=== PATIENT | male | born 1940 | race Asian ===

== ENCOUNTER 2019-03-26 17:25 | Inpatient (IN) | payer MEDICARE ==
[~2019-03-26] VITALS: Ht 177.8 cm; Wt 60.8 kg
--- NOTE | 2019-03-26 19:30 | NUR ---
NURSE NOTES: Received report & pt from Isaac of [facility] ambulance. Pt admitted from [facility]. Pt a&ox4, in room air, no s/s of acute distress & no c/o pain at this time. Skin assessed together with charge nurse Yahaira. Skin intact with optifoam on sacral area for precaution. IV site intact. Oriented pt to hospital facility. Pt belongings signed & accounted for. Bed in lowest position, call light within reach. Will continue to monitor. Addendum: 03/26/19 at 2243 by May Kovacs RN @ 1940 Called & left msg to Dr. Herman for admisison orders. aware of pt's WBC in [facility] 24.8 with no new orders.
[2019-03-26 20:00] VITALS: BP 109/54
[2019-03-26] MEDS ORDERED: IRON325 M1 PO (21:45)
[2019-03-26] MEDS ORDERED: OMEGA 3 1,0001 EACH PO (21:46)
[2019-03-26] MEDS ORDERED: CALCIUM500 M3 PO (21:46)
[2019-03-26] MEDS ORDERED: HYDROcodone/Acetamin 5/325 tab ORAL PRN (23:30)
--- NOTE | 2019-03-26 23:37 | NUR ---
NURSE NOTES: Swabs collected for MRSA, VRE/CRE screen.
[2019-03-27] VITALS: BP 103/70
[2019-03-27 04:00] VITALS: BP 118/68
[2019-03-27 06:26] LABS: HEMATOCRIT 28.8 % (42.0-52.0); HEMOGLOBIN 9.7 G/DL (14.2-18.0); MEAN CORPUSCULAR VOLUME 92 FL (80-99); PLATELET COUNT 190 K/UL (150-450); RED BLOOD COUNT 3.13 M/UL (4.70-6.10); RED CELL DISTRIBUTION WIDTH 14.8 % (11.6-14.8)
[2019-03-27 06:32] LABS: INR 1.7 (0.9-1.1)
[2019-03-27 06:51] LABS: ALANINE AMINOTRANSFERASE 19 U/L (12-78); ALBUMIN 1.8 G/DL (3.4-5.0); ALBUMIN/GLOBULIN RATIO 0.5 (1.0-2.7); ALKALINE PHOSPHATASE 333 U/L (46-116); ANION GAP 17 mmol/L (5-15); ASPARTATE AMINO TRANSFERASE 21 U/L (15-37); BILIRUBIN,TOTAL 0.7 MG/DL (0.2-1.0); BLOOD UREA NITROGEN 102 mg/dL (7-18); CALCIUM 7.9 MG/DL (8.5-10.1); CARBON DIOXIDE 21 MMOL/L (21-32); CHLORIDE 103 MMOL/L (98-107); CREATININE 3.8 MG/DL (0.55-1.30); PHOSPHORUS 7.2 MG/DL (2.5-4.9); POTASSIUM 4.2 MMOL/L (3.5-5.1); SODIUM 141 MMOL/L (136-145)
--- NOTE | 2019-03-27 07:30 | NUR ---
HAND-OFF: Report given to JOHN Berrios. Rounds done. Pt in stable condition. Addendum: 03/27/19 at 0742 by May Kovacs RN @ [phone] Herman re: Mg level 2.7, BUN 102, WBC 24.2. Awaiting reply. Endorsed to JOHN Berrios & OJHN Mancilla.
[2019-03-27 07:37] LABS: WHITE BLOOD COUNT 24.2 K/UL (4.8-10.8)
[2019-03-27 08:00] VITALS: BP 116/79
[2019-03-27] MEDS ORDERED: Phytonadione 10 mg/mL 1ml amp SUBQ SCH (09:22)
[2019-03-27] MEDS ORDERED: D5 1/2NS 1,000 ML IV SCH ×3 (09:29→14:45)
[2019-03-27] MEDS ORDERED: Nulytely 4L ORAL ONE (09:30)
--- NOTE | 2019-03-27 09:31 | General Progress Note ---
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 - anemia - coagulopathy, improved - Azotemia Recommendations - Clears - GI prep - colonoscopy tomorrow - tumor markers - IVF - follow labs - Oncology opinion Thank you Valerie Greenwood MD Subjective Allergies: Coded Allergies: No Known Allergies (Unverified , 03/26/19) Objective Last 24 Hour Vital Signs Date Time Temp Pulse Resp B/P (MAP) Pulse Ox O2 Delivery O2 Flow Rate FiO2 03/27/19 08:00 96.1 102 20 116/79 (91) 98 03/27/19 04:00 97.5 94 18 118/68 (85) 99 03/27/19 00:00 98.8 83 18 103/70 (81) 97 03/26/19 21:31 Room Air 03/26/19 20:00 98.0 96 18 109/54 (72) 99 Intake and Output 03/26/19 03/27/19 19:00 07:00 # Voids 1 # Bowel Movements 1 Laboratory Tests 03/27/19 05:20: White Blood Count 24.2*H, Red Blood Count 3.13L, Hemoglobin 9.7L, Hematocrit 28.8L, Mean Corpuscular Volume 92, Mean Corpuscular Hemoglobin 31.0, Mean Corpuscular Hemoglobin Concent 33.7, Red Cell Distribution Width 14.8, Platelet Count 190, Mean Platelet Volume 6.8, Neutrophils (%) (Auto) , Lymphocytes (%) ( Auto) , Monocytes (%) (Auto) , Eosinophils (%) (Auto) , Basophils (%) (Auto) , Differential Total Cells Counted 100, Neutrophils % (Manual) 90H, Lymphocytes % (Manual) 1L, Monocytes % (Manual) 9, Eosinophils % (Manual) 0, Basophils % ( Manual) 0, Band Neutrophils 0, Platelet Estimate Adequate, Platelet Morphology Normal, Prothrombin Time 17.6H, Prothromb Time International Ratio 1.7H, Activated Partial Thromboplast Time 42H, Sodium Level 141, Potassium Level 4.2, Chloride Level 103, Carbon Dioxide Level 21, Anion Gap 17H, Blood Urea Nitrogen 102H, Creatinine 3.8H, Estimat Glomerular Filtration Rate , Glucose Level 149H, Calcium Level 7.9L, Phosphorus Level 7.2H, Magnesium Level 2.7H, Total Bilirubin 0.7, Aspartate Amino Transf (AST/SGOT) 21, Alanine Aminotransferase ( ALT/SGPT) 19, Alkaline Phosphatase 333H, Total Protein 5.7L, Albumin 1.8L, Globulin 3.9, Albumin/Globulin Ratio 0.5L Height (Feet): 5 Height (Inches): 10.00 Weight (Pounds): 134 Valerie Greenwood MD Mar 27, 2019 09:31
--- NOTE | 2019-03-27 09:46 | NUR ---
NURSE NOTES: Patient alert, awake x4, on room air, no sing of distress and shortness of breath; no sing of chest pain; IV Left-Hand 20G flushes well; patient on clear liquid diet, no caffiene, no chocolate; will get consent for Colonoscopy; patient ambulates with assist; SCD on; side rails up x2, breaks engaged, bed at lowest position; call light within reach; will keep monitoring.
[2019-03-27] MEDS ORDERED: Nulytely 4L ORAL SCH (10:00)
[2019-03-27] MEDS ORDERED: Isovue-300 100ml vial INJ PRN (10:30)
--- NOTE | 2019-03-27 10:52 | Consultation ---
History of Present Illness General Date patient seen: Mar 27, 2019 Reason for Consultation: Inpatient management Present Illness HPI 78 year old male with no PMHx presented to [facility] on 03/25 with CC of abdominal pain. Initial evaluation including CT of abdomen revealed that pt has 6.3 cm cecal mass with large ascites, omental implants and diffuse hepatic metastasis, with left lingula metastasis. [place] [facility]. Allergies: Coded Allergies: No Known Allergies (Unverified , 03/26/19) Medication History Scheduled Calcium Carbonate (Calcium), Unknown Dose PO DAILY, (Reported) Ferrous Sulfate (Iron), 325 MG PO BID, (Reported) [place]-3 Fatty Acids/Fish Oil ([place] 3 1,000 Mg Softgel), Unknown Dose PO DAILY, (Reported) Patient History Healthcare decision maker N Resuscitation status Full Code Advanced Directive on File Past Medical/Surgical History Past Medical/Surgical History: (1) No significant past medical history Review of Systems Constitutional: Reports: malaise, weakness Gastrointestinal: Reports: abdominal pain All Other Systems: negative except mentioned in HPI Physical Exam General Appearance: cachetic, thin Lines, tubes and drains: peripheral HEENT: normocephalic, atraumatic Neck: non-tender, normal alignment Respiratory/Chest: chest wall non-tender, lungs clear Breasts: no masses Cardiovascular/Chest: normal rate Abdomen: normal bowel sounds Genitourinary/Rectal: normal genital exam Extremities: normal range of motion 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 Last 24 Hour Vital Signs Date Time Temp Pulse Resp B/P (MAP) Pulse Ox O2 Delivery O2 Flow Rate FiO2 03/27/19 08:00 96.1 102 20 116/79 (91) 98 03/27/19 04:00 97.5 94 18 118/68 (85) 99 03/27/19 00:00 98.8 83 18 103/70 (81) 97 03/26/19 21:31 Room Air 03/26/19 20:00 98.0 96 18 109/54 (72) 99 Intake and Output 03/26/19 03/27/19 19:00 07:00 # Voids 1 # Bowel Movements 1 Laboratory Tests Test 03/27/19 05:20 White Blood Count 24.2 K/UL (4.8-10.8) *H Red Blood Count 3.13 M/UL (4.70-6.10) L Hemoglobin 9.7 G/DL (14.2-18.0) L Hematocrit 28.8 % (42.0-52.0) L Mean Corpuscular Volume 92 FL (80-99) Mean Corpuscular Hemoglobin 31.0 PG (27.0-31.0) Mean Corpuscular Hemoglobin Concent 33.7 G/DL (32.0-36.0) Red Cell Distribution Width 14.8 % (11.6-14.8) Platelet Count 190 K/UL (150-450) Mean Platelet Volume 6.8 FL (6.5-10.1) Neutrophils (%) (Auto) % (45.0-75.0) Lymphocytes (%) (Auto) % (20.0-45.0) Monocytes (%) (Auto) % (1.0-10.0) Eosinophils (%) (Auto) % (0.0-3.0) Basophils (%) (Auto) % (0.0-2.0) Differential Total Cells Counted 100 Neutrophils % (Manual) 90 % (45-75) H Lymphocytes % (Manual) 1 % (20-45) L Monocytes % (Manual) 9 % (1-10) Eosinophils % (Manual) 0 % (0-3) Basophils % (Manual) 0 % (0-2) Band Neutrophils 0 % (0-8) Platelet Estimate Adequate Platelet Morphology Normal Prothrombin Time 17.6 SEC (9.30-11.50) H Prothromb Time International Ratio 1.7 (0.9-1.1) H Activated Partial Thromboplast Time 42 SEC (23-33) H Sodium Level 141 MMOL/L (136-145) Potassium Level 4.2 MMOL/L (3.5-5.1) Chloride Level 103 MMOL/L (98-107) Carbon Dioxide Level 21 MMOL/L (21-32) Anion Gap 17 mmol/L (5-15) H Blood Urea Nitrogen 102 mg/dL (7-18) H Creatinine 3.8 MG/DL (0.55-1.30) H Estimat Glomerular Filtration Rate mL/min (>60) Glucose Level 149 MG/DL (74-106) H Calcium Level 7.9 MG/DL (8.5-10.1) L Phosphorus Level 7.2 MG/DL (2.5-4.9) H Magnesium Level 2.7 MG/DL (1.8-2.4) H Total Bilirubin 0.7 MG/DL (0.2-1.0) Aspartate Amino Transf (AST/SGOT) 21 U/L (15-37) Alanine Aminotransferase (ALT/SGPT) 19 U/L (12-78) Alkaline Phosphatase 333 U/L (46-116) H Total Protein 5.7 G/DL (6.4-8.2) L Albumin 1.8 G/DL (3.4-5.0) L Globulin 3.9 g/dL Albumin/Globulin Ratio 0.5 (1.0-2.7) L Microbiology Date/Time Source Procedure Growth Status 03/26/19 23:30 Rectum Received Height (Feet): 5 Height (Inches): 10.00 Weight (Pounds): 134 Medications Current Medications Medications (Trade) Dose Ordered Sig/Madelyn Route PRN Reason Start Time Stop Time Status Last Admin Dose Admin Acetaminophen (Tylenol) 650 mg Q6H PRN ORAL Mild Pain/Temp > 100.5 03/26/19 23:30 04/25/19 23:29 Acetaminophen/ Hydrocodone Bitart ([place] 5/325) 1 tab Q6H PRN ORAL Severe Pain (Pain Scale 7-10) 03/26/19 23:30 04/02/19 23:29 Barium Sulfate (Readi-Cat 2) 450 ml NOW PRN ORAL Radiology Procedure 03/27/19 10:30 03/29/19 10:22 Dextrose/Sodium Chloride 1,000 ml @ 125 mls/hr Q8H IV 03/27/19 09:29 04/26/19 09:28 03/27/19 09:35 Iopamidol (Isovue-300 100ml) 100 ml NOW PRN INJ Radiology Procedure 03/27/19 10:30 03/29/19 10:29 Phytonadione (Vitamin K) 10 mg ONCE SUBQ 03/27/19 09:22 03/27/19 11:00 03/27/19 09:35 Polyethylene Glycol/ Electrolytes (Nulytely) 4,000 ml ONCE ORAL 03/27/19 10:00 03/27/19 23:59 Assessment/Plan Problem List: (1) Colon cancer metastasized to liver ICD Codes: C18.9 - Malignant neoplasm of colon, unspecified; C78.7 - Secondary malignant neoplasm of liver and intrahepatic bile duct SNOMED: 81128650, 892005870, 224140086 (2) Sepsis ICD Codes: A41.9 - Sepsis, unspecified organism SNOMED: 09451646 (3) Coagulopathy ICD Codes: D68.9 - Coagulation defect, unspecified SNOMED: 10465517 (4) ATN (acute tubular necrosis) ICD Codes: N17.0 - Acute kidney failure with tubular necrosis SNOMED: 30215804 (5) Severe protein-calorie malnutrition ICD Codes: E43 - Unspecified severe protein-calorie malnutrition SNOMED: 050028894, 793024438, 469721435 (6) No significant past medical history SNOMED: 515455456 Assessment/Plan: vu culture, pt might have bacteremia because of colon cancer ID evaluation Vitamin K to correct the coagulopathy IV fluid Renal US Urine electrolytes DVT prophylaxis, with SCD because of coagulopathy Ilan Fuller MD Mar 27, 2019 10:52
[2019-03-27 10:54] LABS: CREATINE KINASE 213 U/L (26-308)
--- NOTE | 2019-03-27 11:03 | NUR ---
NURSE NOTES: Patient's BUN 102 and Creat 3.8, there is an order for CT Abdomen/Pelvic w/contrast. I communicated the matter to MD Fuller, waiting for an order. Also lab did PT and PTT this moring. I asked MD Fuller, if wanna repeat the order.
[2019-03-27 11:06] LABS: LACTATE DEHYDROGENASE 347 U/L (81-234)
--- NOTE | 2019-03-27 11:44 | NUR ---
CASE MANAGEMENT: INITIAL REVIEW 78 YO M DIRECT ADMIT FROM [place] CC: ABD PAIN PMHx: DENIES SI:COLON CA W/ METS TO LIVER T 98 HR 96 RR 18 B/P 109/54 SATS 99% ON RA WBC 24.2 BUN 102 CR 3.8 GLU 149 URIC ACID 18.5 CA 7.9 PHOS 7.2 MG 2.7 ALP 333 LACTATE 347 IS: CT of abdomen revealed that pt has 6.3 cm cecal mass with large ascites, omental implants and diffuse hepatic metastasis, with left lingula metastasis. IVF @ 125 mL/HR CEFEPIME IV Q24H PATIENT ADMITTED TO MED/SURG 03/26/2019 @ 2330 DCP: PATIENT TO BE DISCHARGED TO HOME ONCE MEDICALLY CLEARED. PLAN OF CARE: GI CONSULT>> COLONOSCOPY ONCOLOGY CONSULT LAB: [facility] 2D ECHO Addendum: 03/28/19 at 0911 by Olga Watkins CM INTERQUAL MET
[2019-03-27 12:00] VITALS: BP 120/76
[2019-03-27 12:07] LABS: % IRON SATURATION 25 % (15-50); IRON 35 ug/dL (50-175); TOTAL IRON BINDING CAPACITY 139 ug/dL (250-450)
--- NOTE | 2019-03-27 12:09 | Diagnostic Imaging Report ---
Indication: Abnormal Bun and Creatinine. Abdominal pain. History of colon CA metastatic to the liver. Technique: Grayscale and duplex Doppler imaging of the kidneys performed. Comparison: None Findings: The size, contour, and echogenicity of both kidneys are within normal limits. There is no hydronephrosis.. The right kidney measures 9.8 cm. in length. The left kidney measures 10.3 cm. in length. The IVC is patent. The urinary bladder is markedly distended with an estimated volume of about 1000 cc. There is a Horn catheter present but the catheter and balloon are not visualized sonographically. There are position remains unknown. This despite the bladder distention, there is no hydronephrosis. There is a moderate degree of ascites present. The ascites is notable for heterogeneous echogenic foci which may be debris or reflective of metastatic disease. In addition at the dome of the urinary bladder there appears to be disruption of the wall, which is suspicious for intraperitoneal bladder rupture. IMPRESSION: Suspected intraperitoneal bladder rupture at the dome of the urinary bladder, which is markedly distended. Given the history of peritoneal carcinomatosis, this may be due to tumor implantation and subsequent invasion of the bladder wall. Further evaluation with contrast CT may be of benefit. Moderate heterogeneous complex ascites presumably on the basis of carcinomatosis and/or peritonitis. Unremarkable evaluation of the kidneys. No hydronephrosis. Position of the Horn catheter not elucidated on the basis of the study. Critical value communication. Findings were discussed via telephone with Dr. Pérez @12:00 PM, 03/27/2019.
--- NOTE | 2019-03-27 12:09 | NUR ---
NURSE NOTES: I spoke to MD Fuller, no need to repeat PT and PTT.
--- NOTE | 2019-03-27 12:51 | History & Physical ---
History and Physical History & Physicial Dictated for Int Med-Dr Herman no. [id number]. Kashif Ponce MD Mar 27, 2019 12:51
--- NOTE | 2019-03-27 13:33 | Consultation ---
History of Present Illness General Date patient seen: Mar 27, 2019 Reason for Consultation: Inpatient management Present Illness HPI 78 y/o M with no prior medical history is transferred from [facility] to [place] on 03/[address] abd showed 6.3 cm cecal mass with large ascites, omental implants, diffuse hepatic metastasis and L lingula metastasis. Allergies: Coded Allergies: No Known Allergies (Unverified , 03/26/19) Medication History Scheduled Calcium Carbonate (Calcium), Unknown Dose PO DAILY, (Reported) Ferrous Sulfate (Iron), 325 MG PO BID, (Reported) [place]-3 Fatty Acids/Fish Oil ([place] 3 1,000 Mg Softgel), Unknown Dose PO DAILY, (Reported) Patient History Healthcare decision maker N Resuscitation status Full Code Advanced Directive on File Patient History Narrative Pmhx: as above Shx: reviewed Fhx: non contributory Physical Exam Physical Exam Narrative General Appearance: cachetic, thin Lines, tubes and drains: peripheral HEENT: normocephalic, atraumatic Neck: non-tender, normal alignment Respiratory/Chest: chest wall non-tender, lungs clear Breasts: no masses Cardiovascular/Chest: normal rate Abdomen: normal bowel sounds Genitourinary/Rectal: normal genital exam Extremities: normal range of motion 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8 % (42.0-52.0) L Mean Corpuscular Volume 92 FL (80-99) Mean Corpuscular Hemoglobin 31.0 PG (27.0-31.0) Mean Corpuscular Hemoglobin Concent 33.7 G/DL (32.0-36.0) Red Cell Distribution Width 14.8 % (11.6-14.8) Platelet Count 190 K/UL (150-450) Mean Platelet Volume 6.8 FL (6.5-10.1) Neutrophils (%) (Auto) % (45.0-75.0) Lymphocytes (%) (Auto) % (20.0-45.0) Monocytes (%) (Auto) % (1.0-10.0) Eosinophils (%) (Auto) % (0.0-3.0) Basophils (%) (Auto) % (0.0-2.0) Differential Total Cells Counted 100 Neutrophils % (Manual) 90 % (45-75) H Lymphocytes % (Manual) 1 % (20-45) L Monocytes % (Manual) 9 % (1-10) Eosinophils % (Manual) 0 % (0-3) Basophils % (Manual) 0 % (0-2) Band Neutrophils 0 % (0-8) Platelet Estimate Adequate Platelet Morphology Normal Erythrocyte Sedimentation Rate 120 MM/HR (0-20) H Reticulocyte Count 1.9 % (0.5-2.0) Prothrombin Time 17.6 SEC (9.30-11.50) H Prothromb Time International Ratio 1.7 (0.9-1.1) H Activated Partial Thromboplast Time 42 SEC (23-33) H Sodium Level 141 MMOL/L (136-145) Potassium Level 4.2 MMOL/L (3.5-5.1) Chloride Level 103 MMOL/L (98-107) Carbon Dioxide Level 21 MMOL/L (21-32) Anion Gap 17 mmol/L (5-15) H Blood Urea Nitrogen 102 mg/dL (7-18) H Creatinine 3.8 MG/DL (0.55-1.30) H Estimat Glomerular Filtration Rate mL/min (>60) Glucose Level 149 MG/DL (74-106) H Uric Acid 18.5 MG/DL (2.6-7.2) H Calcium Level 7.9 MG/DL (8.5-10.1) L Phosphorus Level 7.2 MG/DL (2.5-4.9) H Magnesium Level 2.7 MG/DL (1.8-2.4) H Iron Level 35 ug/dL (50-175) L Total Iron Binding Capacity 139 ug/dL (250-450) L Percent Iron Saturation 25 % (15-50) Unsaturated Iron Binding 104 ug/dL (112-346) L Total Bilirubin 0.7 MG/DL (0.2-1.0) Aspartate Amino Transf (AST/SGOT) 21 U/L (15-37) Alanine Aminotransferase (ALT/SGPT) 19 U/L (12-78) Alkaline Phosphatase 333 U/L (46-116) H Lactate Dehydrogenase 347 U/L (81-234) H Total Creatine Kinase 213 U/L (26-308) Total Protein 5.7 G/DL (6.4-8.2) L Albumin 1.8 G/DL (3.4-5.0) L Globulin 3.9 g/dL Albumin/Globulin Ratio 0.5 (1.0-2.7) L Carcinoembryonic Antigen Pending Vitamin B12 Level > 2000 PG/ML (193-986) H Folate 16.0 NG/ML (8.6-58.9) Microbiology Date/Time Source Procedure Growth Status 03/26/19 23:30 Rectum Received Height (Feet): 5 Height (Inches): 10.00 Weight (Pounds): 134 Medications Current Medications Medications (Trade) Dose Ordered Sig/Madelyn Route PRN Reason Start Time Stop Time Status Last Admin Dose Admin Acetaminophen (Tylenol) 650 mg Q6H PRN ORAL Mild Pain/Temp > 100.5 03/26/19 23:30 04/25/19 23:29 Acetaminophen/ Hydrocodone Bitart ([place] 5/325) 1 tab Q6H PRN ORAL Severe Pain (Pain Scale 7-10) 03/26/19 23:30 04/02/19 23:29 Barium Sulfate (Readi-Cat 2) 450 ml NOW PRN ORAL Radiology Procedure 03/27/19 10:30 03/29/19 10:22 Cefepime HCl 1 gm/ Dextrose 55 ml @ 110 mls/hr Q24H IVPB 03/27/19 14:00 04/03/19 13:59 Dextrose/Sodium Chloride 1,000 ml @ 125 mls/hr Q8H IV 03/27/19 09:29 04/26/19 09:28 03/27/19 09:35 Iopamidol (Isovue-300 100ml) 100 ml NOW PRN INJ Radiology Procedure 03/27/19 10:30 03/29/19 10:29 Polyethylene Glycol/ Electrolytes (Nulytely) 4,000 ml ONCE ORAL 03/27/19 10:00 03/27/19 23:59 03/27/19 11:11 Assessment/Plan Assessment/Plan: Abx: Cefepime 03/27- Assessment: ?Rupture bladder Afebrile Leukocytosis -Renal US: Suspected intraperitoneal bladder rupture at the dome of the urinary bladder, which is markedly distended. Given the history of peritoneal carcinomatosis, this may be due to tumor implantation and subsequent invasion of the bladder wall. Further evaluation with contrast CT may be of benefit.Moderate heterogeneous complex ascites presumably on the basis of carcinomatosis and/or peritonitis. Unremarkable evaluation of the kidneys. No hydronephrosis. Position of the Horn catheter not elucidated on the basis of the study. Metastatic CA, likely primary Colon CA -CT abd/p (at [place]): 6.3 cm cecal mass with large ascites, omental implants , diffuse hepatic metastasis and L lingula metastasis. Plan: -Continue empiric Cefepime #1 pending cultures and given possible bladder rupture -f/u cx -Monitor CBC/CMP, temperatures -Sx f/u -Heme onc eval -aspiration precautions Thank you for this consultation. Will continue to follow along with you. Discussed with Caroline Phillips M.D. Mar 27, 2019 13:33
[2019-03-27] MEDS ORDERED: Cefepime HCl 1 GM in D5W 55 ML IVPB SCH (14:00)
--- NOTE | 2019-03-27 14:00 | NUR ---
NURSE NOTES: Called Dr. Campo Re urology consult. per urology cart placed in pt's room. stated that he will be here between 6-8pm. I will f/u as needed.
--- NOTE | 2019-03-27 14:42 | Consultation ---
History of Present Illness General Date patient seen: Mar 27, 2019 Present Illness HPI This is a 78-year-old male with history of metastatic colon cancer who is initially at [facility] and transferred to [facility] for remainder of care. Patient presented to [place] complaining of abdominal pain. At [place] he was identified to have a leukocytosis, abdominal distention, abdominal discomfort, and a CT scan with a cecal mass and diffuse metastatic disease throughout the liver and lymph nodes. Surgery was called to evaluate and assist with care. Patient seen, patient [place], chart reviewed. Patient with leukocytosis 24,000. Abnormal labs. Renal insufficiency. Ultrasound identified possible questionable bladder rupture. Patient states that he is comfortable but has cramping abdominal discomfort. He is aware of his disease process and prognosis. States he is tolerating diet and having bowel movements. Allergies: Coded Allergies: No Known Allergies (Unverified , 03/26/19) Medication History Scheduled Calcium Carbonate (Calcium), Unknown Dose PO DAILY, (Reported) Ferrous Sulfate (Iron), 325 MG PO BID, (Reported) Neosho-3 Fatty Acids/Fish Oil ([place]ho 3 1,000 Mg Softgel), Unknown Dose PO DAILY, (Reported) Patient History History Provided By: Patient, Medical Record, PMD Healthcare decision maker N Resuscitation status Full Code Advanced Directive on File Past Medical/Surgical History Past Medical/Surgical History: (1) No significant past medical history (2) Coagulopathy (3) ATN (acute tubular necrosis) (4) Severe protein-calorie malnutrition (5) Sepsis (6) Colon cancer metastasized to liver (7) Renal failure Review of Systems Review of Symptoms General ROS: no weight loss or fever Psychological ROS: no depression or mood changes, no memory loss Ophthalmic ROS: no visual changes or eye irritation ENT ROS: no nasal congestion, hearing loss, dizziness Allergy and Immunology ROS: no allergic symptoms or urticaria Hematological and Lymphatic ROS: no swollen glands, unusual bleeding or bruising Endocrine ROS: no polyuria, polydipsia, weight changes, temperature intolerance Respiratory ROS: no cough, shortness of breath, or wheezing Cardiovascular ROS: no chest pain or dyspnea on exertion Gastrointestinal ROS: abdominal pain, no bright red blood in stool. Musculoskeletal ROS: no myalgias or arthralgias Neurological ROS: no TIA or stroke symptoms Dermatological ROS: no new or changing skin lesions, rashes or pruritis Physical Exam Physical Exam General appearance: alert, cooperative, no distress, appears stated age Head: Normocephalic, without obvious abnormality, atraumatic Eyes: conjunctivae/corneas clear. PERRL, EOM's intact. Fundi benign Throat: Lips, mucosa, and tongue normal. Teeth and gums normal Neck: supple, symmetrical, trachea midline, no adenopathy, thyroid: not enlarged, symmetric, no tenderness/mass/nodules, no carotid bruit and no JVD Lungs: clear to auscultation bilaterally Heart: regular rate and rhythm, S1, S2 normal, no murmur, click, rub or gallop Abdomen: soft, mild-tender, distended . Bowel sounds normal. masses, no organomegaly Extremities: extremities normal, atraumatic, no cyanosis or edema Pulses: 2+ and symmetric Skin: Skin color, texture, turgor normal. No rashes or lesions Neurologic: Grossly normal Last 24 Hour Vital Signs Date Time Temp Pulse Resp B/P (MAP) Pulse Ox O2 Delivery O2 Flow Rate FiO2 03/27/19 12:00 97.9 81 20 120/76 (91) 95 03/27/19 09:00 Room Air 03/27/19 08:00 96.1 102 20 116/79 (91) 98 03/27/19 04:00 97.5 94 18 118/68 (85) 99 03/27/19 00:00 98.8 83 18 103/70 (81) 97 03/26/19 21:31 Room Air 03/26/19 20:00 98.0 96 18 109/54 (72) 99 Intake and Output 03/26/19 03/27/19 19:00 07:00 # Voids 1 # Bowel Movements 1 Laboratory Tests Test 03/27/19 05:20 03/27/19 12:14 White Blood Count 24.2 K/UL (4.8-10.8) *H Red Blood Count 3.13 M/UL (4.70-6.10) L Hemoglobin 9.7 G/DL (14.2-18.0) L Hematocrit 28.8 % (42.0-52.0) L Mean Corpuscular Volume 92 FL (80-99) Mean Corpuscular Hemoglobin 31.0 PG (27.0-31.0) Mean Corpuscular Hemoglobin Concent 33.7 G/DL (32.0-36.0) Red Cell Distribution Width 14.8 % (11.6-14.8) Platelet Count 190 K/UL (150-450) Mean Platelet Volume 6.8 FL (6.5-10.1) Neutrophils (%) (Auto) % (45.0-75.0) Lymphocytes (%) (Auto) % (20.0-45.0) Monocytes (%) (Auto) % (1.0-10.0) Eosinophils (%) (Auto) % (0.0-3.0) Basophils (%) (Auto) % (0.0-2.0) Differential Total Cells Counted 100 Neutrophils % (Manual) 90 % (45-75) H Lymphocytes % (Manual) 1 % (20-45) L Monocytes % (Manual) 9 % (1-10) Eosinophils % (Manual) 0 % (0-3) Basophils % (Manual) 0 % (0-2) Band Neutrophils 0 % (0-8) Platelet Estimate Adequate Platelet Morphology Normal Erythrocyte Sedimentation Rate 120 MM/HR (0-20) H Reticulocyte Count 1.9 % (0.5-2.0) Prothrombin Time 17.6 SEC (9.30-11.50) H Prothromb Time International Ratio 1.7 (0.9-1.1) H Activated Partial Thromboplast Time 42 SEC (23-33) H Sodium Level 141 MMOL/L (136-145) Potassium Level 4.2 MMOL/L (3.5-5.1) Chloride Level 103 MMOL/L (98-107) Carbon Dioxide Level 21 MMOL/L (21-32) Anion Gap 17 mmol/L (5-15) H Blood Urea Nitrogen 102 mg/dL (7-18) H Creatinine 3.8 MG/DL (0.55-1.30) H Estimat Glomerular Filtration Rate mL/min (>60) Glucose Level 149 MG/DL (74-106) H Uric Acid 18.5 MG/DL (2.6-7.2) H Calcium Level 7.9 MG/DL (8.5-10.1) L Phosphorus Level 7.2 MG/DL (2.5-4.9) H Magnesium Level 2.7 MG/DL (1.8-2.4) H Iron Level 35 ug/dL (50-175) L Total Iron Binding Capacity 139 ug/dL (250-450) L Percent Iron Saturation 25 % (15-50) Unsaturated Iron Binding 104 ug/dL (112-346) L Total Bilirubin 0.7 MG/DL (0.2-1.0) Aspartate Amino Transf (AST/SGOT) 21 U/L (15-37) Alanine Aminotransferase (ALT/SGPT) 19 U/L (12-78) Alkaline Phosphatase 333 U/L (46-116) H Lactate Dehydrogenase 347 U/L (81-234) H Total Creatine Kinase 213 U/L (26-308) Total Protein 5.7 G/DL (6.4-8.2) L Albumin 1.8 G/DL (3.4-5.0) L Globulin 3.9 g/dL Albumin/Globulin Ratio 0.5 (1.0-2.7) L Carcinoembryonic Antigen Pending Vitamin B12 Level > 2000 PG/ML (193-986) H Folate 16.0 NG/ML (8.6-58.9) Urine Color Pending Urine Appearance Pending Urine pH Pending Urine Specific Edwards Pending Urine Protein Pending Urine Glucose (UA) Pending Urine Ketones Pending Urine Blood Pending Urine Nitrite Pending Urine Bilirubin Pending Urine Urobilinogen Pending Urine Leukocyte Esterase Pending Urine RBC Pending Urine WBC Pending Urine Squamous Epithelial Cells Pending Urine Bacteria Pending Microbiology Date/Time Source Procedure Growth Status 03/26/19 23:30 Rectum Received Height (Feet): 5 Height (Inches): 10.00 Weight (Pounds): 134 Medications Current Medications Medications (Trade) Dose Ordered Sig/Madelyn Route PRN Reason Start Time Stop Time Status Last Admin Dose Admin Acetaminophen (Tylenol) 650 mg Q6H PRN ORAL Mild Pain/Temp > 100.5 03/26/19 23:30 04/25/19 23:29 Acetaminophen/ Hydrocodone Bitart ([place] 5/325) 1 tab Q6H PRN ORAL Severe Pain (Pain Scale 7-10) 03/26/19 23:30 04/02/19 23:29 Barium Sulfate (Readi-Cat 2) 450 ml NOW PRN ORAL Radiology Procedure 03/27/19 10:30 03/29/19 10:22 Barium Sulfate (Readi-Cat 2) 450 ml NOW PRN ORAL Radiology Procedure 03/27/19 14:00 03/29/19 13:58 Cefepime HCl 1 gm/ Dextrose 55 ml @ 110 mls/hr Q24H IVPB 03/27/19 14:00 04/03/19 13:59 Dextrose/Sodium Chloride 1,000 ml @ 125 mls/hr Q8H IV 03/27/19 09:29 04/26/19 09:28 03/27/19 09:35 Iopamidol (Isovue-300 100ml) 100 ml NOW PRN INJ Radiology Procedure 03/27/19 10:30 03/29/19 10:29 Polyethylene Glycol/ Electrolytes (Nulytely) 4,000 ml ONCE ORAL 03/27/19 10:00 03/27/19 23:59 03/27/19 11:11 Assessment/Plan Problem List: (1) Sepsis Assessment & Plan: This is a very unfortunate 78-year-old male with metastatic advanced colorectal cancer with mets of the lymph nodes and liver. Patient presented with leukocytosis and abdominal discomfort. 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 Patient currently stating he is tolerating diet and having bowel movements. Abdomen complaining of abdominal discomfort but no nausea or emesis. No fever chills. No acute surgical intervention recommended at this time given patient's medical condition and prognosis. 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 Ultrasound noted and will obtain a CT here to ensure that there is no bladder rupture potentially. Thank you for this consultation we will follow with recommendations Okay for diet from surgical standpoint ICD Codes: A41.9 - Sepsis, unspecified organism SNOMED: 44037427 (2) Colon cancer metastasized to liver ICD Codes: C18.9 - Malignant neoplasm of colon, unspecified; C78.7 - Secondary malignant neoplasm of liver and intrahepatic bile duct SNOMED: 54158346, 293269038, [id number] (3) Severe protein-calorie malnutrition ICD Codes: E43 - Unspecified severe protein-calorie malnutrition SNOMED: 017317480, [id number], [id number] Harmeet Pérez Mar 27, 2019 14:42
--- NOTE | 2019-03-27 14:49 | Consultation ---
Consult Note Consult Note asked to eval for renal failure- 78 y/o M with no prior medical history is transferred from [facility] to [place] on 03/[address] abd showed 6.3 cm cecal mass with large ascites, omental implants, diffuse hepatic metastasis and L lingula metastasis. examined weak low bp has ascitis discussed with RN data reviewed Assessment/Plan Acute renal failure- Mainly Pre renal Colon Ca with mets to liver Ascitis , likely malignant Sepsis , Leukocytosis Severe Malnutrition poor prognosis antibiotics Horn: 200 cc urine Fluid challenge Monitor renal parameters and urine out pot per orders Cristian Salgado MD Mar 27, 2019 14:49
[2019-03-27 14:50] LABS: APPEARANCE,URINE CLEAR; BILIRUBIN, URINE NEGATIVE (NEGATIVE); GLUCOSE, URINE (UA) NEGATIVE (NEGATIVE); KETONES,URINE 1+ (NEGATIVE); LEUKOCYTE ESTERASE ,URINE 1+ (NEGATIVE); NITRITE,URINE NEGATIVE (NEGATIVE); PH,URINE 5 (4.5-8.0); PROTEIN,URINE 1+ (NEGATIVE); UROBILINOGEN,URINE NORMAL MG/DL (0.0-1.0)
[2019-03-27 14:56] LABS: COLOR,URINE YELLOW
--- NOTE | 2019-03-27 15:09 | NUR ---
NURSE NOTES: Patient left the floor for CT ABD Pelvis WO Contrast;
--- NOTE | 2019-03-27 15:30 | NUR ---
NURSE NOTES: Patient back to the floor from CT ABD.
[2019-03-27 16:00] VITALS: BP 119/73
--- NOTE | 2019-03-27 16:06 | Diagnostic Imaging Report ---
Indication: Abdominal pain and distention Technique: Continuous helical transaxial imaging of the abdomen and pelvis was obtained from the lung bases to the pubic symphysis. No intravenous contrast was administered. Coronal 2-D reformats were also obtained. Automatic Exposure Control was utilized. Total Dose length Product (DLP): 749.[address] Dose Index Volume (CTDIvol): 12.77 mGy Comparison: Renal ultrasound earlier today Findings: There is moderate to large ascites which appears patchy and heterogeneous. Findings are suspicious for carcinomatosis. This is corroborated with the areas of nodular and reticular densities within the mesentery and omentum. The recent ultrasound exam had suggested possibility of a distended urinary bladder with perforation at the dome. This is incorrect as CT shows a nondistended bladder compressed by large pelvic ascites likely related to tumor and carcinomatosis. There is no Horn catheter present. There is suggestion of a filling defect with resultant distention of the cecum. Colonoscopic correlation is needed. There is some contrast material outlining the mass. The liver is heterogeneous with areas of low attenuation that are ill-defined consistent with extensive metastatic disease. There is suggestion of gallstones versus sludge in the dependent part of the gallbladder. The kidneys show no hydronephrosis. Aorta is mildly calcified. There is generalized bowel dilatation and some wall thickening without evidence of obstruction. Anasarca noted. There is liquefied stool in the colon and within the rectum. Correlate clinically for diarrhea. Trace bilateral pleural effusions are present. There is a 1 cm nodule in the anterior left lung base as well as a few additional nodules bilaterally consistent with metastatic neoplasm. IMPRESSION: No evidence of bladder perforation. The bladder is decompressed. Ultrasound imaging of what appear to be a distended ruptured bladder is actually an area of loculated ascites, probably complex cystic mass associated with carcinomatosis. Evidence of peritoneal carcinomatosis as described above. Evidence of metastatic neoplasm involving the liver and lung as described above. Suggestion of a cecal mass, likely adenocarcinoma. Correlate with previous colonoscopy and/or histology results. Anasarca Atherosclerotic vascular disease. Liquefied stool in the colon. Correlate for diarrhea and enteritis/colitis. Trace bilateral pleural effusions. Gallstones versus sludge The CT scanner at [facility] is accredited by the [employer] and the scans are performed using dose optimization techniques as appropriate to a performed exam including Automatic Exposure control.
--- NOTE | 2019-03-27 17:02 | NUR ---
NURSE NOTES: I called [facility] [place] office regarding the D51/2NS 150cc fluid and Albumin
--- NOTE | 2019-03-27 17:30 | History and Physical Report ---
DATE OF ADMISSION: 03/26/2019 CHIEF COMPLAINT: The patient is a 78-year-old male, who presents with a chief complaint of abdominal pain and swelling. HISTORY OF PRESENT ILLNESS: Began one month previously. The patient began to have abdominal pain. Abdominal pain seems to be located in the right lower quadrant. The patient saw his primary care physician, who diagnosed him with iron deficiency anemia. The patient has been taking iron for the past month or so. The patient presented initially to [facility] emergency room. The patient had gross ascites. The CT scan of the abdomen revealed a cecal mass with probable metastases to the liver and peritoneum. The patient is admitted. An initial CT scan of the abdomen revealed a cecal mass with probable metastases to the liver and peritoneum. The patient is transferred to [facility] for insurance purposes. The patient is admitted with cecal mass and probable metastases to liver and omentum. REVIEW OF SYSTEMS: CONSTITUTIONAL: The patient denies weight loss or weight gain. The patient denies fevers or chills. HEENT: The patient denies ear or throat pain. The patient denies headache. CARDIOVASCULAR: The patient denies palpitations or chest pain. CHEST: The patient denies wheeze or shortness of breath. ABDOMINAL: The patient complains of right lower quadrant pain as above. The patient complains of generalized swelling of the abdomen. The patient denies nausea, vomiting, diarrhea, or constipation. GENITOURINARY: The patient denies dysuria or increased frequency of urination. NEUROMUSCULAR: The patient denies seizures or generalized weakness. PAST MEDICAL HISTORY: The patient denies. PAST SURGICAL HISTORY: Significant for colonoscopy 3 years previously. CURRENT MEDICATIONS: Iron 325 mg 1 tablet p.o. twice daily. ALLERGIES: No known drug allergies. SOCIAL HISTORY: The patient is single and lives alone. The patient denies tobacco or alcohol use. PHYSICAL EXAMINATION: VITAL SIGNS: Blood pressure 114/46, pulse 91, respirations 11, and temperature 97.4 degrees Fahrenheit. GENERAL: The patient is a thin-appearing male, in no apparent distress. HEENT: Eyes, pupils are equal and responsive to light and accommodation. Extraocular movements are intact. NECK: Supple without lymphadenopathy. CHEST: Lungs are clear to auscultation bilaterally without wheezes or rales. CARDIOVASCULAR: Regular rhythm and rate. S1, S2 are normal without murmurs, rubs, or gallops. ABDOMEN: Soft and grossly distended with decreased bowel sounds. Presence of fluid wave noted. No evidence of hepatosplenomegaly. Currently, no rebound or guarding noted. EXTREMITIES: Negative for clubbing, cyanosis, or edema. RECTAL/GENITAL: Not performed. NEUROLOGIC: Cranial nerves II through XII are grossly intact without focal deficits. Motor strength is 5/5 bilaterally. Deep tendon reflexes are 2+ plantar. LABORATORY STUDIES: WBC 23.6, hemoglobin 10.5, hematocrit 32.0, and platelets 224,000. Sodium 128, potassium 6.1, chloride 88, CO2 22, BUN 89, creatinine 4.21, and glucose 92. Alkaline phosphatase elevated at 277. Total bilirubin elevated at 1.1. Protime elevated, however exact value is not known. A CT scan of the abdomen showed a 6.3 sickle based mass with probable mets to the peritoneum and liver. ASSESSMENT: This is a 78-year-old male. 1. Cecal mass with probable metastases. 2. Ascites. 3. Acute renal failure. 4. Coagulopathy. TREATMENT: 1. Cecal mass with probable mets. A Gastroenterology consultation has been obtained with Dr. Valerie Greenwood. The patient was scheduled for colonoscopy at [facility], however, the patient was transferred due to insurance purposes. We will follow recommendations of Gastroenterology. Biopsy of the cecal mass is necessary to determine presence or absence of metastatic cancer. 2. Ascites as above. A Gastroenterology consultation has been obtained with Dr. Valerie Greenwood. The patient may require paracentesis during this hospitalization. 3. Acute renal failure. Cause of acute renal failure is unknown. A renal ultrasound at [facility] failed to demonstrate hydronephrosis. A Nephrology consultation has been obtained with Dr. Salgado. 4. Coagulopathy. The patient is status post transfusion of 2 units of fresh frozen plasma at [facility]. Serial protimes will be performed. Kashif Ponce M.D. DR: PIERCE JOB#: [id number] CC:
[2019-03-27] MEDS: Docusate 100mg tablet ORAL SCH (17:44)
--- NOTE | 2019-03-27 19:32 | NUR ---
HAND-OFF: Report given to JOHN Andrade.
--- NOTE | 2019-03-27 19:37 | NUR ---
HAND-OFF: Report given to Raymond RN, pt in stable condition. - Endorsed to incoming nurse that multiple attempts were made to contact Dr. Salgado to clarify IVF and Albumin orders. incoming RN will f/u. - Received a call from Dr. Campo, he will be here soon to insert Horn cath. Urology cart at bedside per his request.
[2019-03-27 20:00] VITALS: BP 111/62
--- NOTE | 2019-03-27 20:30 | NUR ---
NURSE NOTES: Received pt lying in bed. AAO x 4, on room air. IV site intact and patent. Pt has edema on both legs and distended, swollen abd. Morning shift nurse reported that RN called Dr. Salgado to clarify D5 1/2 NS 150cc/hr and Albumin and still waiting call. Also, Nulytely scheduled @0930 and day shift scheduleewas not given due to that pt wouldn't tolerate. Dr. Campo is at bedside and inserted Horn. Per stewart Booth to give Albumin, D5 1/2 NS and ordered do not d/c Horn. Bed locked, lowest position, alarm on, side rails up x 2, Will continue to monitor. Addendum: 03/28/19 at 0009 by SHABBIR BULLOCK RN RN NURSE NOTES: Notes for 03/27/19 at 2030. Received pt lying in bed. AAO x 4, on room air. IV site intact and patent. Pt has edema on both legs and distended, swollen abd. Morning shift nurse reported that RN called Dr. Salgado to clarify D5 1/2 NS 150cc/hr and Albumin and still waiting call. Also, Nulytely scheduled @0930 for day shift but was not given due to the pt couldn't tolerate it. Off going Charo, RN stated to proceed with bowel prep for colonoscopy. Dr. Campo is at bedside and inserted Horn. Per stewart Booth to give Albumin, D5 1/2 NS and ordered do not d/c Horn. Bed locked, lowest position, alarm on, side rails up x 2, Will continue to monitor.
[2019-03-27] MEDS: Pantoprazole Inj IVP SCH (21:11)
[2019-03-27] MEDS ORDERED: Tamsulosin 0.4mg cap ORAL SCH (21:30)
--- NOTE | 2019-03-27 21:40 | NUR ---
NURSE NOTES: Bowel prep given @2140. RN educated patient to finish within 2hrs.
--- NOTE | 2019-03-27 22:00 | Consultation ---
DATE OF CONSULTATION: 03/27/2019 CONSULTING PHYSICIAN: Nando Campo M.D. REFERRING PHYSICIAN: Eddi Herman M.D. REASON FOR EVALUATION: For evaluation of difficult catheterization. HISTORY OF PRESENT ILLNESS: This is an unfortunate 78-year-old male. He was recently seen in the [facility] because of abdominal pain and distention. He had a workup over there, which showed a cecal mass with carcinomatosis and ascites. The patient was subsequently transferred here to [facility]. The patient was noted to be in renal failure. A Horn was placed and apparently there was some drainage of urine. He eventually was not draining much. There was some manipulation of the Horn and there was some hematuria noted. There was an abdominal ultrasound, which showed possible bladder distention and bladder rupture and Urology evaluation has been requested. Of note, a CT scan, which was performed after the ultrasound showed that the bladder was intact. It was nondistended and in fact, the patient had a large ascites fluid with probably a loculated collection near the bladder, which had the appearance of the bladder on ultrasound. The patient denies previous prostate surgery. PAST MEDICAL HISTORY: Significant for above. PAST SURGICAL HISTORY: Unknown. CURRENT MEDICATIONS: Here in the hospital the patient is on Protonix, Colace, allopurinol, cefepime, acetaminophen. ALLERGIES: No known drug allergies. SOCIAL HISTORY: He is a nonsmoker. REVIEW OF SYSTEMS: As above. FAMILY HISTORY: Noncontributory. PHYSICAL EXAMINATION: GENERAL: An elderly male, slightly cachectic. No acute distress. VITAL SIGNS: Temperature is 97.3, blood pressure is 119/73, pulse 98, respirations 18. ABDOMEN: Distended and firm. GENITOURINARY: Reveals old blood at the meatus. LABORATORY DATA: UA showed 2 to 4 rbc's, 5 to 10 wbcs', 1+ protein. White count is 24.2, hemoglobin 9.7, platelets of 190. BUN 102, creatinine 3.8, baseline creatinine is unknown to me. His PT 17.6, INR 1.7. DIAGNOSTIC IMAGING STUDIES: Again as noted above, the patient initially had a renal ultrasound. There was mention of possible intraperitoneal bladder rupture with distention of the bladder. There was no hydronephrosis. Subsequently, the patient had a CT scan of the abdomen and pelvis, which showed that there was no evidence of bladder perforation and in fact, the bladder was nondistended and it was decompressed by loculated ascites or complex cystic mass associated with carcinomatosis. PROCEDURE: At the bedside, I did evaluate the patient and I did personally attempt to passive a regular Horn catheter, which was met with resistance in the mid urethra. I then attempted a coude catheter, which also did not go into the bladder. Subsequently, I was able to manipulate a filiform to go into the bladder. The patient may have a stricture in the urethra or some kind of false passage. Nevertheless, I was able to dilate with a filiform and I passed a 16-[place] tip catheter into the bladder. It was in good position. There was some return of slightly bloody urine, but there was not much residual and I was able to irrigate the catheter and appears to be in good position. IMPRESSION: 1. Questionable urinary retention. 2. BPH history. 3. Possible neurogenic bladder. 4. Hematuria. 5. Renal insufficiency, acute versus chronic. 6. Pyuria. 7. Proteinuria. 8. Possible urethral stricture or false passage. PLAN AND DISCUSSION: Again as noted above, the patient's abdominal distention is secondary to ascites and not bladder distention. Nevertheless, a Horn catheter is in place. I was able to irrigate it. I told the nursing staff to hand irrigate it as needed and for now, I do not want the Horn catheter to be removed until his kidney function is stabilized and his other medical issues are addressed. At some point, he will need to have cystoscopy to go to look at the lower urinary tract. I will also add Flomax empirically with a voiding trial in the future. I would not recommend doing bladder scans on this patient because it would be inaccurate as . Thank you for this consultation. Nando Campo M.D. DR: MAX JOB#: [id number] CC:
[2019-03-27] MEDS: D5 1/2NS 1,000 ML IV SCH (22:04)
--- NOTE | 2019-03-27 22:20 | NUR ---
NURSE NOTES: Received call from Dr. Salgado. Stated finish bowel prep by @0200.
--- NOTE | 2019-03-27 22:25 | NUR ---
NURSE NOTES: Albumin scheduled @2200 given. Called pipe line to make reschedule time for Albumin scheduled @1500. Pipe line rescheduled @0300.
[2019-03-28] VITALS (20 sets, daily range): BP systolic 95–150; BP diastolic 46–108
--- NOTE | 2019-03-28 02:00 | NUR ---
NURSE NOTES: Pt finished bowel prep 2/3 amount. Pt stated can't take bowel prep anymore. Started bowel movement. Stool collected for OBS and sent to the lab.
--- NOTE | 2019-03-28 02:30 | Consultation ---
DATE OF CONSULTATION: 03/27/2019 CHIEF COMPLAINT: I was asked to see this patient by Dr. Eddi Herman for evaluation of cecal mass with metastases. HISTORY OF PRESENT ILLNESS: The patient is a 78-year-old man, who came to [facility] and subsequently transferred to this hospital for definitive care. He states that he has been having abdominal pain for two weeks and has been losing weight, and noted to have abdominal distention. 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 The patient was transferred to [facility]. The patient was planned to have a colonoscopy though it has been done yet. PAST MEDICAL HISTORY: Otherwise unremarkable. FAMILY HISTORY: Negative for gastrointestinal disorder . SOCIAL HISTORY: The patient is single. He has no children. He does not smoke or drink. REVIEW OF SYSTEMS: Otherwise negative. PHYSICAL EXAMINATION: GENERAL: A thin man, seen in his room. HEENT: Normocephalic and atraumatic. Sclerae anicteric. Oropharynx clear. NECK: Supple. CHEST: Clear to auscultation. CARDIOVASCULAR: Revealed regular rate. ABDOMEN: Distended but nontender. There is sensation of fluid wave consistent with ascites. EXTREMITIES: Revealed bilateral edema. LABORATORY AND DIAGNOSTIC DATA: Noted. 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 As such, his prognosis is extremely poor. However for diagnostic purposes, colonoscopy can be done for biopsies. Oncology consultation should also be obtained to determine the best course of action. I will check his tumor markers. Ascites can be drained periodically to provide the patient some degree of comfort. RECOMMENDATIONS: Per above discussion and per orders written in the chart. Thank you for asking me to participate in the care of this patient. Valerie Greenwood M.D. DR: Harsh JOB#: [id number] CC:
[2019-03-28] MEDS: D5 1/2NS 1,000 ML IV SCH ×2 (04:39→09:50)
[2019-03-28 06:52] LABS: INR 1.4 (0.9-1.1)
--- NOTE | 2019-03-28 06:56 | NUR ---
NURSE NOTES: Informed Dr. Greenwood that bowel prep given at 0 and he finished 2/3 amount. Pt can't tolerate taking bowel prep anymore and stated it is hurting, tighten, nausea for abd. Pt refused it. He did two times liquid brown bowel movements with small amount of blood. Not clear liquid. Dr. Greenwood said OK. RN left message to Dr. Salgado as well.
--- NOTE | 2019-03-28 07:00 | NUR ---
NURSE NOTES: Pt c/o SOB. Pulse oximeter is 98%. RN holded D5 1/2 NS and left message to Dr. Salgado. Waiting call back.
[2019-03-28 07:04] LABS: HEMATOCRIT 25.5 % (42.0-52.0); HEMOGLOBIN 8.7 G/DL (14.2-18.0); MEAN CORPUSCULAR VOLUME 91 FL (80-99); PLATELET COUNT 150 K/UL (150-450); RED BLOOD COUNT 2.79 M/UL (4.70-6.10); RED CELL DISTRIBUTION WIDTH 15.6 % (11.6-14.8); WHITE BLOOD COUNT 14.1 K/UL (4.8-10.8)
[2019-03-28 07:17] LABS: ALANINE AMINOTRANSFERASE 14 U/L (12-78); ALBUMIN 2.7 G/DL (3.4-5.0); ALBUMIN/GLOBULIN RATIO 0.8 (1.0-2.7); ALKALINE PHOSPHATASE 234 U/L (46-116); ANION GAP 14 mmol/L (5-15); ASPARTATE AMINO TRANSFERASE 17 U/L (15-37); BILIRUBIN,TOTAL 0.9 MG/DL (0.2-1.0); BLOOD UREA NITROGEN 94 mg/dL (7-18); CALCIUM 7.5 MG/DL (8.5-10.1); CARBON DIOXIDE 22 MMOL/L (21-32); CHLORIDE 100 MMOL/L (98-107); CREATININE 3.4 MG/DL (0.55-1.30); PHOSPHORUS 4.9 MG/DL (2.5-4.9); POTASSIUM 4.2 MMOL/L (3.5-5.1); SODIUM 136 MMOL/L (136-145)
--- NOTE | 2019-03-28 07:20 | NUR ---
CASE MANAGEMENT: REVIEW 03/28/2019 SI:COLON CA W/ METS TO LIVER T 97.2 HR 94 RR 18 B/P 114/64 SATS 98% ON RA WBC 14.1 BUN 94 K 3.4 GLU 163 CA 7.5 ALP 234 AMMONIA <10 STOOL OB: PENDING HEP B/C: PENDING IS: IVF @ 150 mL/HR PROTONIX IV Q12H FLOMAX PO QHS ALLOPURINOL PO QD CEFEPIME IV Q24H US RENAL IMPRESSION: Suspected intraperitoneal bladder rupture at the dome of the urinary bladder CT ABD/PELVIS Ultrasound imaging of what appear to be a distended ruptured bladder is actually an area of loculated ascites, probably complex cystic mass associated with carcinomatosis MED/SURG STATUS DCP: PATIENT TO BE DISCHARGED TO HOME ONCE MEDICALLY CLEARED. PLAN OF CARE: COLONOSCOPY 2D ECHO EF 65%
--- NOTE | 2019-03-28 07:24 | Urology Progress Note ---
Assessment/Plan Assessment/Plan: 1. Questionable urinary retention. 2. BPH history. 3. Possible neurogenic bladder. 4. Hematuria. 5. Renal insufficiency, acute versus chronic. 6. Pyuria. 7. Proteinuria. 8. Possible urethral stricture or false passage. keep weeks for now hand irrigate PRN monitor renal fxn flomax added voiding trial later cysto later Subjective Allergies: Coded Allergies: No Known Allergies (Unverified , 03/26/19) Subjective all noted, feels fair, weeks has bee draining Objective Last 24 Hour Vital Signs Date Time Temp Pulse Resp B/P (MAP) Pulse Ox O2 Delivery O2 Flow Rate FiO2 03/28/19 04:00 97.2 94 18 114/64 (81) 98 03/28/19 00:00 96.8 89 18 116/67 (83) 97 03/27/19 21:00 Room Air 03/27/19 20:00 97.0 95 18 111/62 (78) 96 03/27/19 16:00 97.3 98 18 119/73 (88) 97 03/27/19 12:00 97.9 81 20 120/76 (91) 95 03/27/19 09:00 Room Air 03/27/19 08:00 96.1 102 20 116/79 (91) 98 Intake and Output 03/27/19 03/28/19 18:59 06:59 Intake Total 1215 ml 750 ml Output Total 300 ml Balance 1215 ml 450 ml Intake Oral 480 ml IV Total 735 ml 750 ml Output Urine Total 300 ml Microbiology Date/Time Source Procedure Growth Status 03/27/19 10:50 Urine,Clean Catch Urine Culture - Preliminary NO GROWTH Resulted 03/26/19 23:30 Rectum Received Current Medications Medications (Trade) Dose Ordered Sig/Madelyn Route PRN Reason Start Time Stop Time Status Last Admin Dose Admin Acetaminophen (Tylenol) 650 mg Q6H PRN ORAL Mild Pain/Temp > 100.5 03/26/19 23:30 04/25/19 23:29 Acetaminophen/ Hydrocodone Bitart ([place] 5/325) 1 tab Q6H PRN ORAL Severe Pain (Pain Scale 7-10) 03/26/19 23:30 04/02/19 23:29 Allopurinol (Allopurinol) 300 mg DAILY ORAL 03/27/19 15:00 04/26/19 14:59 03/27/19 16:55 Barium Sulfate (Readi-Cat 2) 450 ml NOW PRN ORAL Radiology Procedure 03/27/19 10:30 03/29/19 10:22 Barium Sulfate (Readi-Cat 2) 450 ml NOW PRN ORAL Radiology Procedure 03/27/19 14:00 03/29/19 13:58 Cefepime HCl 1 gm/ Dextrose 55 ml @ 110 mls/hr Q24H IVPB 03/27/19 14:00 04/03/19 13:59 03/27/19 15:31 Dextrose/Sodium Chloride 1,000 ml @ 150 mls/hr Q6H40M IV 03/27/19 20:30 04/26/19 20:29 03/28/19 04:39 Docusate Sodium (Colace) 100 mg TID ORAL 03/27/19 18:00 04/26/19 17:59 03/27/19 17:44 Iopamidol (Isovue-300 100ml) 100 ml NOW PRN INJ Radiology Procedure 03/27/19 10:30 03/29/19 10:29 Pantoprazole (Protonix) 40 mg EVERY 12 HOURS IVP 03/27/19 21:00 04/26/19 20:59 03/27/19 21:11 Tamsulosin HCl (Flomax) 0.4 mg BEDTIME ORAL 03/27/19 21:30 04/26/19 21:29 03/27/19 22:09 Laboratory Tests 03/27/19 12:14: Urine Color Yellow, Urine Appearance Clear, Urine pH 5, Urine Specific [place] 1.020, Urine Protein 1+H, Urine Glucose (UA) Negative, Urine Ketones 1+H, Urine Blood 1+H, Urine Nitrite Negative, Urine Bilirubin Negative, Urine Urobilinogen Normal, Urine Leukocyte Esterase 1+H, Urine RBC 2-4H, Urine WBC 5-10H, Urine Squamous Epithelial Cells ModerateH, Urine Bacteria Few 03/27/19 15:28: Urine Eosinophils None seen, Urine Osmolality 444, Urine Random Creatinine [ Pending], Urine Random Microalbumin [Pending], Urine Random Sodium < 20L, Urine Microalbumin/Creatinine Ratio [Pending] 03/28/19 01:50: Stool Occult Blood [Pending] 03/28/19 06:10: White Blood Count 14.1H, Red Blood Count 2.79L, Hemoglobin 8.7L, Hematocrit 25.5L, Mean Corpuscular Volume 91, Mean Corpuscular Hemoglobin 31.2H, Mean Corpuscular Hemoglobin Concent 34.1, Red Cell Distribution Width 15.6H, Platelet Count 150, Mean Platelet Volume 6.7, Neutrophils (%) (Auto) , Lymphocytes (%) (Auto) , Monocytes (%) (Auto) , Eosinophils (%) (Auto) , Basophils (%) (Auto) , Neutrophils % (Manual) [Pending], Lymphocytes % (Manual) [Pending], Platelet Estimate [Pending], Platelet Morphology [Pending], Prothrombin Time 14.8H, Prothromb Time International Ratio 1.4H, Sodium Level 136, Potassium Level 4.2, Chloride Level 100, Carbon Dioxide Level 22, Anion Gap 14, Blood Urea Nitrogen 94H, Creatinine 3.4H, Estimat Glomerular Filtration Rate , Glucose Level 163H, Calcium Level 7.5L, Phosphorus Level 4.9, Magnesium Level 2.4, Total Bilirubin 0.9, Aspartate Amino Transf (AST/SGOT) 17, Alanine Aminotransferase (ALT/SGPT) 14, Alkaline Phosphatase 234H, Ammonia < 10L, Total Protein 6.0L, Albumin 2.7L, Globulin 3.3, Albumin/Globulin Ratio 0.8L, Carcinoembryonic Antigen [Pending], Thyroid Stimulating Hormone (TSH) 3.149, Cortisol AM Sample [Pending], Hepatitis B Surface Antigen [Pending], Hepatitis C Antibody [Pending] Height (Feet): 5 Height (Inches): 10.00 Weight (Pounds): 134 Objective exam stable urine grossly clearing no bleeding at meatus Nando Campo MD Mar 28, 2019 07:24
--- NOTE | 2019-03-28 07:30 | NUR ---
HAND-OFF: Report given to JOHN Haddad.
--- NOTE | 2019-03-28 07:35 | NUR ---
NURSE NOTES: Received report from Danyelle Andrade RN. Rounding done with outgoing nurse. Pt a/o x 4, in bed. Pt c/o SOB and PaO2 97%. Will notified MD. Abdominal distention, foot edema noted. Horn catheter is in placed. Bed in lowest position, call light within reach. Will continue to monitor.
--- NOTE | 2019-03-28 08:20 | NUR ---
NURSE NOTES: Dr. Pérez came and ordered O2 2L/min. Noted and carried out. Addendum: 03/28/19 at 0821 by Florencia Haddad RN O2 4L instead of O2 2L.
[2019-03-28] MEDS: Pantoprazole Inj IVP SCH (09:00)
[2019-03-28] MEDS: Docusate 100mg tablet ORAL SCH (09:00)
[2019-03-28] MEDS ORDERED: LR 1000ml 1,000 ML IVLG SCH (09:41)
--- NOTE | 2019-03-28 09:41 | Anethesia Preoperative Eval ---
Anesthesia Pre-op PMH/ROS General Date of Evaluation: Mar 28, 2019 Anesthesiologist: Nasim ASA Score: ASA 3 Mallampati Score Class I : Soft palate, uvula, fauces, pillars visible Class II: Soft palate, uvula, fauces visible Class III: Soft palate, base of uvula visible Class IV: Only hard plate visible Mallampati Classification: Class III Surgeon: Krystyna Diagnosis: Colon Cancer Surgical Procedure: colonoscopy Anesthesia History: none Family History: no anesthesia problems Allergies: Coded Allergies: No Known Allergies (Unverified , 03/26/19) Medications: see eMAR Patient NPO?: Yes NPO Date: Mar 27, 2019 NPO Time: 22:00 Past Medical History Cardiovascular: Denies: HTN, CAD, NV, valve dz, arrhythmia, other Pulmonary: Denies: asthma, COPD, HARRY, other Gastrointestinal/Genitourinary: Reports: other - 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 Exam Physician Exam Last Vital Signs Date Time Temp Pulse Resp B/P (MAP) Pulse Ox O2 Delivery O2 Flow Rate FiO2 03/28/19 08:00 97.9 86 18 104/67 (79) 97 03/27/19 21:00 Room Air Constitutional: NAD Cardiovascular: RRR Respiratory: CTA Airway Exam Mallampati Score: Class III MO: full ROM: full Anesthesia Pre-op A/P Labs Hematology Test 03/28/19 06:10 White Blood Count 14.1 K/UL (4.8-10.8) H Red Blood Count 2.79 M/UL (4.70-6.10) L Hemoglobin 8.7 G/DL (14.2-18.0) L Hematocrit 25.5 % (42.0-52.0) L Mean Corpuscular Volume 91 FL (80-99) Mean Corpuscular Hemoglobin 31.2 PG (27.0-31.0) H Mean Corpuscular Hemoglobin Concent 34.1 G/DL (32.0-36.0) Red Cell Distribution Width 15.6 % (11.6-14.8) H Platelet Count 150 K/UL (150-450) Mean Platelet Volume 6.7 FL (6.5-10.1) Neutrophils (%) (Auto) % (45.0-75.0) Lymphocytes (%) (Auto) % (20.0-45.0) Monocytes (%) (Auto) % (1.0-10.0) Eosinophils (%) (Auto) % (0.0-3.0) Basophils (%) (Auto) % (0.0-2.0) Differential Total Cells Counted 100 Neutrophils % (Manual) 89 % (45-75) H Lymphocytes % (Manual) 4 % (20-45) L Monocytes % (Manual) 2 % (1-10) Eosinophils % (Manual) 0 % (0-3) Basophils % (Manual) 0 % (0-2) Band Neutrophils 5 % (0-8) Platelet Estimate Adequate Platelet Morphology Normal Anisocytosis 1+ Coagulation Test 03/28/19 06:10 Prothrombin Time 14.8 SEC (9.30-11.50) H Prothromb Time International Ratio 1.4 (0.9-1.1) H Chemistry Test 03/28/19 06:10 Sodium Level 136 MMOL/L (136-145) Potassium Level 4.2 MMOL/L (3.5-5.1) Chloride Level 100 MMOL/L (98-107) Carbon Dioxide Level 22 MMOL/L (21-32) Anion Gap 14 mmol/L (5-15) Blood Urea Nitrogen 94 mg/dL (7-18) H Creatinine 3.4 MG/DL (0.55-1.30) H Estimat Glomerular Filtration Rate mL/min (>60) Glucose Level 163 MG/DL (74-106) H Calcium Level 7.5 MG/DL (8.5-10.1) L Phosphorus Level 4.9 MG/DL (2.5-4.9) Magnesium Level 2.4 MG/DL (1.8-2.4) Total Bilirubin 0.9 MG/DL (0.2-1.0) Aspartate Amino Transf (AST/SGOT) 17 U/L (15-37) Alanine Aminotransferase (ALT/SGPT) 14 U/L (12-78) Alkaline Phosphatase 234 U/L (46-116) H Ammonia < 10 umol/L (11-32) L Total Protein 6.0 G/DL (6.4-8.2) L Albumin 2.7 G/DL (3.4-5.0) L Globulin 3.3 g/dL Albumin/Globulin Ratio 0.8 (1.0-2.7) L Carcinoembryonic Antigen Pending Thyroid Stimulating Hormone (TSH) 3.149 uiU/mL (0.358-3.740) Cortisol AM Sample Pending Studies Pre-op Studies: EKG - sr Risk Assessment & Plan Assessment: ASA III Plan: MAC Status Change Before Surgery: No Pre-Antibiotics Drug: N/A Rossy Yen MD Mar 28, 2019 09:41
[2019-03-28] MEDS ORDERED: NS 500ML IVPB ONE (09:45)
[2019-03-28] MEDS ORDERED: DiphenhydrAMINE 50mg/ml Inj IVP PRN (09:45)
--- NOTE | 2019-03-28 09:50 | NUR ---
NURSE NOTES: Patient off the unit for colonoscopy in stable condition.
[2019-03-28] MEDS ORDERED: Propofol 200mg/20ml IV ONE (10:00)
[2019-03-28] MEDS ORDERED: Lidocaine 1% MPF 10mg/ml 5ml ONE (10:00)
[2019-03-28] MEDS ORDERED: Phenylephrine 10mg/ml Vial ONE (10:00)
--- NOTE | 2019-03-28 10:07 | General Progress Note ---
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 - Ascites, presumed malignant - Likely peritoneal carcinomatosis - anemia - coagulopathy, improved - Azotemia, improved - Poor prognosis Recommendations - ICU / vent care - paracentesis to reduce distention - f/u pathology - NPO / IVF - NGT suction - follow labs Subjective Allergies: Coded Allergies: No Known Allergies (Unverified , 03/26/19) Subjective above noted Patient evaluated prior and after the procedure no events overnight seen in GI lab took GI preparation, (+) BM no complaints this am During induction phase of anesthesia the patient vomited so he was intubated for airway protection After stabilization of VS and saturation, decision was made to proceed with the colonoscopy Procedure completed uneventfully. Large cecal mass confirmed and biopsied Patient left intubated and sent to ICU. Objective Last 24 Hour Vital Signs Date Time Temp Pulse Resp B/P (MAP) Pulse Ox O2 Delivery O2 Flow Rate FiO2 03/28/19 08:00 97.9 86 18 104/67 (79) 97 03/28/19 04:00 97.2 94 18 114/64 (81) 98 03/28/19 00:00 96.8 89 18 116/67 (83) 97 03/27/19 21:00 Room Air 03/27/19 20:00 97.0 95 18 111/62 (78) 96 03/27/19 16:00 97.3 98 18 119/73 (88) 97 03/27/19 12:00 97.9 81 20 120/76 (91) 95 Intake and Output 03/27/19 03/28/19 19:00 07:00 Intake Total 1215 ml 750 ml Output Total 300 ml Balance 1215 ml 450 ml Intake Oral 480 ml IV Total 735 ml 750 ml Output Urine Total 300 ml Laboratory Tests 03/27/19 12:14: Urine Color Yellow, Urine Appearance Clear, Urine pH 5, Urine Specific [place] 1.020, Urine Protein 1+H, Urine Glucose (UA) Negative, Urine Ketones 1+H, Urine Blood 1+H, Urine Nitrite Negative, Urine Bilirubin Negative, Urine Urobilinogen Normal, Urine Leukocyte Esterase 1+H, Urine RBC 2-4H, Urine WBC 5-10H, Urine Squamous Epithelial Cells ModerateH, Urine Bacteria Few 03/27/19 15:28: Urine Eosinophils None seen, Urine Osmolality 444, Urine Random Creatinine [ Pending], Urine Random Microalbumin [Pending], Urine Random Sodium < 20L, Urine Microalbumin/Creatinine Ratio [Pending] 03/28/19 01:50: Stool Occult Blood [Pending] 03/28/19 06:10: White Blood Count 14.1H, Red Blood Count 2.79L, Hemoglobin 8.7L, Hematocrit 25.5L, Mean Corpuscular Volume 91, Mean Corpuscular Hemoglobin 31.2H, Mean Corpuscular Hemoglobin Concent 34.1, Red Cell Distribution Width 15.6H, Platelet Count 150, Mean Platelet Volume 6.7, Neutrophils (%) (Auto) , Lymphocytes (%) (Auto) , Monocytes (%) (Auto) , Eosinophils (%) (Auto) , Basophils (%) (Auto) , Differential Total Cells Counted 100, Neutrophils % ( Manual) 89H, Lymphocytes % (Manual) 4L, Monocytes % (Manual) 2, Eosinophils % ( Manual) 0, Basophils % (Manual) 0, Band Neutrophils 5, Platelet Estimate Adequate, Platelet Morphology Normal, Anisocytosis 1+, Prothrombin Time 14.8H, Prothromb Time International Ratio 1.4H, Sodium Level 136, Potassium Level 4.2, Chloride Level 100, Carbon Dioxide Level 22, Anion Gap 14, Blood Urea Nitrogen 94H, Creatinine 3.4H, Estimat Glomerular Filtration Rate , Glucose Level 163H, Calcium Level 7.5L, Phosphorus Level 4.9, Magnesium Level 2.4, Total Bilirubin 0.9, Aspartate Amino Transf (AST/SGOT) 17, Alanine Aminotransferase (ALT/SGPT) 14, Alkaline Phosphatase 234H, Ammonia < 10L, Total Protein 6.0L, Albumin 2.7L, Globulin 3.3, Albumin/Globulin Ratio 0.8L, Carcinoembryonic Antigen [Pending], Thyroid Stimulating Hormone (TSH) 3.149, Cortisol AM Sample [Pending], Hepatitis B Surface Antigen [Pending], Hepatitis C Antibody [Pending] Height (Feet): 5 Height (Inches): 10.00 Weight (Pounds): 134 Objective Thin man examined before and after the GI procedure NCAT (intubated after procedure) thin built CTA RR abd (+) ascites no edema Valerie Greenwood MD Mar 28, 2019 10:07
--- NOTE | 2019-03-28 10:08 | Pre-Procedure Note/Attestation ---
Pre-Procedure Note/Attestation Complete Prior to Procedure Planned Procedure: not applicable Procedure Narrative: colon Indications for Procedure Pre-Operative Diagnosis: colon CA Attestation I attest that I discussed the nature of the procedure; its benefits; risks and complications; and alternatives (and the risks and benefits of such alternatives ), prior to the procedure, with the patient (or the patient's legal mill representative). I attest that, if there was a reasonable possibility of needing a blood transfusion, the patient (or the patient's legal mill representative) was given the [facility] standardized written summary, pursuant to the Juan Daniel Kline Blood Safety Act ([place] Health and Safety Code # 1645, as amended). I attest that I re-evaluated the patient just prior to the surgery and that there has been no change in the patient's H&P, except as documented below: Valerie Greenwood MD Mar 28, 2019 10:08
--- NOTE | 2019-03-28 11:17 | Immediate Post-Op Evaluation ---
Immediate Post-Op Evalulation Immediate Post-Op Evalulation Procedure: Colonoscopy Date of Evaluation: Mar 28, 2019 Time of Evaluation: 11:12 IV Fluids: 400 Blood Products: 0 Estimated Blood Loss: 0 Urinary Output: 0 Blood Pressure Systolic: 114 Blood Pressure Diastolic: 66 Pulse Rate: 96 Respiratory Rate: 12 O2 Sat by Pulse Oximetry: 100 Temperature (Fahrenheit): 97.8 Pain Score (1-10): 0 Nausea: No Vomiting: No Complications Emergently intubated patient as patient started aspirating s/p 20mg Propofol was given. Grade 1 view. 1 attempt. Visible aspirate flowing during intubation. Patient Status: no response - sedated, ventilated - on mechacnical ventilation , none Hydration Status: adequate Drug: N/a Rossy Yen MD Mar 28, 2019 11:17
[2019-03-28] MEDS ORDERED: D5 1/2NS 1,000 ML IV SCH (11:26)
[2019-03-28] MEDS ORDERED: LORazepam Inj 2mg/ml 1ml IV PRN (11:30)
[2019-03-28] MEDS ORDERED: HYDROcodone/Acetamin 5/325 tab ORAL PRN (11:30)
[2019-03-28] MEDS ORDERED: Morphine Sulfate 4mg/ml Inj (IV USE ONLY) IVP PRN ×2 (11:30)
--- NOTE | 2019-03-28 11:30 | NUR ---
NURSE NOTES: Received the patient from GI Lab. patient is sedated, orally intubated ETT 7.0, 21cm at lip line, vent settings: AC12, TV 500, FIO2 50%, PEEP 5. No acute distress noted. VSS, afebrile. SR-ST low 100s noted on the vessel traffic officer. Skin intact, dressing to sacral for prevention. Ohrn cath intact, draining yellow urine by gravity. Right forearm 22G intact, saline locked. Bed in lowest position, locked, side rails upx3. Bed alarm on. Call light within reach. Will continue to monitor.
--- NOTE | 2019-03-28 11:56 | NUR ---
HAND-OFF: Report given to JENNA Zapata Nurse. Addendum: 03/28/19 at 1205 by Florencia Haddad RN Patient was transferred to ICU from GI lab directly.
--- NOTE | 2019-03-28 12:00 | NUR ---
NURSE NOTES: Received the report from Florencia Wheeler RN. all belongings checked. Addendum: 03/28/19 at 1401 by RADAMES WEST RN placed SCDs on bilateral lower extremities.
--- NOTE | 2019-03-28 12:01 | Pulmonolgy Critical Care Note ---
Critical Care - Asmt/Plan Problems: (1) Acute respiratory failure (2) Aspiration pneumonia (3) ATN (acute tubular necrosis) (4) Sepsis (5) Urine retention (6) Coagulopathy (7) Severe protein-calorie malnutrition (8) Colon cancer metastasized to liver Respiratory: monitor respiratory rate, adjust FIO2, CXR Cardiac: continue to monitor HR/BP Renal: F/U I&O, keep IV fluid, check electrolytes Infectious Disease: check cultures, continue antibiotics Gastrointestinal: hold feedings, other - paracenthesis Endocrine: check TSH Hematologic: monitor H/H, transfuse if hgb<8.5 Neurologic: keep patient comfortable Prophylaxis: Protonix Time Spent (Minutes): 40 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, 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: nurses, consultants, 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 - Objective Last 24 Hour Vital Signs Date Time Temp Pulse Resp B/P (MAP) Pulse Ox O2 Delivery O2 Flow Rate FiO2 03/28/19 11:50 100 13 100 Mechanical Ventilator 50 03/28/19 11:45 101 13 50 03/28/19 11:17 96 12 100 03/28/19 09:00 Nasal Cannula 4.0 03/28/19 08:00 97.9 86 18 104/67 (79) 97 03/28/19 04:00 97.2 94 18 114/64 (81) 98 03/28/19 00:00 96.8 89 18 116/67 (83) 97 03/27/19 21:00 Room Air 03/27/19 20:00 97.0 95 18 111/62 (78) 96 03/27/19 16:00 97.3 98 18 119/73 (88) 97 03/27/19 12:00 97.9 81 20 120/76 (91) 95 Status: sedated Lungs: clear Heart: HR/BP stable Abdomen: soft, non-tender, feeding tube Extremities: edema Micro: Microbiology Date/Time Source Procedure Growth Status 03/27/19 10:50 Urine,Clean Catch Urine Culture - Preliminary NO GROWTH Resulted 03/26/19 23:30 Rectum Received Critical Care - Subjective ROS Limited/Unobtainable: Yes Interval Events: pt aspirated during colonoscopy and got intubated, transferred to ICU. FI02: 50 Vent Support Breath Rate: 12 Vent Support Mode: AC Vent Tidal Volume: 500 Sputum Amount: Moderate PEEP: 5.0 PIP: 31 I&O: Intake and Output 8/28/19 8/29/19 19:00 07:00 Intake Total 1215 ml 750 ml Output Total 300 ml Balance 1215 ml 450 ml Intake Oral 480 ml IV Total 735 ml 750 ml Output Urine Total 300 ml ET-Tube: 7.0 ET Position: 21 Labs: Laboratory Tests Test 03/27/19 12:14 03/27/19 15:28 03/28/19 01:50 03/28/19 06:10 Urine Color Yellow Urine Appearance Clear Urine pH 5 (4.5-8.0) Urine Specific [place] 1.020 (1.005-1.035) Urine Protein 1+ (NEGATIVE) H Urine Glucose (UA) Negative (NEGATIVE) Urine Ketones 1+ (NEGATIVE) H Urine Blood 1+ (NEGATIVE) H Urine Nitrite Negative (NEGATIVE) Urine Bilirubin Negative (NEGATIVE) Urine Urobilinogen Normal MG/DL (0.0-1.0) Urine Leukocyte Esterase 1+ (NEGATIVE) H Urine RBC 2-4 /HPF (0 - 0) H Urine WBC 5-10 /HPF (0 - 0) H Urine Squamous Epithelial Cells Moderate /LPF (NONE/OCC) H Urine Bacteria Few /HPF (NONE) Urine Eosinophils None seen (NONE SEEN) Urine Osmolality 444 mOsm/kg (429-449) Urine Random Creatinine Pending Urine Random Microalbumin Pending Urine Random Sodium < 20 mmol/L (20-110) L Urine Microalbumin/Creatinine Ratio Pending Stool Occult Blood Positive (NEGATIVE) White Blood Count 14.1 K/UL (4.8-10.8) H Red Blood Count 2.79 M/UL (4.70-6.10) L Hemoglobin 8.7 G/DL (14.2-18.0) L Hematocrit 25.5 % (42.0-52.0) L Mean Corpuscular Volume 91 FL (80-99) Mean Corpuscular Hemoglobin 31.2 PG (27.0-31.0) H Mean Corpuscular Hemoglobin Concent 34.1 G/DL (32.0-36.0) Red Cell Distribution Width 15.6 % (11.6-14.8) H Platelet Count 150 K/UL (150-450) Mean Platelet Volume 6.7 FL (6.5-10.1) Neutrophils (%) (Auto) % (45.0-75.0) Lymphocytes (%) (Auto) % (20.0-45.0) Monocytes (%) (Auto) % (1.0-10.0) Eosinophils (%) (Auto) % (0.0-3.0) Basophils (%) (Auto) % (0.0-2.0) Differential Total Cells Counted 100 Neutrophils % (Manual) 89 % (45-75) H Lymphocytes % (Manual) 4 % (20-45) L Monocytes % (Manual) 2 % (1-10) Eosinophils % (Manual) 0 % (0-3) Basophils % (Manual) 0 % (0-2) Band Neutrophils 5 % (0-8) Platelet Estimate Adequate Platelet Morphology Normal Anisocytosis 1+ Prothrombin Time 14.8 SEC (9.30-11.50) H Prothromb Time International Ratio 1.4 (0.9-1.1) H Sodium Level 136 MMOL/L (136-145) Potassium Level 4.2 MMOL/L (3.5-5.1) Chloride Level 100 MMOL/L (98-107) Carbon Dioxide Level 22 MMOL/L (21-32) Anion Gap 14 mmol/L (5-15) Blood Urea Nitrogen 94 mg/dL (7-18) H Creatinine 3.4 MG/DL (0.55-1.30) H Estimat Glomerular Filtration Rate mL/min (>60) Glucose Level 163 MG/DL (74-106) H Calcium Level 7.5 MG/DL (8.5-10.1) L Phosphorus Level 4.9 MG/DL (2.5-4.9) Magnesium Level 2.4 MG/DL (1.8-2.4) Total Bilirubin 0.9 MG/DL (0.2-1.0) Aspartate Amino Transf (AST/SGOT) 17 U/L (15-37) Alanine Aminotransferase (ALT/SGPT) 14 U/L (12-78) Alkaline Phosphatase 234 U/L (46-116) H Ammonia < 10 umol/L (11-32) L Total Protein 6.0 G/DL (6.4-8.2) L Albumin 2.7 G/DL (3.4-5.0) L Globulin 3.3 g/dL Albumin/Globulin Ratio 0.8 (1.0-2.7) L Carcinoembryonic Antigen Pending Thyroid Stimulating Hormone (TSH) 3.149 uiU/mL (0.358-3.740) Cortisol AM Sample Pending Hepatitis B Surface Antigen Pending Hepatitis C Antibody Pending Ilan Fuller MD Mar 28, 2019 12:01
--- NOTE | 2019-03-28 12:10 | NUR ---
NURSE NOTES: Risks and benefits of US Paracentesis explained to patient's niece, Swati Walker, by Dr. Greenwood. Patient unable to sign the consent at this time. Telephone consent obtained from Swati Walker, filed in patient's chart. Dr. Greenwood at bedside.
--- NOTE | 2019-03-28 12:15 | NUR ---
NURSE NOTES: OGT inserted as ordered. patient tolerated well. awaiting for KUB for confirmation.
--- NOTE | 2019-03-28 12:17 | Surgery Progress Note ---
Surgery Progress Note Subjective Additional Comments had scope today and aspiration with intubation after. now in ICU on vent support labs noted exam unchanged. Objective Last 24 Hour Vital Signs Date Time Temp Pulse Resp B/P (MAP) Pulse Ox O2 Delivery O2 Flow Rate FiO2 03/28/19 11:50 100 13 100 Mechanical Ventilator 50 03/28/19 11:45 101 13 50 03/28/19 11:17 96 12 100 03/28/19 09:00 Nasal Cannula 4.0 03/28/19 08:00 97.9 86 18 104/67 (79) 97 03/28/19 04:00 97.2 94 18 114/64 (81) 98 03/28/19 00:00 96.8 89 18 116/67 (83) 97 03/27/19 21:00 Room Air 03/27/19 20:00 97.0 95 18 111/62 (78) 96 03/27/19 16:00 97.3 98 18 119/73 (88) 97 I&O Intake and Output 03/27/19 03/28/19 19:00 07:00 Intake Total 1215 ml 750 ml Output Total 300 ml Balance 1215 ml 450 ml Intake Oral 480 ml IV Total 735 ml 750 ml Output Urine Total 300 ml Cardiovascular: RSR Respiratory: clear, decreased breath sounds Abdomen: soft, distended, decreased bowel sounds Extremities: no cyanosis Laboratory Tests Test 03/27/19 15:28 03/28/19 01:50 03/28/19 06:10 Urine Eosinophils None seen (NONE SEEN) Urine Osmolality 444 mOsm/kg (429-449) Urine Random Creatinine Pending Urine Random Microalbumin Pending Urine Random Sodium < 20 mmol/L (20-110) L Urine Microalbumin/Creatinine Ratio Pending Stool Occult Blood Positive (NEGATIVE) White Blood Count 14.1 K/UL (4.8-10.8) H Red Blood Count 2.79 M/UL (4.70-6.10) L Hemoglobin 8.7 G/DL (14.2-18.0) L Hematocrit 25.5 % (42.0-52.0) L Mean Corpuscular Volume 91 FL (80-99) Mean Corpuscular Hemoglobin 31.2 PG (27.0-31.0) H Mean Corpuscular Hemoglobin Concent 34.1 G/DL (32.0-36.0) Red Cell Distribution Width 15.6 % (11.6-14.8) H Platelet Count 150 K/UL (150-450) Mean Platelet Volume 6.7 FL (6.5-10.1) Neutrophils (%) (Auto) % (45.0-75.0) Lymphocytes (%) (Auto) % (20.0-45.0) Monocytes (%) (Auto) % (1.0-10.0) Eosinophils (%) (Auto) % (0.0-3.0) Basophils (%) (Auto) % (0.0-2.0) Differential Total Cells Counted 100 Neutrophils % (Manual) 89 % (45-75) H Lymphocytes % (Manual) 4 % (20-45) L Monocytes % (Manual) 2 % (1-10) Eosinophils % (Manual) 0 % (0-3) Basophils % (Manual) 0 % (0-2) Band Neutrophils 5 % (0-8) Platelet Estimate Adequate Platelet Morphology Normal Anisocytosis 1+ Prothrombin Time 14.8 SEC (9.30-11.50) H Prothromb Time International Ratio 1.4 (0.9-1.1) H Sodium Level 136 MMOL/L (136-145) Potassium Level 4.2 MMOL/L (3.5-5.1) Chloride Level 100 MMOL/L (98-107) Carbon Dioxide Level 22 MMOL/L (21-32) Anion Gap 14 mmol/L (5-15) Blood Urea Nitrogen 94 mg/dL (7-18) H Creatinine 3.4 MG/DL (0.55-1.30) H Estimat Glomerular Filtration Rate mL/min (>60) Glucose Level 163 MG/DL (74-106) H Calcium Level 7.5 MG/DL (8.5-10.1) L Phosphorus Level 4.9 MG/DL (2.5-4.9) Magnesium Level 2.4 MG/DL (1.8-2.4) Total Bilirubin 0.9 MG/DL (0.2-1.0) Aspartate Amino Transf (AST/SGOT) 17 U/L (15-37) Alanine Aminotransferase (ALT/SGPT) 14 U/L (12-78) Alkaline Phosphatase 234 U/L (46-116) H Ammonia < 10 umol/L (11-32) L Total Protein 6.0 G/DL (6.4-8.2) L Albumin 2.7 G/DL (3.4-5.0) L Globulin 3.3 g/dL Albumin/Globulin Ratio 0.8 (1.0-2.7) L Carcinoembryonic Antigen Pending Thyroid Stimulating Hormone (TSH) 3.149 uiU/mL (0.358-3.740) Cortisol AM Sample Pending Hepatitis B Surface Antigen Pending Hepatitis C Antibody Pending Plan Problems: (1) Sepsis Assessment & Plan: This is a very unfortunate 78-year-old male with metastatic advanced colorectal cancer with mets of the lymph nodes and liver. Patient presented with leukocytosis and abdominal discomfort. 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 Patient currently stating he is tolerating diet and having bowel movements. Abdomen complaining of abdominal discomfort but no nausea or emesis. No fever chills. No acute surgical intervention recommended at this time given patient's medical condition and prognosis. 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 Ultrasound noted CT noted no bladder rupture very ill now s/p scope with aspiration requiring intubated on vent ICU Care Thank you for this consultation we will follow with recommendations Okay for diet from surgical standpoint (2) Colon cancer metastasized to liver (3) Severe protein-calorie malnutrition Harmeet Pérez Mar 28, 2019 12:17
--- NOTE | 2019-03-28 12:23 | Nephrology Progress Note ---
Assessment/Plan Problem List: (1) ATN (acute tubular necrosis) (2) Coagulopathy (3) Colon cancer metastasized to liver (4) Acute respiratory failure (5) Aspiration pneumonia Assessment Acute renal failure- Mainly Pre renal Colon Ca with mets to liver Ascitis , likely malignant Sepsis , Leukocytosis Severe Malnutrition Plan poor prognosis Antibiotics now in ICU on vent after aspiration - colonoscopy earlier today antibiotics Horn: 200 cc urine on insertion Fluid challenge Monitor renal parameters and urine out pot per orders ? comfort care?? Subjective ROS Limited/Unobtainable: Yes Objective Objective Last 24 Hour Vital Signs Date Time Temp Pulse Resp B/P (MAP) Pulse Ox O2 Delivery O2 Flow Rate FiO2 03/28/19 11:50 100 13 100 Mechanical Ventilator 50 03/28/19 11:45 101 13 50 03/28/19 11:17 96 12 100 03/28/19 09:00 Nasal Cannula 4.0 03/28/19 08:00 97.9 86 18 104/67 (79) 97 03/28/19 04:00 97.2 94 18 114/64 (81) 98 03/28/19 00:00 96.8 89 18 116/67 (83) 97 03/27/19 21:00 Room Air 03/27/19 20:00 97.0 95 18 111/62 (78) 96 03/27/19 16:00 97.3 98 18 119/73 (88) 97 Intake and Output 03/27/19 03/28/19 19:00 07:00 Intake Total 1215 ml 750 ml Output Total 300 ml Balance 1215 ml 450 ml Intake Oral 480 ml IV Total 735 ml 750 ml Output Urine Total 300 ml Laboratory Tests 03/27/19 15:28: Urine Eosinophils None seen, Urine Osmolality 444, Urine Random Creatinine [ Pending], Urine Random Microalbumin [Pending], Urine Random Sodium < 20L, Urine Microalbumin/Creatinine Ratio [Pending] 03/28/19 01:50: Stool Occult Blood Positive 03/28/19 06:10: White Blood Count 14.1H, Red Blood Count 2.79L, Hemoglobin 8.7L, Hematocrit 25.5L, Mean Corpuscular Volume 91, Mean Corpuscular Hemoglobin 31.2H, Mean Corpuscular Hemoglobin Concent 34.1, Red Cell Distribution Width 15.6H, Platelet Count 150, Mean Platelet Volume 6.7, Neutrophils (%) (Auto) , Lymphocytes (%) (Auto) , Monocytes (%) (Auto) , Eosinophils (%) (Auto) , Basophils (%) (Auto) , Differential Total Cells Counted 100, Neutrophils % ( Manual) 89H, Lymphocytes % (Manual) 4L, Monocytes % (Manual) 2, Eosinophils % ( Manual) 0, Basophils % (Manual) 0, Band Neutrophils 5, Platelet Estimate Adequate, Platelet Morphology Normal, Anisocytosis 1+, Prothrombin Time 14.8H, Prothromb Time International Ratio 1.4H, Sodium Level 136, Potassium Level 4.2, Chloride Level 100, Carbon Dioxide Level 22, Anion Gap 14, Blood Urea Nitrogen 94H, Creatinine 3.4H, Estimat Glomerular Filtration Rate , Glucose Level 163H, Calcium Level 7.5L, Phosphorus Level 4.9, Magnesium Level 2.4, Total Bilirubin 0.9, Aspartate Amino Transf (AST/SGOT) 17, Alanine Aminotransferase (ALT/SGPT) 14, Alkaline Phosphatase 234H, Ammonia < 10L, Total Protein 6.0L, Albumin 2.7L, Globulin 3.3, Albumin/Globulin Ratio 0.8L, Carcinoembryonic Antigen [Pending], Thyroid Stimulating Hormone (TSH) 3.149, Cortisol AM Sample [Pending], Hepatitis B Surface Antigen [Pending], Hepatitis C Antibody [Pending] Height (Feet): 5 Height (Inches): 10.00 Weight (Pounds): 134 EENT: other - vented Cardiovascular: tachycardia Respiratory/Chest: decreased breath sounds Abdomen: distended Cristian Salgado MD Mar 28, 2019 12:23
--- NOTE | 2019-03-28 12:28 | NUR ---
RESPIRATORY NOTE: vent settings changed per MD order.
--- NOTE | 2019-03-28 13:20 | NUR ---
RADIOLOGY DEPT., CHEST FOR ETT PLMT AND ABDOMEN X-RAY FOR ORAL GASTRIC TUBE COMPLETED.-P.DYE
[2019-03-28] MEDS: D5NS 1,000 ML IV SCH ×2 (13:22→22:10)
--- NOTE | 2019-03-28 13:40 | NUR ---
NURSE NOTES: Patient awake, alert and oriented, able to follow commands, able to communicated by nodding. Explained the risks and benefits of paracentesis. patient also agreed to paracentesis by nodding. VSS. Radiologist at bedside, prepping for the procedure.
[2019-03-28] MEDS ORDERED: Cefepime HCl 1 GM in D5W 55 ML IVPB SCH (14:00)
--- NOTE | 2019-03-28 14:00 | NUR ---
NURSE NOTES: Paracentesis completed, 700ml out. Patient tolerated well. VSS. Patient awake, alert and oriented, calm in bed.
--- NOTE | 2019-03-28 14:05 | Pre-Procedure Note/Attestation ---
Pre-Procedure Note/Attestation Complete Prior to Procedure Planned Procedure: not applicable Procedure Narrative: Paracentesis Indications for Procedure Pre-Operative Diagnosis: ascites Attestation I attest that I discussed the nature of the procedure; its benefits; risks and complications; and alternatives (and the risks and benefits of such alternatives ), prior to the procedure, with the patient (or the patient's legal contracts representative). I attest that, if there was a reasonable possibility of needing a blood transfusion, the patient (or the patient's legal contracts representative) was given the [facility] standardized written summary, pursuant to the Juan Daniel Christiano Blood Safety Act ([place] Health and Safety Code # 1645, as amended). I attest that I re-evaluated the patient just prior to the surgery and that there has been no change in the patient's H&P, except as documented below: Edson Camacho MD Mar 28, 2019 14:05
--- NOTE | 2019-03-28 14:06 | Brief Operative Note ---
Immediate Post Operative Note Operative Note Pre-op Diagnosis: ascites Procedure: Paracentesis Post-op Diagnosis: same as pre-op Surgeon: Aleah Gonzalez Anesthesia: local Specimen: none Complications: none Fluids: none Implant(s) used?: No Edson Gonzalez MD Mar 28, 2019 14:06
--- NOTE | 2019-03-28 14:36 | Diagnostic Imaging Report ---
Indication: Dyspnea, status post endotracheal intubation Technique: One view of the chest Comparison: Findings: There is an endotracheal tube in place, tip in good position projected approximately 6 cm above the brett. There is extensive consolidation of the left mid and lower lungs. The right lung and pleural space are clear. The heart size is normal. There is a nasogastric tube in place, tip coiled in the gastric fundus Impression: Satisfactory endotracheal intubation Satisfactory nasogastric intubation Left mid and lower lung consolidation, likely pneumonia
--- NOTE | 2019-03-28 14:38 | Diagnostic Imaging Report ---
Indication: Post orogastric tube placement Technique: One view of the chest Comparison: Service Tech image from CT scan dated 03/27/2019 Findings: There is a nasogastric tube in place, tip projected at the level of the gastric fundus, proximal port below the gastroesophageal junction The transverse colon is gas filled, upper limits normal in caliber. The stomach is gas-filled. Gas-filled small bowel loops are again demonstrated but no longer distended no masses or unusual calcifications Impression: Satisfactory nasogastric intubation Other findings as noted
--- NOTE | 2019-03-28 14:45 | Diagnostic Imaging Report ---
Indications: Ascites Technique: Ultrasound used to localize optimal puncture site. Sterile prepping and draping right upper quadrant. Local anesthesia with 1% lidocaine. Under real-time ultrasound guidance, puncture peritoneal space using paracentesis needle. Stylet removed. Catheter placed to vacuum bottle suction. Total 0.7 liters of clear yellow fluid aspirated. Patient tolerated procedure well, without immediate complication. Note that more abundant fluid was seen in the pelvis. This appears loculated and septated Findings: Followup sonography demonstrates complete resolution of peritoneal fluid. Impression: Successful ultrasound-guided paracentesis of the right upper quadrant, yielding 0.7 liters of fluid
--- NOTE | 2019-03-28 15:42 | Infectious Diseases Prog Note ---
Assessment/Plan Assessment/Plan Abx: Cefepime 03/27- Assessment: Probable PNA -03/28 CXR: Left mid and lower lung consolidation, likely pneumonia Aspiration event (on EGD lab), now intubated 03/28 Afebrile Leukocytosis; improving Probable UTI (+dysuria) -u./a wbc 15-20, nit neg, leuk +1 ; Ucx NTD -Renal US: Suspected intraperitoneal bladder rupture at the dome of the urinary bladder, which is markedly distended. Given the history of peritoneal carcinomatosis, this may be due to tumor implantation and subsequent invasion of the bladder wall. Further evaluation with contrast CT may be of benefit.Moderate heterogeneous complex ascites presumably on the basis of carcinomatosis and/or peritonitis. Unremarkable evaluation of the kidneys. No hydronephrosis. Position of the Horn catheter not elucidated on the basis of the study. Metastatic CA, likely primary Colon CA -03/27 CT abd/p: No evidence of bladder perforation. The bladder is decompressed. Ultrasound imaging of what appear to be a distended ruptured bladder is actually an area of loculated ascites, probably complex cystic mass associated with carcinomatosis. Evidence of peritoneal carcinomatosis as described above. Evidence of metastatic neoplasm involving the liver and lung as described above. Suggestion of a cecal mass, likely adenocarcinoma. Correlate with previous colonoscopy and/or histology results. Anasarca. Atherosclerotic vascular disease. Liquefied stool in the colon. Correlate for diarrhea and enteritis/colitis. Trace bilateral pleural effusions. Gallstones versus sludge -CT abd/p (at [facility]): 6.3 cm cecal mass with large ascites, omental implants , diffuse hepatic metastasis and L lingula metastasis. Ascites -03/28 SP Successful ultrasound-guided paracentesis of the right upper quadrant, yielding 0.7 liters of fluid Plan: -Continue empiric Cefepime #2 pending cultures and given possible bladder rupture -f/u cx -Monitor CBC/CMP, temperatures -Sx f/u -Heme onc eval -aspiration precautions Thank you for this consultation. Will continue to follow along with you. Discussed with RN Subjective Allergies: Coded Allergies: No Known Allergies (Unverified , 03/26/19) Subjective on EGD lab, patient vomited, likely aspirated and now is intubated afebrile WBC improving no pressors Objective Vital Signs Last 24 Hour Vital Signs Date Time Temp Pulse Resp B/P (MAP) Pulse Ox O2 Delivery O2 Flow Rate FiO2 03/28/19 15:18 97 16 45 03/28/19 15:00 87 15 103/51 (68) 98 03/28/19 14:00 88 16 95/51 (66) 95 03/28/19 13:34 90 03/28/19 13:15 90 17 45 03/28/19 13:15 45 03/28/19 13:00 89 17 96/65 (75) 99 03/28/19 12:30 50 03/28/19 12:30 94 18 112/59 (76) 95 03/28/19 12:27 50 03/28/19 12:15 95 19 118/54 (75) 93 03/28/19 12:00 50 03/28/19 12:00 Mechanical Ventilator 03/28/19 12:00 97.6 98 19 134/63 (86) 95 03/28/19 11:50 100 13 100 Mechanical Ventilator 50 03/28/19 11:45 100 18 143/66 (91) 96 03/28/19 11:45 101 13 50 03/28/19 11:30 104 18 150/70 (96) 97 03/28/19 11:17 96 12 100 03/28/19 11:15 95 14 148/54 (85) 100 03/28/19 09:00 Nasal Cannula 4.0 03/28/19 08:00 97.9 86 18 104/67 (79) 97 03/28/19 04:00 97.2 94 18 114/64 (81) 98 03/28/19 00:00 96.8 89 18 116/67 (83) 97 03/27/19 21:00 Room Air 03/27/19 20:00 97.0 95 18 111/62 (78) 96 03/27/19 16:00 97.3 98 18 119/73 (88) 97 Height (Feet): 5 Height (Inches): 10.00 Weight (Pounds): 134 Objective General Appearance: cachetic, thin Lines, tubes and drains: peripheral HEENT: normocephalic, atraumatic Neck: non-tender, normal alignment Respiratory/Chest: chest wall non-tender, lungs clear Breasts: no masses Cardiovascular/Chest: normal rate Abdomen: normal bowel sounds Genitourinary/Rectal: normal genital exam Extremities: normal range of motion 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 grossly normal Microbiology Date/Time Source Procedure Growth Status 03/27/19 10:50 Urine,Clean Catch Urine Culture - Preliminary NO GROWTH Resulted 03/26/19 23:30 Rectum Received Laboratory Tests Test 03/28/19 01:50 03/28/19 06:10 03/28/19 13:20 Stool Occult Blood Positive (NEGATIVE) White Blood Count 14.1 K/UL (4.8-10.8) H Red Blood Count 2.79 M/UL (4.70-6.10) L Hemoglobin 8.7 G/DL (14.2-18.0) L Hematocrit 25.5 % (42.0-52.0) L Mean Corpuscular Volume 91 FL (80-99) Mean Corpuscular Hemoglobin 31.2 PG (27.0-31.0) H Mean Corpuscular Hemoglobin Concent 34.1 G/DL (32.0-36.0) Red Cell Distribution Width 15.6 % (11.6-14.8) H Platelet Count 150 K/UL (150-450) Mean Platelet Volume 6.7 FL (6.5-10.1) Neutrophils (%) (Auto) % (45.0-75.0) Lymphocytes (%) (Auto) % (20.0-45.0) Monocytes (%) (Auto) % (1.0-10.0) Eosinophils (%) (Auto) % (0.0-3.0) Basophils (%) (Auto) % (0.0-2.0) Differential Total Cells Counted 100 Neutrophils % (Manual) 89 % (45-75) H Lymphocytes % (Manual) 4 % (20-45) L Monocytes % (Manual) 2 % (1-10) Eosinophils % (Manual) 0 % (0-3) Basophils % (Manual) 0 % (0-2) Band Neutrophils 5 % (0-8) Platelet Estimate Adequate Platelet Morphology Normal Anisocytosis 1+ Prothrombin Time 14.8 SEC (9.30-11.50) H Prothromb Time International Ratio 1.4 (0.9-1.1) H Sodium Level 136 MMOL/L (136-145) Potassium Level 4.2 MMOL/L (3.5-5.1) Chloride Level 100 MMOL/L (98-107) Carbon Dioxide Level 22 MMOL/L (21-32) Anion Gap 14 mmol/L (5-15) Blood Urea Nitrogen 94 mg/dL (7-18) H Creatinine 3.4 MG/DL (0.55-1.30) H Estimat Glomerular Filtration Rate mL/min (>60) Glucose Level 163 MG/DL (74-106) H Calcium Level 7.5 MG/DL (8.5-10.1) L Phosphorus Level 4.9 MG/DL (2.5-4.9) Magnesium Level 2.4 MG/DL (1.8-2.4) Total Bilirubin 0.9 MG/DL (0.2-1.0) Aspartate Amino Transf (AST/SGOT) 17 U/L (15-37) Alanine Aminotransferase (ALT/SGPT) 14 U/L (12-78) Alkaline Phosphatase 234 U/L (46-116) H Ammonia < 10 umol/L (11-32) L Total Protein 6.0 G/DL (6.4-8.2) L Albumin 2.7 G/DL (3.4-5.0) L Globulin 3.3 g/dL Albumin/Globulin Ratio 0.8 (1.0-2.7) L Carcinoembryonic Antigen Pending Thyroid Stimulating Hormone (TSH) 3.149 uiU/mL (0.358-3.740) Cortisol AM Sample Pending Hepatitis B Surface Antigen Pending Hepatitis C Antibody Pending Arterial Blood pH 7.377 (7.350-7.450) Arterial Blood Partial Pressure CO2 33.3 mmHg (35.0-45.0) L Arterial Blood Partial Pressure O2 74.2 mmHg (75.0-100.0) L Arterial Blood HCO3 19.1 mmol/L (22.0-26.0) L Arterial Blood Oxygen Saturation 92.5 % (95-100) L Arterial Blood Base Excess -5.4 (-2-2) L Raudel Test Positive Current Medications Medications (Trade) Dose Ordered Sig/Madelyn Route PRN Reason Start Time Stop Time Status Last Admin Dose Admin Acetaminophen (Tylenol) 650 mg Q6H PRN ORAL Mild Pain/Temp > 100.5 03/28/19 11:26 04/27/19 11:25 Barium Sulfate (Readi-Cat 2) 450 ml NOW PRN ORAL Radiology Procedure 03/29/19 11:15 03/31/19 23:59 Cefepime HCl 1 gm/ Dextrose 55 ml @ 110 mls/hr Q24H IVPB 03/28/19 14:00 04/03/19 13:59 03/28/19 13:22 Dextrose/Sodium Chloride 1,000 ml @ 100 mls/hr Q10H IV 03/28/19 12:30 04/27/19 12:29 03/28/19 13:22 Iopamidol (Isovue-300 100ml) 100 ml NOW PRN INJ Radiology Procedure 03/29/19 10:30 03/30/19 10:29 Lorazepam (Ativan 2mg/ml 1ml) 2 mg Q4H PRN IV For Anxiety 03/28/19 11:26 04/04/19 11:25 Morphine Sulfate (Morphine Sulfate) 4 mg Q4H PRN IVP For Pain 03/28/19 11:30 04/04/19 11:29 Pantoprazole (Protonix) 40 mg Q12HR IV 03/28/19 21:00 04/28/19 08:59 Caroline Silvestre M.D. Mar 28, 2019 15:42
--- NOTE | 2019-03-28 15:54 | NUR ---
NURSE NOTES: Patient was turned and repositioned, patient kept clean and dry. VSS. Denies SOB or pain.
--- NOTE | 2019-03-28 17:05 | Internal Med Progress Note ---
Subjective Date of Service: Mar 28, 2019 Physician Name Kashif Ponce Attending Physician Eddi Herman MD Current Medications Medications (Trade) Dose Ordered Sig/Madelyn Route PRN Reason Start Time Stop Time Status Last Admin Dose Admin Acetaminophen (Tylenol) 650 mg Q6H PRN ORAL Mild Pain/Temp > 100.5 03/28/19 11:26 04/27/19 11:25 Barium Sulfate (Readi-Cat 2) 450 ml NOW PRN ORAL Radiology Procedure 03/29/19 11:15 03/31/19 23:59 Cefepime HCl 1 gm/ Dextrose 55 ml @ 110 mls/hr Q24H IVPB 03/28/19 14:00 04/03/19 13:59 03/28/19 13:22 Dextrose/Sodium Chloride 1,000 ml @ 100 mls/hr Q10H IV 03/28/19 12:30 04/27/19 12:29 03/28/19 13:22 Iopamidol (Isovue-300 100ml) 100 ml NOW PRN INJ Radiology Procedure 03/29/19 10:30 03/30/19 10:29 Lorazepam (Ativan 2mg/ml 1ml) 2 mg Q4H PRN IV For Anxiety 03/28/19 11:26 04/04/19 11:25 Morphine Sulfate (Morphine Sulfate) 4 mg Q4H PRN IVP For Pain 03/28/19 11:30 04/04/19 11:29 Pantoprazole (Protonix) 40 mg Q12HR IV 03/28/19 21:00 04/28/19 08:59 Allergies: Coded Allergies: No Known Allergies (Unverified , 03/26/19) ROS Limited/Unobtainable: Yes Subjective 78 YO M admitted with cecal mass with probable mets. S/P colonoscopy 03/28/19- intubated for procedure. ICU. Intubated and sedated. Objective Last Vital Signs Date Time Temp Pulse Resp B/P (MAP) Pulse Ox O2 Delivery O2 Flow Rate FiO2 03/28/19 16:52 93 18 45 03/28/19 16:00 97.5 95/52 (66) 95 03/28/19 16:00 Mechanical Ventilator 03/28/19 09:00 4.0 Laboratory Tests Test 03/28/19 01:50 03/28/19 06:10 03/28/19 13:20 Stool Occult Blood Positive (NEGATIVE) White Blood Count 14.1 K/UL (4.8-10.8) H Red Blood Count 2.79 M/UL (4.70-6.10) L Hemoglobin 8.7 G/DL (14.2-18.0) L Hematocrit 25.5 % (42.0-52.0) L Mean Corpuscular Volume 91 FL (80-99) Mean Corpuscular Hemoglobin 31.2 PG (27.0-31.0) H Mean Corpuscular Hemoglobin Concent 34.1 G/DL (32.0-36.0) Red Cell Distribution Width 15.6 % (11.6-14.8) H Platelet Count 150 K/UL (150-450) Mean Platelet Volume 6.7 FL (6.5-10.1) Neutrophils (%) (Auto) % (45.0-75.0) Lymphocytes (%) (Auto) % (20.0-45.0) Monocytes (%) (Auto) % (1.0-10.0) Eosinophils (%) (Auto) % (0.0-3.0) Basophils (%) (Auto) % (0.0-2.0) Differential Total Cells Counted 100 Neutrophils % (Manual) 89 % (45-75) H Lymphocytes % (Manual) 4 % (20-45) L Monocytes % (Manual) 2 % (1-10) Eosinophils % (Manual) 0 % (0-3) Basophils % (Manual) 0 % (0-2) Band Neutrophils 5 % (0-8) Platelet Estimate Adequate Platelet Morphology Normal Anisocytosis 1+ Prothrombin Time 14.8 SEC (9.30-11.50) H Prothromb Time International Ratio 1.4 (0.9-1.1) H Sodium Level 136 MMOL/L (136-145) Potassium Level 4.2 MMOL/L (3.5-5.1) Chloride Level 100 MMOL/L (98-107) Carbon Dioxide Level 22 MMOL/L (21-32) Anion Gap 14 mmol/L (5-15) Blood Urea Nitrogen 94 mg/dL (7-18) H Creatinine 3.4 MG/DL (0.55-1.30) H Estimat Glomerular Filtration Rate mL/min (>60) Glucose Level 163 MG/DL (74-106) H Calcium Level 7.5 MG/DL (8.5-10.1) L Phosphorus Level 4.9 MG/DL (2.5-4.9) Magnesium Level 2.4 MG/DL (1.8-2.4) Total Bilirubin 0.9 MG/DL (0.2-1.0) Aspartate Amino Transf (AST/SGOT) 17 U/L (15-37) Alanine Aminotransferase (ALT/SGPT) 14 U/L (12-78) Alkaline Phosphatase 234 U/L (46-116) H Ammonia < 10 umol/L (11-32) L Total Protein 6.0 G/DL (6.4-8.2) L Albumin 2.7 G/DL (3.4-5.0) L Globulin 3.3 g/dL Albumin/Globulin Ratio 0.8 (1.0-2.7) L Carcinoembryonic Antigen Pending Thyroid Stimulating Hormone (TSH) 3.149 uiU/mL (0.358-3.740) Cortisol AM Sample 23.8 UG/DL Hepatitis B Surface Antigen Pending Hepatitis C Antibody Pending Arterial Blood pH 7.377 (7.350-7.450) Arterial Blood Partial Pressure CO2 33.3 mmHg (35.0-45.0) L Arterial Blood Partial Pressure O2 74.2 mmHg (75.0-100.0) L Arterial Blood HCO3 19.1 mmol/L (22.0-26.0) L Arterial Blood Oxygen Saturation 92.5 % (95-100) L Arterial Blood Base Excess -5.4 (-2-2) L Raudel Test Positive Microbiology Date/Time Source Procedure Growth Status 03/27/19 10:50 Urine,Clean Catch Urine Culture - Preliminary NO GROWTH Resulted 03/26/19 23:30 Rectum Received Intake and Output 03/27/19 03/28/19 19:00 07:00 Intake Total 1215 ml 750 ml Output Total 300 ml Balance 1215 ml 450 ml Intake Oral 480 ml IV Total 735 ml 750 ml Output Urine Total 300 ml Objective PHYSICAL EXAMINATION: GENERAL: The patient is a thin-appearing male, in no apparent distress. HEENT: Eyes, pupils are equal and responsive to light and accommodation. Extraocular movements are intact. NECK: Supple without lymphadenopathy. CHEST: Mech vent; Coarse breath sounds bilaterally; without wheezes or rales. CARDIOVASCULAR: Regular rhythm and rate. S1, S2 are normal without murmurs, rubs, or gallops. ABDOMEN: Soft and grossly distended with decreased bowel sounds. Presence of fluid wave noted. No evidence of hepatosplenomegaly. Currently, no rebound or guarding noted. EXTREMITIES: Negative for clubbing, cyanosis, or edema. RECTAL/GENITAL: Not performed. NEUROLOGIC: Cranial nerves II through XII are grossly intact without focal deficits. Motor strength is 5/5 bilaterally. Deep tendon reflexes are 2+ plantar. Assessment/Plan Assessment/Plan ASSESSMENT: This is a 78-year-old male. 1. Cecal mass with probable metastases. 2. Ascites. 3. Acute renal failure. 4. Coagulopathy. TREATMENT: 1. Cecal mass with probable mets. A Gastroenterology consultation has been obtained with Dr. Valerie Greenwood. S/P colonoscopy 03/28/19-Await path. Follow recommendations of Gastroenterology. 2. Ascites as above. A Gastroenterology consultation has been obtained with Dr. Valerie Greenwood. Await paracentesis 3. Acute renal failure. A Nephrology consultation has been obtained with Dr. Salgado. 4. Coagulopathy. Improving. The patient is status post transfusion of 2 units of fresh frozen plasma at [place]. Kashif Ponce MD Mar 28, 2019 17:05
--- NOTE | 2019-03-28 17:30 | NUR ---
NURSE NOTES: Dr. Silvestre and Dr. Ponce at bedside to assess the patient, updated on patient's condition. Addendum: 03/28/19 at 1827 by RADAMES WEST RN Per Dr. Ponce, ask Dr. Fuller regarding possible extubation. Left a message to Dr. Fuller.
--- NOTE | 2019-03-28 17:45 | NUR ---
NURSE NOTES: Per Dr. Fuller, patient for weaning. RT made aware.
--- NOTE | 2019-03-28 18:04 | Endoscopy Procedure Note ---
Endoscopy Procedure Note General Indication for Procedure: abnormal CT Procedures Performed: colonoscopy Operative Findings/Diagnosis: cecum mass Pt Tolerated Procedure Well: No Estimated Blood Loss: minimal Anesthesia Anesthesiologist: see report Anesthesia: MAC Medications Medication Given: see anesthesia record Inserted Devices Implant(s) used?: No Quality Quality of Bowel Preparation: Fair GI Core Measures 50 yrs or older w/o bx or poly: Not Applicable 10yrs. F/U recommended: Not Applicable Valerie Greenwood MD Mar 28, 2019 18:04
--- NOTE | 2019-03-28 18:06 | Brief Operative Note ---
Immediate Post Operative Note Operative Note Chief Complaint: abnormal CT Pre-op Diagnosis: colon CA Procedure: colon bx Post-op Diagnosis: cecal mass Surgeon: milly Anesthesiologist: see attached Anesthesia: MAC Specimen: yes Complications: yes Condition: unstable Fluids: recorded Drains: none Implant(s) used?: No Valerie Greenwood MD Mar 28, 2019 18:06
--- NOTE | 2019-03-28 18:30 | NUR ---
NURSE NOTES: Patient desaturated to 88%. vent settings adjusted by RT, AC16, TV600, FIO2 70%, PEEP 5. Left a message to Dr. Fuller, awaiting for call back.
--- NOTE | 2019-03-28 19:15 | NUR ---
RESPIRATORY NOTE: PT RECEIVED ON AC/VC 16, 600, 70% +5. ALARMS ARE ON AND AUDIBLE. PT IS BEING VENTILATED VIA AN ETT SIZE 7.0 @ 21 CM LIPLINE. RN. SMALL SPOKE WITH DR. CULLEN AND AN ORDER FOR PEEP OF 5 WAS ENTERED. PT SPO2 IS CURRENTLY STABLE ON 70% AND PEEP OF +5. WILL CONTINUE TO CLOSELY MONITOR AND FIO2 WILL BE TITRATED HEMANTH.
--- NOTE | 2019-03-28 19:20 | NUR ---
NURSE NOTES: No call back from Dr. Fuller. patient in stable condition at this time. Os sat 96%. No distress noted.
--- NOTE | 2019-03-28 19:28 | NUR ---
HAND-OFF: Report given to JOHN Peoples. Endorsed to follow up with Dr. Fuller.
--- NOTE | 2019-03-28 19:30 | NUR ---
NURSE NOTES: Patient in bed awake,alert able to make needs known to staff. HOB elevated. No /s/s of acute distress noted. No moaning no facial grimaces noted. OGT intact no residual.NPO. S/p paracentesis with dressing dry and intact on right side of abdomen. Horn draining. Per AM nurse Patient desat to 88%. vent settings adjusted by RT, AC16, TV600, FIO2 70%, PEEP 5. Left a message to Dr. Fuller, awaiting for call back. will follow up. Instructed patient to use call light for assistance. Bed alarm on. bed locked and in low position. Will continue plan of care.
[2019-03-28] MEDS: Pantoprazole Inj IV SCH (20:49)
[2019-03-28] MEDS ORDERED: Tamsulosin 0.4mg cap ORAL SCH (21:00)
--- NOTE | 2019-03-28 21:16 | NUR ---
NURSE NOTES: Spoke with Dr Fuller and Clarified PEEP order per Dr. Fuller continue peep of 5. Charge nurse and RT Gabbi aware.
[2019-03-28] MEDS: LORazepam Inj 2mg/ml 1ml IV PRN (22:07)
--- NOTE | 2019-03-28 22:16 | NUR ---
NURSE NOTES: Patient with episode on anxiety, encouraged pt to verbalize needs fears and feelings to staff, offered TV and talk therapy not effective. Ativan 2mg IVP given, effective. Call light within easy reach.
[2019-03-29] VITALS (26 sets, daily range): BP systolic 81–123; BP diastolic 36–82
--- NOTE | 2019-03-29 | NUR ---
NURSE NOTES: Patient in bed sleeping comfortably. no s/s of acute distress noted. Turned and repositioned. Horn draining with clear yellow urine. Fi02 70% satting 98%. HOB elevated. no moaning no facial grimaces. Will continue plan of care.
--- NOTE | 2019-03-29 01:21 | NUR ---
RESPIRATORY NOTE: PT FIO2 TITRATED AT THIS TIME FROM 70% TO 60% WITH NO ADR. JOHN SMALL NOTIFIED. WILL CONTINUE TO MONITOR.
[2019-03-29] MEDS: LORazepam Inj 2mg/ml 1ml IV PRN ×2 (04:32→16:23)
--- NOTE | 2019-03-29 04:40 | NUR ---
NURSE NOTES: Explained to, patient that nurse will give him a bath due to episode of lose stool, pt understand and agreed but in the middle of am care noted Patient with episode of anxiety, during bed bath encouraged pt to verbalize needs fears and feelings to staff, offered TV and talk therapy not effective. Ativan 2mg IVP given, effective. Call light within easy reach.
--- NOTE | 2019-03-29 04:45 | Operative Note - Dictated ---
DATE OF OPERATION: 03/28/2019 GASTROENTEROLOGY PROCEDURE NOTE PROCEDURE: Colonoscopy with biopsy. SURGEON: Valerie Greenwood M.D. ANESTHESIA: Please see the separate anesthesiologist notes for details. PRE-ENDOSCOPIC DIAGNOSIS: Mass seen in the cecum on the imaging study, rule out malignancy. POSTOPERATIVE DIAGNOSES: 1. Large mass seen in the cecum corresponding to the finding on the x-ray studies. 2. Respiratory failure during the procedure as described below, requiring intubation. PROCEDURE IN DETAIL: The procedure, its risks, indications, alternatives, and possible complications including, but not limited to bleeding, infection, perforation, , and anesthesia complications were explained to the patient and informed consent was obtained. The patient was then sedated by the Anesthesia Services and placed in the left lateral decubitus position. At this juncture, he was noted to have emesis of green gastric material. Because of this resulting in the respiratory compromise, the patient was placed on the back and intubated by the Anesthesia Services. The medications were given to stabilize vital signs and his oxygen saturation. Once the patient was fully stabilized, it was decided that he was stable to complete the colonoscopy procedure since it was an important part of his care. The colonoscope was then placed into the rectum and advanced to the cecum without difficulty. In the cecum, the mass was seen and indeed there was a large mass measuring 7 or 8 cm with ulceration. The mass was biopsied multiple times. The remaining of the colon did not show any significant lesions although preparation was somewhat suboptimal due to some liquid thick stool noticed. The retroflexed view of the rectum was unremarkable. The colonoscope was removed. The patient was sent to the intensive care unit. The above findings were discussed with the patient's niece who was listed in the next of kin, and all questions were answered. ASSESSMENT: This examination confirms a mass-like finding seen on CT scan, which endoscopically appears to be colon cancer. Biopsies will be evaluated to determine the type of cancer involvement. RECOMMENDATIONS: 1. ICU care. 2. Place a nasogastric tube to suction to decompress the stomach. 3. Follow up biopsy results. 4. Parcentesis to decompress the abdomen. 5. Pulmonary and oncology input. Valerie Greenwood M.D. DR: MEDHAT JOB#: [id number] CC: SHARYN
[2019-03-29 04:54] LABS: HEMATOCRIT 26.3 % (42.0-52.0); HEMOGLOBIN 8.5 G/DL (14.2-18.0); MEAN CORPUSCULAR VOLUME 94 FL (80-99); PLATELET COUNT 118 K/UL (150-450); RED CELL DISTRIBUTION WIDTH 15.6 % (11.6-14.8)
[2019-03-29 04:57] LABS: WHITE BLOOD COUNT 31.3 K/UL (4.8-10.8)
[2019-03-29 05:12] LABS: INR 1.4 (0.9-1.1)
--- NOTE | 2019-03-29 05:19 | NUR ---
RESPIRATORY NOTE: PT STABLE ON CMV WITH CURRENT SETTINGS. FIO2 PLACED BACK TO 70% DUE TO DESATURATION. VENT CIRCUIT SECURE AND OUT OF THE WAY. ETT SECURE AND PATENT. NO S/S OF RESPIRATORY DISTRESS NOTED AT THIS TIME.
[2019-03-29 05:23] LABS: ALANINE AMINOTRANSFERASE 12 U/L (12-78); ALBUMIN/GLOBULIN RATIO 0.7 (1.0-2.7); ALKALINE PHOSPHATASE 216 U/L (46-116); ANION GAP 14 mmol/L (5-15); ASPARTATE AMINO TRANSFERASE 25 U/L (15-37); BILIRUBIN,TOTAL 0.9 MG/DL (0.2-1.0); BLOOD UREA NITROGEN 86 mg/dL (7-18); CALCIUM 7.1 MG/DL (8.5-10.1); CARBON DIOXIDE 19 MMOL/L (21-32); CHLORIDE 105 MMOL/L (98-107); PHOSPHORUS 4.5 MG/DL (2.5-4.9); POTASSIUM 3.4 MMOL/L (3.5-5.1); SODIUM 138 MMOL/L (136-145)
--- NOTE | 2019-03-29 06:20 | NUR ---
NURSE NOTES: Patient with episode of puling out tubing and ETT reality orientation provided, explained the importance v/s risk and benefits, talk therapy provided, reposition in bed not effective. Dr Herman made aware and ordered bilateral soft wrist restrain. charge nurse aware. will continue to monitor pt. Pt now on Fi02 70% satting 94%.
--- NOTE | 2019-03-29 07:15 | NUR ---
NURSE NOTES: Received pt from JOHN Peoples. Patient is lethargic from sedatives. Orally intubated; ETT 7.0/21cm at lip line, vent settings 16/600/70%/+5, spo2 95%, RR 21. Bilateral breath sounds diminished. OGT clamped and NPO. Will clarify with Dr. Greenwood if he wants intermittent sxn, no residuals noted. Abdomen is firm and distended. Dressing on right upper abd noted from paracentesis. Sinus rhythm on hydrometer tester. Horn catheter draining to gravity; Dr. Campo came this morning change drainage bag to a urometer. Minimal output noted. RFA 22G running D5NS@100ml/hr. Bilateral feet +2 pitting edema. Bed locked, alarmed and in lowest position.
--- NOTE | 2019-03-29 07:42 | NUR ---
HAND-OFF: Report given to Eula Flower RN. Dr Campo came and updated regarding the pt condition.
--- NOTE | 2019-03-29 07:52 | Urology Progress Note ---
Assessment/Plan Assessment/Plan: 1. Questionable urinary retention. 2. BPH history. 3. Possible neurogenic bladder. 4. Hematuria. 5. Renal insufficiency, acute versus chronic. 6. Pyuria. 7. Proteinuria. 8. Possible urethral stricture or false passage. keep weeks, placed 03/27 hand irrigated and do PRN I personally placed new collection bag and secured to pt's leg monitor renal fxn off flomax for now f/u on urine and blood cx's voiding trial later cysto later Subjective Allergies: Coded Allergies: No Known Allergies (Unverified , 03/26/19) Subjective all noted, aspirated during colonoscopy, intubated, ICU, weeks indwelling, oliguric Objective Last 24 Hour Vital Signs Date Time Temp Pulse Resp B/P (MAP) Pulse Ox O2 Delivery O2 Flow Rate FiO2 03/29/19 07:00 90 18 101/82 (88) 94 03/29/19 06:03 99 20 96/38 (57) 93 03/29/19 06:02 93 19 89/41 (57) 92 03/29/19 05:32 101 24 97/40 (59) 94 03/29/19 05:19 95 20 70 03/29/19 05:00 103 22 81/41 (54) 92 03/29/19 04:00 60 03/29/19 04:00 Mechanical Ventilator 03/29/19 04:00 97.5 103 23 101/75 (84) 95 03/29/19 04:00 109 03/29/19 03:15 96 18 60 03/29/19 03:00 96 17 107/38 (61) 95 03/29/19 02:00 96 17 105/36 (59) 94 03/29/19 01:21 96 17 60 03/29/19 01:00 97 17 98/44 (62) 97 03/29/19 00:00 97.5 100 16 120/44 (69) 98 03/29/19 00:00 70 03/29/19 00:00 100 03/29/19 00:00 Mechanical Ventilator 03/28/19 23:15 98 17 70 03/28/19 23:00 105 18 123/108 (113) 95 03/28/19 22:00 113 20 100/59 (73) 87 03/28/19 21:15 105 25 70 03/28/19 21:00 106 15 96/53 (67) 97 03/28/19 20:00 97.8 105 21 114/66 (82) 94 03/28/19 20:00 Mechanical Ventilator 03/28/19 20:00 70 03/28/19 20:00 100 03/28/19 19:15 103 23 70 03/28/19 19:00 96 19 109/46 (67) 96 03/28/19 18:00 99 22 116/51 (72) 93 03/28/19 17:00 96 17 118/54 (75) 93 03/28/19 16:52 93 18 45 03/28/19 16:12 87 03/28/19 16:00 97.5 89 19 95/52 (66) 95 03/28/19 16:00 Mechanical Ventilator 03/28/19 15:18 97 16 45 03/28/19 15:00 87 15 103/51 (68) 98 03/28/19 14:00 88 16 95/51 (66) 95 03/28/19 13:34 90 03/28/19 13:15 90 17 45 03/28/19 13:15 45 03/28/19 13:00 89 17 96/65 (75) 99 03/28/19 12:30 50 03/28/19 12:30 94 18 112/59 (76) 95 03/28/19 12:27 50 03/28/19 12:15 95 19 118/54 (75) 93 03/28/19 12:00 50 03/28/19 12:00 Mechanical Ventilator 03/28/19 12:00 97.6 98 19 134/63 (86) 95 03/28/19 11:50 100 13 100 Mechanical Ventilator 50 03/28/19 11:45 100 18 143/66 (91) 96 03/28/19 11:45 101 13 50 03/28/19 11:30 104 18 150/70 (96) 97 03/28/19 11:17 96 12 100 03/28/19 11:15 95 14 148/54 (85) 100 03/28/19 09:00 Nasal Cannula 4.0 03/28/19 08:00 97.9 86 18 104/67 (79) 97 Intake and Output 03/28/19 03/29/19 18:59 06:59 Intake Total 668.33 ml 1115 ml Output Total 900 ml Balance -231.67 ml 1115 ml IV Total 668.33 ml 1115 ml Tube Feeding 0 ml 0 ml Output Urine Total 200 ml Other 700 ml # Voids 165 465 # Bowel Movements 2 Microbiology Date/Time Source Procedure Growth Status 03/27/19 12:40 Blood Blood Culture - Preliminary NO GROWTH AFTER 24 HOURS Resulted 03/27/19 10:50 Urine,Clean Catch Urine Culture - Preliminary NO GROWTH Resulted 03/26/19 23:30 Rectum - Final NO CARBAPENEM-RESISTANT ENTEROBACTERI... Complete Current Medications Medications (Trade) Dose Ordered Sig/Madelyn Route PRN Reason Start Time Stop Time Status Last Admin Dose Admin Acetaminophen (Tylenol) 650 mg Q6H PRN ORAL Mild Pain/Temp > 100.5 03/28/19 11:26 04/27/19 11:25 Barium Sulfate (Readi-Cat 2) 450 ml NOW PRN ORAL Radiology Procedure 03/29/19 11:15 03/31/19 23:59 Cefepime HCl 1 gm/ Dextrose 55 ml @ 110 mls/hr Q24H IVPB 03/28/19 14:00 04/03/19 13:59 03/28/19 13:22 Dextrose/Sodium Chloride 1,000 ml @ 100 mls/hr Q10H IV 03/28/19 12:30 04/27/19 12:29 03/28/19 22:10 Iopamidol (Isovue-300 100ml) 100 ml NOW PRN INJ Radiology Procedure 03/29/19 10:30 03/30/19 10:29 Lorazepam (Ativan 2mg/ml 1ml) 2 mg Q4H PRN IV For Anxiety 03/28/19 11:26 04/04/19 11:25 03/29/19 04:32 Morphine Sulfate (Morphine Sulfate) 4 mg Q4H PRN IVP For Pain 03/28/19 11:30 04/04/19 11:29 Pantoprazole (Protonix) 40 mg Q12HR IV 03/28/19 21:00 04/28/19 08:59 03/28/19 20:49 Laboratory Tests 03/28/19 13:20: Arterial Blood pH 7.377, Arterial Blood Partial Pressure CO2 33.3L, Arterial Blood Partial Pressure O2 74.2L, Arterial Blood HCO3 19.1L, Arterial Blood Oxygen Saturation 92.5L, Arterial Blood Base Excess -5.4L, Raudel Test Positive 03/29/19 04:13: White Blood Count 31.3#*H, Red Blood Count 2.80L, Hemoglobin 8.5L, Hematocrit 26.3L, Mean Corpuscular Volume 94, Mean Corpuscular Hemoglobin 30.5, Mean Corpuscular Hemoglobin Concent 32.5, Red Cell Distribution Width 15.6H, Platelet Count 118L, Mean Platelet Volume 7.6, Neutrophils (%) (Auto) , Lymphocytes (%) (Auto) , Monocytes (%) (Auto) , Eosinophils (%) (Auto) , Basophils (%) (Auto) , Neutrophils % (Manual) [Pending], Lymphocytes % (Manual) [Pending], Platelet Estimate [Pending], Platelet Morphology [Pending], Prothrombin Time 14.5H, Prothromb Time International Ratio 1.4H, Activated Partial Thromboplast Time 44H, Sodium Level 138, Potassium Level 3.4L, Chloride Level 105, Carbon Dioxide Level 19L, Anion Gap 14, Blood Urea Nitrogen 86H, Creatinine 3.0H, Estimat Glomerular Filtration Rate , Glucose Level 115H, Uric Acid 14.1H, Calcium Level 7.1L, Phosphorus Level 4.5, Magnesium Level 2.2, Total Bilirubin 0.9, Aspartate Amino Transf (AST/SGOT) 25, Alanine Aminotransferase (ALT/SGPT) 12, Alkaline Phosphatase 216H, C-Reactive Protein, Quantitative 11.6H, Pro-B-Type Natriuretic Peptide 2864H, Total Protein 5.0L, Albumin 2.0L, Globulin 3.0, Albumin/Globulin Ratio 0.7L Height (Feet): 5 Height (Inches): 10.00 Weight (Pounds): 134 Objective exam stable urine grossly clearing no bleeding at meatus Nando Campo MD Mar 29, 2019 07:52
--- NOTE | 2019-03-29 08:40 | NUR ---
RADIOLOGY DEPT., CHEST X-RAY DONE. -P.DYE
[2019-03-29] MEDS ORDERED: Pantoprazole Inj IV SCH ×2 (09:00)
[2019-03-29] MEDS ORDERED: Pantoprazole Inj IVP SCH ×2 (09:00)
[2019-03-29 09:40] LABS: HEMATOCRIT 21.7 % (42.0-52.0); HEMOGLOBIN 7.4 G/DL (14.2-18.0); MEAN CORPUSCULAR VOLUME 94 FL (80-99); PLATELET COUNT 101 K/UL (150-450); RED BLOOD COUNT 2.31 M/UL (4.70-6.10); RED CELL DISTRIBUTION WIDTH 15.2 % (11.6-14.8); WHITE BLOOD COUNT 26.4 K/UL (4.8-10.8)
[2019-03-29] MEDS: Pantoprazole Inj IV SCH ×2 (09:41→21:05)
[2019-03-29] MEDS: D5NS 1,000 ML IV SCH ×2 (09:42→19:34)
--- NOTE | 2019-03-29 10:05 | NUR ---
NURSE NOTES: Notified Dr. Silvestre regarding WBC=26.4 and Lactic acid=4.6, received orders for Vancomycin IV and Meropenem IV per pharmacy to dose and collect sputum culture. Sepsis protocol followed.
[2019-03-29] MEDS ORDERED: Isovue-300 100ml vial INJ PRN (10:30)
--- NOTE | 2019-03-29 10:45 | 48 Hour Post Anesthesia Eval ---
Post Anesthesia Evaluation Procedure: Colonoscopy Date of Evaluation: Mar 29, 2019 Airway: other - intubated, on mechanical ventilation Nausea: No Vomiting: No Hydration Status: adequate Cardiopulmonary Status: at baseline Mental Status/LOC: other - sedated Follow-up care needed: N/A - further care as per primary team Rossy Yen MD Mar 29, 2019 10:45
--- NOTE | 2019-03-29 10:48 | NUR ---
RD ASSESSMENT & RECOMMENDATIONS SEE CARE ACTIVITY FOR COMPLETE ASSESSMENT DAILY ESTIMATED NEEDS: Needs based on Critical care, mets Ca 75kg 22-30 kcals/kg 2873-8557 total kcals 1.2-2 g protein/kg 90-150 g total protein 25-30 mL/kg 4586-7032 total fluid mLs NUTRITION DIAGNOSIS: Swallowing difficulty r/t respiratory status as evidenced by pt is s/p oral intubation s/p aspiration during colonoscopy, NPO. CURRENT DIET: NPO PO DIET RECOMMENDATIONS: FORM [employer]ER P[employer]ER eval upon extubation ENTERAL NUTRITION RECOMMENDATIONS: Osmolite 1.5 @47ml/hr x24 hrs + Prosource BID to provide 1128ml, 1692 kcal, 71g + 22g, 860ml free H2O - If unable to extubate, obtain GI access, initiate Osmolite 1.5 @17ml/hr x6 hrs. - Advance as tolerated 10ml/hr q4-6 hrs to goal. - Add Prosource BID to better meet est pro needs - Flush per MD. HOB over 3 degrees ADDITIONAL RECOMMENDATIONS: 1) Obtain a calibrated bed scale wt EMR wt: 60kg BED wt: 75kg 2) Feed w/ hemodynamic stability 3) Monitor renal status/ need for renal formula if on TF's
--- NOTE | 2019-03-29 11:14 | Diagnostic Imaging Report ---
APPROVED REPORT CPT Code: 86172 Present Symptoms Lower Extremity Pain: BILATERAL: Imaging reveals a patent deep venous system bilaterally. There is no evidence of thrombus within the femoral, popliteal or tibial segments. The greater saphenous veins are also within normal limits. Doppler indicates normal spontaneous flow within these segments.
--- NOTE | 2019-03-29 11:19 | NUR ---
SMELTER CHARGERASSISTANT PROFESSOR OF PSYCHOLOGY SI: RESP FAILURE ETT/VENT SUPPORT, COLON CA W/METS S/P COLONOSCOPY T. 97.5 HR 103 RR 24 B/P 81/41 AC 16 TV 600 FIO2 805 PEEP 5 WBC 26.4 H/H 7.4/21.7 BANDS 27 LACTID ACID 4.60 BNP 2864 PT 14.5 INR 1.4 APTT 44 PH 7.40 PCO2 26.6 PO2 73.8 HCO3 16.4 O2 SAT 93.0 IS: IVF D5NS @ 100ML/HR VANCO IV MEROPENEM IV PROTONIX IV ICU STATUS
--- NOTE | 2019-03-29 11:27 | Nephrology Progress Note ---
Assessment/Plan Problem List: (1) ATN (acute tubular necrosis) (2) Coagulopathy (3) Colon cancer metastasized to liver (4) Acute respiratory failure (5) Aspiration pneumonia Assessment Acute renal failure- Mainly Pre renal Colon Ca with mets to liver Ascitis , likely malignant Sepsis , Leukocytosis Severe Malnutrition Plan add allopurinola poor prognosis Antibiotics add zosyn now in ICU on vent after aspiration - colonoscopy 03/28 antibiotics Horn: 200 cc urine on insertion Fluid challenge Monitor renal parameters and urine out pot per orders ? comfort care?? Subjective ROS Limited/Unobtainable: Yes Objective Objective Last 24 Hour Vital Signs Date Time Temp Pulse Resp B/P (MAP) Pulse Ox O2 Delivery O2 Flow Rate FiO2 03/29/19 08:44 92 21 80 03/29/19 08:06 95 22 70 03/29/19 08:00 Mechanical Ventilator 03/29/19 08:00 80 03/29/19 07:00 90 18 101/82 (88) 94 03/29/19 06:03 99 20 96/38 (57) 93 03/29/19 06:02 93 19 89/41 (57) 92 03/29/19 05:32 101 24 97/40 (59) 94 03/29/19 05:19 95 20 70 03/29/19 05:00 103 22 81/41 (54) 92 03/29/19 04:00 60 03/29/19 04:00 Mechanical Ventilator 03/29/19 04:00 97.5 103 23 101/75 (84) 95 03/29/19 04:00 109 03/29/19 03:15 96 18 60 03/29/19 03:00 96 17 107/38 (61) 95 03/29/19 02:00 96 17 105/36 (59) 94 03/29/19 01:21 96 17 60 03/29/19 01:00 97 17 98/44 (62) 97 03/29/19 00:00 97.5 100 16 120/44 (69) 98 03/29/19 00:00 70 03/29/19 00:00 100 03/29/19 00:00 Mechanical Ventilator 03/28/19 23:15 98 17 70 03/28/19 23:00 105 18 123/108 (113) 95 03/28/19 22:00 113 20 100/59 (73) 87 03/28/19 21:15 105 25 70 03/28/19 21:00 106 15 96/53 (67) 97 03/28/19 20:00 97.8 105 21 114/66 (82) 94 03/28/19 20:00 Mechanical Ventilator 03/28/19 20:00 70 03/28/19 20:00 100 03/28/19 19:15 103 23 70 03/28/19 19:00 96 19 109/46 (67) 96 03/28/19 18:00 99 22 116/51 (72) 93 03/28/19 17:00 96 17 118/54 (75) 93 03/28/19 16:52 93 18 45 03/28/19 16:12 87 03/28/19 16:00 97.5 89 19 95/52 (66) 95 03/28/19 16:00 Mechanical Ventilator 03/28/19 15:18 97 16 45 03/28/19 15:00 87 15 103/51 (68) 98 03/28/19 14:00 88 16 95/51 (66) 95 03/28/19 13:34 90 03/28/19 13:15 90 17 45 03/28/19 13:15 45 03/28/19 13:00 89 17 96/65 (75) 99 03/28/19 12:30 50 03/28/19 12:30 94 18 112/59 (76) 95 03/28/19 12:27 50 03/28/19 12:15 95 19 118/54 (75) 93 03/28/19 12:00 50 03/28/19 12:00 Mechanical Ventilator 03/28/19 12:00 97.6 98 19 134/63 (86) 95 03/28/19 11:50 100 13 100 Mechanical Ventilator 50 03/28/19 11:45 100 18 143/66 (91) 96 03/28/19 11:45 101 13 50 03/28/19 11:30 104 18 150/70 (96) 97 Intake and Output 03/28/19 03/29/19 18:59 06:59 Intake Total 668.33 ml 1115 ml Output Total 900 ml Balance -231.67 ml 1115 ml IV Total 668.33 ml 1115 ml Tube Feeding 0 ml 0 ml Output Urine Total 200 ml Other 700 ml # Voids 165 465 # Bowel Movements 2 Laboratory Tests 8/29/19 13:20: Arterial Blood pH 7.377, Arterial Blood Partial Pressure CO2 33.3L, Arterial Blood Partial Pressure O2 74.2L, Arterial Blood HCO3 19.1L, Arterial Blood Oxygen Saturation 92.5L, Arterial Blood Base Excess -5.4L, Raudel Test Positive 03/29/19 04:13: White Blood Count 31.3#*H, Red Blood Count 2.80L, Hemoglobin 8.5L, Hematocrit 26.3L, Mean Corpuscular Volume 94, Mean Corpuscular Hemoglobin 30.5, Mean Corpuscular Hemoglobin Concent 32.5, Red Cell Distribution Width 15.6H, Platelet Count 118L, Mean Platelet Volume 7.6, Neutrophils (%) (Auto) , Lymphocytes (%) (Auto) , Monocytes (%) (Auto) , Eosinophils (%) (Auto) , Basophils (%) (Auto) , Differential Total Cells Counted 100, Neutrophils % ( Manual) 72, Lymphocytes % (Manual) 3L, Monocytes % (Manual) 1, Eosinophils % ( Manual) 0, Basophils % (Manual) 0, Band Neutrophils 24H, Platelet Estimate DecreasedL, Platelet Morphology Normal, Anisocytosis 1+, Prothrombin Time 14.5H , Prothromb Time International Ratio 1.4H, Activated Partial Thromboplast Time 44H, Sodium Level 138, Potassium Level 3.4L, Chloride Level 105, Carbon Dioxide Level 19L, Anion Gap 14, Blood Urea Nitrogen 86H, Creatinine 3.0H, Estimat Glomerular Filtration Rate , Glucose Level 115H, Uric Acid 14.1H, Calcium Level 7.1L, Phosphorus Level 4.5, Magnesium Level 2.2, Total Bilirubin 0.9, Aspartate Amino Transf (AST/SGOT) 25, Alanine Aminotransferase (ALT/SGPT) 12, Alkaline Phosphatase 216H, C-Reactive Protein, Quantitative 11.6H, Pro-B-Type Natriuretic Peptide 2864H, Total Protein 5.0L, Albumin 2.0L, Globulin 3.0, Albumin/Globulin Ratio 0.7L 03/29/19 08:30: Arterial Blood pH 7.408, Arterial Blood Partial Pressure CO2 26.6L, Arterial Blood Partial Pressure O2 73.8L, Arterial Blood HCO3 16.4*L, Arterial Blood Oxygen Saturation 93.0L, Arterial Blood Base Excess -7.3L, Raudel Test Positive 03/29/19 09:15: White Blood Count 26.4*H, Red Blood Count 2.31L, Hemoglobin 7.4L, Hematocrit 21.7L, Mean Corpuscular Volume 94, Mean Corpuscular Hemoglobin 31.9H, Mean Corpuscular Hemoglobin Concent 34.0, Red Cell Distribution Width 15.2H, Platelet Count 101L, Mean Platelet Volume 7.1, Neutrophils (%) (Auto) , Lymphocytes (%) (Auto) , Monocytes (%) (Auto) , Eosinophils (%) (Auto) , Basophils (%) (Auto) , Differential Total Cells Counted 100, Neutrophils % ( Manual) 70, Lymphocytes % (Manual) 2L, Monocytes % (Manual) 1, Eosinophils % ( Manual) 0, Basophils % (Manual) 0, Band Neutrophils 27H, Platelet Estimate DecreasedL, Platelet Morphology Normal, Anisocytosis 1+, Hypochromasia 1+, Lactic Acid Level 4.60H Height (Feet): 5 Height (Inches): 10.00 Weight (Pounds): 134 General Appearance: no apparent distress EENT: other - vented Respiratory/Chest: decreased breath sounds Abdomen: distended Genitourinary/Rectal: other Cristian Salgado MD Mar 29, 2019 11:27
--- NOTE | 2019-03-29 11:30 | NUR ---
Social Service Note Patient transferred to ICU after procedure. Message left for patient's niece Swati Walker [phone] to address treatment plan of care. Patient with mets CA. Awaiting return call. Will monitor and follow up.
--- NOTE | 2019-03-29 11:31 | Pulmonolgy Critical Care Note ---
Critical Care - Asmt/Plan Problems: (1) Acute respiratory failure (2) Aspiration pneumonia (3) ATN (acute tubular necrosis) (4) Sepsis (5) Urine retention (6) Coagulopathy (7) Severe protein-calorie malnutrition (8) Colon cancer metastasized to liver Respiratory: monitor respiratory rate, adjust FIO2, CXR Cardiac: continue pressors, continue to monitor HR/BP Renal: F/U I&O, check electrolytes Infectious Disease: check cultures, continue antibiotics Gastrointestinal: continue feedings/current rate, start feedings Endocrine: monitor blood sugar, continue sliding scale insulin Hematologic: monitor H/H, transfuse if hgb<8.5 Neurologic: PRN Ativan, PRN Morphine, keep patient comfortable Prophylaxis: Heparin Time Spent (Minutes): 40 Notes Reviewed: 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: nurses, case advocatemanager tax - Objective Last 24 Hour Vital Signs Date Time Temp Pulse Resp B/P (MAP) Pulse Ox O2 Delivery O2 Flow Rate FiO2 03/29/19 11:22 94 24 80 03/29/19 08:44 92 21 80 03/29/19 08:06 95 22 70 03/29/19 08:00 Mechanical Ventilator 03/29/19 08:00 80 03/29/19 07:00 90 18 101/82 (88) 94 03/29/19 06:03 99 20 96/38 (57) 93 03/29/19 06:02 93 19 89/41 (57) 92 03/29/19 05:32 101 24 97/40 (59) 94 03/29/19 05:19 95 20 70 03/29/19 05:00 103 22 81/41 (54) 92 03/29/19 04:00 60 03/29/19 04:00 Mechanical Ventilator 03/29/19 04:00 97.5 103 23 101/75 (84) 95 03/29/19 04:00 109 03/29/19 03:15 96 18 60 03/29/19 03:00 96 17 107/38 (61) 95 03/29/19 02:00 96 17 105/36 (59) 94 03/29/19 01:21 96 17 60 03/29/19 01:00 97 17 98/44 (62) 97 03/29/19 00:00 97.5 100 16 120/44 (69) 98 03/29/19 00:00 70 03/29/19 00:00 100 03/29/19 00:00 Mechanical Ventilator 03/28/19 23:15 98 17 70 03/28/19 23:00 105 18 123/108 (113) 95 03/28/19 22:00 113 20 100/59 (73) 87 03/28/19 21:15 105 25 70 03/28/19 21:00 106 15 96/53 (67) 97 03/28/19 20:00 97.8 105 21 114/66 (82) 94 03/28/19 20:00 Mechanical Ventilator 03/28/19 20:00 70 03/28/19 20:00 100 03/28/19 19:15 103 23 70 03/28/19 19:00 96 19 109/46 (67) 96 03/28/19 18:00 99 22 116/51 (72) 93 03/28/19 17:00 96 17 118/54 (75) 93 03/28/19 16:52 93 18 45 03/28/19 16:12 87 03/28/19 16:00 97.5 89 19 95/52 (66) 95 03/28/19 16:00 Mechanical Ventilator 03/28/19 15:18 97 16 45 03/28/19 15:00 87 15 103/51 (68) 98 03/28/19 14:00 88 16 95/51 (66) 95 03/28/19 13:34 90 03/28/19 13:15 90 17 45 03/28/19 13:15 45 03/28/19 13:00 89 17 96/65 (75) 99 03/28/19 12:30 50 03/28/19 12:30 94 18 112/59 (76) 95 03/28/19 12:27 50 03/28/19 12:15 95 19 118/54 (75) 93 03/28/19 12:00 50 03/28/19 12:00 Mechanical Ventilator 03/28/19 12:00 97.6 98 19 134/63 (86) 95 03/28/19 11:50 100 13 100 Mechanical Ventilator 50 03/28/19 11:45 100 18 143/66 (91) 96 03/28/19 11:45 101 13 50 Status: awake Condition: critical HEENT: atraumatic Lungs: clear Heart: HR/BP stable Abdomen: soft, non-tender Extremities: no C/C/E, edema Micro: Microbiology Date/Time Source Procedure Growth Status 03/27/19 12:40 Blood Blood Culture - Preliminary NO GROWTH AFTER 24 HOURS Resulted 03/27/19 12:25 Blood Blood Culture - Preliminary NO GROWTH AFTER 24 HOURS Resulted 03/26/19 23:30 Nasal Nares MRSA Culture - Final NO METHICILLIN RESISTANT STAPH AUREUS... Complete 03/27/19 10:50 Urine,Clean Catch Urine Culture - Preliminary NO GROWTH AFTER 24 HOURS Resulted 03/26/19 23:30 Rectum - Final NO CARBAPENEM-RESISTANT ENTEROBACTERI... Complete 03/26/19 23:30 Rectum VRE Culture - Final Enterococcus Faecalis - Vre Complete Critical Care - Subjective ROS Limited/Unobtainable: Yes Condition: critical EKG Rhythm: Sinus Rhythm FI02: 80 Vent Support Breath Rate: 16 Vent Support Mode: AC Vent Tidal Volume: 600 Sputum Amount: Scant PEEP: 5.0 PIP: 25 Tube Feeding Amount: 0 I&O: Intake and Output 03/28/19 03/29/19 18:59 06:59 Intake Total 668.33 ml 1115 ml Output Total 900 ml Balance -231.67 ml 1115 ml IV Total 668.33 ml 1115 ml Tube Feeding 0 ml 0 ml Output Urine Total 200 ml Other 700 ml # Voids 165 465 # Bowel Movements 2 CXR: worsening left infiltrate ET-Tube: 7.0 ET Position: 21 Labs: Laboratory Tests Test 03/28/19 13:20 03/29/19 04:13 03/29/19 08:30 03/29/19 09:15 Arterial Blood pH 7.377 (7.350-7.450) 7.408 (7.350-7.450) Arterial Blood Partial Pressure CO2 33.3 mmHg (35.0-45.0) L 26.6 mmHg (35.0-45.0) L Arterial Blood Partial Pressure O2 74.2 mmHg (75.0-100.0) L 73.8 mmHg (75.0-100.0) L Arterial Blood HCO3 19.1 mmol/L (22.0-26.0) L 16.4 mmol/L (22.0-26.0) *L Arterial Blood Oxygen Saturation 92.5 % (95-100) L 93.0 % (95-100) L Arterial Blood Base Excess -5.4 (-2-2) L -7.3 (-2-2) L Raudel Test Positive Positive White Blood Count 31.3 K/UL (4.8-10.8) #*H 26.4 K/UL (4.8-10.8) *H Red Blood Count 2.80 M/UL (4.70-6.10) L 2.31 M/UL (4.70-6.10) L Hemoglobin 8.5 G/DL (14.2-18.0) L 7.4 G/DL (14.2-18.0) L Hematocrit 26.3 % (42.0-52.0) L 21.7 % (42.0-52.0) L Mean Corpuscular Volume 94 FL (80-99) 94 FL (80-99) Mean Corpuscular Hemoglobin 30.5 PG (27.0-31.0) 31.9 PG (27.0-31.0) H Mean Corpuscular Hemoglobin Concent 32.5 G/DL (32.0-36.0) 34.0 G/DL (32.0-36.0) Red Cell Distribution Width 15.6 % (11.6-14.8) H 15.2 % (11.6-14.8) H Platelet Count 118 K/UL (150-450) L 101 K/UL (150-450) L Mean Platelet Volume 7.6 FL (6.5-10.1) 7.1 FL (6.5-10.1) Neutrophils (%) (Auto) % (45.0-75.0) % (45.0-75.0) Lymphocytes (%) (Auto) % (20.0-45.0) % (20.0-45.0) Monocytes (%) (Auto) % (1.0-10.0) % (1.0-10.0) Eosinophils (%) (Auto) % (0.0-3.0) % (0.0-3.0) Basophils (%) (Auto) % (0.0-2.0) % (0.0-2.0) Differential Total Cells Counted 100 100 Neutrophils % (Manual) 72 % (45-75) 70 % (45-75) Lymphocytes % (Manual) 3 % (20-45) L 2 % (20-45) L Monocytes % (Manual) 1 % (1-10) 1 % (1-10) Eosinophils % (Manual) 0 % (0-3) 0 % (0-3) Basophils % (Manual) 0 % (0-2) 0 % (0-2) Band Neutrophils 24 % (0-8) H 27 % (0-8) H Platelet Estimate Decreased L Decreased L Platelet Morphology Normal Normal Anisocytosis 1+ 1+ Prothrombin Time 14.5 SEC (9.30-11.50) H Prothromb Time International Ratio 1.4 (0.9-1.1) H Activated Partial Thromboplast Time 44 SEC (23-33) H Sodium Level 138 MMOL/L (136-145) Potassium Level 3.4 MMOL/L (3.5-5.1) L Chloride Level 105 MMOL/L (98-107) Carbon Dioxide Level 19 MMOL/L (21-32) L Anion Gap 14 mmol/L (5-15) Blood Urea Nitrogen 86 mg/dL (7-18) H Creatinine 3.0 MG/DL (0.55-1.30) H Estimat Glomerular Filtration Rate mL/min (>60) Glucose Level 115 MG/DL (74-106) H Uric Acid 14.1 MG/DL (2.6-7.2) H Calcium Level 7.1 MG/DL (8.5-10.1) L Phosphorus Level 4.5 MG/DL (2.5-4.9) Magnesium Level 2.2 MG/DL (1.8-2.4) Total Bilirubin 0.9 MG/DL (0.2-1.0) Aspartate Amino Transf (AST/SGOT) 25 U/L (15-37) Alanine Aminotransferase (ALT/SGPT) 12 U/L (12-78) Alkaline Phosphatase 216 U/L (46-116) H C-Reactive Protein, Quantitative 11.6 mg/dL (0.00-0.90) H Pro-B-Type Natriuretic Peptide 2864 pg/mL (0-125) H Total Protein 5.0 G/DL (6.4-8.2) L Albumin 2.0 G/DL (3.4-5.0) L Globulin 3.0 g/dL Albumin/Globulin Ratio 0.7 (1.0-2.7) L Hypochromasia 1+ Lactic Acid Level 4.60 mmol/L (0.4-2.0) H Ilan Fuller MD Mar 29, 2019 11:31
[2019-03-29] MEDS: Meropenem 500 MG in NS 55 ML IV SCH ×2 (12:44→21:04)
[2019-03-29] MEDS ORDERED: Vancomycin 1gm in D5W 275ml IVPB SCH (13:00)
--- NOTE | 2019-03-29 13:00 | NUR ---
NURSE NOTES: Patient had x1 loose, bloody and mucousy BM. More awake and able to nod yes or no; answer simple questions.
--- NOTE | 2019-03-29 13:20 | Surgery Progress Note ---
Surgery Progress Note Subjective Additional Comments leukocytosis, lactic acidosis, ill appearing on vent support not very responsive. prognosis guarded. family at bedside. Objective Last 24 Hour Vital Signs Date Time Temp Pulse Resp B/P (MAP) Pulse Ox O2 Delivery O2 Flow Rate FiO2 03/29/19 11:22 94 24 80 03/29/19 08:44 92 21 80 03/29/19 08:06 95 22 70 03/29/19 08:00 Mechanical Ventilator 03/29/19 08:00 80 03/29/19 07:00 90 18 101/82 (88) 94 03/29/19 06:03 99 20 96/38 (57) 93 03/29/19 06:02 93 19 89/41 (57) 92 03/29/19 05:32 101 24 97/40 (59) 94 03/29/19 05:19 95 20 70 03/29/19 05:00 103 22 81/41 (54) 92 03/29/19 04:00 60 03/29/19 04:00 Mechanical Ventilator 03/29/19 04:00 97.5 103 23 101/75 (84) 95 03/29/19 04:00 109 03/29/19 03:15 96 18 60 03/29/19 03:00 96 17 107/38 (61) 95 03/29/19 02:00 96 17 105/36 (59) 94 03/29/19 01:21 96 17 60 03/29/19 01:00 97 17 98/44 (62) 97 03/29/19 00:00 97.5 100 16 120/44 (69) 98 03/29/19 00:00 70 03/29/19 00:00 100 03/29/19 00:00 Mechanical Ventilator 03/28/19 23:15 98 17 70 03/28/19 23:00 105 18 123/108 (113) 95 03/28/19 22:00 113 20 100/59 (73) 87 03/28/19 21:15 105 25 70 03/28/19 21:00 106 15 96/53 (67) 97 03/28/19 20:00 97.8 105 21 114/66 (82) 94 03/28/19 20:00 Mechanical Ventilator 03/28/19 20:00 70 03/28/19 20:00 100 03/28/19 19:15 103 23 70 03/28/19 19:00 96 19 109/46 (67) 96 03/28/19 18:00 99 22 116/51 (72) 93 03/28/19 17:00 96 17 118/54 (75) 93 03/28/19 16:52 93 18 45 03/28/19 16:12 87 03/28/19 16:00 97.5 89 19 95/52 (66) 95 03/28/19 16:00 Mechanical Ventilator 03/28/19 15:18 97 16 45 03/28/19 15:00 87 15 103/51 (68) 98 03/28/19 14:00 88 16 95/51 (66) 95 03/28/19 13:34 90 I&O Intake and Output 03/28/19 03/29/19 19:00 07:00 Intake Total 768.33 ml 1115 ml Output Total 900 ml Balance -131.67 ml 1115 ml IV Total 768.33 ml 1115 ml Tube Feeding 0 ml Output Urine Total 200 ml Other 700 ml # Voids 235 425 # Bowel Movements 2 Cardiovascular: RSR Respiratory: clear Abdomen: soft, distended, decreased bowel sounds Extremities: no cyanosis Laboratory Tests Test 03/29/19 04:13 03/29/19 08:30 03/29/19 09:15 03/29/19 11:35 White Blood Count 31.3 K/UL (4.8-10.8) #*H 26.4 K/UL (4.8-10.8) *H Red Blood Count 2.80 M/UL (4.70-6.10) L 2.31 M/UL (4.70-6.10) L Hemoglobin 8.5 G/DL (14.2-18.0) L 7.4 G/DL (14.2-18.0) L Hematocrit 26.3 % (42.0-52.0) L 21.7 % (42.0-52.0) L Mean Corpuscular Volume 94 FL (80-99) 94 FL (80-99) Mean Corpuscular Hemoglobin 30.5 PG (27.0-31.0) 31.9 PG (27.0-31.0) H Mean Corpuscular Hemoglobin Concent 32.5 G/DL (32.0-36.0) 34.0 G/DL (32.0-36.0) Red Cell Distribution Width 15.6 % (11.6-14.8) H 15.2 % (11.6-14.8) H Platelet Count 118 K/UL (150-450) L 101 K/UL (150-450) L Mean Platelet Volume 7.6 FL (6.5-10.1) 7.1 FL (6.5-10.1) Neutrophils (%) (Auto) % (45.0-75.0) % (45.0-75.0) Lymphocytes (%) (Auto) % (20.0-45.0) % (20.0-45.0) Monocytes (%) (Auto) % (1.0-10.0) % (1.0-10.0) Eosinophils (%) (Auto) % (0.0-3.0) % (0.0-3.0) Basophils (%) (Auto) % (0.0-2.0) % (0.0-2.0) Differential Total Cells Counted 100 100 Neutrophils % (Manual) 72 % (45-75) 70 % (45-75) Lymphocytes % (Manual) 3 % (20-45) L 2 % (20-45) L Monocytes % (Manual) 1 % (1-10) 1 % (1-10) Eosinophils % (Manual) 0 % (0-3) 0 % (0-3) Basophils % (Manual) 0 % (0-2) 0 % (0-2) Band Neutrophils 24 % (0-8) H 27 % (0-8) H Platelet Estimate Decreased L Decreased L Platelet Morphology Normal Normal Anisocytosis 1+ 1+ Prothrombin Time 14.5 SEC (9.30-11.50) H Prothromb Time International Ratio 1.4 (0.9-1.1) H Activated Partial Thromboplast Time 44 SEC (23-33) H Sodium Level 138 MMOL/L (136-145) Potassium Level 3.4 MMOL/L (3.5-5.1) L Chloride Level 105 MMOL/L (98-107) Carbon Dioxide Level 19 MMOL/L (21-32) L Anion Gap 14 mmol/L (5-15) Blood Urea Nitrogen 86 mg/dL (7-18) H Creatinine 3.0 MG/DL (0.55-1.30) H Estimat Glomerular Filtration Rate mL/min (>60) Glucose Level 115 MG/DL (74-106) H Uric Acid 14.1 MG/DL (2.6-7.2) H Calcium Level 7.1 MG/DL (8.5-10.1) L Phosphorus Level 4.5 MG/DL (2.5-4.9) Magnesium Level 2.2 MG/DL (1.8-2.4) Total Bilirubin 0.9 MG/DL (0.2-1.0) Aspartate Amino Transf (AST/SGOT) 25 U/L (15-37) Alanine Aminotransferase (ALT/SGPT) 12 U/L (12-78) Alkaline Phosphatase 216 U/L (46-116) H C-Reactive Protein, Quantitative 11.6 mg/dL (0.00-0.90) H Pro-B-Type Natriuretic Peptide 2864 pg/mL (0-125) H Total Protein 5.0 G/DL (6.4-8.2) L Albumin 2.0 G/DL (3.4-5.0) L Globulin 3.0 g/dL Albumin/Globulin Ratio 0.7 (1.0-2.7) L Arterial Blood pH 7.408 (7.350-7.450) Arterial Blood Partial Pressure CO2 26.6 mmHg (35.0-45.0) L Arterial Blood Partial Pressure O2 73.8 mmHg (75.0-100.0) L Arterial Blood HCO3 16.4 mmol/L (22.0-26.0) *L Arterial Blood Oxygen Saturation 93.0 % (95-100) L Arterial Blood Base Excess -7.3 (-2-2) L Raudel Test Positive Hypochromasia 1+ Lactic Acid Level 4.60 mmol/L (0.4-2.0) H 4.50 mmol/L (0.66-2.22) H Plan Problems: (1) Sepsis Assessment & Plan: This is a very unfortunate 78-year-old male with metastatic advanced colorectal cancer with mets of the lymph nodes and liver. Patient presented with leukocytosis and abdominal discomfort. 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 Patient currently stating he is tolerating diet and having bowel movements. Abdomen complaining of abdominal discomfort but no nausea or emesis. No fever chills. No acute surgical intervention recommended at this time given patient's medical condition and prognosis. 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 Ultrasound noted CT noted no bladder rupture very ill now s/p scope with aspiration requiring intubated on vent ICU Care Thank you for this consultation we will follow with recommendations Okay for diet from surgical standpoint (2) Colon cancer metastasized to liver (3) Severe protein-calorie malnutrition Harmeet Pérez Mar 29, 2019 13:20
--- NOTE | 2019-03-29 14:22 | Infectious Diseases Prog Note ---
Assessment/Plan Assessment/Plan Assessment: Sepsis Probable PNA -03/28 CXR: Left mid and lower lung consolidation, likely pneumonia Aspiration event (on EGD lab), now intubated 03/28 Afebrile Leukocytosis; increased -BCx NTD Probable UTI (+dysuria) -u./a wbc 15-20, nit neg, leuk +1 ; Ucx NTD -Renal US: Suspected intraperitoneal bladder rupture at the dome of the urinary bladder, which is markedly distended. Given the history of peritoneal carcinomatosis, this may be due to tumor implantation and subsequent invasion of the bladder wall. Further evaluation with contrast CT may be of benefit.Moderate heterogeneous complex ascites presumably on the basis of carcinomatosis and/or peritonitis. Unremarkable evaluation of the kidneys. No hydronephrosis. Position of the Horn catheter not elucidated on the basis of the study. Metastatic CA, likely primary Colon CA -03/27 CT abd/p: No evidence of bladder perforation. The bladder is decompressed. Ultrasound imaging of what appear to be a distended ruptured bladder is actually an area of loculated ascites, probably complex cystic mass associated with carcinomatosis. Evidence of peritoneal carcinomatosis as described above. Evidence of metastatic neoplasm involving the liver and lung as described above. Suggestion of a cecal mass, likely adenocarcinoma. Correlate with previous colonoscopy and/or histology results. Anasarca. Atherosclerotic vascular disease. Liquefied stool in the colon. Correlate for diarrhea and enteritis/colitis. Trace bilateral pleural effusions. Gallstones versus sludge -CT abd/p (at [facility]): 6.3 cm cecal mass with large ascites, omental implants , diffuse hepatic metastasis and L lingula metastasis. Ascites -03/28 SP Successful ultrasound-guided paracentesis of the right upper quadrant, yielding 0.7 liters of fluid Plan: -Switch empiric Cefepime #3 to Meropenem and IV Vancomycin given worsening sepsis and pending repeat cultures -f/u cx -Monitor CBC/CMP, temperatures -Sx f/u -Heme onc eval -aspiration precautions -poor px Thank you for this consultation. Will continue to follow along with you. Discussed with RN Subjective Allergies: Coded Allergies: No Known Allergies (Unverified , 03/26/19) Subjective afebrile wbc increased remains intubated fio2 80% increased Cr Objective Vital Signs Last 24 Hour Vital Signs Date Time Temp Pulse Resp B/P (MAP) Pulse Ox O2 Delivery O2 Flow Rate FiO2 03/29/19 13:27 98 24 80 03/29/19 11:22 94 24 80 03/29/19 08:44 92 21 80 03/29/19 08:06 95 22 70 03/29/19 08:00 Mechanical Ventilator 03/29/19 08:00 80 03/29/19 07:00 90 18 101/82 (88) 94 03/29/19 06:03 99 20 96/38 (57) 93 03/29/19 06:02 93 19 89/41 (57) 92 03/29/19 05:32 101 24 97/40 (59) 94 03/29/19 05:19 95 20 70 03/29/19 05:00 103 22 81/41 (54) 92 03/29/19 04:00 60 03/29/19 04:00 Mechanical Ventilator 03/29/19 04:00 97.5 103 23 101/75 (84) 95 03/29/19 04:00 109 03/29/19 03:15 96 18 60 03/29/19 03:00 96 17 107/38 (61) 95 03/29/19 02:00 96 17 105/36 (59) 94 03/29/19 01:21 96 17 60 03/29/19 01:00 97 17 98/44 (62) 97 03/29/19 00:00 97.5 100 16 120/44 (69) 98 03/29/19 00:00 70 03/29/19 00:00 100 03/29/19 00:00 Mechanical Ventilator 03/28/19 23:15 98 17 70 03/28/19 23:00 105 18 123/108 (113) 95 03/28/19 22:00 113 20 100/59 (73) 87 03/28/19 21:15 105 25 70 03/28/19 21:00 106 15 96/53 (67) 97 03/28/19 20:00 97.8 105 21 114/66 (82) 94 03/28/19 20:00 Mechanical Ventilator 03/28/19 20:00 70 03/28/19 20:00 100 03/28/19 19:15 103 23 70 03/28/19 19:00 96 19 109/46 (67) 96 03/28/19 18:00 99 22 116/51 (72) 93 03/28/19 17:00 96 17 118/54 (75) 93 03/28/19 16:52 93 18 45 03/28/19 16:12 87 03/28/19 16:00 97.5 89 19 95/52 (66) 95 03/28/19 16:00 Mechanical Ventilator 03/28/19 15:18 97 16 45 03/28/19 15:00 87 15 103/51 (68) 98 Height (Feet): 5 Height (Inches): 10.00 Weight (Pounds): 134 Objective General Appearance: cachetic, thin, intubated HEENT: normocephalic, atraumatic Neck: non-tender, normal alignment Respiratory/Chest: chest wall non-tender, lungs clear Breasts: no masses Cardiovascular/Chest: normal rate Abdomen: normal bowel sounds Extremities: normal range of motion Microbiology Date/Time Source Procedure Growth Status 03/27/19 12:40 Blood Blood Culture - Preliminary NO GROWTH AFTER 24 HOURS Resulted 03/27/19 12:25 Blood Blood Culture - Preliminary NO GROWTH AFTER 24 HOURS Resulted 03/26/19 23:30 Nasal Nares MRSA Culture - Final NO METHICILLIN RESISTANT STAPH AUREUS... Complete 03/27/19 10:50 Urine,Clean Catch Urine Culture - Preliminary NO GROWTH AFTER 24 HOURS Resulted 03/26/19 23:30 Rectum - Final NO CARBAPENEM-RESISTANT ENTEROBACTERI... Complete 03/26/19 23:30 Rectum VRE Culture - Final Enterococcus Faecalis - Vre Complete Laboratory Tests Test 03/29/19 04:13 03/29/19 08:30 03/29/19 09:15 03/29/19 11:35 White Blood Count 31.3 K/UL (4.8-10.8) #*H 26.4 K/UL (4.8-10.8) *H Red Blood Count 2.80 M/UL (4.70-6.10) L 2.31 M/UL (4.70-6.10) L Hemoglobin 8.5 G/DL (14.2-18.0) L 7.4 G/DL (14.2-18.0) L Hematocrit 26.3 % (42.0-52.0) L 21.7 % (42.0-52.0) L Mean Corpuscular Volume 94 FL (80-99) 94 FL (80-99) Mean Corpuscular Hemoglobin 30.5 PG (27.0-31.0) 31.9 PG (27.0-31.0) H Mean Corpuscular Hemoglobin Concent 32.5 G/DL (32.0-36.0) 34.0 G/DL (32.0-36.0) Red Cell Distribution Width 15.6 % (11.6-14.8) H 15.2 % (11.6-14.8) H Platelet Count 118 K/UL (150-450) L 101 K/UL (150-450) L Mean Platelet Volume 7.6 FL (6.5-10.1) 7.1 FL (6.5-10.1) Neutrophils (%) (Auto) % (45.0-75.0) % (45.0-75.0) Lymphocytes (%) (Auto) % (20.0-45.0) % (20.0-45.0) Monocytes (%) (Auto) % (1.0-10.0) % (1.0-10.0) Eosinophils (%) (Auto) % (0.0-3.0) % (0.0-3.0) Basophils (%) (Auto) % (0.0-2.0) % (0.0-2.0) Differential Total Cells Counted 100 100 Neutrophils % (Manual) 72 % (45-75) 70 % (45-75) Lymphocytes % (Manual) 3 % (20-45) L 2 % (20-45) L Monocytes % (Manual) 1 % (1-10) 1 % (1-10) Eosinophils % (Manual) 0 % (0-3) 0 % (0-3) Basophils % (Manual) 0 % (0-2) 0 % (0-2) Band Neutrophils 24 % (0-8) H 27 % (0-8) H Platelet Estimate Decreased L Decreased L Platelet Morphology Normal Normal Anisocytosis 1+ 1+ Prothrombin Time 14.5 SEC (9.30-11.50) H Prothromb Time International Ratio 1.4 (0.9-1.1) H Activated Partial Thromboplast Time 44 SEC (23-33) H Sodium Level 138 MMOL/L (136-145) Potassium Level 3.4 MMOL/L (3.5-5.1) L Chloride Level 105 MMOL/L (98-107) Carbon Dioxide Level 19 MMOL/L (21-32) L Anion Gap 14 mmol/L (5-15) Blood Urea Nitrogen 86 mg/dL (7-18) H Creatinine 3.0 MG/DL (0.55-1.30) H Estimat Glomerular Filtration Rate mL/min (>60) Glucose Level 115 MG/DL (74-106) H Uric Acid 14.1 MG/DL (2.6-7.2) H Calcium Level 7.1 MG/DL (8.5-10.1) L Phosphorus Level 4.5 MG/DL (2.5-4.9) Magnesium Level 2.2 MG/DL (1.8-2.4) Total Bilirubin 0.9 MG/DL (0.2-1.0) Aspartate Amino Transf (AST/SGOT) 25 U/L (15-37) Alanine Aminotransferase (ALT/SGPT) 12 U/L (12-78) Alkaline Phosphatase 216 U/L (46-116) H C-Reactive Protein, Quantitative 11.6 mg/dL (0.00-0.90) H Pro-B-Type Natriuretic Peptide 2864 pg/mL (0-125) H Total Protein 5.0 G/DL (6.4-8.2) L Albumin 2.0 G/DL (3.4-5.0) L Globulin 3.0 g/dL Albumin/Globulin Ratio 0.7 (1.0-2.7) L Arterial Blood pH 7.408 (7.350-7.450) Arterial Blood Partial Pressure CO2 26.6 mmHg (35.0-45.0) L Arterial Blood Partial Pressure O2 73.8 mmHg (75.0-100.0) L Arterial Blood HCO3 16.4 mmol/L (22.0-26.0) *L Arterial Blood Oxygen Saturation 93.0 % (95-100) L Arterial Blood Base Excess -7.3 (-2-2) L Raudel Test Positive Hypochromasia 1+ Lactic Acid Level 4.60 mmol/L (0.4-2.0) H 4.50 mmol/L (0.66-2.22) H Current Medications Medications (Trade) Dose Ordered Sig/Madelyn Route PRN Reason Start Time Stop Time Status Last Admin Dose Admin Acetaminophen (Tylenol) 650 mg Q6H PRN ORAL Mild Pain/Temp > 100.5 03/28/19 11:26 04/27/19 11:25 Albumin Human 100 ml @ 100 mls/hr ONCE IV 03/29/19 19:00 03/29/19 20:00 Allopurinol (Allopurinol) 300 mg DAILY NG 03/29/19 12:00 04/28/19 11:59 03/29/19 12:55 Barium Sulfate (Readi-Cat 2) 450 ml NOW PRN ORAL Radiology Procedure 03/29/19 11:15 03/31/19 23:59 Dextrose/Sodium Chloride 1,000 ml @ 100 mls/hr Q10H IV 03/28/19 12:30 04/27/19 12:29 03/29/19 09:42 Iopamidol (Isovue-300 100ml) 100 ml NOW PRN INJ Radiology Procedure 03/29/19 10:30 03/30/19 10:29 Lorazepam (Ativan 2mg/ml 1ml) 2 mg Q4H PRN IV For Anxiety 03/28/19 11:26 04/04/19 11:25 03/29/19 04:32 Meropenem 500 mg/ Sodium Chloride 55 ml @ 110 mls/hr Q12HR IV 03/29/19 12:00 04/03/19 11:59 03/29/19 12:44 Morphine Sulfate (Morphine Sulfate) 4 mg Q4H PRN IVP For Pain 03/28/19 11:30 04/04/19 11:29 Pantoprazole (Protonix) 40 mg Q12HR IV 03/28/19 21:00 04/28/19 08:59 03/29/19 09:41 Piperacillin Sod/ Tazobactam Sod 3.375 gm/Sodium Chloride 110 ml @ 220 mls/hr Q12H IVPB 03/29/19 14:30 04/05/19 14:29 Potassium Chloride 100 ml @ 100 mls/hr Q1H IVPB 03/29/19 15:00 03/29/19 18:59 Vancomycin HCl (Vanco rx to dose) 1 ea DAILY PRN MISC Per rx protocol 03/29/19 10:15 04/28/19 10:14 Vancomycin HCl 750 mg/Dextrose 275 ml @ 183.333 mls/hr Q36H IVPB 03/31/19 01:00 04/05/19 00:59 Caroline Silvestre M.D. Mar 29, 2019 14:22
[2019-03-29] MEDS ORDERED: Piperacillin/Tazobactam 3.375 GM in NS 110 ML IVPB SCH (14:30)
--- NOTE | 2019-03-29 15:09 | NUR ---
NURSE NOTES: Mehreen Evans at bedside. Patient visibly restless and hanging legs out of bed. Frequent reorientation required. Turned and repositioned. Kept dry and clean. Oral care done.
--- NOTE | 2019-03-29 15:27 | Cardiology Report ---
APPROVED REPORT EXAM: Two-dimensional and M-mode echocardiogram with Doppler and color Doppler. INDICATION Left Ventricular Function M-Mode DIMENSIONS IVSd1.2 (0.7-1.1cm)Left Atrium (MM)3.0 (1.6-4.0cm) LVDd3.3 (3.5-5.6cm)Aortic Root3.0 (2.0-3.7cm) PWd1.3 (0.7-1.1cm)Aortic Cusp Exc.1.6 (1.5-2.0cm) LVDs2.1 (2.5-4.0cm) PWs1.6 cm Technically difficult study due to very poor acoustical windows and pts breathing. Normal left ventricular chamber size, systolic function and wall motion to extent visualized. Left ventricular ejection fraction estimated to be 65%. Study quality precludes accurate assessment of regional wall motion. No evidence of left ventricular hypertrophy. No evidence of pericardial effusion. All other cardiac chamber sizes are within normal limits. Focal aortic valve sclerosis with adequate cusp excursion. Thickened mitral valve leaflets with normal excursion. Mitral annulus and aortic root calcification. Pulmonic valve not well visualized. Normal tricuspid valve structure. IVC at normal size with physiologic collapse. A color flow and spectral Doppler study was performed and revealed: Trace mitral regurgitation. Mitral diastolic velocities suggest reduced left ventricular relaxation c/w mild LV diastolic dysfunction (Grade I). Trace tricuspid regurgitation. Tricuspid systolic velocities suggests peak right ventricular systolic pressure of 16 mmHg.
--- NOTE | 2019-03-29 16:01 | Diagnostic Imaging Report ---
Indication: Dyspnea Comparison: 03/28/2019 A single view chest radiograph was obtained. Findings: Asymmetric moderate to severe left perihilar airspace disease noted and appearing worse compared to the previous day. Lung volumes remain low bilaterally. Heart size is stable. Tubes and lines are stable. IMPRESSION: Worsening airspace opacity/consolidation in the left lung. Correlate clinically
--- NOTE | 2019-03-29 16:54 | Internal Med Progress Note ---
Subjective Physician Name Eddi Herman Attending Physician Eddi Herman MD Current Medications Medications (Trade) Dose Ordered Sig/Madelyn Route PRN Reason Start Time Stop Time Status Last Admin Dose Admin Acetaminophen (Tylenol) 650 mg Q6H PRN ORAL Mild Pain/Temp > 100.5 03/28/19 11:26 04/27/19 11:25 Albumin Human 100 ml @ 100 mls/hr ONCE IV 03/29/19 19:00 03/29/19 20:00 Allopurinol (Allopurinol) 300 mg DAILY NG 03/29/19 12:00 04/28/19 11:59 03/29/19 12:55 Barium Sulfate (Readi-Cat 2) 450 ml NOW PRN ORAL Radiology Procedure 03/29/19 11:15 03/31/19 23:59 Dextrose/Sodium Chloride 1,000 ml @ 100 mls/hr Q10H IV 03/28/19 12:30 04/27/19 12:29 03/29/19 09:42 Iopamidol (Isovue-300 100ml) 100 ml NOW PRN INJ Radiology Procedure 03/29/19 10:30 03/30/19 10:29 Lorazepam (Ativan 2mg/ml 1ml) 2 mg Q4H PRN IV For Anxiety 03/28/19 11:26 04/04/19 11:25 03/29/19 16:23 Meropenem 500 mg/ Sodium Chloride 55 ml @ 110 mls/hr Q12HR IV 03/29/19 12:00 04/03/19 11:59 03/29/19 12:44 Morphine Sulfate (Morphine Sulfate) 4 mg Q4H PRN IVP For Pain 03/28/19 11:30 04/04/19 11:29 Pantoprazole (Protonix) 40 mg Q12HR IV 03/28/19 21:00 04/28/19 08:59 03/29/19 09:41 Potassium Chloride 100 ml @ 100 mls/hr Q1H IVPB 03/29/19 15:00 03/29/19 18:59 03/29/19 16:23 Vancomycin HCl (Vanco rx to dose) 1 ea DAILY PRN MISC Per rx protocol 03/29/19 10:15 04/28/19 10:14 Vancomycin HCl 750 mg/Dextrose 275 ml @ 183.333 mls/hr Q36H IVPB 03/31/19 01:00 04/05/19 00:59 Allergies: Coded Allergies: No Known Allergies (Unverified , 03/26/19) Subjective In ICU, intubated, sedated, open eyes with deep stimulation. Objective Last Vital Signs Date Time Temp Pulse Resp B/P (MAP) Pulse Ox O2 Delivery O2 Flow Rate FiO2 03/29/19 16:00 Mechanical Ventilator 03/29/19 16:00 85 03/29/19 15:15 115 27 03/29/19 15:00 121/54 (76) 94 03/29/19 12:00 98.6 03/28/19 09:00 4.0 Laboratory Tests Test 03/29/19 04:13 03/29/19 08:30 03/29/19 09:15 03/29/19 11:35 White Blood Count 31.3 K/UL (4.8-10.8) #*H 26.4 K/UL (4.8-10.8) *H Red Blood Count 2.80 M/UL (4.70-6.10) L 2.31 M/UL (4.70-6.10) L Hemoglobin 8.5 G/DL (14.2-18.0) L 7.4 G/DL (14.2-18.0) L Hematocrit 26.3 % (42.0-52.0) L 21.7 % (42.0-52.0) L Mean Corpuscular Volume 94 FL (80-99) 94 FL (80-99) Mean Corpuscular Hemoglobin 30.5 PG (27.0-31.0) 31.9 PG (27.0-31.0) H Mean Corpuscular Hemoglobin Concent 32.5 G/DL (32.0-36.0) 34.0 G/DL (32.0-36.0) Red Cell Distribution Width 15.6 % (11.6-14.8) H 15.2 % (11.6-14.8) H Platelet Count 118 K/UL (150-450) L 101 K/UL (150-450) L Mean Platelet Volume 7.6 FL (6.5-10.1) 7.1 FL (6.5-10.1) Neutrophils (%) (Auto) % (45.0-75.0) % (45.0-75.0) Lymphocytes (%) (Auto) % (20.0-45.0) % (20.0-45.0) Monocytes (%) (Auto) % (1.0-10.0) % (1.0-10.0) Eosinophils (%) (Auto) % (0.0-3.0) % (0.0-3.0) Basophils (%) (Auto) % (0.0-2.0) % (0.0-2.0) Differential Total Cells Counted 100 100 Neutrophils % (Manual) 72 % (45-75) 70 % (45-75) Lymphocytes % (Manual) 3 % (20-45) L 2 % (20-45) L Monocytes % (Manual) 1 % (1-10) 1 % (1-10) Eosinophils % (Manual) 0 % (0-3) 0 % (0-3) Basophils % (Manual) 0 % (0-2) 0 % (0-2) Band Neutrophils 24 % (0-8) H 27 % (0-8) H Platelet Estimate Decreased L Decreased L Platelet Morphology Normal Normal Anisocytosis 1+ 1+ Prothrombin Time 14.5 SEC (9.30-11.50) H Prothromb Time International Ratio 1.4 (0.9-1.1) H Activated Partial Thromboplast Time 44 SEC (23-33) H Sodium Level 138 MMOL/L (136-145) Potassium Level 3.4 MMOL/L (3.5-5.1) L Chloride Level 105 MMOL/L (98-107) Carbon Dioxide Level 19 MMOL/L (21-32) L Anion Gap 14 mmol/L (5-15) Blood Urea Nitrogen 86 mg/dL (7-18) H Creatinine 3.0 MG/DL (0.55-1.30) H Estimat Glomerular Filtration Rate mL/min (>60) Glucose Level 115 MG/DL (74-106) H Uric Acid 14.1 MG/DL (2.6-7.2) H Calcium Level 7.1 MG/DL (8.5-10.1) L Phosphorus Level 4.5 MG/DL (2.5-4.9) Magnesium Level 2.2 MG/DL (1.8-2.4) Total Bilirubin 0.9 MG/DL (0.2-1.0) Aspartate Amino Transf (AST/SGOT) 25 U/L (15-37) Alanine Aminotransferase (ALT/SGPT) 12 U/L (12-78) Alkaline Phosphatase 216 U/L (46-116) H C-Reactive Protein, Quantitative 11.6 mg/dL (0.00-0.90) H Pro-B-Type Natriuretic Peptide 2864 pg/mL (0-125) H Total Protein 5.0 G/DL (6.4-8.2) L Albumin 2.0 G/DL (3.4-5.0) L Globulin 3.0 g/dL Albumin/Globulin Ratio 0.7 (1.0-2.7) L Arterial Blood pH 7.408 (7.350-7.450) Arterial Blood Partial Pressure CO2 26.6 mmHg (35.0-45.0) L Arterial Blood Partial Pressure O2 73.8 mmHg (75.0-100.0) L Arterial Blood HCO3 16.4 mmol/L (22.0-26.0) *L Arterial Blood Oxygen Saturation 93.0 % (95-100) L Arterial Blood Base Excess -7.3 (-2-2) L Raudel Test Positive Hypochromasia 1+ Lactic Acid Level 4.60 mmol/L (0.4-2.0) H 4.50 mmol/L (0.66-2.22) H Microbiology Date/Time Source Procedure Growth Status 03/27/19 12:40 Blood Blood Culture - Preliminary NO GROWTH AFTER 24 HOURS Resulted 03/27/19 12:25 Blood Blood Culture - Preliminary NO GROWTH AFTER 24 HOURS Resulted 03/26/19 23:30 Nasal Nares MRSA Culture - Final NO METHICILLIN RESISTANT STAPH AUREUS... Complete 03/27/19 10:50 Urine,Clean Catch Urine Culture - Preliminary NO GROWTH AFTER 24 HOURS Resulted 03/26/19 23:30 Rectum - Final NO CARBAPENEM-RESISTANT ENTEROBACTERI... Complete 03/26/19 23:30 Rectum VRE Culture - Final Enterococcus Faecalis - Vre Complete Intake and Output 03/28/19 03/29/19 19:00 07:00 Intake Total 768.33 ml 1115 ml Output Total 900 ml Balance -131.67 ml 1115 ml IV Total 768.33 ml 1115 ml Tube Feeding 0 ml Output Urine Total 200 ml Other 700 ml # Voids 235 425 # Bowel Movements 2 Objective General: Intubated, sedated. HEENT: NCAT, sclera anicteric, PERRL, ET tube intact, OG tube. Neck: Supple, no significant jugular venous distention, Lungs: Mechanical breath sounds laterally, no Wheeze or Rales. Heart: Regular rate and rhythm, normal S1/S2, no murmurs Abdomen: soft, nontender, + distended, bowel sounds presented, mild fluid shift.. : Horn cath, Extremities: No Cyanosis , clubbing or edema. Neuro: sedated, Able to move all extremities Skin: warm, no rash. Assessment/Plan Assessment/Plan (1) Acute respiratory failure (2) Aspiration pneumonia (3) ATN (acute tubular necrosis) (4) Sepsis (5) Urine retention (6) Coagulopathy (7) Severe protein-calorie malnutrition (8) Colon cancer metastasized to liver Plan: Monitor laboratory as well as culture Discussed with Dr. Greenwood boat loader helper. Discussed with the family member at the bedside regarding plan of care and poor prognosis. Antibiotic: Vancomycin IV, meropenem. At this time patient's CODE STATUS is full code. DVT prophylaxis: Eddi Pineda MD Mar 29, 2019 16:54
--- NOTE | 2019-03-29 17:12 | NUR ---
NURSE NOTES: Patient is agitated, tachypneic RR 40's and desat to 83%. Increased Fio2 to 100%. Ativan given as per ordered.
--- NOTE | 2019-03-29 17:31 | General Progress Note ---
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 - anemia - coagulopathy, improved - Azotemia, improved - Poor prognosis Recommendations - ICU / vent care - wean - f/u pathology ---> adenocarcinoma - NGT feeds if unable to extubate soon - follow labs - consider terminal care Subjective Allergies: Coded Allergies: No Known Allergies (Unverified , 03/26/19) Subjective above noted agitated, sedated d/w pathology - adenocarcinoma confirmed d/w Swati clark re poor px Objective Last 24 Hour Vital Signs Date Time Temp Pulse Resp B/P (MAP) Pulse Ox O2 Delivery O2 Flow Rate FiO2 03/29/19 17:00 73 21 90/59 (69) 99 03/29/19 16:00 109 03/29/19 16:00 Mechanical Ventilator 03/29/19 16:00 98.1 90 18 85/44 (58) 94 03/29/19 16:00 85 03/29/19 15:15 115 27 80 03/29/19 15:00 115 18 121/54 (76) 94 03/29/19 14:00 99 25 116/46 (69) 94 03/29/19 13:27 98 24 80 03/29/19 13:00 96 18 98/45 (62) 94 03/29/19 12:00 80 03/29/19 12:00 98.6 97 18 104/51 (68) 94 03/29/19 12:00 98 03/29/19 12:00 Mechanical Ventilator 03/29/19 11:22 94 24 80 03/29/19 11:00 96 24 109/48 (68) 94 03/29/19 10:00 92 21 102/46 (64) 96 03/29/19 09:00 92 21 100/44 (62) 94 03/29/19 08:44 92 21 80 03/29/19 08:06 95 22 70 03/29/19 08:00 Mechanical Ventilator 03/29/19 08:00 80 03/29/19 08:00 97.6 93 18 108/48 (68) 94 03/29/19 08:00 94 03/29/19 07:00 90 18 101/82 (88) 94 03/29/19 06:03 99 20 96/38 (57) 93 8/30/19 06:02 93 19 89/41 (57) 92 03/29/19 05:32 101 24 97/40 (59) 94 03/29/19 05:19 95 20 70 03/29/19 05:00 103 22 81/41 (54) 92 03/29/19 04:00 60 03/29/19 04:00 Mechanical Ventilator 03/29/19 04:00 97.5 103 23 101/75 (84) 95 03/29/19 04:00 109 03/29/19 03:15 96 18 60 03/29/19 03:00 96 17 107/38 (61) 95 03/29/19 02:00 96 17 105/36 (59) 94 03/29/19 01:21 96 17 60 03/29/19 01:00 97 17 98/44 (62) 97 03/29/19 00:00 97.5 100 16 120/44 (69) 98 03/29/19 00:00 70 03/29/19 00:00 100 03/29/19 00:00 Mechanical Ventilator 03/28/19 23:15 98 17 70 03/28/19 23:00 105 18 123/108 (113) 95 03/28/19 22:00 113 20 100/59 (73) 87 03/28/19 21:15 105 25 70 03/28/19 21:00 106 15 96/53 (67) 97 03/28/19 20:00 97.8 105 21 114/66 (82) 94 03/28/19 20:00 Mechanical Ventilator 03/28/19 20:00 70 03/28/19 20:00 100 03/28/19 19:15 103 23 70 03/28/19 19:00 96 19 109/46 (67) 96 03/28/19 18:00 99 22 116/51 (72) 93 Intake and Output 03/28/19 03/29/19 19:00 07:00 Intake Total 768.33 ml 1115 ml Output Total 900 ml Balance -131.67 ml 1115 ml IV Total 768.33 ml 1115 ml Tube Feeding 0 ml Output Urine Total 200 ml Other 700 ml # Voids 235 425 # Bowel Movements 2 Laboratory Tests 03/29/19 04:13: White Blood Count 31.3#*H, Red Blood Count 2.80L, Hemoglobin 8.5L, Hematocrit 26.3L, Mean Corpuscular Volume 94, Mean Corpuscular Hemoglobin 30.5, Mean Corpuscular Hemoglobin Concent 32.5, Red Cell Distribution Width 15.6H, Platelet Count 118L, Mean Platelet Volume 7.6, Neutrophils (%) (Auto) , Lymphocytes (%) (Auto) , Monocytes (%) (Auto) , Eosinophils (%) (Auto) , Basophils (%) (Auto) , Differential Total Cells Counted 100, Neutrophils % ( Manual) 72, Lymphocytes % (Manual) 3L, Monocytes % (Manual) 1, Eosinophils % ( Manual) 0, Basophils % (Manual) 0, Band Neutrophils 24H, Platelet Estimate DecreasedL, Platelet Morphology Normal, Anisocytosis 1+, Prothrombin Time 14.5H , Prothromb Time International Ratio 1.4H, Activated Partial Thromboplast Time 44H, Sodium Level 138, Potassium Level 3.4L, Chloride Level 105, Carbon Dioxide Level 19L, Anion Gap 14, Blood Urea Nitrogen 86H, Creatinine 3.0H, Estimat Glomerular Filtration Rate , Glucose Level 115H, Uric Acid 14.1H, Calcium Level 7.1L, Phosphorus Level 4.5, Magnesium Level 2.2, Total Bilirubin 0.9, Aspartate Amino Transf (AST/SGOT) 25, Alanine Aminotransferase (ALT/SGPT) 12, Alkaline Phosphatase 216H, C-Reactive Protein, Quantitative 11.6H, Pro-B-Type Natriuretic Peptide 2864H, Total Protein 5.0L, Albumin 2.0L, Globulin 3.0, Albumin/Globulin Ratio 0.7L 03/29/19 08:30: Arterial Blood pH 7.408, Arterial Blood Partial Pressure CO2 26.6L, Arterial Blood Partial Pressure O2 73.8L, Arterial Blood HCO3 16.4*L, Arterial Blood Oxygen Saturation 93.0L, Arterial Blood Base Excess -7.3L, Raudel Test Positive 03/29/19 09:15: White Blood Count 26.4*H, Red Blood Count 2.31L, Hemoglobin 7.4L, Hematocrit 21.7L, Mean Corpuscular Volume 94, Mean Corpuscular Hemoglobin 31.9H, Mean Corpuscular Hemoglobin Concent 34.0, Red Cell Distribution Width 15.2H, Platelet Count 101L, Mean Platelet Volume 7.1, Neutrophils (%) (Auto) , Lymphocytes (%) (Auto) , Monocytes (%) (Auto) , Eosinophils (%) (Auto) , Basophils (%) (Auto) , Differential Total Cells Counted 100, Neutrophils % ( Manual) 70, Lymphocytes % (Manual) 2L, Monocytes % (Manual) 1, Eosinophils % ( Manual) 0, Basophils % (Manual) 0, Band Neutrophils 27H, Platelet Estimate DecreasedL, Platelet Morphology Normal, Anisocytosis 1+, Hypochromasia 1+, Lactic Acid Level 4.60H 03/29/19 11:35: Lactic Acid Level 4.50H Height (Feet): 5 Height (Inches): 10.00 Weight (Pounds): 134 Objective Thin man intubated , sedated NCAT thin built CTA RR abd Soft, ND no edema Valerie Greenwood MD Mar 29, 2019 17:31
--- NOTE | 2019-03-29 19:00 | NUR ---
RESPIRATORY NOTE: pt recieved on AC 16 Vt600 +5 90%, no SOB or discomfort noted, pt has et tube 7.0 @21 Lip line, trach intact , alarms on x audible, vent plugged in red outlet, will continue to onitor the pt
--- NOTE | 2019-03-29 19:30 | NUR ---
HAND-OFF: Report given to JOHN Renee.
--- NOTE | 2019-03-29 19:31 | NUR ---
NURSE NOTES: Endorsement received from Eula Machuca RN. Patient drowsy, opens eyes to light touch. Orally intubated with 7.0, 21 lipline. AC 16, 600, PEEP 5, 80%. With OGT, on NPO. With Horn F 16 connected to urimeter. Noted to be oliguric as per morning shift. With right foot g 20, left hand g22, right forearm g 22. Receiving D5NS 100ml/hr, albumin 25% bottle 1 of 1, KCl 10 meq bag 4 of [address]. Bilateral soft wrist restraints present for attempting to pull out tubings. Skin warm and dry, normal in color. Head of bed elevated. Bed locked and in low position. Call light within reach. Bed alarm on.
--- NOTE | 2019-03-29 19:43 | Consultation ---
History of Present Illness General Reason for Consultation: Inpatient management Present Illness Allergies: Coded Allergies: No Known Allergies (Unverified , 03/26/19) Medication History Scheduled Calcium Carbonate (Calcium), Unknown Dose PO DAILY, (Reported) Ferrous Sulfate (Iron), 325 MG PO BID, (Reported) [place]-3 Fatty Acids/Fish Oil ([place] 3 1,000 Mg Softgel), Unknown Dose PO DAILY, (Reported) Patient History Healthcare decision maker N Resuscitation status Full Code Advanced Directive on File Physical Exam Last 24 Hour Vital Signs Date Time Temp Pulse Resp B/P (MAP) Pulse Ox O2 Delivery O2 Flow Rate FiO2 03/29/19 19:00 92 23 101/47 (65) 99 03/29/19 18:00 105 23 98/48 (65) 99 03/29/19 17:25 107 19 80 03/29/19 17:00 73 21 90/59 (69) 99 03/29/19 16:00 109 03/29/19 16:00 Mechanical Ventilator 03/29/19 16:00 98.1 90 18 85/44 (58) 94 03/29/19 16:00 85 03/29/19 15:15 115 27 80 03/29/19 15:00 115 18 121/54 (76) 94 03/29/19 14:00 99 25 116/46 (69) 94 03/29/19 13:27 98 24 80 03/29/19 13:00 96 18 98/45 (62) 94 03/29/19 12:00 80 03/29/19 12:00 98.6 97 18 104/51 (68) 94 03/29/19 12:00 98 03/29/19 12:00 Mechanical Ventilator 03/29/19 11:22 94 24 80 03/29/19 11:00 96 24 109/48 (68) 94 03/29/19 10:00 92 21 102/46 (64) 96 03/29/19 09:00 92 21 100/44 (62) 94 03/29/19 08:44 92 21 80 03/29/19 08:06 95 22 70 03/29/19 08:00 Mechanical Ventilator 03/29/19 08:00 80 03/29/19 08:00 97.6 93 18 108/48 (68) 94 03/29/19 08:00 94 03/29/19 07:00 90 18 101/82 (88) 94 03/29/19 06:03 99 20 96/38 (57) 93 03/29/19 06:02 93 19 89/41 (57) 92 03/29/19 05:32 101 24 97/40 (59) 94 03/29/19 05:19 95 20 70 03/29/19 05:00 103 22 81/41 (54) 92 03/29/19 04:00 60 03/29/19 04:00 Mechanical Ventilator 03/29/19 04:00 97.5 103 23 101/75 (84) 95 03/29/19 04:00 109 03/29/19 03:15 96 18 60 03/29/19 03:00 96 17 107/38 (61) 95 03/29/19 02:00 96 17 105/36 (59) 94 03/29/19 01:21 96 17 60 03/29/19 01:00 97 17 98/44 (62) 97 03/29/19 00:00 97.5 100 16 120/44 (69) 98 03/29/19 00:00 70 03/29/19 00:00 100 03/29/19 00:00 Mechanical Ventilator 03/28/19 23:15 98 17 70 03/28/19 23:00 105 18 123/108 (113) 95 03/28/19 22:00 113 20 100/59 (73) 87 03/28/19 21:15 105 25 70 03/28/19 21:00 106 15 96/53 (67) 97 03/28/19 20:00 97.8 105 21 114/66 (82) 94 03/28/19 20:00 Mechanical Ventilator 03/28/19 20:00 70 03/28/19 20:00 100 Intake and Output 03/28/19 03/29/19 19:00 07:00 Intake Total 768.33 ml 1115 ml Output Total 900 ml Balance -131.67 ml 1115 ml IV Total 768.33 ml 1115 ml Tube Feeding 0 ml Output Urine Total 200 ml Other 700 ml # Voids 235 425 # Bowel Movements 2 Laboratory Tests Test 03/29/19 04:13 03/29/19 08:30 03/29/19 09:15 03/29/19 11:35 White Blood Count 31.3 K/UL (4.8-10.8) #*H 26.4 K/UL (4.8-10.8) *H Red Blood Count 2.80 M/UL (4.70-6.10) L 2.31 M/UL (4.70-6.10) L Hemoglobin 8.5 G/DL (14.2-18.0) L 7.4 G/DL (14.2-18.0) L Hematocrit 26.3 % (42.0-52.0) L 21.7 % (42.0-52.0) L Mean Corpuscular Volume 94 FL (80-99) 94 FL (80-99) Mean Corpuscular Hemoglobin 30.5 PG (27.0-31.0) 31.9 PG (27.0-31.0) H Mean Corpuscular Hemoglobin Concent 32.5 G/DL (32.0-36.0) 34.0 G/DL (32.0-36.0) Red Cell Distribution Width 15.6 % (11.6-14.8) H 15.2 % (11.6-14.8) H Platelet Count 118 K/UL (150-450) L 101 K/UL (150-450) L Mean Platelet Volume 7.6 FL (6.5-10.1) 7.1 FL (6.5-10.1) Neutrophils (%) (Auto) % (45.0-75.0) % (45.0-75.0) Lymphocytes (%) (Auto) % (20.0-45.0) % (20.0-45.0) Monocytes (%) (Auto) % (1.0-10.0) % (1.0-10.0) Eosinophils (%) (Auto) % (0.0-3.0) % (0.0-3.0) Basophils (%) (Auto) % (0.0-2.0) % (0.0-2.0) Differential Total Cells Counted 100 100 Neutrophils % (Manual) 72 % (45-75) 70 % (45-75) Lymphocytes % (Manual) 3 % (20-45) L 2 % (20-45) L Monocytes % (Manual) 1 % (1-10) 1 % (1-10) Eosinophils % (Manual) 0 % (0-3) 0 % (0-3) Basophils % (Manual) 0 % (0-2) 0 % (0-2) Band Neutrophils 24 % (0-8) H 27 % (0-8) H Platelet Estimate Decreased L Decreased L Platelet Morphology Normal Normal Anisocytosis 1+ 1+ Prothrombin Time 14.5 SEC (9.30-11.50) H Prothromb Time International Ratio 1.4 (0.9-1.1) H Activated Partial Thromboplast Time 44 SEC (23-33) H Sodium Level 138 MMOL/L (136-145) Potassium Level 3.4 MMOL/L (3.5-5.1) L Chloride Level 105 MMOL/L (98-107) Carbon Dioxide Level 19 MMOL/L (21-32) L Anion Gap 14 mmol/L (5-15) Blood Urea Nitrogen 86 mg/dL (7-18) H Creatinine 3.0 MG/DL (0.55-1.30) H Estimat Glomerular Filtration Rate mL/min (>60) Glucose Level 115 MG/DL (74-106) H Uric Acid 14.1 MG/DL (2.6-7.2) H Calcium Level 7.1 MG/DL (8.5-10.1) L Phosphorus Level 4.5 MG/DL (2.5-4.9) Magnesium Level 2.2 MG/DL (1.8-2.4) Total Bilirubin 0.9 MG/DL (0.2-1.0) Aspartate Amino Transf (AST/SGOT) 25 U/L (15-37) Alanine Aminotransferase (ALT/SGPT) 12 U/L (12-78) Alkaline Phosphatase 216 U/L (46-116) H C-Reactive Protein, Quantitative 11.6 mg/dL (0.00-0.90) H Pro-B-Type Natriuretic Peptide 2864 pg/mL (0-125) H Total Protein 5.0 G/DL (6.4-8.2) L Albumin 2.0 G/DL (3.4-5.0) L Globulin 3.0 g/dL Albumin/Globulin Ratio 0.7 (1.0-2.7) L Arterial Blood pH 7.408 (7.350-7.450) Arterial Blood Partial Pressure CO2 26.6 mmHg (35.0-45.0) L Arterial Blood Partial Pressure O2 73.8 mmHg (75.0-100.0) L Arterial Blood HCO3 16.4 mmol/L (22.0-26.0) *L Arterial Blood Oxygen Saturation 93.0 % (95-100) L Arterial Blood Base Excess -7.3 (-2-2) L Raudel Test Positive Hypochromasia 1+ Lactic Acid Level 4.60 mmol/L (0.4-2.0) H 4.50 mmol/L (0.66-2.22) H Test 03/29/19 18:00 Lactic Acid Level 4.70 mmol/L (0.4-2.0) H Height (Feet): 5 Height (Inches): 10.00 Weight (Pounds): 134 Medications Current Medications Medications (Trade) Dose Ordered Sig/Madelyn Route PRN Reason Start Time Stop Time Status Last Admin Dose Admin Acetaminophen (Tylenol) 650 mg Q6H PRN ORAL Mild Pain/Temp > 100.5 03/28/19 11:26 04/27/19 11:25 Albumin Human 100 ml @ 100 mls/hr ONCE IV 03/29/19 19:00 03/29/19 20:00 03/29/19 19:14 Allopurinol (Allopurinol) 300 mg DAILY NG 03/29/19 12:00 04/28/19 11:59 03/29/19 12:55 Barium Sulfate (Readi-Cat 2) 450 ml NOW PRN ORAL Radiology Procedure 03/29/19 11:15 03/31/19 23:59 Dextrose/Sodium Chloride 1,000 ml @ 100 mls/hr Q10H IV 03/28/19 12:30 04/27/19 12:29 03/29/19 09:42 Iopamidol (Isovue-300 100ml) 100 ml NOW PRN INJ Radiology Procedure 03/29/19 10:30 03/30/19 10:29 Lorazepam (Ativan 2mg/ml 1ml) 2 mg Q4H PRN IV For Anxiety 03/28/19 11:26 04/04/19 11:25 03/29/19 16:23 Meropenem 500 mg/ Sodium Chloride 55 ml @ 110 mls/hr Q12HR IV 03/29/19 12:00 04/03/19 11:59 03/29/19 12:44 Morphine Sulfate (Morphine Sulfate) 4 mg Q4H PRN IVP For Pain 03/28/19 11:30 04/04/19 11:29 Pantoprazole (Protonix) 40 mg Q12HR IV 03/28/19 21:00 04/28/19 08:59 03/29/19 09:41 Vancomycin HCl (Vanco rx to dose) 1 ea DAILY PRN MISC Per rx protocol 03/29/19 10:15 04/28/19 10:14 Vancomycin HCl 750 mg/Dextrose 275 ml @ 183.333 mls/hr Q36H IVPB 03/31/19 01:00 04/05/19 00:59 Assessment/Plan Assessment/Plan: Oncology Consultation REQ MD: Hanna Ponce DOS: 03/29/19 RFC: Metastatic colon ca ID Called by Dr. Ponce, 78-year-old male, who present with a chief complaint of abdominal pain and swelling. Began one month previously. The patient began to have abdominal pain. Abdominal pain seems to be located in the right lower quadrant. The patient saw his primary care physician, who diagnosed him with iron deficiency anemia. The patient has been taking iron for the past month or so. The patient presented initially to [facility] emergency room. The patient had gross ascites. The CT scan of the abdomen revealed a cecal mass with probable metastases to the liver and peritoneum. The patient is admitted. An initial CT scan of the abdomen revealed a cecal mass with probable metastases to the liver and peritoneum. The patient is transferred to [facility] for insurance purposes. The patient is admitted with cecal mass and probable metastases to liver and omentum. Currently intubated. REVIEW OF SYSTEMS: Difficult to obtain as intuabted and minimally responsive PAST MEDICAL HISTORY: The patient denies. PAST SURGICAL HISTORY: Significant for colonoscopy 3 years previously. CURRENT MEDICATIONS: Iron 325 mg 1 tablet p.o. twice daily. ALLERGIES: No known drug allergies. SOCIAL HISTORY: The patient is single and lives alone. The patient denies tobacco or alcohol use. PHYSICAL EXAMINATION: VITAL SIGNS: reviewed in emr GENERAL: The patient is a thin-appearing male, in no apparent distress. HEENT: Eyes, pupils are equal and responsive to light and accommodation. Extraocular movements are intact. NECK: Supple without lymphadenopathy. CHEST: ++intubated on vent CARDIOVASCULAR: Regular rhythm and rate. S1, S2 are normal without murmurs, rubs, or gallops. ABDOMEN: Soft and grossly distended with decreased bowel sounds. Presence of fluid wave noted. EXTREMITIES: Negative for clubbing, cyanosis, or edema. RECTAL/GENITAL: Not performed. NEUROLOGIC: Cranial nerves II through XII intact LABORATORY STUDIES: reviewed IMAGING: reviewed PATH: noted ASSESSMENT/RECS: # Metastatic colon adenocarcinoma with cea >200, with mets to local lymph nodes , galina, liver, peritoneum, likely, with cecal mass --> biopsy obtain by gi of cecal mass indivating adenoca --> in this setting, newly diagnosed, naive to treatment, but poor prognosis --> agree with conservative care, minimize invasive procedures --> may need para, thora prn --> if ever extubated may reconsider # Anemia of chronic disease due to underlying chronic medical issues, multifactorial --> Anemia workup has been ordered, rule out gi bleed --> No evidence of hemolysis is noted, peripheral smear has been reviewed. --> Hgb goal >7. Transfuse prn. --> Epogen or iron at this time is not particularly indicated --> Medications have been reviewed # Leukocytosis due to sepsis poa --> on hyun vanc --> per id # Acute renal failure. --> per renal recs # Coagulopathy. is likely related to liver mets --> if bleedin consider, ffp and vit K # Vent respiratory failure --> likely due to effusions, per pulm # Aspiration pneumonia --> on abx # Severe protein-calorie malnutrition # CODE status still full The timing of this note does not necessarily reflect the time of the patient was seen. GREATLY APPRECIATE CONSULTATION. Lance Person MD Mar 29, 2019 19:43
--- NOTE | 2019-03-29 21:00 | NUR ---
NURSE NOTES: Patient asleep. No sign of pain or discomfort. No shortness of breath.
[2019-03-29] MEDS ORDERED: NS 500ML ONE (21:32)
[2019-03-30] VITALS (24 sets, daily range): BP systolic 95–137; BP diastolic 42–91
--- NOTE | 2019-03-30 01:00 | NUR ---
NURSE NOTES: Patient in bed sleeping comfortably. Afebrile. Turned and repositioned. Horn draining with clear yellow urine. Will continue to monitor.
--- NOTE | 2019-03-30 03:00 | NUR ---
NURSE NOTES: Bed bath, oral care, change of linens. Patient tolerated activity.
[2019-03-30] MEDS: D5NS 1,000 ML IV SCH ×2 (04:59→10:36)
--- NOTE | 2019-03-30 05:00 | NUR ---
NURSE NOTES: Patient asleep at this time. Scant secretions from ETT
[2019-03-30 05:27] LABS: HEMATOCRIT 25.8 % (42.0-52.0); HEMOGLOBIN 8.2 G/DL (14.2-18.0); MEAN CORPUSCULAR VOLUME 95 FL (80-99); PLATELET COUNT 87 K/UL (150-450); RED BLOOD COUNT 2.71 M/UL (4.70-6.10); RED CELL DISTRIBUTION WIDTH 15.5 % (11.6-14.8)
[2019-03-30 06:14] LABS: ALANINE AMINOTRANSFERASE 14 U/L (12-78); ALBUMIN 2.1 G/DL (3.4-5.0); ALBUMIN/GLOBULIN RATIO 0.7 (1.0-2.7); ALKALINE PHOSPHATASE 208 U/L (46-116); ANION GAP 15 mmol/L (5-15); ASPARTATE AMINO TRANSFERASE 25 U/L (15-37); BLOOD UREA NITROGEN 77 mg/dL (7-18); CALCIUM 7.1 MG/DL (8.5-10.1); CARBON DIOXIDE 18 MMOL/L (21-32); CHLORIDE 107 MMOL/L (98-107); CREATININE 2.9 MG/DL (0.55-1.30); PHOSPHORUS 3.7 MG/DL (2.5-4.9); POTASSIUM 3.5 MMOL/L (3.5-5.1); SODIUM 140 MMOL/L (136-145)
[2019-03-30 06:30] LABS: WHITE BLOOD COUNT 30.8 K/UL (4.8-10.8)
--- NOTE | 2019-03-30 06:33 | NUR ---
NURSE NOTES: WBC 30.8, previously 31.3. Will endorse to morning shift.
--- NOTE | 2019-03-30 06:55 | Pulmonolgy Critical Care Note ---
Critical Care - Asmt/Plan Problems: (1) Acute respiratory failure (2) Aspiration pneumonia (3) ATN (acute tubular necrosis) (4) Sepsis (5) Urine retention (6) Coagulopathy (7) Severe protein-calorie malnutrition (8) Colon cancer metastasized to liver Respiratory: monitor respiratory rate, adjust FIO2, CXR Cardiac: continue to monitor HR/BP Renal: F/U I&O, keep IV fluid, check electrolytes Infectious Disease: check cultures Gastrointestinal: start feedings Endocrine: monitor blood sugar Hematologic: monitor H/H Neurologic: PRN Ativan Affect: PRN ativan Prophylaxis: Heparin Time Spent (Minutes): 40 Notes Reviewed: elastic tape inserter, cardio Discussed with: nurses, consultants, 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 - Objective Last 24 Hour Vital Signs Date Time Temp Pulse Resp B/P (MAP) Pulse Ox O2 Delivery O2 Flow Rate FiO2 03/30/19 06:00 99 21 115/54 (74) 100 03/30/19 05:06 90 21 70 03/30/19 05:00 96 21 123/42 (69) 100 03/30/19 04:00 78 03/30/19 04:00 80 03/30/19 04:00 97.6 75 21 137/48 (77) 94 03/30/19 04:00 Mechanical Ventilator 03/30/19 03:03 83 22 80 03/30/19 03:00 94 23 123/52 (75) 95 03/30/19 02:00 92 24 131/65 (87) 95 03/30/19 01:14 101 22 80 03/30/19 01:00 94 21 122/48 (72) 96 03/30/19 00:00 89 03/30/19 00:00 80 03/30/19 00:00 Mechanical Ventilator 03/30/19 00:00 97.8 94 23 120/49 (72) 96 03/29/19 23:00 101 24 123/54 (77) 96 03/29/19 22:40 84 24 80 03/29/19 22:00 82 23 115/48 (70) 98 03/29/19 21:10 82 24 80 03/29/19 21:00 101 25 118/57 (77) 98 03/29/19 20:00 Mechanical Ventilator 03/29/19 20:00 97.5 99 19 97/46 (63) 97 03/29/19 20:00 102 03/29/19 20:00 80 03/29/19 19:00 92 23 101/47 (65) 99 03/29/19 18:55 101 21 80 03/29/19 18:00 105 23 98/48 (65) 99 03/29/19 17:25 107 19 80 03/29/19 17:00 73 21 90/59 (69) 99 03/29/19 16:00 109 03/29/19 16:00 Mechanical Ventilator 03/29/19 16:00 98.1 90 18 85/44 (58) 94 03/29/19 16:00 85 03/29/19 15:15 115 27 80 03/29/19 15:00 115 18 121/54 (76) 94 03/29/19 14:00 99 25 116/46 (69) 94 03/29/19 13:27 98 24 80 03/29/19 13:00 96 18 98/45 (62) 94 03/29/19 12:00 80 03/29/19 12:00 98.6 97 18 104/51 (68) 94 03/29/19 12:00 98 03/29/19 12:00 Mechanical Ventilator 03/29/19 11:22 94 24 80 03/29/19 11:00 96 24 109/48 (68) 94 03/29/19 10:00 92 21 102/46 (64) 96 03/29/19 09:00 92 21 100/44 (62) 94 03/29/19 08:44 92 21 80 03/29/19 08:06 95 22 70 03/29/19 08:00 Mechanical Ventilator 03/29/19 08:00 80 03/29/19 08:00 97.6 93 18 108/48 (68) 94 03/29/19 08:00 94 03/29/19 07:00 90 18 101/82 (88) 94 Status: awake Condition: critical HEENT: atraumatic Neck: full ROM Heart: HR/BP stable Abdomen: soft, non-tender, feeding tube Extremities: edema Micro: Microbiology Date/Time Source Procedure Growth Status 03/27/19 12:40 Blood Blood Culture - Preliminary NO GROWTH AFTER 48 HOURS Resulted 03/27/19 12:25 Blood Blood Culture - Preliminary NO GROWTH AFTER 48 HOURS Resulted 03/27/19 10:50 Urine,Clean Catch Urine Culture - Final NO GROWTH AFTER 48 HOURS Complete Critical Care - Subjective ROS Limited/Unobtainable: Yes Condition: critical EKG Rhythm: Sinus Rhythm FI02: 70 Vent Support Breath Rate: 16 Vent Support Mode: AC Vent Tidal Volume: 600 Sputum Amount: Scant PEEP: 5.0 PIP: 20 Tube Feeding Amount: 0 I&O: Intake and Output 03/29/19 03/30/19 18:59 06:59 Intake Total 1200 ml 1100 ml Balance 1200 ml 1100 ml IV Total 1200 ml 1100 ml # Voids 285 315 # Bowel Movements 1 2 CXR: worsening Left infiltrate ET-Tube: 7.0 ET Position: 21 Labs: Laboratory Tests Test 03/29/19 08:30 03/29/19 09:15 03/29/19 11:35 03/29/19 18:00 Arterial Blood pH 7.408 (7.350-7.450) Arterial Blood Partial Pressure CO2 26.6 mmHg (35.0-45.0) L Arterial Blood Partial Pressure O2 73.8 mmHg (75.0-100.0) L Arterial Blood HCO3 16.4 mmol/L (22.0-26.0) *L Arterial Blood Oxygen Saturation 93.0 % (95-100) L Arterial Blood Base Excess -7.3 (-2-2) L Raudel Test Positive White Blood Count 26.4 K/UL (4.8-10.8) *H Red Blood Count 2.31 M/UL (4.70-6.10) L Hemoglobin 7.4 G/DL (14.2-18.0) L Hematocrit 21.7 % (42.0-52.0) L Mean Corpuscular Volume 94 FL (80-99) Mean Corpuscular Hemoglobin 31.9 PG (27.0-31.0) H Mean Corpuscular Hemoglobin Concent 34.0 G/DL (32.0-36.0) Red Cell Distribution Width 15.2 % (11.6-14.8) H Platelet Count 101 K/UL (150-450) L Mean Platelet Volume 7.1 FL (6.5-10.1) Neutrophils (%) (Auto) % (45.0-75.0) Lymphocytes (%) (Auto) % (20.0-45.0) Monocytes (%) (Auto) % (1.0-10.0) Eosinophils (%) (Auto) % (0.0-3.0) Basophils (%) (Auto) % (0.0-2.0) Differential Total Cells Counted 100 Neutrophils % (Manual) 70 % (45-75) Lymphocytes % (Manual) 2 % (20-45) L Monocytes % (Manual) 1 % (1-10) Eosinophils % (Manual) 0 % (0-3) Basophils % (Manual) 0 % (0-2) Band Neutrophils 27 % (0-8) H Platelet Estimate Decreased L Platelet Morphology Normal Hypochromasia 1+ Anisocytosis 1+ Lactic Acid Level 4.60 mmol/L (0.4-2.0) H 4.50 mmol/L (0.66-2.22) H 4.70 mmol/L (0.4-2.0) H Test 03/30/19 00:54 03/30/19 02:19 03/30/19 04:30 Lactic Acid Level 4.70 mmol/L (0.4-2.0) H 4.60 mmol/L (0.66-2.22) H White Blood Count 30.8 K/UL (4.8-10.8) *H Red Blood Count 2.71 M/UL (4.70-6.10) L Hemoglobin 8.2 G/DL (14.2-18.0) L Hematocrit 25.8 % (42.0-52.0) L Mean Corpuscular Volume 95 FL (80-99) Mean Corpuscular Hemoglobin 30.2 PG (27.0-31.0) Mean Corpuscular Hemoglobin Concent 31.7 G/DL (32.0-36.0) L Red Cell Distribution Width 15.5 % (11.6-14.8) H Platelet Count 87 K/UL (150-450) L Mean Platelet Volume 8.5 FL (6.5-10.1) Neutrophils (%) (Auto) % (45.0-75.0) Lymphocytes (%) (Auto) % (20.0-45.0) Monocytes (%) (Auto) % (1.0-10.0) Eosinophils (%) (Auto) % (0.0-3.0) Basophils (%) (Auto) % (0.0-2.0) Neutrophils % (Manual) Pending Lymphocytes % (Manual) Pending Platelet Estimate Pending Platelet Morphology Pending Sodium Level 140 MMOL/L (136-145) Potassium Level 3.5 MMOL/L (3.5-5.1) Chloride Level 107 MMOL/L (98-107) Carbon Dioxide Level 18 MMOL/L (21-32) L Anion Gap 15 mmol/L (5-15) Blood Urea Nitrogen 77 mg/dL (7-18) H Creatinine 2.9 MG/DL (0.55-1.30) H Estimat Glomerular Filtration Rate mL/min (>60) Glucose Level 129 MG/DL (74-106) H Calcium Level 7.1 MG/DL (8.5-10.1) L Phosphorus Level 3.7 MG/DL (2.5-4.9) Magnesium Level 2.0 MG/DL (1.8-2.4) Total Bilirubin 1.0 MG/DL (0.2-1.0) Aspartate Amino Transf (AST/SGOT) 25 U/L (15-37) Alanine Aminotransferase (ALT/SGPT) 14 U/L (12-78) Alkaline Phosphatase 208 U/L (46-116) H Pro-B-Type Natriuretic Peptide 4962 pg/mL (0-125) H Total Protein 5.0 G/DL (6.4-8.2) L Albumin 2.1 G/DL (3.4-5.0) L Globulin 2.9 g/dL Albumin/Globulin Ratio 0.7 (1.0-2.7) L Ilan Fuller MD Mar 30, 2019 06:55
--- NOTE | 2019-03-30 07:00 | NUR ---
RESPIRATORY NOTES: Received Patient on Vent settings ACVC 16, VT 600, Fio2 65%, PEEP +5. Patient currently intubated with 7.0 ETT at 21 cm at the lip, secured with anchorfast. Patient currently sedated. Breath sounds are bilateral diminished throughout both lung li. Suctioned small amount of clear secretions Q2 and PRN. Vent plugged into red outlet. Alarms are on and audible. Will continue to monitor throughout the day.
--- NOTE | 2019-03-30 07:13 | NUR ---
HAND-OFF: Patient seen and examined the patient. Informed MD that no residual from OGT. With new order to start Osmolite 1.5 10ml/hr and monitor patient's tolerance, and Market Risk Specialist consult. Report given to JOHN Smith. Residual rechecked with morning RN, no residual noted.
--- NOTE | 2019-03-30 07:30 | NUR ---
NURSE NOTES: Report received form Thelma RN. Pt alert and oriented x 2-3, able to follow simple commands and answer questions with nodding yes/no. Pt ST on secured entrance monitor. Pt orally intubated ETT 7, 21 cm, AC 16, TV 600, fiO2 80% and PEEP 5. Pt OGT noted and intact. Bloom noted with clear, shana urine to gravity. Right foot 20G , LH 22 G, RFA 22 GG noted and intact. D5NS + 10 KCL @ 100 ml/hr running. Bilateral soft restraints on, pt continually attempting to climb oob and pulling out lines and tubes. Safety measures in place with bed locked and in lowest position, side rails x 3 up and bed alarm on. Will continue to monitor and continue plan of care.
--- NOTE | 2019-03-30 07:43 | General Progress Note ---
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 - anemia - coagulopathy, improved - Azotemia, improved - Poor prognosis Recommendations - ICU / vent care - wean - f/u pathology ---> adenocarcinoma - NGT feeds - follow labs - consider terminal care Subjective ROS Limited/Unobtainable: No Allergies: Coded Allergies: No Known Allergies (Unverified , 03/26/19) Objective Last 24 Hour Vital Signs Date Time Temp Pulse Resp B/P (MAP) Pulse Ox O2 Delivery O2 Flow Rate FiO2 03/30/19 07:29 83 20 65 03/30/19 07:00 96 21 112/52 (72) 100 03/30/19 06:00 99 21 115/54 (74) 100 03/30/19 05:06 90 21 70 03/30/19 05:00 96 21 123/42 (69) 100 03/30/19 04:00 78 03/30/19 04:00 80 03/30/19 04:00 97.6 75 21 137/48 (77) 94 03/30/19 04:00 Mechanical Ventilator 03/30/19 03:03 83 22 80 03/30/19 03:00 94 23 123/52 (75) 95 03/30/19 02:00 92 24 131/65 (87) 95 03/30/19 01:14 101 22 80 03/30/19 01:00 94 21 122/48 (72) 96 03/30/19 00:00 89 03/30/19 00:00 80 03/30/19 00:00 Mechanical Ventilator 03/30/19 00:00 97.8 94 23 120/49 (72) 96 03/29/19 23:00 101 24 123/54 (77) 96 03/29/19 22:40 84 24 80 03/29/19 22:00 82 23 115/48 (70) 98 03/29/19 21:10 82 24 80 03/29/19 21:00 101 25 118/57 (77) 98 03/29/19 20:00 Mechanical Ventilator 03/29/19 20:00 97.5 99 19 97/46 (63) 97 03/29/19 20:00 102 03/29/19 20:00 80 03/29/19 19:00 92 23 101/47 (65) 99 03/29/19 18:55 101 21 80 03/29/19 18:00 105 23 98/48 (65) 99 03/29/19 17:25 107 19 80 03/29/19 17:00 73 21 90/59 (69) 99 03/29/19 16:00 109 03/29/19 16:00 Mechanical Ventilator 03/29/19 16:00 98.1 90 18 85/44 (58) 94 03/29/19 16:00 85 03/29/19 15:15 115 27 80 03/29/19 15:00 115 18 121/54 (76) 94 03/29/19 14:00 99 25 116/46 (69) 94 03/29/19 13:27 98 24 80 03/29/19 13:00 96 18 98/45 (62) 94 03/29/19 12:00 80 03/29/19 12:00 98.6 97 18 104/51 (68) 94 03/29/19 12:00 98 03/29/19 12:00 Mechanical Ventilator 03/29/19 11:22 94 24 80 03/29/19 11:00 96 24 109/48 (68) 94 03/29/19 10:00 92 21 102/46 (64) 96 03/29/19 09:00 92 21 100/44 (62) 94 03/29/19 08:44 92 21 80 03/29/19 08:06 95 22 70 03/29/19 08:00 Mechanical Ventilator 03/29/19 08:00 80 03/29/19 08:00 97.6 93 18 108/48 (68) 94 03/29/19 08:00 94 Intake and Output 03/29/19 03/30/19 18:59 06:59 Intake Total 1200 ml 1100 ml Balance 1200 ml 1100 ml IV Total 1200 ml 1100 ml # Voids 285 315 # Bowel Movements 1 2 Laboratory Tests 03/29/19 08:30: Arterial Blood pH 7.408, Arterial Blood Partial Pressure CO2 26.6L, Arterial Blood Partial Pressure O2 73.8L, Arterial Blood HCO3 16.4*L, Arterial Blood Oxygen Saturation 93.0L, Arterial Blood Base Excess -7.3L, Raudel Test Positive 03/29/19 09:15: White Blood Count 26.4*H, Red Blood Count 2.31L, Hemoglobin 7.4L, Hematocrit 21.7L, Mean Corpuscular Volume 94, Mean Corpuscular Hemoglobin 31.9H, Mean Corpuscular Hemoglobin Concent 34.0, Red Cell Distribution Width 15.2H, Platelet Count 101L, Mean Platelet Volume 7.1, Neutrophils (%) (Auto) , Lymphocytes (%) (Auto) , Monocytes (%) (Auto) , Eosinophils (%) (Auto) , Basophils (%) (Auto) , Differential Total Cells Counted 100, Neutrophils % ( Manual) 70, Lymphocytes % (Manual) 2L, Monocytes % (Manual) 1, Eosinophils % ( Manual) 0, Basophils % (Manual) 0, Band Neutrophils 27H, Platelet Estimate DecreasedL, Platelet Morphology Normal, Hypochromasia 1+, Anisocytosis 1+, Lactic Acid Level 4.60H 03/29/19 11:35: Lactic Acid Level 4.50H 03/29/19 18:00: Lactic Acid Level 4.70H 03/30/19 00:54: Lactic Acid Level 4.70H 03/30/19 02:19: Lactic Acid Level 4.60H 03/30/19 04:30: White Blood Count 30.8*H, Red Blood Count 2.71L, Hemoglobin 8.2L, Hematocrit 25.8L, Mean Corpuscular Volume 95, Mean Corpuscular Hemoglobin 30.2, Mean Corpuscular Hemoglobin Concent 31.7L, Red Cell Distribution Width 15.5H, Platelet Count 87L, Mean Platelet Volume 8.5, Neutrophils (%) (Auto) , Lymphocytes (%) (Auto) , Monocytes (%) (Auto) , Eosinophils (%) (Auto) , Basophils (%) (Auto) , Neutrophils % (Manual) [Pending], Lymphocytes % (Manual) [Pending], Platelet Estimate [Pending], Platelet Morphology [Pending], Sodium Level 140, Potassium Level 3.5, Chloride Level 107, Carbon Dioxide Level 18L, Anion Gap 15, Blood Urea Nitrogen 77H, Creatinine 2.9H, Estimat Glomerular Filtration Rate , Glucose Level 129H, Calcium Level 7.1L, Phosphorus Level 3.7, Magnesium Level 2.0, Total Bilirubin 1.0, Aspartate Amino Transf (AST/SGOT) 25, Alanine Aminotransferase (ALT/SGPT) 14, Alkaline Phosphatase 208H, Pro-B-Type Natriuretic Peptide 4962H, Total Protein 5.0L, Albumin 2.1L, Globulin 2.9, Albumin/Globulin Ratio 0.7L Height (Feet): 5 Height (Inches): 10.00 Weight (Pounds): 134 General Appearance: no apparent distress EENT: normal ENT inspection Neck: supple Cardiovascular: normal rate Respiratory/Chest: decreased breath sounds Abdomen: normal bowel sounds, non tender, soft Extremities: non-tender Niels Pendleton MD Mar 30, 2019 07:43
[2019-03-30] MEDS: LORazepam Inj 2mg/ml 1ml IV PRN (08:14)
--- NOTE | 2019-03-30 08:30 | Diagnostic Imaging Report ---
EXAM: XR Chest, 1 View CLINICAL HISTORY: DYSPNEA TECHNIQUE: Frontal view of the chest. COMPARISON: Chest x-ray dated 03/29/19 FINDINGS: Lungs: Diffuse patchy opacities throughout the left lung, similar to the prior exam. New patchy opacity in the right midlung compared to the prior exam. Pleural space: Unremarkable. The costophrenic angles are sharp. No visible pneumothorax. Heart: Unremarkable. No cardiomegaly. Mediastinum: Unremarkable. Bones/joints: Unremarkable. Tubes, lines and devices: Stable positioning of the endotracheal tube. NG tube extends below the diaphragm and its tip is not visualized. Telemetry leads overlie the thorax. IMPRESSION: Diffuse patchy opacities throughout the left lung, similar to the prior exam. New patchy opacity in the right midlung compared to the prior exam.
--- NOTE | 2019-03-30 08:55 | Urology Progress Note ---
Assessment/Plan Assessment/Plan: 1. Questionable urinary retention. 2. BPH history. 3. Possible neurogenic bladder. 4. Hematuria. 5. Renal insufficiency, acute versus chronic. 6. Pyuria. 7. Proteinuria. 8. Possible urethral stricture or false passage. keep weeks, placed 03/27 hand irrigated and do PRN, position is satisfactory monitor renal fxn off flomax for now f/u on blood cx voiding trial later cysto later Subjective Allergies: Coded Allergies: No Known Allergies (Unverified , 03/26/19) Subjective all noted, remains intubated, ICU, weeks indwelling, oliguric Objective Last 24 Hour Vital Signs Date Time Temp Pulse Resp B/P (MAP) Pulse Ox O2 Delivery O2 Flow Rate FiO2 03/30/19 08:00 98.0 93 9 125/91 (102) 91 03/30/19 08:00 80 03/30/19 08:00 Mechanical Ventilator 03/30/19 07:29 83 20 65 03/30/19 07:00 96 21 112/52 (72) 100 03/30/19 06:00 99 21 115/54 (74) 100 03/30/19 05:06 90 21 70 03/30/19 05:00 96 21 123/42 (69) 100 03/30/19 04:00 78 03/30/19 04:00 80 03/30/19 04:00 97.6 75 21 137/48 (77) 94 03/30/19 04:00 Mechanical Ventilator 03/30/19 03:03 83 22 80 03/30/19 03:00 94 23 123/52 (75) 95 03/30/19 02:00 92 24 131/65 (87) 95 03/30/19 01:14 101 22 80 03/30/19 01:00 94 21 122/48 (72) 96 03/30/19 00:00 89 03/30/19 00:00 80 03/30/19 00:00 Mechanical Ventilator 03/30/19 00:00 97.8 94 23 120/49 (72) 96 03/29/19 23:00 101 24 123/54 (77) 96 03/29/19 22:40 84 24 80 03/29/19 22:00 82 23 115/48 (70) 98 03/29/19 21:10 82 24 80 03/29/19 21:00 101 25 118/57 (77) 98 03/29/19 20:00 Mechanical Ventilator 03/29/19 20:00 97.5 99 19 97/46 (63) 97 03/29/19 20:00 102 03/29/19 20:00 80 03/29/19 19:00 92 23 101/47 (65) 99 03/29/19 18:55 101 21 80 03/29/19 18:00 105 23 98/48 (65) 99 03/29/19 17:25 107 19 80 03/29/19 17:00 73 21 90/59 (69) 99 03/29/19 16:00 109 03/29/19 16:00 Mechanical Ventilator 03/29/19 16:00 98.1 90 18 85/44 (58) 94 03/29/19 16:00 85 03/29/19 15:15 115 27 80 03/29/19 15:00 115 18 121/54 (76) 94 03/29/19 14:00 99 25 116/46 (69) 94 03/29/19 13:27 98 24 80 03/29/19 13:00 96 18 98/45 (62) 94 03/29/19 12:00 80 03/29/19 12:00 98.6 97 18 104/51 (68) 94 03/29/19 12:00 98 03/29/19 12:00 Mechanical Ventilator 03/29/19 11:22 94 24 80 03/29/19 11:00 96 24 109/48 (68) 94 03/29/19 10:00 92 21 102/46 (64) 96 03/29/19 09:00 92 21 100/44 (62) 94 Intake and Output 03/29/19 03/30/19 19:00 07:00 Intake Total 1100 ml 1100 ml Balance 1100 ml 1100 ml IV Total 1100 ml 1100 ml # Voids 260 345 # Bowel Movements 2 1 Microbiology Date/Time Source Procedure Growth Status 03/27/19 12:40 Blood Blood Culture - Preliminary NO GROWTH AFTER 48 HOURS Resulted 03/26/19 23:30 Nasal Nares MRSA Culture - Final NO METHICILLIN RESISTANT STAPH AUREUS... Complete 03/27/19 10:50 Urine,Clean Catch Urine Culture - Final NO GROWTH AFTER 48 HOURS Complete 03/26/19 23:30 Rectum - Final NO CARBAPENEM-RESISTANT ENTEROBACTERI... Complete Current Medications Medications (Trade) Dose Ordered Sig/Madelyn Route PRN Reason Start Time Stop Time Status Last Admin Dose Admin Acetaminophen (Tylenol) 650 mg Q6H PRN ORAL Mild Pain/Temp > 100.5 03/28/19 11:26 04/27/19 11:25 Allopurinol (Allopurinol) 300 mg DAILY NG 03/29/19 12:00 04/28/19 11:59 03/29/19 12:55 Barium Sulfate (Readi-Cat 2) 450 ml NOW PRN ORAL Radiology Procedure 03/29/19 11:15 03/31/19 23:59 Dextrose/Sodium Chloride 1,000 ml @ 100 mls/hr Q10H IV 03/28/19 12:30 04/27/19 12:29 03/30/19 04:59 Iopamidol (Isovue-300 100ml) 100 ml NOW PRN INJ Radiology Procedure 03/29/19 10:30 03/30/19 10:29 Lorazepam (Ativan 2mg/ml 1ml) 2 mg Q4H PRN IV For Anxiety 03/28/19 11:26 04/04/19 11:25 03/30/19 08:14 Meropenem 500 mg/ Sodium Chloride 55 ml @ 110 mls/hr Q12HR IV 03/29/19 12:00 04/03/19 11:59 03/29/19 21:04 Morphine Sulfate (Morphine Sulfate) 4 mg Q4H PRN IVP For Pain 03/28/19 11:30 04/04/19 11:29 Pantoprazole (Protonix) 40 mg Q12HR IV 03/28/19 21:00 04/28/19 08:59 03/29/19 21:05 Vancomycin HCl (Vanco rx to dose) 1 ea DAILY PRN MISC Per rx protocol 03/29/19 10:15 04/28/19 10:14 Vancomycin HCl 750 mg/Dextrose 275 ml @ 183.333 mls/hr Q36H IVPB 03/31/19 01:00 04/05/19 00:59 Laboratory Tests 03/29/19 09:15: White Blood Count 26.4*H, Red Blood Count 2.31L, Hemoglobin 7.4L, Hematocrit 21.7L, Mean Corpuscular Volume 94, Mean Corpuscular Hemoglobin 31.9H, Mean Corpuscular Hemoglobin Concent 34.0, Red Cell Distribution Width 15.2H, Platelet Count 101L, Mean Platelet Volume 7.1, Neutrophils (%) (Auto) , Lymphocytes (%) (Auto) , Monocytes (%) (Auto) , Eosinophils (%) (Auto) , Basophils (%) (Auto) , Differential Total Cells Counted 100, Neutrophils % ( Manual) 70, Lymphocytes % (Manual) 2L, Monocytes % (Manual) 1, Eosinophils % ( Manual) 0, Basophils % (Manual) 0, Band Neutrophils 27H, Platelet Estimate DecreasedL, Platelet Morphology Normal, Hypochromasia 1+, Anisocytosis 1+, Lactic Acid Level 4.60H 03/29/19 11:35: Lactic Acid Level 4.50H 03/29/19 18:00: Lactic Acid Level 4.70H 03/30/19 00:54: Lactic Acid Level 4.70H 03/30/19 02:19: Lactic Acid Level 4.60H 03/30/19 04:30: White Blood Count 30.8*H, Red Blood Count 2.71L, Hemoglobin 8.2L, Hematocrit 25.8L, Mean Corpuscular Volume 95, Mean Corpuscular Hemoglobin 30.2, Mean Corpuscular Hemoglobin Concent 31.7L, Red Cell Distribution Width 15.5H, Platelet Count 87L, Mean Platelet Volume 8.5, Neutrophils (%) (Auto) , Lymphocytes (%) (Auto) , Monocytes (%) (Auto) , Eosinophils (%) (Auto) , Basophils (%) (Auto) , Differential Total Cells Counted 100, Neutrophils % ( Manual) 70, Lymphocytes % (Manual) 4L, Monocytes % (Manual) 1, Eosinophils % ( Manual) 0, Basophils % (Manual) 0, Band Neutrophils 25H, Platelet Estimate DecreasedL, Platelet Morphology Normal, Anisocytosis 1+, Sodium Level 140, Potassium Level 3.5, Chloride Level 107, Carbon Dioxide Level 18L, Anion Gap 15 , Blood Urea Nitrogen 77H, Creatinine 2.9H, Estimat Glomerular Filtration Rate , Glucose Level 129H, Uric Acid [Pending], Calcium Level 7.1L, Phosphorus Level 3.7, Magnesium Level 2.0, Total Bilirubin 1.0, Aspartate Amino Transf (AST/SGOT ) 25, Alanine Aminotransferase (ALT/SGPT) 14, Alkaline Phosphatase 208H, Pro-B- Type Natriuretic Peptide 4962H, Total Protein 5.0L, Albumin 2.1L, Globulin 2.9, Albumin/Globulin Ratio 0.7L 03/30/19 08:00: Lactic Acid Level [Pending] Height (Feet): 5 Height (Inches): 10.00 Weight (Pounds): 134 Objective exam stable urine grossly clearing no bleeding at meatus Nando Campo MD Mar 30, 2019 08:55
[2019-03-30] MEDS: Pantoprazole Inj IV SCH ×2 (09:21→20:25)
[2019-03-30] MEDS: Meropenem 500 MG in NS 55 ML IV SCH ×2 (09:22→20:25)
--- NOTE | 2019-03-30 09:30 | NUR ---
NURSE NOTES: Discussed with Dr Fuller about concern with air leak. Dr ordered to inflate cuff. VSS, O2 sat 100%. Will continue to monitor.
--- NOTE | 2019-03-30 09:31 | Nephrology Progress Note ---
Assessment/Plan Problem List: (1) ATN (acute tubular necrosis) (2) Coagulopathy (3) Colon cancer metastasized to liver (4) Acute respiratory failure (5) Aspiration pneumonia Assessment Acute renal failure- Mainly Pre renal Colon Ca with mets to liver Ascitis , likely malignant Sepsis , Leukocytosis Severe Malnutrition Plan add allopurinol poor prognosis Antibiotics add zosyn now in ICU on vent after aspiration - colonoscopy 03/28 antibiotics Horn: 200 cc urine on insertion Fluid challenge Monitor renal parameters and urine out pot per orders ? comfort care?? Subjective ROS Limited/Unobtainable: Yes Objective Objective Last 24 Hour Vital Signs Date Time Temp Pulse Resp B/P (MAP) Pulse Ox O2 Delivery O2 Flow Rate FiO2 03/30/19 09:05 99 22 65 03/30/19 08:00 98.0 93 9 125/91 (102) 91 03/30/19 08:00 80 03/30/19 08:00 Mechanical Ventilator 03/30/19 07:29 83 20 65 03/30/19 07:00 96 21 112/52 (72) 100 03/30/19 06:00 99 21 115/54 (74) 100 03/30/19 05:06 90 21 70 03/30/19 05:00 96 21 123/42 (69) 100 03/30/19 04:00 78 03/30/19 04:00 80 03/30/19 04:00 97.6 75 21 137/48 (77) 94 03/30/19 04:00 Mechanical Ventilator 03/30/19 03:03 83 22 80 03/30/19 03:00 94 23 123/52 (75) 95 03/30/19 02:00 92 24 131/65 (87) 95 03/30/19 01:14 101 22 80 03/30/19 01:00 94 21 122/48 (72) 96 03/30/19 00:00 89 03/30/19 00:00 80 03/30/19 00:00 Mechanical Ventilator 03/30/19 00:00 97.8 94 23 120/49 (72) 96 03/29/19 23:00 101 24 123/54 (77) 96 03/29/19 22:40 84 24 80 03/29/19 22:00 82 23 115/48 (70) 98 03/29/19 21:10 82 24 80 03/29/19 21:00 101 25 118/57 (77) 98 03/29/19 20:00 Mechanical Ventilator 03/29/19 20:00 97.5 99 19 97/46 (63) 97 03/29/19 20:00 102 03/29/19 20:00 80 03/29/19 19:00 92 23 101/47 (65) 99 03/29/19 18:55 101 21 80 03/29/19 18:00 105 23 98/48 (65) 99 03/29/19 17:25 107 19 80 03/29/19 17:00 73 21 90/59 (69) 99 03/29/19 16:00 109 03/29/19 16:00 Mechanical Ventilator 03/29/19 16:00 98.1 90 18 85/44 (58) 94 03/29/19 16:00 85 03/29/19 15:15 115 27 80 03/29/19 15:00 115 18 121/54 (76) 94 03/29/19 14:00 99 25 116/46 (69) 94 03/29/19 13:27 98 24 80 03/29/19 13:00 96 18 98/45 (62) 94 03/29/19 12:00 80 03/29/19 12:00 98.6 97 18 104/51 (68) 94 03/29/19 12:00 98 03/29/19 12:00 Mechanical Ventilator 03/29/19 11:22 94 24 80 03/29/19 11:00 96 24 109/48 (68) 94 03/29/19 10:00 92 21 102/46 (64) 96 Intake and Output 03/29/19 03/30/19 18:59 06:59 Intake Total 1200 ml 1100 ml Balance 1200 ml 1100 ml IV Total 1200 ml 1100 ml # Voids 285 315 # Bowel Movements 1 2 Laboratory Tests 03/29/19 11:35: Lactic Acid Level 4.50H 03/29/19 18:00: Lactic Acid Level 4.70H 03/30/19 00:54: Lactic Acid Level 4.70H 03/30/19 02:19: Lactic Acid Level 4.60H 03/30/19 04:30: White Blood Count 30.8*H, Red Blood Count 2.71L, Hemoglobin 8.2L, Hematocrit 25.8L, Mean Corpuscular Volume 95, Mean Corpuscular Hemoglobin 30.2, Mean Corpuscular Hemoglobin Concent 31.7L, Red Cell Distribution Width 15.5H, Platelet Count 87L, Mean Platelet Volume 8.5, Neutrophils (%) (Auto) , Lymphocytes (%) (Auto) , Monocytes (%) (Auto) , Eosinophils (%) (Auto) , Basophils (%) (Auto) , Differential Total Cells Counted 100, Neutrophils % ( Manual) 70, Lymphocytes % (Manual) 4L, Monocytes % (Manual) 1, Eosinophils % ( Manual) 0, Basophils % (Manual) 0, Band Neutrophils 25H, Platelet Estimate DecreasedL, Platelet Morphology Normal, Anisocytosis 1+, Sodium Level 140, Potassium Level 3.5, Chloride Level 107, Carbon Dioxide Level 18L, Anion Gap 15 , Blood Urea Nitrogen 77H, Creatinine 2.9H, Estimat Glomerular Filtration Rate , Glucose Level 129H, Uric Acid 12.9H, Calcium Level 7.1L, Phosphorus Level 3.7 , Magnesium Level 2.0, Total Bilirubin 1.0, Aspartate Amino Transf (AST/SGOT) 25 , Alanine Aminotransferase (ALT/SGPT) 14, Alkaline Phosphatase 208H, Pro-B-Type Natriuretic Peptide 4962H, Total Protein 5.0L, Albumin 2.1L, Globulin 2.9, Albumin/Globulin Ratio 0.7L 03/30/19 08:00: Lactic Acid Level [Pending] 03/30/19 09:00: Arterial Blood pH 7.338L, Arterial Blood Partial Pressure CO2 28.2L, Arterial Blood Partial Pressure O2 109.5H, Arterial Blood HCO3 14.8*L, Arterial Blood Oxygen Saturation 96.8, Arterial Blood Base Excess -9.9*L, Raudel Test Positive Height (Feet): 5 Height (Inches): 10.00 Weight (Pounds): 134 General Appearance: no apparent distress EENT: other - vented Cardiovascular: tachycardia Respiratory/Chest: decreased breath sounds Abdomen: distended Cristian Salgado MD Mar 30, 2019 09:31
--- NOTE | 2019-03-30 11:36 | NUR ---
NURSE NOTES: Pt niece came to visit with pt. Niece wants to talk to criminal justice social worker about advance directive. Niece will come back later after ativan wears off so advance directive can be discussed with pt. Will continue to monitor.
--- NOTE | 2019-03-30 11:45 | Infectious Diseases Prog Note ---
Assessment/Plan Assessment/Plan Sepsis Probable PNA -03/30 CXR: Diffuse patchy opacities throughout the left lung, similar to the prior exam. -03/28 CXR: Left mid and lower lung consolidation, likely pneumonia Aspiration event (on EGD lab), now intubated 03/28 Lactic acidosis Afebrile Leukocytosis; persists ( Mets. cancer contributing) -BCx NTD Probable UTI (+dysuria) UCx : Neg -u./a wbc 15-20, nit neg, leuk +1 ; Ucx NTD -Renal US: Suspected intraperitoneal bladder rupture at the dome of the urinary bladder, which is markedly distended. Given the history of peritoneal carcinomatosis, this may be due to tumor implantation and subsequent invasion of the bladder wall. Further evaluation with contrast CT may be of benefit.Moderate heterogeneous complex ascites presumably on the basis of carcinomatosis and/or peritonitis. Unremarkable evaluation of the kidneys. No hydronephrosis. Position of the Horn catheter not elucidated on the basis of the study. Metastatic CA, likely primary Colon CA -03/27 CT abd/p: No evidence of bladder perforation. The bladder is decompressed. Ultrasound imaging of what appear to be a distended ruptured bladder is actually an area of loculated ascites, probably complex cystic mass associated with carcinomatosis. Evidence of peritoneal carcinomatosis as described above. Evidence of metastatic neoplasm involving the liver and lung as described above. Suggestion of a cecal mass, likely adenocarcinoma. Correlate with previous colonoscopy and/or histology results. Anasarca. Atherosclerotic vascular disease. Liquefied stool in the colon. Correlate for diarrhea and enteritis/colitis. Trace bilateral pleural effusions. Gallstones versus sludge -CT abd/p (at [facility]): 6.3 cm cecal mass with large ascites, omental implants , diffuse hepatic metastasis and L lingula metastasis. Ascites -03/28 SP Successful ultrasound-guided paracentesis of the right upper quadrant, yielding 0.7 liters of fluid Plan: - Add IV Levaquin ( atypical coverage of Pneum) - cont Meropenem and IV Vancomycin # 2 given worsening sepsis and pending repeat cultures 03/29 sp Cefepime #3 -f/u cx -Monitor CBC/CMP, temperatures -Sx f/u -Heme onc eval -aspiration precautions -poor px - Ur legio , Legio Ab Subjective Allergies: Coded Allergies: No Known Allergies (Unverified , 03/26/19) Subjective on vent FIO2 : 80% Objective Vital Signs Last 24 Hour Vital Signs Date Time Temp Pulse Resp B/P (MAP) Pulse Ox O2 Delivery O2 Flow Rate FiO2 03/30/19 11:00 94 18 117/54 (75) 100 03/30/19 10:59 83 25 80 03/30/19 10:00 84 18 95/47 (63) 100 03/30/19 09:05 99 22 65 03/30/19 09:00 97 18 99/49 (66) 100 03/30/19 08:00 98.0 93 9 125/91 (102) 91 03/30/19 08:00 82 03/30/19 08:00 80 03/30/19 08:00 Mechanical Ventilator 03/30/19 07:29 83 20 65 03/30/19 07:00 96 21 112/52 (72) 100 03/30/19 06:00 99 21 115/54 (74) 100 03/30/19 05:06 90 21 70 03/30/19 05:00 96 21 123/42 (69) 100 03/30/19 04:00 78 03/30/19 04:00 80 03/30/19 04:00 97.6 75 21 137/48 (77) 94 03/30/19 04:00 Mechanical Ventilator 03/30/19 03:03 83 22 80 03/30/19 03:00 94 23 123/52 (75) 95 03/30/19 02:00 92 24 131/65 (87) 95 03/30/19 01:14 101 22 80 03/30/19 01:00 94 21 122/48 (72) 96 03/30/19 00:00 89 03/30/19 00:00 80 03/30/19 00:00 Mechanical Ventilator 03/30/19 00:00 97.8 94 23 120/49 (72) 96 03/29/19 23:00 101 24 123/54 (77) 96 03/29/19 22:40 84 24 80 03/29/19 22:00 82 23 115/48 (70) 98 03/29/19 21:10 82 24 80 03/29/19 21:00 101 25 118/57 (77) 98 03/29/19 20:00 Mechanical Ventilator 03/29/19 20:00 97.5 99 19 97/46 (63) 97 03/29/19 20:00 102 03/29/19 20:00 80 03/29/19 19:00 92 23 101/47 (65) 99 03/29/19 18:55 101 21 80 03/29/19 18:00 105 23 98/48 (65) 99 03/29/19 17:25 107 19 80 03/29/19 17:00 73 21 90/59 (69) 99 03/29/19 16:00 109 03/29/19 16:00 Mechanical Ventilator 03/29/19 16:00 98.1 90 18 85/44 (58) 94 03/29/19 16:00 85 03/29/19 15:15 115 27 80 03/29/19 15:00 115 18 121/54 (76) 94 03/29/19 14:00 99 25 116/46 (69) 94 03/29/19 13:27 98 24 80 03/29/19 13:00 96 18 98/45 (62) 94 03/29/19 12:00 80 03/29/19 12:00 98.6 97 18 104/51 (68) 94 03/29/19 12:00 98 03/29/19 12:00 Mechanical Ventilator Height (Feet): 5 Height (Inches): 10.00 Weight (Pounds): 134 Respiratory/Chest: normal breath sounds Cardiovascular: regularly irregular Abdomen: no organomegaly Microbiology Date/Time Source Procedure Growth Status 03/27/19 12:40 Blood Blood Culture - Preliminary NO GROWTH AFTER 48 HOURS Resulted 03/27/19 12:25 Blood Blood Culture - Preliminary NO GROWTH AFTER 48 HOURS Resulted Laboratory Tests Test 03/29/19 18:00 03/30/19 00:54 03/30/19 02:19 03/30/19 04:30 Lactic Acid Level 4.70 mmol/L (0.4-2.0) H 4.70 mmol/L (0.4-2.0) H 4.60 mmol/L (0.66-2.22) H White Blood Count 30.8 K/UL (4.8-10.8) *H Red Blood Count 2.71 M/UL (4.70-6.10) L Hemoglobin 8.2 G/DL (14.2-18.0) L Hematocrit 25.8 % (42.0-52.0) L Mean Corpuscular Volume 95 FL (80-99) Mean Corpuscular Hemoglobin 30.2 PG (27.0-31.0) Mean Corpuscular Hemoglobin Concent 31.7 G/DL (32.0-36.0) L Red Cell Distribution Width 15.5 % (11.6-14.8) H Platelet Count 87 K/UL (150-450) L Mean Platelet Volume 8.5 FL (6.5-10.1) Neutrophils (%) (Auto) % (45.0-75.0) Lymphocytes (%) (Auto) % (20.0-45.0) Monocytes (%) (Auto) % (1.0-10.0) Eosinophils (%) (Auto) % (0.0-3.0) Basophils (%) (Auto) % (0.0-2.0) Differential Total Cells Counted 100 Neutrophils % (Manual) 70 % (45-75) Lymphocytes % (Manual) 4 % (20-45) L Monocytes % (Manual) 1 % (1-10) Eosinophils % (Manual) 0 % (0-3) Basophils % (Manual) 0 % (0-2) Band Neutrophils 25 % (0-8) H Platelet Estimate Decreased L Platelet Morphology Normal Anisocytosis 1+ Sodium Level 140 MMOL/L (136-145) Potassium Level 3.5 MMOL/L (3.5-5.1) Chloride Level 107 MMOL/L (98-107) Carbon Dioxide Level 18 MMOL/L (21-32) L Anion Gap 15 mmol/L (5-15) Blood Urea Nitrogen 77 mg/dL (7-18) H Creatinine 2.9 MG/DL (0.55-1.30) H Estimat Glomerular Filtration Rate mL/min (>60) Glucose Level 129 MG/DL (74-106) H Uric Acid 12.9 MG/DL (2.6-7.2) H Calcium Level 7.1 MG/DL (8.5-10.1) L Phosphorus Level 3.7 MG/DL (2.5-4.9) Magnesium Level 2.0 MG/DL (1.8-2.4) Total Bilirubin 1.0 MG/DL (0.2-1.0) Aspartate Amino Transf (AST/SGOT) 25 U/L (15-37) Alanine Aminotransferase (ALT/SGPT) 14 U/L (12-78) Alkaline Phosphatase 208 U/L (46-116) H Pro-B-Type Natriuretic Peptide 4962 pg/mL (0-125) H Total Protein 5.0 G/DL (6.4-8.2) L Albumin 2.1 G/DL (3.4-5.0) L Globulin 2.9 g/dL Albumin/Globulin Ratio 0.7 (1.0-2.7) L Test 03/30/19 08:00 03/30/19 09:00 Lactic Acid Level 4.60 mmol/L (0.4-2.0) H Arterial Blood pH 7.338 (7.350-7.450) Arterial Blood Partial Pressure CO2 28.2 mmHg (35.0-45.0) L Arterial Blood Partial Pressure O2 109.5 mmHg (75.0-100.0) H Arterial Blood HCO3 14.8 mmol/L (22.0-26.0) *L Arterial Blood Oxygen Saturation 96.8 % (95-100) Arterial Blood Base Excess -9.9 (-2-2) *L Raudel Test Positive Current Medications Medications (Trade) Dose Ordered Sig/Madelyn Route PRN Reason Start Time Stop Time Status Last Admin Dose Admin Acetaminophen (Tylenol) 650 mg Q6H PRN ORAL Mild Pain/Temp > 100.5 03/28/19 11:26 04/27/19 11:25 Allopurinol (Allopurinol) 300 mg BID NG 03/30/19 18:00 04/28/19 11:59 Barium Sulfate (Readi-Cat 2) 450 ml NOW PRN ORAL Radiology Procedure 03/29/19 11:15 03/31/19 23:59 Dextrose/Sodium Chloride 1,000 ml @ 100 mls/hr Q10H IV 03/28/19 12:30 04/27/19 12:29 03/30/19 10:36 Lorazepam (Ativan 2mg/ml 1ml) 2 mg Q4H PRN IV For Anxiety 03/28/19 11:26 04/04/19 11:25 03/30/19 08:14 Meropenem 500 mg/ Sodium Chloride 55 ml @ 110 mls/hr Q12HR IV 03/29/19 12:00 04/03/19 11:59 03/30/19 09:22 Morphine Sulfate (Morphine Sulfate) 4 mg Q4H PRN IVP For Pain 03/28/19 11:30 04/04/19 11:29 Pantoprazole (Protonix) 40 mg Q12HR IV 03/28/19 21:00 04/28/19 08:59 03/30/19 09:21 Vancomycin HCl (Vanco rx to dose) 1 ea DAILY PRN MISC Per rx protocol 03/29/19 10:15 04/28/19 10:14 Vancomycin HCl 750 mg/Dextrose 275 ml @ 183.333 mls/hr Q36H IVPB 03/31/19 01:00 04/05/19 00:59 Kishore Reis MD Mar 30, 2019 11:45
--- NOTE | 2019-03-30 12:41 | Hematology/Onc Progress Note ---
Assessment/Plan Assessment/Plan ASSESSMENT/RECS: # Metastatic colon adenocarcinoma with cea >200, with mets to local lymph nodes , galina, liver, peritoneum, likely, with cecal mass --> biopsy obtain by gi of cecal mass indivating adenoca --> in this setting, newly diagnosed, naive to treatment, but poor prognosis --> agree with conservative care, minimize invasive procedures --> may need para, thora prn --> if ever extubated may reconsider # Anemia of chronic disease due to underlying chronic medical issues, multifactorial --> Anemia workup has been ordered, rule out gi bleed --> No evidence of hemolysis is noted, peripheral smear has been reviewed. --> Hgb goal >7. Transfuse prn. --> Epogen or iron at this time is not particularly indicated --> Medications have been reviewed --> trend 8.5-->7.4--.8.2 # Leukocytosis due to sepsis poa --> on hyun vanc --> per id -->trend 26k-->31k # Thrombocytopenia due to sepsis --> plt trend 150-->101-->87k # Acute renal failure. --> per renal recs # Coagulopathy. is likely related to liver mets --> if bleedin consider, ffp and vit K # Vent respiratory failure --> likely due to effusions, per pulm # Aspiration pneumonia --> on abx # Severe protein-calorie malnutrition # CODE status still full The timing of this note does not necessarily reflect the time of the patient was seen. GREATLY APPRECIATE CONSULTATION. Subjective Constitutional: Denies: no symptoms, chills, fever, malaise, weakness, other Cardiovascular: Denies: no symptoms, chest pain, edema, irregular heart rate, lightheadedness, palpitations, syncope, other Respiratory: Denies: no symptoms, cough, shortness of breath, SOB with excertion, SOB at rest, sputum, wheezing, other Gastrointestinal/Abdominal: Denies: no symptoms, abdomen distended, abdominal pain, black stools, tarry stools, blood in stool, constipated, diarrhea, difficulty swallowing, nausea, poor appetite, poor fluid intake, rectal bleeding , vomiting, other Genitourinary: Denies: no symptoms, burning, discharge, frequency, flank pain, hematuria, incontinence, pain, urgency, other Neurologic/Psychiatric: Denies: no symptoms, anxiety, depressed, emotional problems, headache, numbness, paresthesia, pre-existing deficit, seizure, tingling, tremors, weakness, other Allergies: Coded Allergies: No Known Allergies (Unverified , 03/26/19) Subjective 03/30: remains in the icu, dw rn, prognosis remains poor, on levaq, vanc Objective Objective Current Medications Medications (Trade) Dose Ordered Sig/Madelyn Route PRN Reason Start Time Stop Time Status Last Admin Dose Admin Acetaminophen (Tylenol) 650 mg Q6H PRN ORAL Mild Pain/Temp > 100.5 03/28/19 11:26 04/27/19 11:25 Allopurinol (Allopurinol) 300 mg BID NG 03/30/19 18:00 04/28/19 11:59 Barium Sulfate (Readi-Cat 2) 450 ml NOW PRN ORAL Radiology Procedure 03/29/19 11:15 03/31/19 23:59 Dextrose/Sodium Chloride 1,000 ml @ 100 mls/hr Q10H IV 03/28/19 12:30 04/27/19 12:29 03/30/19 10:36 Levofloxacin 100 ml @ 100 mls/hr Q48H IVPB 04/01/19 13:00 04/08/19 12:59 Levofloxacin 150 ml @ 100 mls/hr ONCE ONCE IVPB 03/30/19 13:30 03/30/19 14:59 Lorazepam (Ativan 2mg/ml 1ml) 2 mg Q4H PRN IV For Anxiety 03/28/19 11:26 04/04/19 11:25 03/30/19 08:14 Meropenem 500 mg/ Sodium Chloride 55 ml @ 110 mls/hr Q12HR IV 03/29/19 12:00 04/03/19 11:59 03/30/19 09:22 Morphine Sulfate (Morphine Sulfate) 4 mg Q4H PRN IVP For Pain 03/28/19 11:30 04/04/19 11:29 Pantoprazole (Protonix) 40 mg Q12HR IV 03/28/19 21:00 04/28/19 08:59 03/30/19 09:21 Vancomycin HCl (Vanco rx to dose) 1 ea DAILY PRN MISC Per rx protocol 03/29/19 10:15 04/28/19 10:14 Vancomycin HCl 750 mg/Dextrose 275 ml @ 183.333 mls/hr Q36H IVPB 03/31/19 01:00 04/05/19 00:59 Last 24 Hour Vital Signs Date Time Temp Pulse Resp B/P (MAP) Pulse Ox O2 Delivery O2 Flow Rate FiO2 03/30/19 11:00 94 18 117/54 (75) 100 03/30/19 10:59 83 25 80 03/30/19 10:00 84 18 95/47 (63) 100 03/30/19 09:05 99 22 65 03/30/19 09:00 97 18 99/49 (66) 100 03/30/19 08:00 98.0 93 9 125/91 (102) 91 03/30/19 08:00 82 03/30/19 08:00 80 03/30/19 08:00 Mechanical Ventilator 03/30/19 07:29 83 20 65 03/30/19 07:00 96 21 112/52 (72) 100 03/30/19 06:00 99 21 115/54 (74) 100 03/30/19 05:06 90 21 70 03/30/19 05:00 96 21 123/42 (69) 100 03/30/19 04:00 78 03/30/19 04:00 80 03/30/19 04:00 97.6 75 21 137/48 (77) 94 03/30/19 04:00 Mechanical Ventilator 03/30/19 03:03 83 22 80 03/30/19 03:00 94 23 123/52 (75) 95 03/30/19 02:00 92 24 131/65 (87) 95 03/30/19 01:14 101 22 80 03/30/19 01:00 94 21 122/48 (72) 96 03/30/19 00:00 89 03/30/19 00:00 80 03/30/19 00:00 Mechanical Ventilator 03/30/19 00:00 97.8 94 23 120/49 (72) 96 03/29/19 23:00 101 24 123/54 (77) 96 03/29/19 22:40 84 24 80 03/29/19 22:00 82 23 115/48 (70) 98 03/29/19 21:10 82 24 80 03/29/19 21:00 101 25 118/57 (77) 98 8/30/19 20:00 Mechanical Ventilator 03/29/19 20:00 97.5 99 19 97/46 (63) 97 03/29/19 20:00 102 03/29/19 20:00 80 03/29/19 19:00 92 23 101/47 (65) 99 03/29/19 18:55 101 21 80 03/29/19 18:00 105 23 98/48 (65) 99 03/29/19 17:25 107 19 80 03/29/19 17:00 73 21 90/59 (69) 99 03/29/19 16:00 109 03/29/19 16:00 Mechanical Ventilator 03/29/19 16:00 98.1 90 18 85/44 (58) 94 03/29/19 16:00 85 03/29/19 15:15 115 27 80 03/29/19 15:00 115 18 121/54 (76) 94 03/29/19 14:00 99 25 116/46 (69) 94 03/29/19 13:27 98 24 80 03/29/19 13:00 96 18 98/45 (62) 94 03/29/19 12:00 80 03/29/19 12:00 98.6 97 18 104/51 (68) 94 03/29/19 12:00 98 03/29/19 12:00 Mechanical Ventilator 03/29/19 11:22 94 24 80 03/29/19 11:00 96 24 109/48 (68) 94 03/29/19 10:00 92 21 102/46 (64) 96 03/29/19 09:00 92 21 100/44 (62) 94 03/29/19 08:44 92 21 80 03/29/19 08:06 95 22 70 03/29/19 08:00 Mechanical Ventilator 03/29/19 08:00 80 03/29/19 08:00 97.6 93 18 108/48 (68) 94 03/29/19 08:00 94 03/29/19 07:00 90 18 101/82 (88) 94 03/29/19 06:03 99 20 96/38 (57) 93 03/29/19 06:02 93 19 89/41 (57) 92 03/29/19 05:32 101 24 97/40 (59) 94 03/29/19 05:19 95 20 70 03/29/19 05:00 103 22 81/41 (54) 92 03/29/19 04:00 60 03/29/19 04:00 Mechanical Ventilator 03/29/19 04:00 97.5 103 23 101/75 (84) 95 03/29/19 04:00 109 03/29/19 03:15 96 18 60 03/29/19 03:00 96 17 107/38 (61) 95 03/29/19 02:00 96 17 105/36 (59) 94 03/29/19 01:21 96 17 60 03/29/19 01:00 97 17 98/44 (62) 97 03/29/19 00:00 97.5 100 16 120/44 (69) 98 03/29/19 00:00 70 03/29/19 00:00 100 03/29/19 00:00 Mechanical Ventilator 03/28/19 23:15 98 17 70 03/28/19 23:00 105 18 123/108 (113) 95 03/28/19 22:00 113 20 100/59 (73) 87 03/28/19 21:15 105 25 70 03/28/19 21:00 106 15 96/53 (67) 97 03/28/19 20:00 97.8 105 21 114/66 (82) 94 03/28/19 20:00 Mechanical Ventilator 03/28/19 20:00 70 03/28/19 20:00 100 03/28/19 19:15 103 23 70 03/28/19 19:00 96 19 109/46 (67) 96 03/28/19 18:00 99 22 116/51 (72) 93 03/28/19 17:00 96 17 118/54 (75) 93 03/28/19 16:52 93 18 45 03/28/19 16:12 87 03/28/19 16:00 97.5 89 19 95/52 (66) 95 03/28/19 16:00 Mechanical Ventilator 03/28/19 15:18 97 16 45 03/28/19 15:00 87 15 103/51 (68) 98 03/28/19 14:00 88 16 95/51 (66) 95 03/28/19 13:34 90 03/28/19 13:15 90 17 45 03/28/19 13:15 45 03/28/19 13:00 89 17 96/65 (75) 99 Intake and Output 03/29/19 03/30/19 18:59 06:59 Intake Total 1200 ml 1100 ml Balance 1200 ml 1100 ml IV Total 1200 ml 1100 ml # Voids 285 315 # Bowel Movements 1 2 Labs Test 03/27/19 15:28 03/28/19 01:50 03/28/19 06:10 03/28/19 13:20 Urine Eosinophils None seen (NONE SEEN) Urine Osmolality 444 mOsm/kg (429-449) Urine Random Sodium < 20 mmol/L (20-110) Stool Occult Blood Positive (NEGATIVE) White Blood Count 14.1 K/UL (4.8-10.8) Red Blood Count 2.79 M/UL (4.70-6.10) Hemoglobin 8.7 G/DL (14.2-18.0) Hematocrit 25.5 % (42.0-52.0) Mean Corpuscular Volume 91 FL (80-99) Mean Corpuscular Hemoglobin 31.2 PG (27.0-31.0) Mean Corpuscular Hemoglobin Concent 34.1 G/DL (32.0-36.0) Red Cell Distribution Width 15.6 % (11.6-14.8) Platelet Count 150 K/UL (150-450) Mean Platelet Volume 6.7 FL (6.5-10.1) Neutrophils (%) (Auto) % (45.0-75.0) Lymphocytes (%) (Auto) % (20.0-45.0) Monocytes (%) (Auto) % (1.0-10.0) Eosinophils (%) (Auto) % (0.0-3.0) Basophils (%) (Auto) % (0.0-2.0) Differential Total Cells Counted 100 Neutrophils % (Manual) 89 % (45-75) Lymphocytes % (Manual) 4 % (20-45) Monocytes % (Manual) 2 % (1-10) Eosinophils % (Manual) 0 % (0-3) Basophils % (Manual) 0 % (0-2) Band Neutrophils 5 % (0-8) Platelet Estimate Adequate Platelet Morphology Normal Anisocytosis 1+ Prothrombin Time 14.8 SEC (9.30-11.50) Prothromb Time International Ratio 1.4 (0.9-1.1) Sodium Level 136 MMOL/L (136-145) Potassium Level 4.2 MMOL/L (3.5-5.1) Chloride Level 100 MMOL/L (98-107) Carbon Dioxide Level 22 MMOL/L (21-32) Anion Gap 14 mmol/L (5-15) Blood Urea Nitrogen 94 mg/dL (7-18) Creatinine 3.4 MG/DL (0.55-1.30) Estimat Glomerular Filtration Rate mL/min (>60) Glucose Level 163 MG/DL (74-106) Calcium Level 7.5 MG/DL (8.5-10.1) Phosphorus Level 4.9 MG/DL (2.5-4.9) Magnesium Level 2.4 MG/DL (1.8-2.4) Total Bilirubin 0.9 MG/DL (0.2-1.0) Aspartate Amino Transf (AST/SGOT) 17 U/L (15-37) Alanine Aminotransferase (ALT/SGPT) 14 U/L (12-78) Alkaline Phosphatase 234 U/L (46-116) Ammonia < 10 umol/L (11-32) Total Protein 6.0 G/DL (6.4-8.2) Albumin 2.7 G/DL (3.4-5.0) Globulin 3.3 g/dL Albumin/Globulin Ratio 0.8 (1.0-2.7) Carcinoembryonic Antigen 287.7 ng/mL (0.0-4.7) Thyroid Stimulating Hormone (TSH) 3.149 uiU/mL (0.358-3.740) Cortisol AM Sample 23.8 UG/DL Hepatitis B Surface Antigen Negative (Negative) Hepatitis C Antibody <0.1 s/co ratio Arterial Blood pH 7.377 (7.350-7.450) Arterial Blood Partial Pressure CO2 33.3 mmHg (35.0-45.0) Arterial Blood Partial Pressure O2 74.2 mmHg (75.0-100.0) Arterial Blood HCO3 19.1 mmol/L (22.0-26.0) Arterial Blood Oxygen Saturation 92.5 % (95-100) Arterial Blood Base Excess -5.4 (-2-2) Raudel Test Positive Test 03/29/19 04:13 03/29/19 08:30 03/29/19 09:15 03/29/19 11:35 White Blood Count 31.3 K/UL (4.8-10.8) 26.4 K/UL (4.8-10.8) Red Blood Count 2.80 M/UL (4.70-6.10) 2.31 M/UL (4.70-6.10) Hemoglobin 8.5 G/DL (14.2-18.0) 7.4 G/DL (14.2-18.0) Hematocrit 26.3 % (42.0-52.0) 21.7 % (42.0-52.0) Mean Corpuscular Volume 94 FL (80-99) 94 FL (80-99) Mean Corpuscular Hemoglobin 30.5 PG (27.0-31.0) 31.9 PG (27.0-31.0) Mean Corpuscular Hemoglobin Concent 32.5 G/DL (32.0-36.0) 34.0 G/DL (32.0-36.0) Red Cell Distribution Width 15.6 % (11.6-14.8) 15.2 % (11.6-14.8) Platelet Count 118 K/UL (150-450) 101 K/UL (150-450) Mean Platelet Volume 7.6 FL (6.5-10.1) 7.1 FL (6.5-10.1) Neutrophils (%) (Auto) % (45.0-75.0) % (45.0-75.0) Lymphocytes (%) (Auto) % (20.0-45.0) % (20.0-45.0) Monocytes (%) (Auto) % (1.0-10.0) % (1.0-10.0) Eosinophils (%) (Auto) % (0.0-3.0) % (0.0-3.0) Basophils (%) (Auto) % (0.0-2.0) % (0.0-2.0) Differential Total Cells Counted 100 100 Neutrophils % (Manual) 72 % (45-75) 70 % (45-75) Lymphocytes % (Manual) 3 % (20-45) 2 % (20-45) Monocytes % (Manual) 1 % (1-10) 1 % (1-10) Eosinophils % (Manual) 0 % (0-3) 0 % (0-3) Basophils % (Manual) 0 % (0-2) 0 % (0-2) Band Neutrophils 24 % (0-8) 27 % (0-8) Platelet Estimate Decreased Decreased Platelet Morphology Normal Normal Anisocytosis 1+ 1+ Prothrombin Time 14.5 SEC (9.30-11.50) Prothromb Time International Ratio 1.4 (0.9-1.1) Activated Partial Thromboplast Time 44 SEC (23-33) Sodium Level 138 MMOL/L (136-145) Potassium Level 3.4 MMOL/L (3.5-5.1) Chloride Level 105 MMOL/L (98-107) Carbon Dioxide Level 19 MMOL/L (21-32) Anion Gap 14 mmol/L (5-15) Blood Urea Nitrogen 86 mg/dL (7-18) Creatinine 3.0 MG/DL (0.55-1.30) Estimat Glomerular Filtration Rate mL/min (>60) Glucose Level 115 MG/DL (74-106) Uric Acid 14.1 MG/DL (2.6-7.2) Calcium Level 7.1 MG/DL (8.5-10.1) Phosphorus Level 4.5 MG/DL (2.5-4.9) Magnesium Level 2.2 MG/DL (1.8-2.4) Total Bilirubin 0.9 MG/DL (0.2-1.0) Aspartate Amino Transf (AST/SGOT) 25 U/L (15-37) Alanine Aminotransferase (ALT/SGPT) 12 U/L (12-78) Alkaline Phosphatase 216 U/L (46-116) C-Reactive Protein, Quantitative 11.6 mg/dL (0.00-0.90) Pro-B-Type Natriuretic Peptide 2864 pg/mL (0-125) Total Protein 5.0 G/DL (6.4-8.2) Albumin 2.0 G/DL (3.4-5.0) Globulin 3.0 g/dL Albumin/Globulin Ratio 0.7 (1.0-2.7) Arterial Blood pH 7.408 (7.350-7.450) Arterial Blood Partial Pressure CO2 26.6 mmHg (35.0-45.0) Arterial Blood Partial Pressure O2 73.8 mmHg (75.0-100.0) Arterial Blood HCO3 16.4 mmol/L (22.0-26.0) Arterial Blood Oxygen Saturation 93.0 % (95-100) Arterial Blood Base Excess -7.3 (-2-2) Raudel Test Positive Hypochromasia 1+ Lactic Acid Level 4.60 mmol/L (0.4-2.0) 4.50 mmol/L (0.66-2.22) Test 03/29/19 18:00 03/30/19 00:54 03/30/19 02:19 03/30/19 04:30 Lactic Acid Level 4.70 mmol/L (0.4-2.0) 4.70 mmol/L (0.4-2.0) 4.60 mmol/L (0.66-2.22) White Blood Count 30.8 K/UL (4.8-10.8) Red Blood Count 2.71 M/UL (4.70-6.10) Hemoglobin 8.2 G/DL (14.2-18.0) Hematocrit 25.8 % (42.0-52.0) Mean Corpuscular Volume 95 FL (80-99) Mean Corpuscular Hemoglobin 30.2 PG (27.0-31.0) Mean Corpuscular Hemoglobin Concent 31.7 G/DL (32.0-36.0) Red Cell Distribution Width 15.5 % (11.6-14.8) Platelet Count 87 K/UL (150-450) Mean Platelet Volume 8.5 FL (6.5-10.1) Neutrophils (%) (Auto) % (45.0-75.0) Lymphocytes (%) (Auto) % (20.0-45.0) Monocytes (%) (Auto) % (1.0-10.0) Eosinophils (%) (Auto) % (0.0-3.0) Basophils (%) (Auto) % (0.0-2.0) Differential Total Cells Counted 100 Neutrophils % (Manual) 70 % (45-75) Lymphocytes % (Manual) 4 % (20-45) Monocytes % (Manual) 1 % (1-10) Eosinophils % (Manual) 0 % (0-3) Basophils % (Manual) 0 % (0-2) Band Neutrophils 25 % (0-8) Platelet Estimate Decreased Platelet Morphology Normal Anisocytosis 1+ Sodium Level 140 MMOL/L (136-145) Potassium Level 3.5 MMOL/L (3.5-5.1) Chloride Level 107 MMOL/L (98-107) Carbon Dioxide Level 18 MMOL/L (21-32) Anion Gap 15 mmol/L (5-15) Blood Urea Nitrogen 77 mg/dL (7-18) Creatinine 2.9 MG/DL (0.55-1.30) Estimat Glomerular Filtration Rate mL/min (>60) Glucose Level 129 MG/DL (74-106) Uric Acid 12.9 MG/DL (2.6-7.2) Calcium Level 7.1 MG/DL (8.5-10.1) Phosphorus Level 3.7 MG/DL (2.5-4.9) Magnesium Level 2.0 MG/DL (1.8-2.4) Total Bilirubin 1.0 MG/DL (0.2-1.0) Aspartate Amino Transf (AST/SGOT) 25 U/L (15-37) Alanine Aminotransferase (ALT/SGPT) 14 U/L (12-78) Alkaline Phosphatase 208 U/L (46-116) Pro-B-Type Natriuretic Peptide 4962 pg/mL (0-125) Total Protein 5.0 G/DL (6.4-8.2) Albumin 2.1 G/DL (3.4-5.0) Globulin 2.9 g/dL Albumin/Globulin Ratio 0.7 (1.0-2.7) Test 03/30/19 08:00 03/30/19 09:00 Lactic Acid Level 4.60 mmol/L (0.4-2.0) Arterial Blood pH 7.338 (7.350-7.450) Arterial Blood Partial Pressure CO2 28.2 mmHg (35.0-45.0) Arterial Blood Partial Pressure O2 109.5 mmHg (75.0-100.0) Arterial Blood HCO3 14.8 mmol/L (22.0-26.0) Arterial Blood Oxygen Saturation 96.8 % (95-100) Arterial Blood Base Excess -9.9 (-2-2) Raudel Test Positive Height (Feet): 5 Height (Inches): 10.00 Weight (Pounds): 134 Objective PHYSICAL EXAMINATION: VITAL SIGNS: reviewed in emr GENERAL: The patient is a thin-appearing male, in no apparent distress. HEENT: Eyes, pupils are equal and responsive to light and accommodation. Extraocular movements are intact. NECK: Supple without lymphadenopathy. CHEST: ++intubated on vent CARDIOVASCULAR: Regular rhythm and rate. S1, S2 are normal without murmurs, rubs, or gallops. ABDOMEN: Soft and grossly distended with decreased bowel sounds. Presence of fluid wave noted. EXTREMITIES: Negative for clubbing, cyanosis, or edema. RECTAL/GENITAL: Not performed Lance Person MD Mar 30, 2019 12:41
--- NOTE | 2019-03-30 13:00 | NUR ---
NURSE NOTES: Vital AF tube feed started at 10 cc/hr. Will continue to monitor.
[2019-03-30] MEDS ORDERED: D5NS 1000ml IV ONE (13:40)
[2019-03-30] MEDS ORDERED: NS 275ml ONE (13:40)
--- NOTE | 2019-03-30 14:18 | NUR ---
NURSE NOTES: Pt vent alarms continuously saying circuit disconnect and alarming nonstop. Pt has audible breathing over ETT. Left a message for Dr Fuller, awaiting call back. Will continue to monitor.
--- NOTE | 2019-03-30 15:00 | NUR ---
NURSE NOTES: Called ED to urgently have ED MD reintubate patient. Cuff is leaking. Audible breathing is heard. TV are not being maintained. Dr Fuller notified. Patient now desaturating to 88% - 91%. ER MD en route to ICU
[2019-03-30] MEDS ORDERED: fentaNYL 100 mcg/2 mL IV ONE (15:25)
--- NOTE | 2019-03-30 15:37 | Internal Med Progress Note ---
Subjective Date of Service: Mar 30, 2019 Physician Name Kashif Ponce Attending Physician Eddi Herman MD Current Medications Medications (Trade) Dose Ordered Sig/Madelyn Route PRN Reason Start Time Stop Time Status Last Admin Dose Admin Acetaminophen (Tylenol) 650 mg Q6H PRN ORAL Mild Pain/Temp > 100.5 03/28/19 11:26 04/27/19 11:25 Allopurinol (Allopurinol) 300 mg BID NG 03/30/19 18:00 04/28/19 11:59 Barium Sulfate (Readi-Cat 2) 450 ml NOW PRN ORAL Radiology Procedure 03/29/19 11:15 03/31/19 23:59 Dextrose/Sodium Chloride 1,000 ml @ 100 mls/hr Q10H IV 03/28/19 12:30 04/27/19 12:29 03/30/19 10:36 Levofloxacin 100 ml @ 100 mls/hr Q48H IVPB 04/01/19 13:00 04/08/19 12:59 Lorazepam (Ativan 2mg/ml 1ml) 2 mg Q4H PRN IV For Anxiety 03/28/19 11:26 04/04/19 11:25 03/30/19 08:14 Meropenem 500 mg/ Sodium Chloride 55 ml @ 110 mls/hr Q12HR IV 03/29/19 12:00 04/03/19 11:59 03/30/19 09:22 Morphine Sulfate (Morphine Sulfate) 4 mg Q4H PRN IVP For Pain 03/28/19 11:30 04/04/19 11:29 Pantoprazole (Protonix) 40 mg Q12HR IV 03/28/19 21:00 04/28/19 08:59 03/30/19 09:21 Vancomycin HCl (Vanco rx to dose) 1 ea DAILY PRN MISC Per rx protocol 03/29/19 10:15 04/28/19 10:14 Vancomycin HCl 750 mg/Dextrose 275 ml @ 183.333 mls/hr Q36H IVPB 03/31/19 01:00 04/05/19 00:59 Allergies: Coded Allergies: No Known Allergies (Unverified , 03/26/19) ROS Limited/Unobtainable: Yes Subjective 78 YO M admitted with cecal mass with probable mets. Now cecal adenocarcinoma and aspiration pneumonia. S/P colonoscopy 03/28/19. ICU. Intubated and sedated. Objective Last Vital Signs Date Time Temp Pulse Resp B/P (MAP) Pulse Ox O2 Delivery O2 Flow Rate FiO2 03/30/19 15:00 87 31 100 03/30/19 15:00 124/76 (92) 89 03/30/19 12:00 Mechanical Ventilator 03/30/19 12:00 98.2 03/28/19 09:00 4.0 Laboratory Tests Test 03/29/19 18:00 03/30/19 00:54 03/30/19 02:19 03/30/19 04:30 Lactic Acid Level 4.70 mmol/L (0.4-2.0) H 4.70 mmol/L (0.4-2.0) H 4.60 mmol/L (0.66-2.22) H White Blood Count 30.8 K/UL (4.8-10.8) *H Red Blood Count 2.71 M/UL (4.70-6.10) L Hemoglobin 8.2 G/DL (14.2-18.0) L Hematocrit 25.8 % (42.0-52.0) L Mean Corpuscular Volume 95 FL (80-99) Mean Corpuscular Hemoglobin 30.2 PG (27.0-31.0) Mean Corpuscular Hemoglobin Concent 31.7 G/DL (32.0-36.0) L Red Cell Distribution Width 15.5 % (11.6-14.8) H Platelet Count 87 K/UL (150-450) L Mean Platelet Volume 8.5 FL (6.5-10.1) Neutrophils (%) (Auto) % (45.0-75.0) Lymphocytes (%) (Auto) % (20.0-45.0) Monocytes (%) (Auto) % (1.0-10.0) Eosinophils (%) (Auto) % (0.0-3.0) Basophils (%) (Auto) % (0.0-2.0) Differential Total Cells Counted 100 Neutrophils % (Manual) 70 % (45-75) Lymphocytes % (Manual) 4 % (20-45) L Monocytes % (Manual) 1 % (1-10) Eosinophils % (Manual) 0 % (0-3) Basophils % (Manual) 0 % (0-2) Band Neutrophils 25 % (0-8) H Platelet Estimate Decreased L Platelet Morphology Normal Anisocytosis 1+ Sodium Level 140 MMOL/L (136-145) Potassium Level 3.5 MMOL/L (3.5-5.1) Chloride Level 107 MMOL/L (98-107) Carbon Dioxide Level 18 MMOL/L (21-32) L Anion Gap 15 mmol/L (5-15) Blood Urea Nitrogen 77 mg/dL (7-18) H Creatinine 2.9 MG/DL (0.55-1.30) H Estimat Glomerular Filtration Rate mL/min (>60) Glucose Level 129 MG/DL (74-106) H Uric Acid 12.9 MG/DL (2.6-7.2) H Calcium Level 7.1 MG/DL (8.5-10.1) L Phosphorus Level 3.7 MG/DL (2.5-4.9) Magnesium Level 2.0 MG/DL (1.8-2.4) Total Bilirubin 1.0 MG/DL (0.2-1.0) Aspartate Amino Transf (AST/SGOT) 25 U/L (15-37) Alanine Aminotransferase (ALT/SGPT) 14 U/L (12-78) Alkaline Phosphatase 208 U/L (46-116) H Pro-B-Type Natriuretic Peptide 4962 pg/mL (0-125) H Total Protein 5.0 G/DL (6.4-8.2) L Albumin 2.1 G/DL (3.4-5.0) L Globulin 2.9 g/dL Albumin/Globulin Ratio 0.7 (1.0-2.7) L Legionella pneumophila Group 1 Ab Pending Legionella pneumophilia IgM Group 1 Pending Test 03/30/19 08:00 03/30/19 09:00 Lactic Acid Level 4.60 mmol/L (0.4-2.0) H Arterial Blood pH 7.338 (7.350-7.450) Arterial Blood Partial Pressure CO2 28.2 mmHg (35.0-45.0) L Arterial Blood Partial Pressure O2 109.5 mmHg (75.0-100.0) H Arterial Blood HCO3 14.8 mmol/L (22.0-26.0) *L Arterial Blood Oxygen Saturation 96.8 % (95-100) Arterial Blood Base Excess -9.9 (-2-2) *L Raudel Test Positive Microbiology Date/Time Source Procedure Growth Status 03/29/19 12:00 Sputum Induced Gram Stain - Final Resulted 03/29/19 12:00 Sputum Induced Sputum Culture Pending Resulted Intake and Output 03/29/19 03/30/19 19:00 07:00 Intake Total 1100 ml 1100 ml Balance 1100 ml 1100 ml IV Total 1100 ml 1100 ml # Voids 260 345 # Bowel Movements 2 1 Objective PHYSICAL EXAMINATION: GENERAL: The patient is a thin-appearing male, in no apparent distress. HEENT: Eyes, pupils are equal and responsive to light and accommodation. Extraocular movements are intact. NECK: Supple without lymphadenopathy. CHEST: Mech vent; Coarse breath sounds bilaterally; without wheezes or rales. CARDIOVASCULAR: Regular rhythm and rate. S1, S2 are normal without murmurs, rubs, or gallops. ABDOMEN: Soft and grossly distended with decreased bowel sounds. Presence of fluid wave noted. No evidence of hepatosplenomegaly. Currently, no rebound or guarding noted. EXTREMITIES: Negative for clubbing, cyanosis, or edema. RECTAL/GENITAL: Not performed. NEUROLOGIC: Cranial nerves II through XII are grossly intact without focal deficits. Motor strength is 5/5 bilaterally. Deep tendon reflexes are 2+ plantar. Assessment/Plan Assessment/Plan ASSESSMENT: This is a 78-year-old male. 1. Cecal adenocarcinoma with metastases. 2. Ascites. 3. Acute renal failure. 4. Coagulopathy. 5. Aspiration pneumonia 6. Acute respiratory failure TREATMENT: 1. Oncology=Dr Person A Gastroenterology consultation has been obtained with Dr. Valerie Greenwood. S/P colonoscopy 03/28/19. Follow recommendations of Gastroenterology. 2. Ascites as above. A Gastroenterology consultation has been obtained with Dr. Valerie Greenwood. Await paracentesis 3. Acute renal failure. A Nephrology consultation has been obtained with Dr. Salgado. 4. Coagulopathy. Improving. The patient is status post transfusion of 2 units of fresh frozen plasma at [facility]. 5. Pulmonary=Dr Fuller 6. ABX=Levaquin, vanco and meropenem per ID, Kashif Stevenson MD Mar 30, 2019 15:37
--- NOTE | 2019-03-30 16:29 | Emergency Room Report ---
History of Present Illness General Chief Complaint: resp distess Source: Patient, Medical Record, PMD Present Illness HPI 78-year-old history of metastatic stasis presents with respiratory failure, I was called to the ICU for endotracheal tube exchange patient with cuff leak. Allergies: Coded Allergies: No Known Allergies (Unverified , 03/26/19) Patient History Limited by: medical condition - Patient currently intubated Past Medical History: see triage record Reviewed Nursing Documentation: PMH: Agreed; PSxH: Agreed Nursing Documentation-PMH Hx Cardiac Problems: No Hx Cancer: Yes - colon CA Hx Gastrointestinal Problems: No Hx Neurological Problems: Yes Hx Weakness: Yes Review of Systems All Other Systems: limited - Patient currently intubated Physical Exam Vital Signs Date Time Temp Pulse Resp B/P (MAP) Pulse Ox O2 Delivery O2 Flow Rate FiO2 03/26/19 20:00 98.0 96 18 109/54 (72) 99 03/26/19 21:31 Room Air 03/28/19 09:00 4.0 03/28/19 11:45 50 General Appearance: severe distress, cachetic Head: normocephalic, atraumatic ENT: uvula midline, moist mucus membranes, other - Endotracheal tube in place Neck: full range of motion, supple Respiratory: accessory muscle use, crackles - Left lung Cardiovascular #1: normal peripheral pulses, tachycardia Gastrointestinal: non tender, soft Skin: no rash Procedures Intubation Intubation : Consent: Emergent Time of Intubation: 15:46 Intubation Method: orotracheal Tube Size (cm): 7.5 Medications: Etomidate, Rocuronium Breath Sounds after Intubation: equal Intubation Complications: no complications Post Intubation Xray: Yes Attempts: One Patient Tolerated: Well Complications: None Medical Decision Making Diagnostic Impression: Primary Impression: Acute respiratory failure Qualified Codes: J96.00 - Acute respiratory failure, unspecified whether with hypoxia or hypercapnia ER Course 78-year-old male with acute respiratory failure, I was called to the ICU for cuff leak, attempted exchange of endotracheal tube through bougie however bougie could not be passed, ended up reintubating patient with a 7.5 larger tube with balloon intact. Patient tolerated procedure well with no complications Chest X-Ray Diagnostic Results Chest X-Ray Diagnostic Results : Chest X-Ray Ordered: Yes # of Views/Limited/Complete: 1 View Indication: Other - Intubation EP Interpretation: Yes Interpretation: other - Left lung opacified Impression: Other - Left lung consolidation Electronically Signed by: Kenan Gonzalez MD Last Vital Signs Date Time Temp Pulse Resp B/P (MAP) Pulse Ox O2 Delivery O2 Flow Rate FiO2 03/30/19 15:00 87 31 100 03/30/19 15:00 124/76 (92) 89 03/30/19 12:00 Mechanical Ventilator 03/30/19 12:00 98.2 03/28/19 09:00 4.0 Disposition: ADMITTED INPATIENT Condition: Serious Referrals: Eddi Herman MD (PCP) Kenan Gonzalez MD Mar 30, 2019 16:29
--- NOTE | 2019-03-30 17:00 | NUR ---
NURSE NOTES: Pt VSS after re-intubation. Will continue to monitor.
--- NOTE | 2019-03-30 17:04 | Diagnostic Imaging Report ---
EXAM: XR Chest, 1 View CLINICAL HISTORY: F/U TECHNIQUE: Frontal view of the chest. COMPARISON: Chest x-ray obtained earlier on 03/30/19 at 7:30 AM FINDINGS: Lungs: No significant change in the diffuse patchy opacities throughout the left lung and hazy opacity in the right midlung. Pleural space: Unremarkable. The costophrenic angles are sharp. No visible pneumothorax. Heart: Unremarkable. No cardiomegaly. Mediastinum: Unremarkable. Bones/joints: Unremarkable. Tubes, lines and devices: Stable positioning of the endotracheal tube. NG tube exams below the diaphragm and its tip is not seen. Telemetry leads overlie the thorax. IMPRESSION: No significant interval change from the prior exam. No significant change in the diffuse patchy opacities throughout the left lung and hazy opacity in the right midlung.
--- NOTE | 2019-03-30 17:10 | Diagnostic Imaging Report ---
EXAM: XR Abdomen, 1 View CLINICAL HISTORY: TUBE PLCMT TECHNIQUE: Frontal view of the abdomen/pelvis. COMPARISON: Abdominal x-ray dated 03/28/19 FINDINGS: Intraperitoneal space: No free air. Gastrointestinal tract: Interval significant improvement/resolution of the gaseous distention of small bowel loops. Bowel gas pattern is nonobstructive and nonspecific. Organs: The renal shadows appear unremarkable. No evidence of organomegaly. No abnormal calcifications in the abdomen or pelvis. Bones/joints: Mild degenerative changes throughout the visualized spine and SI joints. Tubes, lines and devices: NG tube tip in the expected region of the stomach body. IMPRESSION: 1. NG tube tip in the expected region of the stomach body. 2. Interval significant improvement/resolution of the gaseous distention of small bowel loops. Bowel gas pattern is nonobstructive and nonspecific.
--- NOTE | 2019-03-30 18:31 | Surgery Progress Note ---
Surgery Progress Note Subjective Additional Comments worsening lactic acidosis worsening leukocytosis not responding on vent prognosis poor and guarded. Objective Last 24 Hour Vital Signs Date Time Temp Pulse Resp B/P (MAP) Pulse Ox O2 Delivery O2 Flow Rate FiO2 03/30/19 17:00 97 17 112/57 (75) 100 03/30/19 16:48 91 16 100 03/30/19 16:00 80 03/30/19 16:00 98.6 107 26 115/57 (76) 99 03/30/19 16:00 Mechanical Ventilator 03/30/19 16:00 98 03/30/19 15:00 87 31 100 03/30/19 15:00 97 25 124/76 (92) 89 03/30/19 14:00 90 27 132/58 (82) 93 03/30/19 13:13 82 27 80 03/30/19 13:00 96 21 103/43 (63) 96 03/30/19 12:00 Mechanical Ventilator 03/30/19 12:00 98 03/30/19 12:00 98.2 89 25 117/50 (72) 97 03/30/19 12:00 80 03/30/19 11:00 94 18 117/54 (75) 100 03/30/19 10:59 83 25 80 03/30/19 10:00 84 18 95/47 (63) 100 03/30/19 09:05 99 22 65 03/30/19 09:00 97 18 99/49 (66) 100 03/30/19 08:00 98.0 93 9 125/91 (102) 91 03/30/19 08:00 82 03/30/19 08:00 80 03/30/19 08:00 Mechanical Ventilator 03/30/19 07:29 83 20 65 03/30/19 07:00 96 21 112/52 (72) 100 03/30/19 06:00 99 21 115/54 (74) 100 03/30/19 05:06 90 21 70 03/30/19 05:00 96 21 123/42 (69) 100 03/30/19 04:00 78 03/30/19 04:00 80 03/30/19 04:00 97.6 75 21 137/48 (77) 94 03/30/19 04:00 Mechanical Ventilator 03/30/19 03:03 83 22 80 03/30/19 03:00 94 23 123/52 (75) 95 03/30/19 02:00 92 24 131/65 (87) 95 03/30/19 01:14 101 22 80 03/30/19 01:00 94 21 122/48 (72) 96 03/30/19 00:00 89 03/30/19 00:00 80 03/30/19 00:00 Mechanical Ventilator 03/30/19 00:00 97.8 94 23 120/49 (72) 96 03/29/19 23:00 101 24 123/54 (77) 96 03/29/19 22:40 84 24 80 03/29/19 22:00 82 23 115/48 (70) 98 03/29/19 21:10 82 24 80 03/29/19 21:00 101 25 118/57 (77) 98 03/29/19 20:00 Mechanical Ventilator 03/29/19 20:00 97.5 99 19 97/46 (63) 97 03/29/19 20:00 102 03/29/19 20:00 80 03/29/19 19:00 92 23 101/47 (65) 99 03/29/19 18:55 101 21 80 I&O Intake and Output 03/29/19 03/30/19 19:00 07:00 Intake Total 1100 ml 1100 ml Balance 1100 ml 1100 ml IV Total 1100 ml 1100 ml # Voids 260 345 # Bowel Movements 2 1 Cardiovascular: RSR Respiratory: decreased breath sounds Abdomen: soft, distended, other Extremities: no cyanosis, other Laboratory Tests Test 03/30/19 00:54 03/30/19 02:19 03/30/19 04:30 03/30/19 08:00 Lactic Acid Level 4.70 mmol/L (0.4-2.0) H 4.60 mmol/L (0.66-2.22) H 4.60 mmol/L (0.4-2.0) H White Blood Count 30.8 K/UL (4.8-10.8) *H Red Blood Count 2.71 M/UL (4.70-6.10) L Hemoglobin 8.2 G/DL (14.2-18.0) L Hematocrit 25.8 % (42.0-52.0) L Mean Corpuscular Volume 95 FL (80-99) Mean Corpuscular Hemoglobin 30.2 PG (27.0-31.0) Mean Corpuscular Hemoglobin Concent 31.7 G/DL (32.0-36.0) L Red Cell Distribution Width 15.5 % (11.6-14.8) H Platelet Count 87 K/UL (150-450) L Mean Platelet Volume 8.5 FL (6.5-10.1) Neutrophils (%) (Auto) % (45.0-75.0) Lymphocytes (%) (Auto) % (20.0-45.0) Monocytes (%) (Auto) % (1.0-10.0) Eosinophils (%) (Auto) % (0.0-3.0) Basophils (%) (Auto) % (0.0-2.0) Differential Total Cells Counted 100 Neutrophils % (Manual) 70 % (45-75) Lymphocytes % (Manual) 4 % (20-45) L Monocytes % (Manual) 1 % (1-10) Eosinophils % (Manual) 0 % (0-3) Basophils % (Manual) 0 % (0-2) Band Neutrophils 25 % (0-8) H Platelet Estimate Decreased L Platelet Morphology Normal Anisocytosis 1+ Sodium Level 140 MMOL/L (136-145) Potassium Level 3.5 MMOL/L (3.5-5.1) Chloride Level 107 MMOL/L (98-107) Carbon Dioxide Level 18 MMOL/L (21-32) L Anion Gap 15 mmol/L (5-15) Blood Urea Nitrogen 77 mg/dL (7-18) H Creatinine 2.9 MG/DL (0.55-1.30) H Estimat Glomerular Filtration Rate mL/min (>60) Glucose Level 129 MG/DL (74-106) H Uric Acid 12.9 MG/DL (2.6-7.2) H Calcium Level 7.1 MG/DL (8.5-10.1) L Phosphorus Level 3.7 MG/DL (2.5-4.9) Magnesium Level 2.0 MG/DL (1.8-2.4) Total Bilirubin 1.0 MG/DL (0.2-1.0) Aspartate Amino Transf (AST/SGOT) 25 U/L (15-37) Alanine Aminotransferase (ALT/SGPT) 14 U/L (12-78) Alkaline Phosphatase 208 U/L (46-116) H Pro-B-Type Natriuretic Peptide 4962 pg/mL (0-125) H Total Protein 5.0 G/DL (6.4-8.2) L Albumin 2.1 G/DL (3.4-5.0) L Globulin 2.9 g/dL Albumin/Globulin Ratio 0.7 (1.0-2.7) L Legionella pneumophila Group 1 Ab Pending Legionella pneumophilia IgM Group 1 Pending Test 03/30/19 09:00 03/30/19 16:21 03/30/19 16:45 Arterial Blood pH 7.338 (7.350-7.450) 7.256 (7.350-7.450) Arterial Blood Partial Pressure CO2 28.2 mmHg (35.0-45.0) L 32.5 mmHg (35.0-45.0) L Arterial Blood Partial Pressure O2 109.5 mmHg (75.0-100.0) H 102.6 mmHg (75.0-100.0) H Arterial Blood HCO3 14.8 mmol/L (22.0-26.0) *L 14.1 mmol/L (22.0-26.0) *L Arterial Blood Oxygen Saturation 96.8 % (95-100) 96.1 % (95-100) Arterial Blood Base Excess -9.9 (-2-2) *L -11.9 (-2-2) *L Raudel Test Positive Positive Lactic Acid Level 4.80 mmol/L (0.4-2.0) H Plan Problems: (1) Sepsis Assessment & Plan: This is a very unfortunate 78-year-old male with metastatic advanced colorectal cancer with mets of the lymph nodes and liver. Patient presented with leukocytosis and abdominal discomfort. 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 Patient currently stating he is tolerating diet and having bowel movements. Abdomen complaining of abdominal discomfort but no nausea or emesis. No fever chills. No acute surgical intervention recommended at this time given patient's medical condition and prognosis. 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 Ultrasound noted CT noted no bladder rupture very ill now s/p scope with aspiration requiring intubated on vent ICU Care very poor prognosis ?code status Thank you for this consultation we will follow with recommendations Okay for diet from surgical standpoint (2) Colon cancer metastasized to liver (3) Severe protein-calorie malnutrition Harmeet Pérez Mar 30, 2019 18:31
--- NOTE | 2019-03-30 19:04 | NUR ---
HAND-OFF: Report given to Thelma LOPEZ.
--- NOTE | 2019-03-30 19:05 | NUR ---
NURSE NOTES: Endorsement received from JOHN Smith. Does not open eyes, no response to light and deep pain. S/P reintubation this afternoon. Orally intubated with 7.5, 23 lipline. AC 16, 600, PEEP 5, 100%. With OGT. On Vital AF 20ml/hr with goal of 55 ml/hr. No residual. With Horn F 16 connected to urimeter. With right foot g 20, left hand g22, right forearm g 22. Receiving D5NS 100ml/hr. SCDs in place. Bilateral soft wrist restraints present. Will monitor patient for the need for soft restraints. Skin warm and dry, normal in color. Head of bed elevated. Bed locked and in low position. Call light within reach. Bed alarm on.
--- NOTE | 2019-03-30 19:33 | NUR ---
RESPIRATORY NOTE: Received pt on AC/VC RR 16 VT 600 100% FIO2 Peep + 5. Intubated with 7.5 size ett at 23 at the lip. Checked x-ray said placement is correct. JOHN Renee aware. Scant amount of secretions and will sxn prn. Vent is plugged into red outlet. Will continue to monitor pt's progress.
--- NOTE | 2019-03-30 20:00 | NUR ---
NURSE NOTES: Patient passed small BM. Bed bath and change of linens done. Blanchable redness at sacral and heeld. Applied calazime and skin barrier at sacral area and covered with Optifoam. Bilateral heels elevated. Bilateral feet noted with + 2 edema. SCDs removed.
--- NOTE | 2019-03-30 22:00 | NUR ---
NURSE NOTES: Patient repositioned. Oral care done. Kept warm with multiple blankets.
[2019-03-31] VITALS (24 sets, daily range): BP systolic 103–143; BP diastolic 47–78
--- NOTE | 2019-03-31 | NUR ---
NURSE NOTES: Patient asleep. Appears comfortable, no signs of pain. Appears more responsive that earlier. Opens eyes to pain. Will continue to monitor.
[2019-03-31] MEDS ORDERED: Vancomycin 750mg/D5W 275ml IVPB SCH ×2 (01:00)
[2019-03-31] MEDS: D5NS 1,000 ML IV SCH ×3 (01:25→17:06)
--- NOTE | 2019-03-31 02:00 | NUR ---
NURSE NOTES: Tolerating feeding, Vital AF increased to 30ml/hr.
--- NOTE | 2019-03-31 04:00 | NUR ---
NURSE NOTES: Patient repositioned. Tolerating feeding.
[2019-03-31 05:45] LABS: HEMATOCRIT 26.5 % (42.0-52.0); HEMOGLOBIN 8.4 G/DL (14.2-18.0); MEAN CORPUSCULAR VOLUME 95 FL (80-99); PLATELET COUNT 60 K/UL (150-450); RED BLOOD COUNT 2.78 M/UL (4.70-6.10); RED CELL DISTRIBUTION WIDTH 15.8 % (11.6-14.8)
--- NOTE | 2019-03-31 05:51 | NUR ---
NURSE NOTES: Repositioned. Morning care done.
[2019-03-31 05:52] LABS: WHITE BLOOD COUNT 34.2 K/UL (4.8-10.8)
[2019-03-31 06:09] LABS: ALANINE AMINOTRANSFERASE 12 U/L (12-78); ALBUMIN 1.7 G/DL (3.4-5.0); ALBUMIN/GLOBULIN RATIO 0.5 (1.0-2.7); ALKALINE PHOSPHATASE 228 U/L (46-116); ANION GAP 15 mmol/L (5-15); ASPARTATE AMINO TRANSFERASE 20 U/L (15-37); BILIRUBIN,TOTAL 1.2 MG/DL (0.2-1.0); BLOOD UREA NITROGEN 76 mg/dL (7-18); CALCIUM 7.3 MG/DL (8.5-10.1); CARBON DIOXIDE 18 MMOL/L (21-32); CHLORIDE 110 MMOL/L (98-107); CREATININE 2.9 MG/DL (0.55-1.30); PHOSPHORUS 3.4 MG/DL (2.5-4.9); POTASSIUM 3.3 MMOL/L (3.5-5.1); SODIUM 142 MMOL/L (136-145)
[2019-03-31 06:12] LABS: BILIRUBIN,DIRECT 0.7 MG/DL (0.0-0.3)
--- NOTE | 2019-03-31 07:00 | NUR ---
RESPIRATORY NOTES: Received Patient on Vent settings ACVC 16, VT 600, Fio2 50%, PEEP +5. Patient currently intubated with 7.5 ETT at 23 cm at the lip, secured with anchorfast. Patient currently sleeping. Breath sounds are bilateral diminished throughout both lung li. Suctioned small amount of clear secretions Q2 and PRN. Vent plugged into red outlet. Alarms are on and audible. Will continue to monitor throughout the day.
--- NOTE | 2019-03-31 07:20 | NUR ---
HAND-OFF: Called Dr. Silvestre regarding WBC 34.2, left a message and awaiting for return call. Report given to JOHN Smith.
--- NOTE | 2019-03-31 07:21 | General Progress Note ---
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 - anemia - coagulopathy, improved - Azotemia, improved - Poor prognosis Recommendations - ICU / vent care - wean - f/u pathology ---> adenocarcinoma - NGT feeds - follow labs - consider terminal care Subjective ROS Limited/Unobtainable: No Allergies: Coded Allergies: No Known Allergies (Unverified , 03/26/19) Objective Last 24 Hour Vital Signs Date Time Temp Pulse Resp B/P (MAP) Pulse Ox O2 Delivery O2 Flow Rate FiO2 03/31/19 07:02 93 27 50 03/31/19 06:00 98 25 131/61 (84) 95 03/31/19 05:00 93 25 130/58 (82) 94 03/31/19 04:57 93 22 50 03/31/19 04:00 97.6 95 24 134/63 (86) 94 03/31/19 04:00 60 03/31/19 04:00 98 03/31/19 04:00 Mechanical Ventilator 03/31/19 03:00 98 18 123/59 (80) 95 03/31/19 02:34 98 19 60 03/31/19 02:00 82 22 143/66 (91) 98 03/31/19 01:02 99 20 60 03/31/19 01:00 98 23 122/64 (83) 97 03/31/19 00:00 97.5 96 18 116/70 (85) 97 03/31/19 00:00 60 03/31/19 00:00 Mechanical Ventilator 03/31/19 00:00 96 03/30/19 23:00 99 19 135/72 (93) 98 03/30/19 22:50 93 17 60 03/30/19 22:00 96 19 116/67 (83) 97 03/30/19 21:00 86 16 119/62 (81) 96 03/30/19 20:42 78 16 60 03/30/19 20:00 80 03/30/19 20:00 Mechanical Ventilator 03/30/19 20:00 97.6 92 16 99/63 (75) 98 03/30/19 20:00 90 03/30/19 19:06 84 16 80 03/30/19 19:00 100 03/30/19 19:00 89 16 123/56 (78) 99 03/30/19 18:00 99 16 119/54 (75) 100 03/30/19 17:00 97 17 112/57 (75) 100 03/30/19 16:48 91 16 100 03/30/19 16:00 80 03/30/19 16:00 98.6 107 26 115/57 (76) 99 03/30/19 16:00 Mechanical Ventilator 03/30/19 16:00 98 03/30/19 15:00 87 31 100 03/30/19 15:00 97 25 124/76 (92) 89 03/30/19 14:00 90 27 132/58 (82) 93 03/30/19 13:13 82 27 80 03/30/19 13:00 96 21 103/43 (63) 96 03/30/19 12:00 Mechanical Ventilator 03/30/19 12:00 98 03/30/19 12:00 98.2 89 25 117/50 (72) 97 03/30/19 12:00 80 03/30/19 11:00 94 18 117/54 (75) 100 03/30/19 10:59 83 25 80 03/30/19 10:00 84 18 95/47 (63) 100 03/30/19 09:05 99 22 65 03/30/19 09:00 97 18 99/49 (66) 100 03/30/19 08:00 98.0 93 9 125/91 (102) 91 03/30/19 08:00 82 03/30/19 08:00 80 03/30/19 08:00 Mechanical Ventilator 03/30/19 07:29 83 20 65 Intake and Output 03/30/19 03/31/19 19:00 07:00 Intake Total 1000 ml 1735.000 ml Balance 1000 ml 1735.000 ml Free Water 100 ml IV Total 1000 ml 1375.000 ml Tube Feeding 260 ml # Voids 305 290 # Bowel Movements 3 1 Laboratory Tests 03/30/19 08:00: Lactic Acid Level 4.60H 03/30/19 09:00: Arterial Blood pH 7.338L, Arterial Blood Partial Pressure CO2 28.2L, Arterial Blood Partial Pressure O2 109.5H, Arterial Blood HCO3 14.8*L, Arterial Blood Oxygen Saturation 96.8, Arterial Blood Base Excess -9.9*L, Raudel Test Positive 8/31/19 16:21: Lactic Acid Level 4.80H 03/30/19 16:45: Arterial Blood pH 7.256L, Arterial Blood Partial Pressure CO2 32.5L, Arterial Blood Partial Pressure O2 102.6H, Arterial Blood HCO3 14.1*L, Arterial Blood Oxygen Saturation 96.1, Arterial Blood Base Excess -11.9*L, Raudel Test Positive 03/30/19 18:15: Urine Legionella Antigen [Pending] 03/30/19 21:45: Lactic Acid Level 4.90H 03/30/19 23:00: Lactic Acid Level 5.10H 03/31/19 04:45: Lactic Acid Level 6.00H, White Blood Count 34.2*H, Red Blood Count 2.78L, Hemoglobin 8.4L, Hematocrit 26.5L, Mean Corpuscular Volume 95, Mean Corpuscular Hemoglobin 30.3, Mean Corpuscular Hemoglobin Concent 31.8L, Red Cell Distribution Width 15.8H, Platelet Count 60L, Mean Platelet Volume 8.2, Neutrophils (%) (Auto) , Lymphocytes (%) (Auto) , Monocytes (%) (Auto) , Eosinophils (%) (Auto) , Basophils (%) (Auto) , Neutrophils % (Manual) [Pending] , Lymphocytes % (Manual) [Pending], Platelet Estimate [Pending], Platelet Morphology [Pending], Sodium Level 142, Potassium Level 3.3L, Chloride Level 110H, Carbon Dioxide Level 18L, Anion Gap 15, Blood Urea Nitrogen 76H, Creatinine 2.9H, Estimat Glomerular Filtration Rate , Glucose Level 162H, Uric Acid 11.4H, Calcium Level 7.3L, Phosphorus Level 3.4, Magnesium Level 1.8, Total Bilirubin 1.2H, Direct Bilirubin 0.7H, Aspartate Amino Transf (AST/SGOT) 20, Alanine Aminotransferase (ALT/SGPT) 12, Alkaline Phosphatase 228H, C- Reactive Protein, Quantitative 18.8H, Pro-B-Type Natriuretic Peptide 7808H, Total Protein 4.8L, Albumin 1.7L, Globulin 3.1, Albumin/Globulin Ratio 0.5L Height (Feet): 5 Height (Inches): 10.00 Weight (Pounds): 134 General Appearance: no apparent distress EENT: normal ENT inspection Neck: supple Cardiovascular: normal rate Respiratory/Chest: decreased breath sounds Abdomen: soft, hypoactive bowel sounds Extremities: non-tender Niels Pendleton MD Mar 31, 2019 07:21
--- NOTE | 2019-03-31 07:31 | NUR ---
NURSE NOTES: Report received from Thelma LOPEZ. Pt sleepy, alert and oriented x 2-3, able to follow simple commands and nods yes/no. Pt ST on hall monitor. Pt orally intubated ETT 7.5, 23 cm, AC 16, TV 600, fiO2 60% and PEEP 5. Pt OGT noted and intact. Horn noted with clear, shana urine to gravity. Right foot 20G , LH 22 G, RFA 22 GG noted and intact. D5NS + 10 KCL @ 100 ml/hr running. Bilateral soft restraints on, pt continually attempting to climb oob and pulling out lines and tubes. Safety measures in place with bed locked and in lowest position, side rails x 3 up and bed alarm on. Will continue to monitor and continue plan of care.
--- NOTE | 2019-03-31 07:36 | NUR ---
NURSE NOTES: Discussed with Dr Reis the increased WBC level. Dr ordered to recheck in am. Will continue to monitor.
[2019-03-31] MEDS: Pantoprazole Inj IV SCH ×2 (08:35→20:30)
[2019-03-31] MEDS: Meropenem 500 MG in NS 55 ML IV SCH ×2 (08:35→20:30)
--- NOTE | 2019-03-31 09:00 | NUR ---
NURSE NOTES: Dr Salgado here to see pt. ordered albumin and potassium. Will continue to monitor.
--- NOTE | 2019-03-31 09:03 | Urology Progress Note ---
Assessment/Plan Assessment/Plan: 1. Questionable urinary retention. 2. BPH history. 3. Possible neurogenic bladder. 4. Hematuria. 5. Renal insufficiency, acute versus chronic. 6. Pyuria. 7. Proteinuria. 8. Possible urethral stricture or false passage. keep weeks, placed 03/27 hand irrigated and do PRN, position is satisfactory monitor renal fxn off flomax for now f/u on blood cx voiding trial later cysto later Subjective Allergies: Coded Allergies: No Known Allergies (Unverified , 03/26/19) Subjective all noted, remains intubated, ICU, weeks indwelling, oliguric Objective Last 24 Hour Vital Signs Date Time Temp Pulse Resp B/P (MAP) Pulse Ox O2 Delivery O2 Flow Rate FiO2 03/31/19 08:56 93 27 50 03/31/19 08:00 60 03/31/19 08:00 97.7 107 26 136/55 (82) 93 03/31/19 08:00 Mechanical Ventilator 03/31/19 07:02 93 27 50 03/31/19 07:00 96 21 114/57 (76) 94 03/31/19 06:00 98 25 131/61 (84) 95 03/31/19 05:00 93 25 130/58 (82) 94 03/31/19 04:57 93 22 50 03/31/19 04:00 97.6 95 24 134/63 (86) 94 03/31/19 04:00 60 03/31/19 04:00 98 03/31/19 04:00 Mechanical Ventilator 03/31/19 03:00 98 18 123/59 (80) 95 03/31/19 02:34 98 19 60 03/31/19 02:00 82 22 143/66 (91) 98 03/31/19 01:02 99 20 60 03/31/19 01:00 98 23 122/64 (83) 97 03/31/19 00:00 97.5 96 18 116/70 (85) 97 03/31/19 00:00 60 03/31/19 00:00 Mechanical Ventilator 03/31/19 00:00 96 03/30/19 23:00 99 19 135/72 (93) 98 03/30/19 22:50 93 17 60 03/30/19 22:00 96 19 116/67 (83) 97 03/30/19 21:00 86 16 119/62 (81) 96 03/30/19 20:42 78 16 60 03/30/19 20:00 80 03/30/19 20:00 Mechanical Ventilator 03/30/19 20:00 97.6 92 16 99/63 (75) 98 03/30/19 20:00 90 03/30/19 19:06 84 16 80 03/30/19 19:00 100 03/30/19 19:00 89 16 123/56 (78) 99 03/30/19 18:00 99 16 119/54 (75) 100 03/30/19 17:00 97 17 112/57 (75) 100 03/30/19 16:48 91 16 100 03/30/19 16:00 80 03/30/19 16:00 98.6 107 26 115/57 (76) 99 03/30/19 16:00 Mechanical Ventilator 03/30/19 16:00 98 03/30/19 15:00 87 31 100 03/30/19 15:00 97 25 124/76 (92) 89 03/30/19 14:00 90 27 132/58 (82) 93 03/30/19 13:13 82 27 80 03/30/19 13:00 96 21 103/43 (63) 96 03/30/19 12:00 Mechanical Ventilator 03/30/19 12:00 98 03/30/19 12:00 98.2 89 25 117/50 (72) 97 03/30/19 12:00 80 03/30/19 11:00 94 18 117/54 (75) 100 03/30/19 10:59 83 25 80 03/30/19 10:00 84 18 95/47 (63) 100 03/30/19 09:05 99 22 65 Intake and Output 03/30/19 03/31/19 19:00 07:00 Intake Total 1000 ml 1765.000 ml Balance 1000 ml 1765.000 ml Free Water 100 ml IV Total 1000 ml 1375.000 ml Tube Feeding 290 ml # Voids 305 310 # Bowel Movements 3 1 Microbiology Date/Time Source Procedure Growth Status 03/29/19 09:15 Blood Blood Culture - Preliminary NO GROWTH AFTER 24 HOURS Resulted 03/29/19 12:00 Sputum Induced Gram Stain - Final Complete 03/29/19 12:00 Sputum Culture - Final Brittney Albicans Usual Respiratory Demi Complete 03/27/19 10:50 Urine,Clean Catch Urine Culture - Final NO GROWTH AFTER 48 HOURS Complete 03/26/19 23:30 Rectum - Final NO CARBAPENEM-RESISTANT ENTEROBACTERI... Complete Current Medications Medications (Trade) Dose Ordered Sig/Madelyn Route PRN Reason Start Time Stop Time Status Last Admin Dose Admin Acetaminophen (Tylenol) 650 mg Q6H PRN ORAL Mild Pain/Temp > 100.5 03/28/19 11:26 04/27/19 11:25 Albumin Human 100 ml @ 100 mls/hr ONCE ONCE IV 03/31/19 08:30 03/31/19 09:29 03/31/19 08:35 Allopurinol (Allopurinol) 300 mg BID NG 03/30/19 18:00 04/28/19 11:59 03/31/19 08:36 Barium Sulfate (Readi-Cat 2) 450 ml NOW PRN ORAL Radiology Procedure 03/29/19 11:15 03/31/19 23:59 Dextrose/Sodium Chloride 1,000 ml @ 100 mls/hr Q10H IV 03/28/19 12:30 04/27/19 12:29 03/31/19 08:37 Levofloxacin 100 ml @ 100 mls/hr Q48H IVPB 04/01/19 13:00 04/08/19 12:59 Lorazepam (Ativan 2mg/ml 1ml) 2 mg Q4H PRN IV For Anxiety 03/28/19 11:26 04/04/19 11:25 03/30/19 08:14 Meropenem 500 mg/ Sodium Chloride 55 ml @ 110 mls/hr Q12HR IV 03/29/19 12:00 04/03/19 11:59 03/31/19 08:35 Morphine Sulfate (Morphine Sulfate) 4 mg Q4H PRN IVP For Pain 03/28/19 11:30 04/04/19 11:29 Pantoprazole (Protonix) 40 mg Q12HR IV 03/28/19 21:00 04/28/19 08:59 03/31/19 08:35 Potassium Chloride 100 ml @ 100 mls/hr Q1HR IVPB 03/31/19 09:00 03/31/19 11:59 03/31/19 08:36 Vancomycin HCl (Vanco rx to dose) 1 ea DAILY PRN MISC Per rx protocol 03/29/19 10:15 04/28/19 10:14 Vancomycin HCl 750 mg/Dextrose 275 ml @ 183.333 mls/hr Q36H IVPB 03/31/19 01:00 04/05/19 00:59 03/31/19 01:25 Laboratory Tests 03/30/19 16:21: Lactic Acid Level 4.80H 03/30/19 16:45: Arterial Blood pH 7.256L, Arterial Blood Partial Pressure CO2 32.5L, Arterial Blood Partial Pressure O2 102.6H, Arterial Blood HCO3 14.1*L, Arterial Blood Oxygen Saturation 96.1, Arterial Blood Base Excess -11.9*L, Raudel Test Positive 03/30/19 18:15: Urine Legionella Antigen [Pending] 03/30/19 21:45: Lactic Acid Level 4.90H 03/30/19 23:00: Lactic Acid Level 5.10H 03/31/19 04:45: Lactic Acid Level 6.00H, White Blood Count 34.2*H, Red Blood Count 2.78L, Hemoglobin 8.4L, Hematocrit 26.5L, Mean Corpuscular Volume 95, Mean Corpuscular Hemoglobin 30.3, Mean Corpuscular Hemoglobin Concent 31.8L, Red Cell Distribution Width 15.8H, Platelet Count 60L, Mean Platelet Volume 8.2, Neutrophils (%) (Auto) , Lymphocytes (%) (Auto) , Monocytes (%) (Auto) , Eosinophils (%) (Auto) , Basophils (%) (Auto) , Differential Total Cells Counted 100, Neutrophils % (Manual) 81H, Lymphocytes % (Manual) 2L, Monocytes % (Manual) 1, Eosinophils % (Manual) 0, Basophils % (Manual) 0, Band Neutrophils 16H, Platelet Estimate DecreasedL, Platelet Morphology Normal, Anisocytosis 1+, Sodium Level 142, Potassium Level 3.3L, Chloride Level 110H, Carbon Dioxide Level 18L, Anion Gap 15, Blood Urea Nitrogen 76H, Creatinine 2.9H, Estimat Glomerular Filtration Rate , Glucose Level 162H, Uric Acid 11.4H, Calcium Level 7.3L, Phosphorus Level 3.4, Magnesium Level 1.8, Total Bilirubin 1.2H, Direct Bilirubin 0.7H, Aspartate Amino Transf (AST/SGOT) 20, Alanine Aminotransferase ( ALT/SGPT) 12, Alkaline Phosphatase 228H, C-Reactive Protein, Quantitative 18.8H , Pro-B-Type Natriuretic Peptide 7808H, Total Protein 4.8L, Albumin 1.7L, Globulin 3.1, Albumin/Globulin Ratio 0.5L Height (Feet): 5 Height (Inches): 10.00 Weight (Pounds): 134 Objective exam stable urine grossly clearing no bleeding at meatus Nando Campo MD Mar 31, 2019 09:03
--- NOTE | 2019-03-31 09:11 | Nephrology Progress Note ---
Assessment/Plan Problem List: (1) ATN (acute tubular necrosis) (2) Coagulopathy (3) Colon cancer metastasized to liver (4) Acute respiratory failure (5) Aspiration pneumonia Assessment Acute renal failure- Mainly Pre renal Colon Ca with mets to liver Ascitis , likely malignant Sepsis , Leukocytosis Severe Malnutrition Plan long discussion with Alejandra at presence of JOHN Reid- Poor prognosis and comfort care discussed final decision will be made when family ready add allopurinol poor prognosis Antibiotics add zosyn now in ICU on vent after aspiration - colonoscopy 03/28 antibiotics Horn: 200 cc urine on insertion Fluid challenge Monitor renal parameters and urine out pot per orders ? comfort care?? Subjective ROS Limited/Unobtainable: Yes Objective Objective Last 24 Hour Vital Signs Date Time Temp Pulse Resp B/P (MAP) Pulse Ox O2 Delivery O2 Flow Rate FiO2 03/31/19 09:00 99 25 132/47 (75) 89 03/31/19 08:56 93 27 50 03/31/19 08:00 60 03/31/19 08:00 97.7 107 26 136/55 (82) 93 03/31/19 08:00 Mechanical Ventilator 03/31/19 07:02 93 27 50 03/31/19 07:00 96 21 114/57 (76) 94 03/31/19 06:00 98 25 131/61 (84) 95 03/31/19 05:00 93 25 130/58 (82) 94 03/31/19 04:57 93 22 50 03/31/19 04:00 97.6 95 24 134/63 (86) 94 03/31/19 04:00 60 03/31/19 04:00 98 03/31/19 04:00 Mechanical Ventilator 03/31/19 03:00 98 18 123/59 (80) 95 03/31/19 02:34 98 19 60 03/31/19 02:00 82 22 143/66 (91) 98 03/31/19 01:02 99 20 60 03/31/19 01:00 98 23 122/64 (83) 97 03/31/19 00:00 97.5 96 18 116/70 (85) 97 03/31/19 00:00 60 03/31/19 00:00 Mechanical Ventilator 03/31/19 00:00 96 03/30/19 23:00 99 19 135/72 (93) 98 03/30/19 22:50 93 17 60 03/30/19 22:00 96 19 116/67 (83) 97 03/30/19 21:00 86 16 119/62 (81) 96 03/30/19 20:42 78 16 60 03/30/19 20:00 80 03/30/19 20:00 Mechanical Ventilator 03/30/19 20:00 97.6 92 16 99/63 (75) 98 03/30/19 20:00 90 03/30/19 19:06 84 16 80 03/30/19 19:00 100 03/30/19 19:00 89 16 123/56 (78) 99 03/30/19 18:00 99 16 119/54 (75) 100 03/30/19 17:00 97 17 112/57 (75) 100 03/30/19 16:48 91 16 100 03/30/19 16:00 80 03/30/19 16:00 98.6 107 26 115/57 (76) 99 03/30/19 16:00 Mechanical Ventilator 03/30/19 16:00 98 03/30/19 15:00 87 31 100 03/30/19 15:00 97 25 124/76 (92) 89 03/30/19 14:00 90 27 132/58 (82) 93 03/30/19 13:13 82 27 80 03/30/19 13:00 96 21 103/43 (63) 96 03/30/19 12:00 Mechanical Ventilator 03/30/19 12:00 98 03/30/19 12:00 98.2 89 25 117/50 (72) 97 03/30/19 12:00 80 03/30/19 11:00 94 18 117/54 (75) 100 03/30/19 10:59 83 25 80 03/30/19 10:00 84 18 95/47 (63) 100 Intake and Output 03/30/19 03/31/19 19:00 07:00 Intake Total 1000 ml 1765.000 ml Balance 1000 ml 1765.000 ml Free Water 100 ml IV Total 1000 ml 1375.000 ml Tube Feeding 290 ml # Voids 305 310 # Bowel Movements 3 1 Laboratory Tests 03/30/19 16:21: Lactic Acid Level 4.80H 03/30/19 16:45: Arterial Blood pH 7.256L, Arterial Blood Partial Pressure CO2 32.5L, Arterial Blood Partial Pressure O2 102.6H, Arterial Blood HCO3 14.1*L, Arterial Blood Oxygen Saturation 96.1, Arterial Blood Base Excess -11.9*L, Raudel Test Positive 03/30/19 18:15: Urine Legionella Antigen [Pending] 03/30/19 21:45: Lactic Acid Level 4.90H 03/30/19 23:00: Lactic Acid Level 5.10H 03/31/19 04:45: Lactic Acid Level 6.00H, White Blood Count 34.2*H, Red Blood Count 2.78L, Hemoglobin 8.4L, Hematocrit 26.5L, Mean Corpuscular Volume 95, Mean Corpuscular Hemoglobin 30.3, Mean Corpuscular Hemoglobin Concent 31.8L, Red Cell Distribution Width 15.8H, Platelet Count 60L, Mean Platelet Volume 8.2, Neutrophils (%) (Auto) , Lymphocytes (%) (Auto) , Monocytes (%) (Auto) , Eosinophils (%) (Auto) , Basophils (%) (Auto) , Differential Total Cells Counted 100, Neutrophils % (Manual) 81H, Lymphocytes % (Manual) 2L, Monocytes % (Manual) 1, Eosinophils % (Manual) 0, Basophils % (Manual) 0, Band Neutrophils 16H, Platelet Estimate DecreasedL, Platelet Morphology Normal, Anisocytosis 1+, Sodium Level 142, Potassium Level 3.3L, Chloride Level 110H, Carbon Dioxide Level 18L, Anion Gap 15, Blood Urea Nitrogen 76H, Creatinine 2.9H, Estimat Glomerular Filtration Rate , Glucose Level 162H, Uric Acid 11.4H, Calcium Level 7.3L, Phosphorus Level 3.4, Magnesium Level 1.8, Total Bilirubin 1.2H, Direct Bilirubin 0.7H, Aspartate Amino Transf (AST/SGOT) 20, Alanine Aminotransferase ( ALT/SGPT) 12, Alkaline Phosphatase 228H, C-Reactive Protein, Quantitative 18.8H , Pro-B-Type Natriuretic Peptide 7808H, Total Protein 4.8L, Albumin 1.7L, Globulin 3.1, Albumin/Globulin Ratio 0.5L Height (Feet): 5 Height (Inches): 10.00 Weight (Pounds): 134 General Appearance: no apparent distress, lethargic Cardiovascular: tachycardia Respiratory/Chest: decreased breath sounds Abdomen: distended Fouladian,Cristian MD Mar 31, 2019 09:11
--- NOTE | 2019-03-31 09:30 | NUR ---
NURSE NOTES: Dr Salgado spoke to family regarding condition of patient at present. spectrographic analyst present during discussion. MD discussed patient's renal failure however, also discussed poor prognosis and endorsed DNR status being best decision given his cancer diagnosis. Niece is primary decision maker. Niece had also spoke with Hem Onc SLOTTER OPERATOR and it has been decided to make patient DNR/DNI. Niece has not decided on comfort care at this time however, Mehreen eduardo is speaking to the rest of the family and knows the gravity of the patient's condition. DNR has been signed.
[2019-03-31] MEDS ORDERED: D5NS 1000ml IV ONE (10:18)
[2019-03-31] MEDS ORDERED: Tubing IV Secondary IV ONE ×2 (10:18)
--- NOTE | 2019-03-31 11:21 | Surgery Progress Note ---
Surgery Progress Note Subjective Additional Comments Patient seen and examined at bedside. Family available. CODE STATUS changed to DNR. Patient seemingly uncomfortable on ventilatory support. Leukocytosis. Worsening lactic acidosis. Abdominal exam still distended firm tender Objective Last 24 Hour Vital Signs Date Time Temp Pulse Resp B/P (MAP) Pulse Ox O2 Delivery O2 Flow Rate FiO2 03/31/19 11:08 101 30 60 03/31/19 11:00 100 26 111/63 (79) 92 03/31/19 10:00 106 27 143/47 (79) 91 03/31/19 09:00 99 25 132/47 (75) 89 03/31/19 08:56 93 27 50 03/31/19 08:00 60 03/31/19 08:00 97.7 107 26 136/55 (82) 93 03/31/19 08:00 Mechanical Ventilator 03/31/19 08:00 102 03/31/19 07:02 93 27 50 03/31/19 07:00 96 21 114/57 (76) 94 03/31/19 06:00 98 25 131/61 (84) 95 03/31/19 05:00 93 25 130/58 (82) 94 03/31/19 04:57 93 22 50 03/31/19 04:00 97.6 95 24 134/63 (86) 94 03/31/19 04:00 60 03/31/19 04:00 98 03/31/19 04:00 Mechanical Ventilator 03/31/19 03:00 98 18 123/59 (80) 95 03/31/19 02:34 98 19 60 03/31/19 02:00 82 22 143/66 (91) 98 03/31/19 01:02 99 20 60 03/31/19 01:00 98 23 122/64 (83) 97 03/31/19 00:00 97.5 96 18 116/70 (85) 97 03/31/19 00:00 60 03/31/19 00:00 Mechanical Ventilator 03/31/19 00:00 96 03/30/19 23:00 99 19 135/72 (93) 98 03/30/19 22:50 93 17 60 03/30/19 22:00 96 19 116/67 (83) 97 03/30/19 21:00 86 16 119/62 (81) 96 03/30/19 20:42 78 16 60 03/30/19 20:00 80 03/30/19 20:00 Mechanical Ventilator 03/30/19 20:00 97.6 92 16 99/63 (75) 98 03/30/19 20:00 90 03/30/19 19:06 84 16 80 03/30/19 19:00 100 03/30/19 19:00 89 16 123/56 (78) 99 03/30/19 18:00 99 16 119/54 (75) 100 03/30/19 17:00 97 17 112/57 (75) 100 03/30/19 16:48 91 16 100 03/30/19 16:00 80 03/30/19 16:00 98.6 107 26 115/57 (76) 99 03/30/19 16:00 Mechanical Ventilator 03/30/19 16:00 98 03/30/19 15:00 87 31 100 03/30/19 15:00 97 25 124/76 (92) 89 03/30/19 14:00 90 27 132/58 (82) 93 03/30/19 13:13 82 27 80 03/30/19 13:00 96 21 103/43 (63) 96 03/30/19 12:00 Mechanical Ventilator 03/30/19 12:00 98 03/30/19 12:00 98.2 89 25 117/50 (72) 97 03/30/19 12:00 80 I&O Intake and Output 03/30/19 03/31/19 18:59 06:59 Intake Total 900 ml 1835.000 ml Balance 900 ml 1835.000 ml Free Water 100 ml IV Total 900 ml 1475.000 ml Tube Feeding 260 ml # Voids 320 310 # Bowel Movements 3 1 Cardiovascular: RSR Respiratory: decreased breath sounds Abdomen: distended, tenderness, other, decreased bowel sounds Extremities: no cyanosis Laboratory Tests Test 03/30/19 16:21 03/30/19 16:45 03/30/19 18:15 03/30/19 21:45 Lactic Acid Level 4.80 mmol/L (0.4-2.0) H 4.90 mmol/L (0.4-2.0) H Arterial Blood pH 7.256 (7.350-7.450) Arterial Blood Partial Pressure CO2 32.5 mmHg (35.0-45.0) L Arterial Blood Partial Pressure O2 102.6 mmHg (75.0-100.0) H Arterial Blood HCO3 14.1 mmol/L (22.0-26.0) *L Arterial Blood Oxygen Saturation 96.1 % (95-100) Arterial Blood Base Excess -11.9 (-2-2) *L Raudel Test Positive Urine Legionella Antigen Pending Test 03/30/19 23:00 03/31/19 04:45 Lactic Acid Level 5.10 mmol/L (0.66-2.22) H 6.00 mmol/L (0.4-2.0) H White Blood Count 34.2 K/UL (4.8-10.8) *H Red Blood Count 2.78 M/UL (4.70-6.10) L Hemoglobin 8.4 G/DL (14.2-18.0) L Hematocrit 26.5 % (42.0-52.0) L Mean Corpuscular Volume 95 FL (80-99) Mean Corpuscular Hemoglobin 30.3 PG (27.0-31.0) Mean Corpuscular Hemoglobin Concent 31.8 G/DL (32.0-36.0) L Red Cell Distribution Width 15.8 % (11.6-14.8) H Platelet Count 60 K/UL (150-450) L Mean Platelet Volume 8.2 FL (6.5-10.1) Neutrophils (%) (Auto) % (45.0-75.0) Lymphocytes (%) (Auto) % (20.0-45.0) Monocytes (%) (Auto) % (1.0-10.0) Eosinophils (%) (Auto) % (0.0-3.0) Basophils (%) (Auto) % (0.0-2.0) Differential Total Cells Counted 100 Neutrophils % (Manual) 81 % (45-75) H Lymphocytes % (Manual) 2 % (20-45) L Monocytes % (Manual) 1 % (1-10) Eosinophils % (Manual) 0 % (0-3) Basophils % (Manual) 0 % (0-2) Band Neutrophils 16 % (0-8) H Platelet Estimate Decreased L Platelet Morphology Normal Anisocytosis 1+ Sodium Level 142 MMOL/L (136-145) Potassium Level 3.3 MMOL/L (3.5-5.1) L Chloride Level 110 MMOL/L (98-107) H Carbon Dioxide Level 18 MMOL/L (21-32) L Anion Gap 15 mmol/L (5-15) Blood Urea Nitrogen 76 mg/dL (7-18) H Creatinine 2.9 MG/DL (0.55-1.30) H Estimat Glomerular Filtration Rate mL/min (>60) Glucose Level 162 MG/DL (74-106) H Uric Acid 11.4 MG/DL (2.6-7.2) H Calcium Level 7.3 MG/DL (8.5-10.1) L Phosphorus Level 3.4 MG/DL (2.5-4.9) Magnesium Level 1.8 MG/DL (1.8-2.4) Total Bilirubin 1.2 MG/DL (0.2-1.0) H Direct Bilirubin 0.7 MG/DL (0.0-0.3) H Aspartate Amino Transf (AST/SGOT) 20 U/L (15-37) Alanine Aminotransferase (ALT/SGPT) 12 U/L (12-78) Alkaline Phosphatase 228 U/L (46-116) H C-Reactive Protein, Quantitative 18.8 mg/dL (0.00-0.90) H Pro-B-Type Natriuretic Peptide 7808 pg/mL (0-125) H Total Protein 4.8 G/DL (6.4-8.2) L Albumin 1.7 G/DL (3.4-5.0) L Globulin 3.1 g/dL Albumin/Globulin Ratio 0.5 (1.0-2.7) L Plan Problems: (1) Sepsis Assessment & Plan: This is a very unfortunate 78-year-old male with metastatic advanced colorectal cancer with mets of the lymph nodes and liver. Patient presented with leukocytosis and abdominal discomfort. 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 Patient currently stating he is tolerating diet and having bowel movements. Abdomen complaining of abdominal discomfort but no nausea or emesis. No fever chills. No acute surgical intervention recommended at this time given patient's medical condition and prognosis. 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 Ultrasound noted CT noted no bladder rupture very ill now s/p scope with aspiration requiring intubated on vent ICU Care very poor prognosis code status changed comfort care plans? Thank you for this consultation we will follow with recommendations Okay for diet from surgical standpoint (2) Colon cancer metastasized to liver (3) Severe protein-calorie malnutrition Harmeet Pérez Mar 31, 2019 11:21
--- NOTE | 2019-03-31 11:30 | NUR ---
NURSE NOTES: Pt turned and repositioned. Oral care done. VSS. Will continue to monitor.
--- NOTE | 2019-03-31 13:03 | Internal Med Progress Note ---
Subjective Date of Service: Mar 31, 2019 Physician Name Kashif Ponce Attending Physician Eddi Herman MD Current Medications Medications (Trade) Dose Ordered Sig/Madelyn Route PRN Reason Start Time Stop Time Status Last Admin Dose Admin Acetaminophen (Tylenol) 650 mg Q6H PRN ORAL Mild Pain/Temp > 100.5 03/28/19 11:26 04/27/19 11:25 Allopurinol (Allopurinol) 300 mg BID NG 03/30/19 18:00 04/28/19 11:59 03/31/19 08:36 Barium Sulfate (Readi-Cat 2) 450 ml NOW PRN ORAL Radiology Procedure 03/29/19 11:15 03/31/19 23:59 Dextrose/Sodium Chloride 1,000 ml @ 100 mls/hr Q10H IV 03/28/19 12:30 04/27/19 12:29 03/31/19 08:37 Levofloxacin 100 ml @ 100 mls/hr Q48H IVPB 04/01/19 13:00 04/08/19 12:59 Lorazepam (Ativan 2mg/ml 1ml) 2 mg Q4H PRN IV For Anxiety 03/28/19 11:26 04/04/19 11:25 03/30/19 08:14 Meropenem 500 mg/ Sodium Chloride 55 ml @ 110 mls/hr Q12HR IV 03/29/19 12:00 04/03/19 11:59 03/31/19 08:35 Morphine Sulfate (Morphine Sulfate) 4 mg Q4H PRN IVP For Pain 03/28/19 11:30 04/04/19 11:29 Pantoprazole (Protonix) 40 mg Q12HR IV 03/28/19 21:00 04/28/19 08:59 03/31/19 08:35 Vancomycin HCl (Vanco rx to dose) 1 ea DAILY PRN MISC Per rx protocol 03/29/19 10:15 04/28/19 10:14 Vancomycin HCl 750 mg/Dextrose 275 ml @ 183.333 mls/hr Q36H IVPB 03/31/19 01:00 04/05/19 00:59 03/31/19 01:25 Allergies: Coded Allergies: No Known Allergies (Unverified , 03/26/19) ROS Limited/Unobtainable: Yes Subjective 78 YO M admitted with cecal mass with probable mets. Now cecal adenocarcinoma and aspiration pneumonia. S/P colonoscopy 03/28/19. ICU. Intubated and sedated. Objective Last Vital Signs Date Time Temp Pulse Resp B/P (MAP) Pulse Ox O2 Delivery O2 Flow Rate FiO2 03/31/19 12:00 108 28 121/55 (77) 89 03/31/19 12:00 60 03/31/19 12:00 Mechanical Ventilator 03/31/19 08:00 97.7 03/28/19 09:00 4.0 Laboratory Tests Test 03/30/19 16:21 03/30/19 16:45 03/30/19 18:15 03/30/19 21:45 Lactic Acid Level 4.80 mmol/L (0.4-2.0) H 4.90 mmol/L (0.4-2.0) H Arterial Blood pH 7.256 (7.350-7.450) Arterial Blood Partial Pressure CO2 32.5 mmHg (35.0-45.0) L Arterial Blood Partial Pressure O2 102.6 mmHg (75.0-100.0) H Arterial Blood HCO3 14.1 mmol/L (22.0-26.0) *L Arterial Blood Oxygen Saturation 96.1 % (95-100) Arterial Blood Base Excess -11.9 (-2-2) *L Raudel Test Positive Urine Legionella Antigen Pending Test 03/30/19 23:00 03/31/19 04:45 03/31/19 10:30 Lactic Acid Level 5.10 mmol/L (0.66-2.22) H 6.00 mmol/L (0.4-2.0) H Pending White Blood Count 34.2 K/UL (4.8-10.8) *H Red Blood Count 2.78 M/UL (4.70-6.10) L Hemoglobin 8.4 G/DL (14.2-18.0) L Hematocrit 26.5 % (42.0-52.0) L Mean Corpuscular Volume 95 FL (80-99) Mean Corpuscular Hemoglobin 30.3 PG (27.0-31.0) Mean Corpuscular Hemoglobin Concent 31.8 G/DL (32.0-36.0) L Red Cell Distribution Width 15.8 % (11.6-14.8) H Platelet Count 60 K/UL (150-450) L Mean Platelet Volume 8.2 FL (6.5-10.1) Neutrophils (%) (Auto) % (45.0-75.0) Lymphocytes (%) (Auto) % (20.0-45.0) Monocytes (%) (Auto) % (1.0-10.0) Eosinophils (%) (Auto) % (0.0-3.0) Basophils (%) (Auto) % (0.0-2.0) Differential Total Cells Counted 100 Neutrophils % (Manual) 81 % (45-75) H Lymphocytes % (Manual) 2 % (20-45) L Monocytes % (Manual) 1 % (1-10) Eosinophils % (Manual) 0 % (0-3) Basophils % (Manual) 0 % (0-2) Band Neutrophils 16 % (0-8) H Platelet Estimate Decreased L Platelet Morphology Normal Anisocytosis 1+ Sodium Level 142 MMOL/L (136-145) Potassium Level 3.3 MMOL/L (3.5-5.1) L Chloride Level 110 MMOL/L (98-107) H Carbon Dioxide Level 18 MMOL/L (21-32) L Anion Gap 15 mmol/L (5-15) Blood Urea Nitrogen 76 mg/dL (7-18) H Creatinine 2.9 MG/DL (0.55-1.30) H Estimat Glomerular Filtration Rate mL/min (>60) Glucose Level 162 MG/DL (74-106) H Uric Acid 11.4 MG/DL (2.6-7.2) H Calcium Level 7.3 MG/DL (8.5-10.1) L Phosphorus Level 3.4 MG/DL (2.5-4.9) Magnesium Level 1.8 MG/DL (1.8-2.4) Total Bilirubin 1.2 MG/DL (0.2-1.0) H Direct Bilirubin 0.7 MG/DL (0.0-0.3) H Aspartate Amino Transf (AST/SGOT) 20 U/L (15-37) Alanine Aminotransferase (ALT/SGPT) 12 U/L (12-78) Alkaline Phosphatase 228 U/L (46-116) H C-Reactive Protein, Quantitative 18.8 mg/dL (0.00-0.90) H Pro-B-Type Natriuretic Peptide 7808 pg/mL (0-125) H Total Protein 4.8 G/DL (6.4-8.2) L Albumin 1.7 G/DL (3.4-5.0) L Globulin 3.1 g/dL Albumin/Globulin Ratio 0.5 (1.0-2.7) L Microbiology Date/Time Source Procedure Growth Status 03/29/19 09:15 Blood Blood Culture - Preliminary NO GROWTH AFTER 24 HOURS Resulted 03/29/19 12:00 Sputum Induced Gram Stain - Final Complete 03/29/19 12:00 Sputum Culture - Final Brittney Albicans Usual Respiratory Demi Complete Intake and Output 03/30/19 03/31/19 18:59 06:59 Intake Total 900 ml 1835.000 ml Balance 900 ml 1835.000 ml Free Water 100 ml IV Total 900 ml 1475.000 ml Tube Feeding 260 ml # Voids 320 310 # Bowel Movements 3 1 Objective PHYSICAL EXAMINATION: GENERAL: The patient is a thin-appearing male, in no apparent distress. HEENT: Eyes, pupils are equal and responsive to light and accommodation. Extraocular movements are intact. NECK: Supple without lymphadenopathy. CHEST: Mech vent; Coarse breath sounds bilaterally; without wheezes or rales. CARDIOVASCULAR: Regular rhythm and rate. S1, S2 are normal without murmurs, rubs, or gallops. ABDOMEN: Soft and grossly distended with decreased bowel sounds. Presence of fluid wave noted. No evidence of hepatosplenomegaly. Currently, no rebound or guarding noted. EXTREMITIES: Negative for clubbing, cyanosis, or edema. RECTAL/GENITAL: Not performed. NEUROLOGIC: Cranial nerves II through XII are grossly intact without focal deficits. Motor strength is 5/5 bilaterally. Deep tendon reflexes are 2+ plantar. Assessment/Plan Assessment/Plan ASSESSMENT: This is a 78-year-old male. 1. Cecal adenocarcinoma with metastases. 2. Ascites. 3. Acute renal failure. 4. Coagulopathy. 5. Aspiration pneumonia 6. Acute respiratory failure TREATMENT: 1. Oncology=Dr Person A Gastroenterology consultation has been obtained with Dr. Valerie Greenwood. S/P colonoscopy 03/28/19. Follow recommendations of Gastroenterology. 2. Ascites as above. A Gastroenterology consultation has been obtained with Dr. Valerie Greenwood. Await paracentesis 3. Acute renal failure. A Nephrology consultation has been obtained with Dr. Salgado. 4. Coagulopathy. Improving. The patient is status post transfusion of 2 units of fresh frozen plasma at [facility]. 5. Pulmonary=Dr Fuller 6. ABX=Levaquin vanco and meropenem per ID, Kashif Setvenson MD Mar 31, 2019 13:03
--- NOTE | 2019-03-31 13:56 | NUR ---
NURSE NOTES: Pt desatting to 80s. RT increased fiO2 to 60% and now pt saturating in the 90s. Will continue to monitor.
--- NOTE | 2019-03-31 15:14 | NUR ---
NURSE NOTES: Family visiting at bedside. FiO2 increased to 70% because pt desats to 80s. Will continue to monitor.
--- NOTE | 2019-03-31 17:15 | NUR ---
NURSE NOTES: Turned and repositioned pt. Pt suctioned. VSS. Will continue to monitor.
--- NOTE | 2019-03-31 19:08 | NUR ---
HAND-OFF: Report given to Bar LOPEZ.
--- NOTE | 2019-03-31 19:20 | NUR ---
NURSE NOTES: Recvd.on a vent.orally intubated.See settings.Lungs diminished BS at bases.P.Ox.-98%.See V/S.Scope SR-ST.Pos.chg.Lethargic,pale,emaciated.Gen.weak unable to follow simple command,unable to lift arms when told to do so.Only able to NOD to question asked.Restraints D/C.Closely monitored.Disoriented,Re-oriented.to time,date,and being in the HOSP.IV Hydration in progress.F/Cath patent with scant urinary drain.MD aware.OGT Feeding in progress.See I/O.
--- NOTE | 2019-03-31 20:00 | NUR ---
RESPIRATORY NOTE: Received pt. on 840 vent. Vent settings are: A/C rate of 16, Vt 600, FI02 65%, PEEP +5. No respiratory distress noted, pt. sP02 @ 97%. Vent plugged on red outlet. Will continue to monitor pt.
--- NOTE | 2019-03-31 22:00 | NUR ---
NURSE NOTES: HS Care provided.Pos.chg.Suctioned.NS Lavaged.P.Ox.-98%.Due meds admin.Family at BS with wanting to have the patient sign some documentation but bec.of patient condition and mental status unable to do so.
--- NOTE | 2019-03-31 23:22 | Pulmonolgy Critical Care Note ---
Critical Care - Asmt/Plan Problems: (1) Acute respiratory failure (2) Aspiration pneumonia (3) ATN (acute tubular necrosis) (4) Sepsis (5) Urine retention (6) Coagulopathy (7) Severe protein-calorie malnutrition (8) Colon cancer metastasized to liver Respiratory: monitor respiratory rate, adjust FIO2 Cardiac: continue to monitor HR/BP Renal: F/U I&O, keep IV fluid, other - d5NS 100 cc/hour Infectious Disease: check cultures, continue antibiotics Gastrointestinal: continue feedings/current rate, adjust feedings - vital at 30 cc/hour Endocrine: monitor blood sugar Hematologic: monitor H/H Neurologic: PRN Ativan Affect: PRN ativan Prophylaxis: Protonix, Heparin Time Spent (Minutes): 30 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, 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: nurses, consultants, 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 - Objective Last 24 Hour Vital Signs Date Time Temp Pulse Resp B/P (MAP) Pulse Ox O2 Delivery O2 Flow Rate FiO2 03/31/19 23:15 106 34 70 03/31/19 22:00 102 26 125/50 (75) 98 03/31/19 21:30 97 29 70 03/31/19 21:00 93 27 125/52 (76) 98 03/31/19 20:00 98.7 97 26 143/50 (81) 98 03/31/19 20:00 60 03/31/19 20:00 Mechanical Ventilator 03/31/19 20:00 97 03/31/19 19:58 96 30 70 03/31/19 19:00 100 28 136/51 (79) 97 03/31/19 18:00 97 26 103/78 (86) 99 03/31/19 17:12 102 27 70 03/31/19 17:00 98 27 116/58 (77) 96 03/31/19 16:00 60 03/31/19 16:00 Mechanical Ventilator 03/31/19 16:00 98.0 98 26 143/59 (87) 97 03/31/19 16:00 102 03/31/19 15:11 102 28 70 03/31/19 15:00 94 25 130/64 (86) 96 03/31/19 14:00 102 28 119/51 (73) 93 03/31/19 13:07 101 29 60 03/31/19 13:00 100 27 119/55 (76) 91 03/31/19 12:00 97.9 108 28 121/55 (77) 89 03/31/19 12:00 60 03/31/19 12:00 92 03/31/19 12:00 Mechanical Ventilator 03/31/19 11:08 101 30 60 03/31/19 11:00 100 26 111/63 (79) 92 03/31/19 10:00 106 27 143/47 (79) 91 03/31/19 09:00 99 25 132/47 (75) 89 03/31/19 08:56 93 27 50 03/31/19 08:00 60 03/31/19 08:00 97.7 107 26 136/55 (82) 93 03/31/19 08:00 Mechanical Ventilator 03/31/19 08:00 102 03/31/19 07:02 93 27 50 03/31/19 07:00 96 21 114/57 (76) 94 03/31/19 06:00 98 25 131/61 (84) 95 03/31/19 05:00 93 25 130/58 (82) 94 03/31/19 04:57 93 22 50 03/31/19 04:00 97.6 95 24 134/63 (86) 94 03/31/19 04:00 60 03/31/19 04:00 98 03/31/19 04:00 Mechanical Ventilator 03/31/19 03:00 98 18 123/59 (80) 95 03/31/19 02:34 98 19 60 03/31/19 02:00 82 22 143/66 (91) 98 03/31/19 01:02 99 20 60 03/31/19 01:00 98 23 122/64 (83) 97 03/31/19 00:00 97.5 96 18 116/70 (85) 97 03/31/19 00:00 60 03/31/19 00:00 Mechanical Ventilator 03/31/19 00:00 96 Micro: Microbiology Date/Time Source Procedure Growth Status 03/29/19 09:15 Blood Blood Culture - Preliminary NO GROWTH AFTER 24 HOURS Resulted 03/29/19 12:00 Sputum Induced Gram Stain - Final Complete 03/29/19 12:00 Sputum Culture - Final Brittney Albicans Usual Respiratory Demi Complete Critical Care - Subjective FI02: 70 Vent Support Breath Rate: 16 Vent Support Mode: AC Vent Tidal Volume: 600 Sputum Amount: Small PEEP: 5.0 PIP: 31 Tube Feeding Amount: 55 I&O: Intake and Output 03/30/19 03/31/19 19:00 07:00 Intake Total 1000 ml 1765.000 ml Balance 1000 ml 1765.000 ml Free Water 100 ml IV Total 1000 ml 1375.000 ml Tube Feeding 290 ml # Voids 305 310 # Bowel Movements 3 1 ET-Tube: 7.5 ET Position: 23 Labs: Laboratory Tests Test 03/31/19 04:45 03/31/19 10:30 03/31/19 16:50 White Blood Count 34.2 K/UL (4.8-10.8) *H Red Blood Count 2.78 M/UL (4.70-6.10) L Hemoglobin 8.4 G/DL (14.2-18.0) L Hematocrit 26.5 % (42.0-52.0) L Mean Corpuscular Volume 95 FL (80-99) Mean Corpuscular Hemoglobin 30.3 PG (27.0-31.0) Mean Corpuscular Hemoglobin Concent 31.8 G/DL (32.0-36.0) L Red Cell Distribution Width 15.8 % (11.6-14.8) H Platelet Count 60 K/UL (150-450) L Mean Platelet Volume 8.2 FL (6.5-10.1) Neutrophils (%) (Auto) % (45.0-75.0) Lymphocytes (%) (Auto) % (20.0-45.0) Monocytes (%) (Auto) % (1.0-10.0) Eosinophils (%) (Auto) % (0.0-3.0) Basophils (%) (Auto) % (0.0-2.0) Differential Total Cells Counted 100 Neutrophils % (Manual) 81 % (45-75) H Lymphocytes % (Manual) 2 % (20-45) L Monocytes % (Manual) 1 % (1-10) Eosinophils % (Manual) 0 % (0-3) Basophils % (Manual) 0 % (0-2) Band Neutrophils 16 % (0-8) H Platelet Estimate Decreased L Platelet Morphology Normal Anisocytosis 1+ Sodium Level 142 MMOL/L (136-145) Potassium Level 3.3 MMOL/L (3.5-5.1) L Chloride Level 110 MMOL/L (98-107) H Carbon Dioxide Level 18 MMOL/L (21-32) L Anion Gap 15 mmol/L (5-15) Blood Urea Nitrogen 76 mg/dL (7-18) H Creatinine 2.9 MG/DL (0.55-1.30) H Estimat Glomerular Filtration Rate mL/min (>60) Glucose Level 162 MG/DL (74-106) H Lactic Acid Level 6.00 mmol/L (0.4-2.0) H 5.90 mmol/L (0.66-2.22) H 5.60 mmol/L (0.4-2.0) H Uric Acid 11.4 MG/DL (2.6-7.2) H Calcium Level 7.3 MG/DL (8.5-10.1) L Phosphorus Level 3.4 MG/DL (2.5-4.9) Magnesium Level 1.8 MG/DL (1.8-2.4) Total Bilirubin 1.2 MG/DL (0.2-1.0) H Direct Bilirubin 0.7 MG/DL (0.0-0.3) H Aspartate Amino Transf (AST/SGOT) 20 U/L (15-37) Alanine Aminotransferase (ALT/SGPT) 12 U/L (12-78) Alkaline Phosphatase 228 U/L (46-116) H C-Reactive Protein, Quantitative 18.8 mg/dL (0.00-0.90) H Pro-B-Type Natriuretic Peptide 7808 pg/mL (0-125) H Total Protein 4.8 G/DL (6.4-8.2) L Albumin 1.7 G/DL (3.4-5.0) L Globulin 3.1 g/dL Albumin/Globulin Ratio 0.5 (1.0-2.7) L Ilan Fuller MD Mar 31, 2019 23:21
[2019-04-01] VITALS (17 sets, daily range): BP systolic 106–144; BP diastolic 46–110
--- NOTE | 2019-04-01 00:10 | NUR ---
NURSE NOTES: See V/S.Scope rhythm same.Suctioned.Pos.chg.Neuro status same.Cont.Plan of care.
--- NOTE | 2019-04-01 02:15 | NUR ---
NURSE NOTES: Suctioned,Pos.chg.P.Ox.96%.Nemesio.Vent.settings.Cont.IV Therapy.See I/O.Cont.Plan of care.
--- NOTE | 2019-04-01 04:30 | NUR ---
NURSE NOTES: Blood drawn for cbc/cmp/mg etc.spec.to Lab.perla Edgar chg.Suctioned.Nemesio.vent.settings.Neuro status same.
[2019-04-01] MEDS: D5NS 1,000 ML IV SCH (05:20)
[2019-04-01 05:24] LABS: HEMATOCRIT 24.4 % (42.0-52.0); HEMOGLOBIN 7.6 G/DL (14.2-18.0); MEAN CORPUSCULAR VOLUME 98 FL (80-99); PLATELET COUNT 74 K/UL (150-450); RED BLOOD COUNT 2.47 M/UL (4.70-6.10); RED CELL DISTRIBUTION WIDTH 16.1 % (11.6-14.8)
[2019-04-01 06:08] LABS: ALANINE AMINOTRANSFERASE 13 U/L (12-78); ALBUMIN 1.8 G/DL (3.4-5.0); ALBUMIN/GLOBULIN RATIO 0.6 (1.0-2.7); ALKALINE PHOSPHATASE 222 U/L (46-116); ANION GAP 18 mmol/L (5-15); ASPARTATE AMINO TRANSFERASE 26 U/L (15-37); BILIRUBIN,TOTAL 1.2 MG/DL (0.2-1.0); BLOOD UREA NITROGEN 76 mg/dL (7-18); CALCIUM 7.5 MG/DL (8.5-10.1); CARBON DIOXIDE 14 MMOL/L (21-32); CHLORIDE 112 MMOL/L (98-107); POTASSIUM 3.5 MMOL/L (3.5-5.1); SODIUM 144 MMOL/L (136-145); WHITE BLOOD COUNT 32.1 K/UL (4.8-10.8)
[2019-04-01 06:38] LABS: PHOSPHORUS 3.5 MG/DL (2.5-4.9)
[2019-04-01 06:56] LABS: BILIRUBIN,DIRECT 0.7 MG/DL (0.0-0.3)
--- NOTE | 2019-04-01 07:08 | NUR ---
HAND-OFF: Report given to JOHN Enciso.
--- NOTE | 2019-04-01 07:20 | NUR ---
NURSE NOTES: Report received from Bar LPOEZ. Pt lethargic, alert and oriented x 2-3, able to follow simple commands and nods yes/no. Pt ST on cardiac monitor technician. Pt orally intubated ETT 7.5, 23 cm, AC 16, TV 600, fiO2 60% and PEEP 5. Pt OGT noted and intact. Vital AF TF at 55 cc/hr. Horn noted with a minimal amount of clear, shana urine to gravity. Right foot 20G , LH 22 G, RFA 22 GG noted and intact. D5NS + 10 KCL @ 100 ml/hr running. Safety measures in place with bed locked and in lowest position, side rails x 3 up and bed alarm on. Will continue to monitor and continue plan of care.
[2019-04-01] MEDS: Meropenem 500 MG in NS 55 ML IV SCH (08:36)
[2019-04-01] MEDS: Pantoprazole Inj IV SCH (08:36)
--- NOTE | 2019-04-01 08:51 | Urology Progress Note ---
Assessment/Plan Assessment/Plan: 1. Questionable urinary retention. 2. BPH history. 3. Possible neurogenic bladder. 4. Hematuria. 5. Renal insufficiency, acute versus chronic. 6. Pyuria. 7. Proteinuria. 8. Possible urethral stricture or false passage. keep weeks, placed 03/27 hand irrigated and do PRN, position is satisfactory monitor renal fxn off flomax for now f/u on blood cx d/w pt's family d/w DrZakia's Virgil Greenwood and Naomi Subjective Allergies: Coded Allergies: No Known Allergies (Unverified , 03/26/19) Subjective all noted, remains intubated, ICU, weeks indwelling, still oliguric, DNR Objective Last 24 Hour Vital Signs Date Time Temp Pulse Resp B/P (MAP) Pulse Ox O2 Delivery O2 Flow Rate FiO2 04/01/19 08:45 94 23 60 04/01/19 08:00 Mechanical Ventilator 04/01/19 08:00 97.7 103 31 120/59 (79) 96 04/01/19 08:00 60 04/01/19 07:19 104 31 70 04/01/19 07:00 96 32 121/50 (73) 96 04/01/19 06:00 98 32 132/49 (76) 96 04/01/19 05:30 96 27 70 04/01/19 05:00 100 30 135/49 (77) 97 04/01/19 04:00 60 04/01/19 04:00 92 04/01/19 04:00 Mechanical Ventilator 04/01/19 04:00 98.9 92 29 144/52 (82) 96 04/01/19 03:42 99 24 70 04/01/19 03:00 93 30 124/54 (77) 96 04/01/19 02:00 90 26 127/53 (77) 96 04/01/19 01:25 92 25 70 04/01/19 01:00 100 28 124/54 (77) 96 04/01/19 00:00 60 04/01/19 00:00 Mechanical Ventilator 04/01/19 00:00 98.4 94 28 124/52 (76) 95 03/31/19 23:15 106 34 70 03/31/19 23:00 103 29 119/54 (75) 96 03/31/19 22:00 102 26 125/50 (75) 98 03/31/19 21:30 97 29 70 03/31/19 21:00 93 27 125/52 (76) 98 03/31/19 20:00 98.7 97 26 143/50 (81) 98 03/31/19 20:00 60 03/31/19 20:00 Mechanical Ventilator 03/31/19 20:00 97 03/31/19 19:58 96 30 70 03/31/19 19:00 100 28 136/51 (79) 97 03/31/19 18:00 97 26 103/78 (86) 99 03/31/19 17:12 102 27 70 03/31/19 17:00 98 27 116/58 (77) 96 03/31/19 16:00 60 03/31/19 16:00 Mechanical Ventilator 03/31/19 16:00 98.0 98 26 143/59 (87) 97 03/31/19 16:00 102 03/31/19 15:11 102 28 70 03/31/19 15:00 94 25 130/64 (86) 96 03/31/19 14:00 102 28 119/51 (73) 93 03/31/19 13:07 101 29 60 03/31/19 13:00 100 27 119/55 (76) 91 03/31/19 12:00 97.9 108 28 121/55 (77) 89 03/31/19 12:00 60 03/31/19 12:00 92 03/31/19 12:00 Mechanical Ventilator 03/31/19 11:08 101 30 60 03/31/19 11:00 100 26 111/63 (79) 92 03/31/19 10:00 106 27 143/47 (79) 91 03/31/19 09:00 99 25 132/47 (75) 89 03/31/19 08:56 93 27 50 Intake and Output 03/31/19 04/01/19 19:00 07:00 Intake Total 2035 ml 2045 ml Balance 2035 ml 2045 ml Free Water 200 ml 130 ml IV Total 1355 ml 1255 ml Tube Feeding 480 ml 660 ml # Voids 190 110 Microbiology Date/Time Source Procedure Growth Status 03/29/19 09:15 Blood Blood Culture - Preliminary NO GROWTH AFTER 48 HOURS Resulted 03/29/19 12:00 Sputum Induced Gram Stain - Final Complete 03/29/19 12:00 Sputum Culture - Final Brittney Albicans Usual Respiratory Demi Complete 03/27/19 10:50 Urine,Clean Catch Urine Culture - Final NO GROWTH AFTER 48 HOURS Complete 03/26/19 23:30 Rectum - Final NO CARBAPENEM-RESISTANT ENTEROBACTERI... Complete Current Medications Medications (Trade) Dose Ordered Sig/Madelyn Route PRN Reason Start Time Stop Time Status Last Admin Dose Admin Acetaminophen (Tylenol) 650 mg Q6H PRN ORAL Mild Pain/Temp > 100.5 03/28/19 11:26 04/27/19 11:25 Allopurinol (Allopurinol) 300 mg BID NG 03/30/19 18:00 04/28/19 11:59 04/01/19 08:36 Dextrose/Sodium Chloride 1,000 ml @ 100 mls/hr Q10H IV 03/28/19 12:30 04/27/19 12:29 04/01/19 05:20 Levofloxacin 100 ml @ 100 mls/hr Q48H IVPB 04/01/19 13:00 04/08/19 12:59 Lorazepam (Ativan 2mg/ml 1ml) 2 mg Q4H PRN IV For Anxiety 03/28/19 11:26 04/04/19 11:25 03/30/19 08:14 Meropenem 500 mg/ Sodium Chloride 55 ml @ 110 mls/hr Q12HR IV 03/29/19 12:00 04/03/19 11:59 04/01/19 08:36 Morphine Sulfate (Morphine Sulfate) 4 mg Q4H PRN IVP For Pain 03/28/19 11:30 04/04/19 11:29 Pantoprazole (Protonix) 40 mg Q12HR IV 03/28/19 21:00 04/28/19 08:59 04/01/19 08:36 Vancomycin HCl (Vanco rx to dose) 1 ea DAILY PRN MISC Per rx protocol 03/29/19 10:15 04/28/19 10:14 Vancomycin HCl 750 mg/Dextrose 275 ml @ 183.333 mls/hr Q36H IVPB 03/31/19 01:00 04/05/19 00:59 03/31/19 01:25 Laboratory Tests 03/31/19 10:30: Lactic Acid Level 5.90H 03/31/19 16:50: Lactic Acid Level 5.60H 03/31/19 23:55: Lactic Acid Level 5.70H 04/01/19 04:00: Lactic Acid Level 5.80H, White Blood Count 32.1*H, Red Blood Count 2.47L, Hemoglobin 7.6L, Hematocrit 24.4L, Mean Corpuscular Volume 98, Mean Corpuscular Hemoglobin 30.7, Mean Corpuscular Hemoglobin Concent 31.2L, Red Cell Distribution Width 16.1H, Platelet Count 74L, Mean Platelet Volume 8.4, Neutrophils (%) (Auto) , Lymphocytes (%) (Auto) , Monocytes (%) (Auto) , Eosinophils (%) (Auto) , Basophils (%) (Auto) , Differential Total Cells Counted 100, Neutrophils % (Manual) 76H, Lymphocytes % (Manual) 5L, Monocytes % (Manual) 3, Eosinophils % (Manual) 1, Basophils % (Manual) 0, Band Neutrophils 15H, Platelet Estimate DecreasedL, Platelet Morphology Normal, Hypochromasia 1+ , Anisocytosis 1+, Sodium Level 144, Potassium Level 3.5, Chloride Level 112H, Carbon Dioxide Level 14L, Anion Gap 18H, Blood Urea Nitrogen 76H, Creatinine 3.0H, Estimat Glomerular Filtration Rate , Glucose Level 149H, Calcium Level 7.5L, Phosphorus Level 3.5, Magnesium Level 2.0, Total Bilirubin 1.2H, Direct Bilirubin 0.7H, Aspartate Amino Transf (AST/SGOT) 26, Alanine Aminotransferase ( ALT/SGPT) 13, Alkaline Phosphatase 222H, Total Protein 4.7L, Albumin 1.8L, Globulin 2.9, Albumin/Globulin Ratio 0.6L 04/01/19 08:15: Lactic Acid Level [Pending] Height (Feet): 5 Height (Inches): 10.00 Weight (Pounds): 134 Objective exam stable urine grossly clearing no bleeding at meatus Nando Campo MD Apr 01, 2019 08:51
--- NOTE | 2019-04-01 09:26 | Diagnostic Imaging Report ---
EXAM: XR Chest, 1 View CLINICAL HISTORY: DYSPNEA TECHNIQUE: Frontal view of the chest. COMPARISON: Chest x-ray 03/30/19 1546. FINDINGS: Lungs: Continued diffuse left lung hazy opacities and mild right lung interstitial opacities similar to prior study. Pleural space: Unremarkable. No pneumothorax. Heart: Unremarkable. No cardiomegaly. Mediastinum: Unremarkable. Bones/joints: Unremarkable. Tubes, lines and devices: NG tube tip ends at the gastroesophageal junction. Proximal port in the esophagus, consider advancing 12 cm. Endotracheal tube 5 cm above the brett in good position. IMPRESSION: 1. NG tube tip ends at the gastroesophageal junction. Proximal port in the esophagus, consider advancing 12 cm. 2. Continued diffuse left lung hazy opacities and mild right lung interstitial opacities similar to prior study. <MYCVCSECTION> Critical Value Communications 04/01/19 09:37 Verify Receipt with Nurse Verified receipt with JOHN Forde in ICU for JOHN Amos on 04/01 09:37 (-07:00)
--- NOTE | 2019-04-01 09:58 | Nephrology Progress Note ---
Assessment/Plan Problem List: (1) ATN (acute tubular necrosis) (2) Coagulopathy (3) Colon cancer metastasized to liver (4) Acute respiratory failure (5) Aspiration pneumonia Assessment Acute renal failure- Mainly Pre renal Colon Ca with mets to liver Ascitis , likely malignant Sepsis , Leukocytosis Severe Malnutrition Plan Now DNR long discussion with Alejandra at presence of RN Jeanette- on 03/31 Poor prognosis and comfort care discussed final decision will be made when family ready add allopurinol poor prognosis Antibiotics add zosyn now in ICU on vent after aspiration - colonoscopy 03/28 antibiotics Horn: 200 cc urine on insertion Fluid challenge Monitor renal parameters and urine out pot per orders ? comfort care?? Subjective ROS Limited/Unobtainable: Yes Objective Objective Last 24 Hour Vital Signs Date Time Temp Pulse Resp B/P (MAP) Pulse Ox O2 Delivery O2 Flow Rate FiO2 04/01/19 09:00 93 25 113/52 (72) 93 04/01/19 08:45 94 23 60 04/01/19 08:00 Mechanical Ventilator 04/01/19 08:00 97.7 103 31 120/59 (79) 96 04/01/19 08:00 60 04/01/19 08:00 123 04/01/19 07:19 104 31 70 04/01/19 07:00 96 32 121/50 (73) 96 04/01/19 06:00 98 32 132/49 (76) 96 04/01/19 05:30 96 27 70 04/01/19 05:00 100 30 135/49 (77) 97 04/01/19 04:00 60 04/01/19 04:00 92 04/01/19 04:00 Mechanical Ventilator 04/01/19 04:00 98.9 92 29 144/52 (82) 96 04/01/19 03:42 99 24 70 04/01/19 03:00 93 30 124/54 (77) 96 04/01/19 02:00 90 26 127/53 (77) 96 04/01/19 01:25 92 25 70 04/01/19 01:00 100 28 124/54 (77) 96 04/01/19 00:00 60 04/01/19 00:00 Mechanical Ventilator 04/01/19 00:00 98.4 94 28 124/52 (76) 95 03/31/19 23:15 106 34 70 03/31/19 23:00 103 29 119/54 (75) 96 03/31/19 22:00 102 26 125/50 (75) 98 03/31/19 21:30 97 29 70 03/31/19 21:00 93 27 125/52 (76) 98 03/31/19 20:00 98.7 97 26 143/50 (81) 98 03/31/19 20:00 60 03/31/19 20:00 Mechanical Ventilator 03/31/19 20:00 97 03/31/19 19:58 96 30 70 03/31/19 19:00 100 28 136/51 (79) 97 03/31/19 18:00 97 26 103/78 (86) 99 03/31/19 17:12 102 27 70 03/31/19 17:00 98 27 116/58 (77) 96 03/31/19 16:00 60 03/31/19 16:00 Mechanical Ventilator 03/31/19 16:00 98.0 98 26 143/59 (87) 97 03/31/19 16:00 102 03/31/19 15:11 102 28 70 03/31/19 15:00 94 25 130/64 (86) 96 03/31/19 14:00 102 28 119/51 (73) 93 03/31/19 13:07 101 29 60 03/31/19 13:00 100 27 119/55 (76) 91 03/31/19 12:00 97.9 108 28 121/55 (77) 89 03/31/19 12:00 60 03/31/19 12:00 92 03/31/19 12:00 Mechanical Ventilator 03/31/19 11:08 101 30 60 03/31/19 11:00 100 26 111/63 (79) 92 03/31/19 10:00 106 27 143/47 (79) 91 Intake and Output 03/31/19 04/01/19 19:00 07:00 Intake Total 2035 ml 2045 ml Balance 2035 ml 2045 ml Free Water 200 ml 130 ml IV Total 1355 ml 1255 ml Tube Feeding 480 ml 660 ml # Voids 190 110 Laboratory Tests 03/31/19 10:30: Lactic Acid Level 5.90H 03/31/19 16:50: Lactic Acid Level 5.60H 03/31/19 23:55: Lactic Acid Level 5.70H 04/01/19 04:00: Lactic Acid Level 5.80H, White Blood Count 32.1*H, Red Blood Count 2.47L, Hemoglobin 7.6L, Hematocrit 24.4L, Mean Corpuscular Volume 98, Mean Corpuscular Hemoglobin 30.7, Mean Corpuscular Hemoglobin Concent 31.2L, Red Cell Distribution Width 16.1H, Platelet Count 74L, Mean Platelet Volume 8.4, Neutrophils (%) (Auto) , Lymphocytes (%) (Auto) , Monocytes (%) (Auto) , Eosinophils (%) (Auto) , Basophils (%) (Auto) , Differential Total Cells Counted 100, Neutrophils % (Manual) 76H, Lymphocytes % (Manual) 5L, Monocytes % (Manual) 3, Eosinophils % (Manual) 1, Basophils % (Manual) 0, Band Neutrophils 15H, Platelet Estimate DecreasedL, Platelet Morphology Normal, Hypochromasia 1+ , Anisocytosis 1+, Sodium Level 144, Potassium Level 3.5, Chloride Level 112H, Carbon Dioxide Level 14L, Anion Gap 18H, Blood Urea Nitrogen 76H, Creatinine 3.0H, Estimat Glomerular Filtration Rate , Glucose Level 149H, Calcium Level 7.5L, Phosphorus Level 3.5, Magnesium Level 2.0, Total Bilirubin 1.2H, Direct Bilirubin 0.7H, Aspartate Amino Transf (AST/SGOT) 26, Alanine Aminotransferase ( ALT/SGPT) 13, Alkaline Phosphatase 222H, Total Protein 4.7L, Albumin 1.8L, Globulin 2.9, Albumin/Globulin Ratio 0.6L 04/01/19 08:15: Lactic Acid Level 5.90H 04/01/19 09:10: Arterial Blood pH 7.288L, Arterial Blood Partial Pressure CO2 27.6L, Arterial Blood Partial Pressure O2 56.8L, Arterial Blood HCO3 12.9*L, Arterial Blood Oxygen Saturation 85.8*L, Arterial Blood Base Excess -12.5*L, Raudel Test Positive Height (Feet): 5 Height (Inches): 10.00 Weight (Pounds): 134 General Appearance: no apparent distress EENT: other - vented Respiratory/Chest: decreased breath sounds Abdomen: distended Cristian Salgado MD Apr 01, 2019 09:58
--- NOTE | 2019-04-01 10:46 | NUR ---
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 HR was not obtainable. Pt leads changed and hardwire changed and still was unable to obtain a rhythm or heart rate EKG machine was hooked up to pt. EKG showed prolonged QT, acute DC/STEMI. Dr Fuller called to inform him of EKG. Dr Fuller arrived to talk to family about gravity of pt condition. Dr Person here to see pt and recommended palliative care. Dr Campo here to check catheter. Will continue to monitor.
--- NOTE | 2019-04-01 10:52 | Pulmonolgy Critical Care Note ---
Critical Care - Asmt/Plan Problems: (1) Acute respiratory failure (2) Aspiration pneumonia (3) ATN (acute tubular necrosis) (4) Sepsis (5) Urine retention (6) Coagulopathy (7) Severe protein-calorie malnutrition (8) Colon cancer metastasized to liver Respiratory: monitor respiratory rate, adjust FIO2, CXR Cardiac: continue pressors, stop pressors, continue to monitor HR/BP Renal: F/U I&O, check electrolytes Infectious Disease: check cultures Gastrointestinal: continue feedings/current rate Endocrine: monitor blood sugar, check HgA1C Neurologic: PRN Ativan Affect: PRN ativan Prophylaxis: Protonix 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 with: 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, 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, 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 - Objective Last 24 Hour Vital Signs Date Time Temp Pulse Resp B/P (MAP) Pulse Ox O2 Delivery O2 Flow Rate FiO2 04/01/19 10:18 0 31 118/53 (74) 96 04/01/19 10:00 92 23 132/71 (91) 95 04/01/19 09:00 93 25 113/52 (72) 93 04/01/19 08:45 94 23 60 04/01/19 08:00 Mechanical Ventilator 04/01/19 08:00 97.7 103 31 120/59 (79) 96 04/01/19 08:00 60 04/01/19 08:00 123 04/01/19 07:19 104 31 70 04/01/19 07:00 96 32 121/50 (73) 96 04/01/19 06:00 98 32 132/49 (76) 96 04/01/19 05:30 96 27 70 04/01/19 05:00 100 30 135/49 (77) 97 04/01/19 04:00 60 04/01/19 04:00 92 04/01/19 04:00 Mechanical Ventilator 04/01/19 04:00 98.9 92 29 144/52 (82) 96 04/01/19 03:42 99 24 70 04/01/19 03:00 93 30 124/54 (77) 96 04/01/19 02:00 90 26 127/53 (77) 96 04/01/19 01:25 92 25 70 04/01/19 01:00 100 28 124/54 (77) 96 04/01/19 00:00 60 04/01/19 00:00 Mechanical Ventilator 04/01/19 00:00 98.4 94 28 124/52 (76) 95 03/31/19 23:15 106 34 70 03/31/19 23:00 103 29 119/54 (75) 96 03/31/19 22:00 102 26 125/50 (75) 98 03/31/19 21:30 97 29 70 03/31/19 21:00 93 27 125/52 (76) 98 03/31/19 20:00 98.7 97 26 143/50 (81) 98 03/31/19 20:00 60 03/31/19 20:00 Mechanical Ventilator 03/31/19 20:00 97 03/31/19 19:58 96 30 70 03/31/19 19:00 100 28 136/51 (79) 97 03/31/19 18:00 97 26 103/78 (86) 99 03/31/19 17:12 102 27 70 03/31/19 17:00 98 27 116/58 (77) 96 03/31/19 16:00 60 03/31/19 16:00 Mechanical Ventilator 03/31/19 16:00 98.0 98 26 143/59 (87) 97 03/31/19 16:00 102 03/31/19 15:11 102 28 70 03/31/19 15:00 94 25 130/64 (86) 96 03/31/19 14:00 102 28 119/51 (73) 93 03/31/19 13:07 101 29 60 03/31/19 13:00 100 27 119/55 (76) 91 03/31/19 12:00 97.9 108 28 121/55 (77) 89 03/31/19 12:00 60 03/31/19 12:00 92 03/31/19 12:00 Mechanical Ventilator 03/31/19 11:08 101 30 60 03/31/19 11:00 100 26 111/63 (79) 92 Status: sedated Condition: critical HEENT: atraumatic, normocephalic Neck: full ROM Lungs: clear, chest wall tender Heart: HR/BP stable Abdomen: soft, non-tender Extremities: no C/C/E Decubiti: stage Micro: Microbiology Date/Time Source Procedure Growth Status 03/29/19 12:00 Sputum Induced Gram Stain - Final Complete 03/29/19 12:00 Sputum Culture - Final Brittney Albicans Usual Respiratory Demi Complete Critical Care - Subjective ROS Limited/Unobtainable: Yes Condition: critical EKG Rhythm: Sinus Rhythm FI02: 60 Vent Support Breath Rate: 16 Vent Support Mode: AC Vent Tidal Volume: 600 Sputum Amount: Scant PEEP: 5.0 PIP: 24 Tube Feeding Amount: 0 I&O: Intake and Output 03/31/19 04/01/19 19:00 07:00 Intake Total 2035 ml 2045 ml Balance 2035 ml 2045 ml Free Water 200 ml 130 ml IV Total 1355 ml 1255 ml Tube Feeding 480 ml 660 ml # Voids 190 110 CXR: extensive Left side infiltrate ET-Tube: 7.5 ET Position: 23 Labs: Laboratory Tests Test 03/31/19 16:50 03/31/19 23:55 04/01/19 04:00 04/01/19 08:15 Lactic Acid Level 5.60 mmol/L (0.4-2.0) H 5.70 mmol/L (0.66-2.22) H 5.80 mmol/L (0.4-2.0) H 5.90 mmol/L (0.66-2.22) H White Blood Count 32.1 K/UL (4.8-10.8) *H Red Blood Count 2.47 M/UL (4.70-6.10) L Hemoglobin 7.6 G/DL (14.2-18.0) L Hematocrit 24.4 % (42.0-52.0) L Mean Corpuscular Volume 98 FL (80-99) Mean Corpuscular Hemoglobin 30.7 PG (27.0-31.0) Mean Corpuscular Hemoglobin Concent 31.2 G/DL (32.0-36.0) L Red Cell Distribution Width 16.1 % (11.6-14.8) H Platelet Count 74 K/UL (150-450) L Mean Platelet Volume 8.4 FL (6.5-10.1) Neutrophils (%) (Auto) % (45.0-75.0) Lymphocytes (%) (Auto) % (20.0-45.0) Monocytes (%) (Auto) % (1.0-10.0) Eosinophils (%) (Auto) % (0.0-3.0) Basophils (%) (Auto) % (0.0-2.0) Differential Total Cells Counted 100 Neutrophils % (Manual) 76 % (45-75) H Lymphocytes % (Manual) 5 % (20-45) L Monocytes % (Manual) 3 % (1-10) Eosinophils % (Manual) 1 % (0-3) Basophils % (Manual) 0 % (0-2) Band Neutrophils 15 % (0-8) H Platelet Estimate Decreased L Platelet Morphology Normal Hypochromasia 1+ Anisocytosis 1+ Sodium Level 144 MMOL/L (136-145) Potassium Level 3.5 MMOL/L (3.5-5.1) Chloride Level 112 MMOL/L (98-107) H Carbon Dioxide Level 14 MMOL/L (21-32) L Anion Gap 18 mmol/L (5-15) H Blood Urea Nitrogen 76 mg/dL (7-18) H Creatinine 3.0 MG/DL (0.55-1.30) H Estimat Glomerular Filtration Rate mL/min (>60) Glucose Level 149 MG/DL (74-106) H Calcium Level 7.5 MG/DL (8.5-10.1) L Phosphorus Level 3.5 MG/DL (2.5-4.9) Magnesium Level 2.0 MG/DL (1.8-2.4) Total Bilirubin 1.2 MG/DL (0.2-1.0) H Direct Bilirubin 0.7 MG/DL (0.0-0.3) H Aspartate Amino Transf (AST/SGOT) 26 U/L (15-37) Alanine Aminotransferase (ALT/SGPT) 13 U/L (12-78) Alkaline Phosphatase 222 U/L (46-116) H Total Protein 4.7 G/DL (6.4-8.2) L Albumin 1.8 G/DL (3.4-5.0) L Globulin 2.9 g/dL Albumin/Globulin Ratio 0.6 (1.0-2.7) L Test 04/01/19 09:10 Arterial Blood pH 7.288 (7.350-7.450) Arterial Blood Partial Pressure CO2 27.6 mmHg (35.0-45.0) L Arterial Blood Partial Pressure O2 56.8 mmHg (75.0-100.0) L Arterial Blood HCO3 12.9 mmol/L (22.0-26.0) *L Arterial Blood Oxygen Saturation 85.8 % (95-100) *L Arterial Blood Base Excess -12.5 (-2-2) *L Raudel Test Positive Ilan Fuller MD Apr 01, 2019 10:52
--- NOTE | 2019-04-01 11:45 | NUR ---
NURSE NOTES: After speaking with Dr Fuller about the critical condition of pt, his niece Corey, next of kin, decided along with other family to go ahead with terminal extubation later this afternoon. Will continue to monitor.
[2019-04-01] MEDS ORDERED: Glycopyrrolate 0.2mg/ml 1ml Vial IV PRN (12:15)
[2019-04-01] MEDS ORDERED: Haloperidol 5mg/ml Inj IM PRN (12:15)
[2019-04-01] MEDS ORDERED: Artificial Tears 1.4% Op Soln BOTH EYES PRN (12:15)
[2019-04-01] MEDS ORDERED: Morphine Sulfate 10mg/ml Inj IVP SCH (12:15)
[2019-04-01] MEDS ORDERED: Rate Change Narcotic Drip MISC PRN (12:15)
[2019-04-01] MEDS ORDERED: Prochlorperazine 10mg tab ORAL PRN (12:15)
[2019-04-01] MEDS ORDERED: PCA Morphine 1mg/ml 30 ML IV PRN (12:15)
--- NOTE | 2019-04-01 13:24 | Surgery Progress Note ---
Surgery Progress Note Subjective Symptoms: worse Additional Comments plan for terminal extubation Objective Last 24 Hour Vital Signs Date Time Temp Pulse Resp B/P (MAP) Pulse Ox O2 Delivery O2 Flow Rate FiO2 04/01/19 12:57 87 31 60 04/01/19 12:00 Mechanical Ventilator 04/01/19 12:00 60 04/01/19 12:00 98.0 0 32 117/52 (73) 96 04/01/19 11:45 83 27 60 04/01/19 11:00 96 26 125/48 (73) 97 04/01/19 10:18 0 31 118/53 (74) 96 04/01/19 10:00 92 23 132/71 (91) 95 04/01/19 09:00 93 25 113/52 (72) 93 04/01/19 08:45 94 23 60 04/01/19 08:00 Mechanical Ventilator 04/01/19 08:00 97.7 103 31 120/59 (79) 96 04/01/19 08:00 60 04/01/19 08:00 123 04/01/19 07:19 104 31 70 04/01/19 07:00 96 32 121/50 (73) 96 04/01/19 06:00 98 32 132/49 (76) 96 04/01/19 05:30 96 27 70 04/01/19 05:00 100 30 135/49 (77) 97 04/01/19 04:00 60 04/01/19 04:00 92 04/01/19 04:00 Mechanical Ventilator 04/01/19 04:00 98.9 92 29 144/52 (82) 96 04/01/19 03:42 99 24 70 04/01/19 03:00 93 30 124/54 (77) 96 04/01/19 02:00 90 26 127/53 (77) 96 04/01/19 01:25 92 25 70 04/01/19 01:00 100 28 124/54 (77) 96 04/01/19 00:00 60 04/01/19 00:00 Mechanical Ventilator 04/01/19 00:00 98.4 94 28 124/52 (76) 95 03/31/19 23:15 106 34 70 03/31/19 23:00 103 29 119/54 (75) 96 03/31/19 22:00 102 26 125/50 (75) 98 03/31/19 21:30 97 29 70 03/31/19 21:00 93 27 125/52 (76) 98 03/31/19 20:00 98.7 97 26 143/50 (81) 98 03/31/19 20:00 60 03/31/19 20:00 Mechanical Ventilator 03/31/19 20:00 97 03/31/19 19:58 96 30 70 03/31/19 19:00 100 28 136/51 (79) 97 03/31/19 18:00 97 26 103/78 (86) 99 03/31/19 17:12 102 27 70 03/31/19 17:00 98 27 116/58 (77) 96 03/31/19 16:00 60 03/31/19 16:00 Mechanical Ventilator 03/31/19 16:00 98.0 98 26 143/59 (87) 97 03/31/19 16:00 102 03/31/19 15:11 102 28 70 03/31/19 15:00 94 25 130/64 (86) 96 03/31/19 14:00 102 28 119/51 (73) 93 I&O Intake and Output 03/31/19 04/01/19 19:00 07:00 Intake Total 2035 ml 2045 ml Balance 2035 ml 2045 ml Free Water 200 ml 130 ml IV Total 1355 ml 1255 ml Tube Feeding 480 ml 660 ml # Voids 190 110 Dressing: other Wound: other Drains: other Cardiovascular: RSR, other Respiratory: decreased breath sounds, other Abdomen: distended, other, decreased bowel sounds Extremities: other Laboratory Tests Test 03/31/19 16:50 03/31/19 23:55 04/01/19 04:00 04/01/19 08:15 Lactic Acid Level 5.60 mmol/L (0.4-2.0) H 5.70 mmol/L (0.66-2.22) H 5.80 mmol/L (0.4-2.0) H 5.90 mmol/L (0.66-2.22) H White Blood Count 32.1 K/UL (4.8-10.8) *H Red Blood Count 2.47 M/UL (4.70-6.10) L Hemoglobin 7.6 G/DL (14.2-18.0) L Hematocrit 24.4 % (42.0-52.0) L Mean Corpuscular Volume 98 FL (80-99) Mean Corpuscular Hemoglobin 30.7 PG (27.0-31.0) Mean Corpuscular Hemoglobin Concent 31.2 G/DL (32.0-36.0) L Red Cell Distribution Width 16.1 % (11.6-14.8) H Platelet Count 74 K/UL (150-450) L Mean Platelet Volume 8.4 FL (6.5-10.1) Neutrophils (%) (Auto) % (45.0-75.0) Lymphocytes (%) (Auto) % (20.0-45.0) Monocytes (%) (Auto) % (1.0-10.0) Eosinophils (%) (Auto) % (0.0-3.0) Basophils (%) (Auto) % (0.0-2.0) Differential Total Cells Counted 100 Neutrophils % (Manual) 76 % (45-75) H Lymphocytes % (Manual) 5 % (20-45) L Monocytes % (Manual) 3 % (1-10) Eosinophils % (Manual) 1 % (0-3) Basophils % (Manual) 0 % (0-2) Band Neutrophils 15 % (0-8) H Platelet Estimate Decreased L Platelet Morphology Normal Hypochromasia 1+ Anisocytosis 1+ Sodium Level 144 MMOL/L (136-145) Potassium Level 3.5 MMOL/L (3.5-5.1) Chloride Level 112 MMOL/L (98-107) H Carbon Dioxide Level 14 MMOL/L (21-32) L Anion Gap 18 mmol/L (5-15) H Blood Urea Nitrogen 76 mg/dL (7-18) H Creatinine 3.0 MG/DL (0.55-1.30) H Estimat Glomerular Filtration Rate mL/min (>60) Glucose Level 149 MG/DL (74-106) H Calcium Level 7.5 MG/DL (8.5-10.1) L Phosphorus Level 3.5 MG/DL (2.5-4.9) Magnesium Level 2.0 MG/DL (1.8-2.4) Total Bilirubin 1.2 MG/DL (0.2-1.0) H Direct Bilirubin 0.7 MG/DL (0.0-0.3) H Aspartate Amino Transf (AST/SGOT) 26 U/L (15-37) Alanine Aminotransferase (ALT/SGPT) 13 U/L (12-78) Alkaline Phosphatase 222 U/L (46-116) H Total Protein 4.7 G/DL (6.4-8.2) L Albumin 1.8 G/DL (3.4-5.0) L Globulin 2.9 g/dL Albumin/Globulin Ratio 0.6 (1.0-2.7) L Test 04/01/19 09:10 Arterial Blood pH 7.288 (7.350-7.450) Arterial Blood Partial Pressure CO2 27.6 mmHg (35.0-45.0) L Arterial Blood Partial Pressure O2 56.8 mmHg (75.0-100.0) L Arterial Blood HCO3 12.9 mmol/L (22.0-26.0) *L Arterial Blood Oxygen Saturation 85.8 % (95-100) *L Arterial Blood Base Excess -12.5 (-2-2) *L Raudel Test Positive Plan Problems: (1) Sepsis Assessment & Plan: This is a very unfortunate 78-year-old male with metastatic advanced colorectal cancer with mets of the lymph nodes and liver. Patient presented with leukocytosis and abdominal discomfort. 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 Patient currently stating he is tolerating diet and having bowel movements. Abdomen complaining of abdominal discomfort but no nausea or emesis. No fever chills. No acute surgical intervention recommended at this time given patient's medical condition and prognosis. 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 Ultrasound noted CT noted no bladder rupture very ill now s/p scope with aspiration requiring intubated on vent ICU Care very poor prognosis code status changed plan for terminal extubation Thank you for this consultation we will follow with recommendations Okay for diet from surgical standpoint (2) Colon cancer metastasized to liver (3) Severe protein-calorie malnutrition Harmeet Pérez Apr 01, 2019 13:24
[2019-04-01] MEDS: LORazepam Inj 2mg/ml 1ml IV PRN (14:00)
--- NOTE | 2019-04-01 14:19 | NUR ---
RESPIRATORY NOTE: Terminal extubation was ordered by Patient ETT was removed at 14:11 and pt was placed on 2L nasal canula. Nurse and charge nurse aware.
--- NOTE | 2019-04-01 14:20 | NUR ---
NURSE NOTES: Patient was compassionately extubated at 1411. Family returned to bedside after O2 was placed. Morphine pump was started. Patient appears to not be in any acute distress. Will monitor for s/sx of distress.
--- NOTE | 2019-04-01 14:22 | Internal Med Progress Note ---
Subjective Date of Service: Apr 01, 2019 Physician Name Kashif Ponce Attending Physician Eddi Herman MD Current Medications Medications (Trade) Dose Ordered Sig/Madelyn Route PRN Reason Start Time Stop Time Status Last Admin Dose Admin Acetaminophen (Tylenol) 650 mg Q6H PRN ORAL Mild Pain/Temp > 100.5 03/28/19 11:26 04/27/19 11:25 Allopurinol (Allopurinol) 300 mg BID NG 03/30/19 18:00 04/28/19 11:59 04/01/19 08:36 Artificial Tears (Akwa-Tears) 1 drop QIDPRN PRN BOTH EYES Dry Eyes 04/01/19 12:15 05/01/19 12:14 Glycopyrrolate (Robinul) 0.1 mg Q6H PRN IV excessive secretions 04/01/19 12:15 05/01/19 12:14 Haloperidol Lactate (Haldol) 1 mg Q30M PRN IM Agitation 04/01/19 12:15 05/01/19 12:14 Lorazepam (Ativan 2mg/ml 1ml) 2 mg Q4H PRN IV For Anxiety 03/28/19 11:26 04/04/19 11:25 04/01/19 14:00 Miscellaneous Medication (Narcotic Drip Rate Change) 1 ea DAILY PRN MISC To Patient Comfort 04/01/19 12:15 04/04/19 12:14 Miscellaneous Medication (Narcotic Shift Volume) 1 ea Q12HR@0700,1900 MISC 04/01/19 19:00 05/01/19 18:59 Morphine Sulfate 30 ml @ 5 mls/hr TRIAL PARALEGAL Protocol PRN IV For Pain 04/01/19 12:15 04/03/19 12:14 04/01/19 13:19 Morphine Sulfate (Morphine Sulfate) 10 mg ONCE IVP 04/01/19 12:15 04/01/19 16:00 04/01/19 14:01 Prochlorperazine (Compazine) 10 mg Q6H PRN ORAL Nausea & Vomiting 04/01/19 12:15 05/01/19 12:14 Allergies: Coded Allergies: No Known Allergies (Unverified , 03/26/19) Subjective 78 YO M admitted with cecal mass with probable mets. Now cecal adenocarcinoma and aspiration pneumonia. S/P colonoscopy 03/28/19. ICU. S/P terminal extubation. Now DNR Objective Last Vital Signs Date Time Temp Pulse Resp B/P (MAP) Pulse Ox O2 Delivery O2 Flow Rate FiO2 04/01/19 14:11 Nasal Cannula 2.0 28 04/01/19 13:00 0 27 122/58 (79) 99 04/01/19 12:00 98.0 Laboratory Tests Test 03/31/19 16:50 03/31/19 23:55 04/01/19 04:00 04/01/19 08:15 Lactic Acid Level 5.60 mmol/L (0.4-2.0) H 5.70 mmol/L (0.66-2.22) H 5.80 mmol/L (0.4-2.0) H 5.90 mmol/L (0.66-2.22) H White Blood Count 32.1 K/UL (4.8-10.8) *H Red Blood Count 2.47 M/UL (4.70-6.10) L Hemoglobin 7.6 G/DL (14.2-18.0) L Hematocrit 24.4 % (42.0-52.0) L Mean Corpuscular Volume 98 FL (80-99) Mean Corpuscular Hemoglobin 30.7 PG (27.0-31.0) Mean Corpuscular Hemoglobin Concent 31.2 G/DL (32.0-36.0) L Red Cell Distribution Width 16.1 % (11.6-14.8) H Platelet Count 74 K/UL (150-450) L Mean Platelet Volume 8.4 FL (6.5-10.1) Neutrophils (%) (Auto) % (45.0-75.0) Lymphocytes (%) (Auto) % (20.0-45.0) Monocytes (%) (Auto) % (1.0-10.0) Eosinophils (%) (Auto) % (0.0-3.0) Basophils (%) (Auto) % (0.0-2.0) Differential Total Cells Counted 100 Neutrophils % (Manual) 76 % (45-75) H Lymphocytes % (Manual) 5 % (20-45) L Monocytes % (Manual) 3 % (1-10) Eosinophils % (Manual) 1 % (0-3) Basophils % (Manual) 0 % (0-2) Band Neutrophils 15 % (0-8) H Platelet Estimate Decreased L Platelet Morphology Normal Hypochromasia 1+ Anisocytosis 1+ Sodium Level 144 MMOL/L (136-145) Potassium Level 3.5 MMOL/L (3.5-5.1) Chloride Level 112 MMOL/L (98-107) H Carbon Dioxide Level 14 MMOL/L (21-32) L Anion Gap 18 mmol/L (5-15) H Blood Urea Nitrogen 76 mg/dL (7-18) H Creatinine 3.0 MG/DL (0.55-1.30) H Estimat Glomerular Filtration Rate mL/min (>60) Glucose Level 149 MG/DL (74-106) H Calcium Level 7.5 MG/DL (8.5-10.1) L Phosphorus Level 3.5 MG/DL (2.5-4.9) Magnesium Level 2.0 MG/DL (1.8-2.4) Total Bilirubin 1.2 MG/DL (0.2-1.0) H Direct Bilirubin 0.7 MG/DL (0.0-0.3) H Aspartate Amino Transf (AST/SGOT) 26 U/L (15-37) Alanine Aminotransferase (ALT/SGPT) 13 U/L (12-78) Alkaline Phosphatase 222 U/L (46-116) H Total Protein 4.7 G/DL (6.4-8.2) L Albumin 1.8 G/DL (3.4-5.0) L Globulin 2.9 g/dL Albumin/Globulin Ratio 0.6 (1.0-2.7) L Test 04/01/19 09:10 Arterial Blood pH 7.288 (7.350-7.450) Arterial Blood Partial Pressure CO2 27.6 mmHg (35.0-45.0) L Arterial Blood Partial Pressure O2 56.8 mmHg (75.0-100.0) L Arterial Blood HCO3 12.9 mmol/L (22.0-26.0) *L Arterial Blood Oxygen Saturation 85.8 % (95-100) *L Arterial Blood Base Excess -12.5 (-2-2) *L Raudel Test Positive Intake and Output 03/31/19 04/01/19 19:00 07:00 Intake Total 2035 ml 2045 ml Balance 2035 ml 2045 ml Free Water 200 ml 130 ml IV Total 1355 ml 1255 ml Tube Feeding 480 ml 660 ml # Voids 190 110 Objective PHYSICAL EXAMINATION: GENERAL: The patient is a thin-appearing male, in no apparent distress. HEENT: Eyes, pupils are equal and responsive to light and accommodation. Extraocular movements are intact. NECK: Supple without lymphadenopathy. CHEST: Mech vent; Coarse breath sounds bilaterally; without wheezes or rales. CARDIOVASCULAR: Regular rhythm and rate. S1, S2 are normal without murmurs, rubs, or gallops. ABDOMEN: Soft and grossly distended with decreased bowel sounds. Presence of fluid wave noted. No evidence of hepatosplenomegaly. Currently, no rebound or guarding noted. EXTREMITIES: Negative for clubbing, cyanosis, or edema. RECTAL/GENITAL: Not performed. NEUROLOGIC: Cranial nerves II through XII are grossly intact without focal deficits. Motor strength is 5/5 bilaterally. Deep tendon reflexes are 2+ plantar. Assessment/Plan Assessment/Plan ASSESSMENT: This is a 78-year-old male. 1. Cecal adenocarcinoma with metastases. 2. Ascites. 3. Acute renal failure. 4. Coagulopathy. 5. Aspiration pneumonia 6. Acute respiratory failure TREATMENT: 1. Oncology=Dr Person A Gastroenterology consultation has been obtained with Dr. Valerie Greenwood. S/P colonoscopy 03/28/19. Follow recommendations of Gastroenterology. 2. Ascites as above. A Gastroenterology consultation has been obtained with Dr. Valerie Greenwood. Await paracentesis 3. Acute renal failure. A Nephrology consultation has been obtained with Dr. Salgado. 4. Coagulopathy. Improving. The patient is status post transfusion of 2 units of fresh frozen plasma at [place]. 5. Pulmonary=Dr Fuller 6. ABX=Levaquin, vanco and meropenem per ID, Dr Silvestre 7. S/P terminal extubation; Comfort care per family request Kashif Ponce MD Apr 01, 2019 14:22
--- NOTE | 2019-04-01 14:28 | NUR ---
NURSE NOTES: Pt slowly desatting after extubation. Pt currently 74% on 10L O2. Family at bedside. Will continue to monitor.
--- NOTE | 2019-04-01 14:53 | GI Progress Note ---
Assessment/Plan Problems: (1) Colon cancer metastasized to liver ICD Codes: C18.9 - Malignant neoplasm of colon, unspecified; C78.7 - Secondary malignant neoplasm of liver and intrahepatic bile duct SNOMED: [id number], [id number], [id number] Status: unchanged Status Narrative Discussed with Dr. Pendleton. 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 I agree with the above findings, impression and plan. (Patient seen earlier today. Signature stamp does not reflect patient encounter time.). - Niels Pendleton MD Subjective Subjective limited Objective Last 24 Hour Vital Signs Date Time Temp Pulse Resp B/P (MAP) Pulse Ox O2 Delivery O2 Flow Rate FiO2 04/01/19 14:11 Nasal Cannula 2.0 28 04/01/19 14:00 100 22 106/46 (66) 99 04/01/19 13:00 0 27 122/58 (79) 99 04/01/19 12:57 87 31 60 04/01/19 12:00 Mechanical Ventilator 04/01/19 12:00 65 04/01/19 12:00 60 04/01/19 12:00 98.0 0 32 117/52 (73) 96 04/01/19 11:45 83 27 60 04/01/19 11:00 96 26 125/48 (73) 97 04/01/19 10:18 0 31 118/53 (74) 96 04/01/19 10:00 92 23 132/71 (91) 95 04/01/19 09:00 93 25 113/52 (72) 93 04/01/19 08:45 94 23 60 04/01/19 08:00 Mechanical Ventilator 04/01/19 08:00 97.7 103 31 120/59 (79) 96 04/01/19 08:00 60 04/01/19 08:00 123 04/01/19 07:19 104 31 70 04/01/19 07:00 96 32 121/50 (73) 96 04/01/19 06:00 98 32 132/49 (76) 96 04/01/19 05:30 96 27 70 04/01/19 05:00 100 30 135/49 (77) 97 04/01/19 04:00 60 04/01/19 04:00 92 04/01/19 04:00 Mechanical Ventilator 04/01/19 04:00 98.9 92 29 144/52 (82) 96 04/01/19 03:42 99 24 70 04/01/19 03:00 93 30 124/54 (77) 96 04/01/19 02:00 90 26 127/53 (77) 96 04/01/19 01:25 92 25 70 04/01/19 01:00 100 28 124/54 (77) 96 04/01/19 00:00 60 04/01/19 00:00 Mechanical Ventilator 04/01/19 00:00 98.4 94 28 124/52 (76) 95 03/31/19 23:15 106 34 70 03/31/19 23:00 103 29 119/54 (75) 96 03/31/19 22:00 102 26 125/50 (75) 98 03/31/19 21:30 97 29 70 03/31/19 21:00 93 27 125/52 (76) 98 03/31/19 20:00 98.7 97 26 143/50 (81) 98 03/31/19 20:00 60 03/31/19 20:00 Mechanical Ventilator 03/31/19 20:00 97 03/31/19 19:58 96 30 70 03/31/19 19:00 100 28 136/51 (79) 97 03/31/19 18:00 97 26 103/78 (86) 99 03/31/19 17:12 102 27 70 03/31/19 17:00 98 27 116/58 (77) 96 03/31/19 16:00 60 03/31/19 16:00 Mechanical Ventilator 03/31/19 16:00 98.0 98 26 143/59 (87) 97 03/31/19 16:00 102 03/31/19 15:11 102 28 70 03/31/19 15:00 94 25 130/64 (86) 96 Intake and Output 03/31/19 04/01/19 19:00 07:00 Intake Total 2035 ml 2045 ml Balance 2035 ml 2045 ml Free Water 200 ml 130 ml IV Total 1355 ml 1255 ml Tube Feeding 480 ml 660 ml # Voids 190 110 Laboratory Tests Test 03/31/19 16:50 03/31/19 23:55 04/01/19 04:00 04/01/19 08:15 Lactic Acid Level 5.60 mmol/L (0.4-2.0) H 5.70 mmol/L (0.66-2.22) H 5.80 mmol/L (0.4-2.0) H 5.90 mmol/L (0.66-2.22) H White Blood Count 32.1 K/UL (4.8-10.8) *H Red Blood Count 2.47 M/UL (4.70-6.10) L Hemoglobin 7.6 G/DL (14.2-18.0) L Hematocrit 24.4 % (42.0-52.0) L Mean Corpuscular Volume 98 FL (80-99) Mean Corpuscular Hemoglobin 30.7 PG (27.0-31.0) Mean Corpuscular Hemoglobin Concent 31.2 G/DL (32.0-36.0) L Red Cell Distribution Width 16.1 % (11.6-14.8) H Platelet Count 74 K/UL (150-450) L Mean Platelet Volume 8.4 FL (6.5-10.1) Neutrophils (%) (Auto) % (45.0-75.0) Lymphocytes (%) (Auto) % (20.0-45.0) Monocytes (%) (Auto) % (1.0-10.0) Eosinophils (%) (Auto) % (0.0-3.0) Basophils (%) (Auto) % (0.0-2.0) Differential Total Cells Counted 100 Neutrophils % (Manual) 76 % (45-75) H Lymphocytes % (Manual) 5 % (20-45) L Monocytes % (Manual) 3 % (1-10) Eosinophils % (Manual) 1 % (0-3) Basophils % (Manual) 0 % (0-2) Band Neutrophils 15 % (0-8) H Platelet Estimate Decreased L Platelet Morphology Normal Hypochromasia 1+ Anisocytosis 1+ Sodium Level 144 MMOL/L (136-145) Potassium Level 3.5 MMOL/L (3.5-5.1) Chloride Level 112 MMOL/L (98-107) H Carbon Dioxide Level 14 MMOL/L (21-32) L Anion Gap 18 mmol/L (5-15) H Blood Urea Nitrogen 76 mg/dL (7-18) H Creatinine 3.0 MG/DL (0.55-1.30) H Estimat Glomerular Filtration Rate mL/min (>60) Glucose Level 149 MG/DL (74-106) H Calcium Level 7.5 MG/DL (8.5-10.1) L Phosphorus Level 3.5 MG/DL (2.5-4.9) Magnesium Level 2.0 MG/DL (1.8-2.4) Total Bilirubin 1.2 MG/DL (0.2-1.0) H Direct Bilirubin 0.7 MG/DL (0.0-0.3) H Aspartate Amino Transf (AST/SGOT) 26 U/L (15-37) Alanine Aminotransferase (ALT/SGPT) 13 U/L (12-78) Alkaline Phosphatase 222 U/L (46-116) H Total Protein 4.7 G/DL (6.4-8.2) L Albumin 1.8 G/DL (3.4-5.0) L Globulin 2.9 g/dL Albumin/Globulin Ratio 0.6 (1.0-2.7) L Test 04/01/19 09:10 Arterial Blood pH 7.288 (7.350-7.450) Arterial Blood Partial Pressure CO2 27.6 mmHg (35.0-45.0) L Arterial Blood Partial Pressure O2 56.8 mmHg (75.0-100.0) L Arterial Blood HCO3 12.9 mmol/L (22.0-26.0) *L Arterial Blood Oxygen Saturation 85.8 % (95-100) *L Arterial Blood Base Excess -12.5 (-2-2) *L Raudel Test Positive Height (Feet): 5 Height (Inches): 10.00 Weight (Pounds): 134 General Appearance: WD/WN, no apparent distress, alert Cardiovascular: normal rate Respiratory/Chest: normal breath sounds, no respiratory distress Abdominal Exam: normal bowel sounds, non tender, soft Extremities: normal range of motion, non-tender Juany Ortega [employer] Apr 01, 2019 14:53
--- NOTE | 2019-04-01 15:13 | Infectious Diseases Prog Note ---
Assessment/Plan Assessment/Plan Sepsis Probable PNA -03/30 CXR: Diffuse patchy opacities throughout the left lung, similar to the prior exam. -03/28 CXR: Left mid and lower lung consolidation, likely pneumonia Aspiration event (on EGD lab), now intubated 03/28 Lactic acidosis Afebrile Leukocytosis; persists ( Mets. cancer contributing) -BCx NTD Probable UTI (+dysuria) UCx : Neg -u./a wbc 15-20, nit neg, leuk +1 ; Ucx NTD -Renal US: Suspected intraperitoneal bladder rupture at the dome of the urinary bladder, which is markedly distended. Given the history of peritoneal carcinomatosis, this may be due to tumor implantation and subsequent invasion of the bladder wall. Further evaluation with contrast CT may be of benefit.Moderate heterogeneous complex ascites presumably on the basis of carcinomatosis and/or peritonitis. Unremarkable evaluation of the kidneys. No hydronephrosis. Position of the Horn catheter not elucidated on the basis of the study. Metastatic CA, likely primary Colon CA -03/27 CT abd/p: No evidence of bladder perforation. The bladder is decompressed. Ultrasound imaging of what appear to be a distended ruptured bladder is actually an area of loculated ascites, probably complex cystic mass associated with carcinomatosis. Evidence of peritoneal carcinomatosis as described above. Evidence of metastatic neoplasm involving the liver and lung as described above. Suggestion of a cecal mass, likely adenocarcinoma. Correlate with previous colonoscopy and/or histology results. Anasarca. Atherosclerotic vascular disease. Liquefied stool in the colon. Correlate for diarrhea and enteritis/colitis. Trace bilateral pleural effusions. Gallstones versus sludge -CT abd/p (at [place]): 6.3 cm cecal mass with large ascites, omental implants , diffuse hepatic metastasis and L lingula metastasis. Ascites -03/28 SP Successful ultrasound-guided paracentesis of the right upper quadrant, yielding 0.7 liters of fluid Plan: -Abx were discontinued. Patient now made comfort care. -04/01 SP Levaquin #3, Meropenem #4, IV Vancomycin #4 -03/29 sp Cefepime #3 -f/u cx -Monitor CBC/CMP, temperatures -Sx f/u -Heme onc eval -aspiration precautions -poor px ID WILL SIGN OFF NOW. PLEASE CALL BACK IF NEEDED. Subjective Allergies: Coded Allergies: No Known Allergies (Unverified , 03/26/19) Subjective Terminally extubated, now on 2l NC patient made comfort care antibiotics were discontinued Objective Vital Signs Last 24 Hour Vital Signs Date Time Temp Pulse Resp B/P (MAP) Pulse Ox O2 Delivery O2 Flow Rate FiO2 04/01/19 14:11 Nasal Cannula 2.0 28 04/01/19 14:00 100 22 106/46 (66) 99 04/01/19 13:00 0 27 122/58 (79) 99 04/01/19 12:57 87 31 60 04/01/19 12:00 Mechanical Ventilator 04/01/19 12:00 65 04/01/19 12:00 60 04/01/19 12:00 98.0 0 32 117/52 (73) 96 04/01/19 11:45 83 27 60 04/01/19 11:00 96 26 125/48 (73) 97 04/01/19 10:18 0 31 118/53 (74) 96 04/01/19 10:00 92 23 132/71 (91) 95 04/01/19 09:00 93 25 113/52 (72) 93 04/01/19 08:45 94 23 60 04/01/19 08:00 Mechanical Ventilator 04/01/19 08:00 97.7 103 31 120/59 (79) 96 04/01/19 08:00 60 04/01/19 08:00 123 04/01/19 07:19 104 31 70 04/01/19 07:00 96 32 121/50 (73) 96 04/01/19 06:00 98 32 132/49 (76) 96 04/01/19 05:30 96 27 70 04/01/19 05:00 100 30 135/49 (77) 97 04/01/19 04:00 60 04/01/19 04:00 92 04/01/19 04:00 Mechanical Ventilator 04/01/19 04:00 98.9 92 29 144/52 (82) 96 04/01/19 03:42 99 24 70 04/01/19 03:00 93 30 124/54 (77) 96 04/01/19 02:00 90 26 127/53 (77) 96 04/01/19 01:25 92 25 70 04/01/19 01:00 100 28 124/54 (77) 96 04/01/19 00:00 60 04/01/19 00:00 Mechanical Ventilator 04/01/19 00:00 98.4 94 28 124/52 (76) 95 03/31/19 23:15 106 34 70 03/31/19 23:00 103 29 119/54 (75) 96 03/31/19 22:00 102 26 125/50 (75) 98 03/31/19 21:30 97 29 70 03/31/19 21:00 93 27 125/52 (76) 98 03/31/19 20:00 98.7 97 26 143/50 (81) 98 03/31/19 20:00 60 03/31/19 20:00 Mechanical Ventilator 03/31/19 20:00 97 03/31/19 19:58 96 30 70 03/31/19 19:00 100 28 136/51 (79) 97 03/31/19 18:00 97 26 103/78 (86) 99 03/31/19 17:12 102 27 70 03/31/19 17:00 98 27 116/58 (77) 96 03/31/19 16:00 60 03/31/19 16:00 Mechanical Ventilator 03/31/19 16:00 98.0 98 26 143/59 (87) 97 03/31/19 16:00 102 Height (Feet): 5 Height (Inches): 10.00 Weight (Pounds): 134 Objective General Appearance: cachetic, thin, intubated HEENT: normocephalic, atraumatic Neck: non-tender, normal alignment Respiratory/Chest: chest wall non-tender, lungs clear Breasts: no masses Cardiovascular/Chest: normal rate Abdomen: normal bowel sounds Extremities: normal range of motion Laboratory Tests Test 03/31/19 16:50 03/31/19 23:55 04/01/19 04:00 04/01/19 08:15 Lactic Acid Level 5.60 mmol/L (0.4-2.0) H 5.70 mmol/L (0.66-2.22) H 5.80 mmol/L (0.4-2.0) H 5.90 mmol/L (0.66-2.22) H White Blood Count 32.1 K/UL (4.8-10.8) *H Red Blood Count 2.47 M/UL (4.70-6.10) L Hemoglobin 7.6 G/DL (14.2-18.0) L Hematocrit 24.4 % (42.0-52.0) L Mean Corpuscular Volume 98 FL (80-99) Mean Corpuscular Hemoglobin 30.7 PG (27.0-31.0) Mean Corpuscular Hemoglobin Concent 31.2 G/DL (32.0-36.0) L Red Cell Distribution Width 16.1 % (11.6-14.8) H Platelet Count 74 K/UL (150-450) L Mean Platelet Volume 8.4 FL (6.5-10.1) Neutrophils (%) (Auto) % (45.0-75.0) Lymphocytes (%) (Auto) % (20.0-45.0) Monocytes (%) (Auto) % (1.0-10.0) Eosinophils (%) (Auto) % (0.0-3.0) Basophils (%) (Auto) % (0.0-2.0) Differential Total Cells Counted 100 Neutrophils % (Manual) 76 % (45-75) H Lymphocytes % (Manual) 5 % (20-45) L Monocytes % (Manual) 3 % (1-10) Eosinophils % (Manual) 1 % (0-3) Basophils % (Manual) 0 % (0-2) Band Neutrophils 15 % (0-8) H Platelet Estimate Decreased L Platelet Morphology Normal Hypochromasia 1+ Anisocytosis 1+ Sodium Level 144 MMOL/L (136-145) Potassium Level 3.5 MMOL/L (3.5-5.1) Chloride Level 112 MMOL/L (98-107) H Carbon Dioxide Level 14 MMOL/L (21-32) L Anion Gap 18 mmol/L (5-15) H Blood Urea Nitrogen 76 mg/dL (7-18) H Creatinine 3.0 MG/DL (0.55-1.30) H Estimat Glomerular Filtration Rate mL/min (>60) Glucose Level 149 MG/DL (74-106) H Calcium Level 7.5 MG/DL (8.5-10.1) L Phosphorus Level 3.5 MG/DL (2.5-4.9) Magnesium Level 2.0 MG/DL (1.8-2.4) Total Bilirubin 1.2 MG/DL (0.2-1.0) H Direct Bilirubin 0.7 MG/DL (0.0-0.3) H Aspartate Amino Transf (AST/SGOT) 26 U/L (15-37) Alanine Aminotransferase (ALT/SGPT) 13 U/L (12-78) Alkaline Phosphatase 222 U/L (46-116) H Total Protein 4.7 G/DL (6.4-8.2) L Albumin 1.8 G/DL (3.4-5.0) L Globulin 2.9 g/dL Albumin/Globulin Ratio 0.6 (1.0-2.7) L Test 04/01/19 09:10 Arterial Blood pH 7.288 (7.350-7.450) Arterial Blood Partial Pressure CO2 27.6 mmHg (35.0-45.0) L Arterial Blood Partial Pressure O2 56.8 mmHg (75.0-100.0) L Arterial Blood HCO3 12.9 mmol/L (22.0-26.0) *L Arterial Blood Oxygen Saturation 85.8 % (95-100) *L Arterial Blood Base Excess -12.5 (-2-2) *L Raudel Test Positive Current Medications Medications (Trade) Dose Ordered Sig/Madelyn Route PRN Reason Start Time Stop Time Status Last Admin Dose Admin Acetaminophen (Tylenol) 650 mg Q6H PRN ORAL Mild Pain/Temp > 100.5 03/28/19 11:26 04/27/19 11:25 Allopurinol (Allopurinol) 300 mg BID NG 03/30/19 18:00 04/28/19 11:59 04/01/19 08:36 Artificial Tears (Akwa-Tears) 1 drop QIDPRN PRN BOTH EYES Dry Eyes 04/01/19 12:15 05/01/19 12:14 Glycopyrrolate (Robinul) 0.1 mg Q6H PRN IV excessive secretions 04/01/19 12:15 05/01/19 12:14 Haloperidol Lactate (Haldol) 1 mg Q30M PRN IM Agitation 04/01/19 12:15 05/01/19 12:14 Lorazepam (Ativan 2mg/ml 1ml) 2 mg Q4H PRN IV For Anxiety 03/28/19 11:26 04/04/19 11:25 04/01/19 14:00 Miscellaneous Medication (Narcotic Drip Rate Change) 1 ea DAILY PRN MISC To Patient Comfort 04/01/19 12:15 04/04/19 12:14 Miscellaneous Medication (Narcotic Shift Volume) 1 ea Q12HR@0700,1900 MISC 04/01/19 19:00 05/01/19 18:59 Morphine Sulfate 30 ml @ 5 mls/hr AUDIO VISUAL SPECIALIST Protocol PRN IV For Pain 04/01/19 12:15 04/03/19 12:14 04/01/19 13:19 Morphine Sulfate (Morphine Sulfate) 10 mg ONCE IVP 04/01/19 12:15 04/01/19 16:00 04/01/19 14:01 Prochlorperazine (Compazine) 10 mg Q6H PRN ORAL Nausea & Vomiting 04/01/19 12:15 05/01/19 12:14 Caroline Silvestre M.D. Apr 01, 2019 15:13
--- NOTE | 2019-04-01 15:31 | NUR ---
NURSE NOTES: Pt appears to be gasping, pt given haldol 5mg IM. O2 saturation is 35%. Will continue to monitor.
--- NOTE | 2019-04-01 16:12 | NUR ---
NURSE NOTES: Pt desaturation to 0. Nursing caddy/caddie supervisor called and pronounced pt at 1545. Family to make arrangements.
--- NOTE | 2019-04-01 17:20 | NUR ---
NURSE NOTES: Called [facility] and spoke to Lesly. Rep concluded pt was not a candidate for organ donation.
[2019-04-01] MEDS ORDERED: Narcotic Shift Volume MISC SCH (19:00)
--- NOTE | 2019-04-01 19:28 | NUR ---
NURSE NOTES: Drs. Fuller and Krystyna were notified that patient at 1544.
[2019-04-01] MEDS ORDERED: Tubing IV Secondary IV ONE (19:30)
[2019-04-01] MEDS ORDERED: NS Irrig 1000ml ONE (19:30)
[2019-04-01] MEDS ORDERED: NS 275ml ONE (19:30)
[2019-04-01] MEDS ORDERED: D5NS 1000ml IV ONE (19:30)
--- NOTE | 2019-04-02 09:36 | Discharge Summary ---
Discharge Summary Discharge Summary _ SUMMARY DATE OF ADMISSION: 03/26/2019 DATE OF EXPIRATION: REASON FOR ADMISSION: 78 years old male , initially presented to [facility] emergency department for abdominal pain. Abdominal pain was located in the right lower quadrant. Patient seen primary care physician last month, who diagnosed him with iron deficiency anemia. Patient was taking iron for the last month. CT scan of the abdomen done in the [facility] revealed cecal mass with probable metastasis to the liver and peritoneum. Patient received two units of fresh frozen plasma at [place]. Patient subsequently was transferred to [facility] for insurance purposes. CONSULTANTS: pulmonary/ critical care Dr. Fuller ID specialist Dr. Reis GI specialist Dr. Greenwood fiscal assistant Dr. Salgado statistics tutor/oncologist Dr. Person surgery Dr. Pérez fiscal assistant Dr. Campo [facility] COURSE: Patient admitted . Laboratory work-up upon transfer revealed significant leukocytosis WBC 24.2, hemoglobin 9.7, hematocrit 28.8. INR 1.7. Chemistry demonstrated evidence of renal failure with BUN 102, creatinine 3.8. Anion gap 17. Phosphorus 7.2 , magnesium 2.7 , calcium 7.9 , stable LFT . Albumin 1.8 . Uric acid 18.5 Multiple consultants seen and evaluated the patient, and clsoely followed. Venous duplex bilateral lower extremity revealed no evidence of acute DVT. DVT prophylaxis provided. Renal ultrasound revealed suspected intraperitoneal bladder rupture at the dome of the urinary bladder , which was markedly distended. Given the history of peritoneal carcinomatosis , this may be due to tumor implantation and subsequent invasion of the bladder wall. Moderate heterogeneous complex ascites. CT of the abdomen and pelvis revealed no evidence of bladder perforation. The bladder was decompressed. Ultrasound imaging of what appeared to be distended ruptured bladder , was actually an area of loculated ascites, probably complex cystic mass associated with the carcinomatosis. Evidence of peritoneal carcinomatosis. Evidence of metastatic neoplasm involving the liver and lung. Suggestion of cecal mass, likely adenocarcinoma. Anasarca. Liquefied stool in the colon. Gallstones versus sludge. Trace bilateral pleural effusion. Patient subsequently undergone ultrasound-guided paracentesis , which yielded 0.7 L of ascitic fluid. Follow-up ultrasound demonstrated complete resolution of ascites. Echocardiogram revealed preserved ejection fraction of 65%. No evidence of left ventricular hypertrophy. No evidence of wall motion abnormality to the extent visualized. Right ventricular systolic pressure of 16. Patient pancultured and started on antibiotic as per ID specialist recommendation. Blood cultures were negative ; urine culture were negative. Sputum culture revealed Brittney. Repeated blood cultures were negative as well. Leukocytosis was trending up. Per ID specialist leukocytosis persisted probably due to contribution of metastatic cancer. Patient also likely had pneumonia. Patient had aspiration event during colonoscopy ( see below) . Chest x-ray on 03/28 revealed left mid and lower lung consolidation, likely pneumonia. Chest x-ray repeated on 03/30 showed diffuse patchy opacities throughout the left lung , similar to prior exam. Aspiration precaution maintained. Per ID specialist patient also likely had UTI . Urine culture was negative , but patient complained of dysuria, and urinalysis revealed pyuria and +1 leukocyte esterase. Per GI specialist, patient presented with a cecal mass with metastasis to liver and likely peritoneal carcinomatosis with malignant ascites. Patient prognosis was extremely poor. CEA 334. Patient undergone colonoscopy with biopsy for diagnostic purpose on , which revealed large mass in the cecum , corresponding to the finding on the CT scan. Cecal mass was biopsied multiply times. Biopsy result revealed intramucosal adenocarcinoma. During the procedure patient was noted to have emesis with green gastric material. Due to resulting respiratory compromise , patient was placed on the back and intubated by anesthesia services. NG tube was subsequently placed for gastric decompression , and patient subsequently was transferred to ICU. Oncology consult was requested. Per oncologist , patient had metastatic colon adenocarcinoma with severely elevated tumor marker CEA over 200 with metastasis to local lymph nodes, liver , peritoneum, lungs. In this setting patient was newly diagnosed and naive to treatment, however he had extremely poor prognosis. Oncologist agreed with conservative care and recommended to minimize invasive procedures. Hemoglobin and hematocrit were closely monitored with goal to keep hemoglobin above 7. Stool for occult blood was positive. Anemia work-up was consistent with anemia of chronic disease. No evidence of hemolysis was noted. Patient also noted to have thrombocytopenia, likely due to sepsis. Platelet count were monitored, trending down Vitamin K was given x1 . On 03/30 noted endotracheal tube Leak. Patient undergone exchange of endotracheal tube by ED physician. Chest x-ray post exchange revealed stable positioning of endotracheal tube. Diffuse patchy opacity throughout the left lung and new patchy opacity in the right lung was demonstrated. Surgeon followed. Per surgeon, patient had poor prognosis. No acute surgical intervention was recommended at this time , given patient medical condition and prognosis. Urologist seen the patient for urinary retention, history of BPH and possible neurogenic bladder. Horn catheter was placed on 03/27. Urologist recommended hand irrigation as needed. Hourly Caregiver closely followed. Renal parameters and electrolytes were closely monitored. Electrolytes corrected as needed. Nephrotoxic's were avoided. Allopurinol was added for elevated uric acid. Patient condition and poor prognosis were discussed with patient's niece . Family agreed to comfort care. Patient subsequently was made DNR/DNI on 03/31/19. A Antibiotics were stopped. Comfort care provided. Patient undergone terminal extubation on 04/01/19 at 14:11. Patient was placed on supplemental oxygen. Patient started on morphine drip. Family was at the bedside. Patient subsequently pronounced at 15: 45 04/01/19. Cause of : cardiopulmonary arrest FINAL DIAGNOSES: Metastatic colon adenocarcinoma , metastasized to liver Likely peritoneal carcinomatosis Sepsis Aspiration pneumonia Probably UTI Acute respiratory failure, status post intubation Status post terminal extubation Ascites, presumed malignant, status post paracentesis Acute renal failure /acute tubular necrosis Coagulopathy Status post colonoscopy with biopsy Severe protein calorie malnutrition Anemia of chronic disease Urinary retention Possible urethral stricture or false passage BPH history Possible neurogenic bladder Comfort care I have been assigned to dictate discharge summary for this account. I was not involved in the patient's management. Marie Hannah NP Apr 02, 2019 09:36
--- NOTE | 2019-04-02 11:35 | Cardiology Report ---
APPROVED REPORT EKG Measurement Heart [id number] Sinus tachycardia Low voltage QRS Nonspecific T wave abnormality Abnormal ECG
== END 2019-04-01 19:31 | disposition expired | DRG 870 ==
LOC: 3E 20:00 → ICU 03-28 11:12
PROC: 0DBH8ZX Excision of Cecum, Via Natural or Artificial Opening Endoscopic, Diagnostic (ICD-10-PCS; principal; 2019-03-28 10:32)
PROC: 0W9G3ZZ Drainage of Peritoneal Cavity, Percutaneous Approach (ICD-10-PCS; principal; 2019-03-28 10:32)
PROC: 0BH18EZ Insertion of Endotracheal Airway into Trachea, Via Natural or Artificial Opening Endoscopic (ICD-10-PCS; principal; 2019-03-28 10:32)
PROC: 5A1955Z Respiratory Ventilation, Greater than 96 Consecutive Hours (ICD-10-PCS; principal; 2019-03-28 10:32)
DX: A41.9 Sepsis, unspecified organism (principal); E43 Unspecified severe protein-calorie malnutrition; J69.0 Pneumonitis due to inhalation of food and vomit; N17.0 Acute kidney failure with tubular necrosis; J96.00 Acute respiratory failure, unspecified whether with hypoxia or hypercapnia; C18.9 Malignant neoplasm of colon, unspecified; C78.7 Secondary malignant neoplasm of liver and intrahepatic bile duct; C78.6 Secondary malignant neoplasm of retroperitoneum and peritoneum; N39.0 Urinary tract infection, site not specified; R18.0 Malignant ascites; D68.9 Coagulation defect, unspecified; C18.0 Malignant neoplasm of cecum; Z51.5 Encounter for palliative care; D63.8 Anemia in other chronic diseases classified elsewhere; R33.9 Retention of urine, unspecified; N35.919 Unspecified urethral stricture, male, unspecified site; N31.9 Neuromuscular dysfunction of bladder, unspecified; Z66 Do not resuscitate; N36.5 Urethral false passage; N40.1 Benign prostatic hyperplasia with lower urinary tract symptoms; R33.8 Other retention of urine; D69.6 Thrombocytopenia, unspecified
CPT/HCPCS: 36415; 36600; 71045; 74018; 74176; 76770; 76942; 80053; 81001; 82043; 82140; 82164; 82248; 82270; 82378; 82533; 82550; 82607; 82746; 82803; 83540; 83550; 83605; 83615; 83735; 83880; 83935; 84100; 84300; 84443; 84550; 85007; 85025; 85044; 85060; 85610; 85651; 85730; 86140; 86713; 86803; 86850; 86900; 86901; 87040; 87070; 87081; 87086; 87205; 87340; 89050; 93005; 93306; 93970; 94002; 94003; 94150; 94664; J2370